=== PATIENT | male | born 1950 | race Caucasian/White ===

== ENCOUNTER 2017-04-19 21:18 | Emergency (ER) | payer MEDICARE, SELFPAY | END 2017-04-19 23:21 | disposition home or self-care (01) | PROVIDERS: Emergency Provider Emergency Medicine; Family Provider Emergency Medicine; Visit Provider Emergency Medicine | DX: M79.662 Pain in left lower leg (principal); R79.1 Abnormal coagulation profile; E11.9 Type 2 diabetes mellitus without complications; F17.210 Nicotine dependence, cigarettes, uncomplicated; Z79.02 Long term (current) use of antithrombotics/antiplatelets; Z79.4 Long term (current) use of insulin; Z79.891 Long term (current) use of opiate analgesic | CPT/HCPCS: 80053; 85025; 85378; 85610; 96372; 99282 ==

== ENCOUNTER → 2017-06-19 09:43 | Outpatient (CLI) | payer MEDICARE, SELFPAY ==
--- NOTE | 2017-06-19 09:47 | CT_ITS ---
CT abdomen pelvis w con CLINICAL INDICATION: Abdominal pain ITS.REASON: ABD PAIN ORDERING PHYSICIAN: Akshat Shaw MD PATIENT AGE: 67 years COMPARISON: None TECHNIQUE: Axial images obtained with sagittal and coronal reformats. PROCEDURE: Oral Contrast: None IV Contrast: 75 mL of Isovue-370. FINDINGS: No acute finding in the lung bases. There is been a prior cholecystectomy. No definite ductal dilatation. There is a small area of decreased density in the inferior tip of the right hepatic lobe at 6 mm too small to characterize and may be due to small cyst. The liver is otherwise unremarkable. Spleen and adrenal glands are unremarkable. There is pancreatic atrophy. No obvious pancreatic mass. No renal calculi or hydronephrosis. There is a mild amount retained colonic feces. No intestinal obstruction or free air. No evidence of appendicitis or diverticulitis. No pelvic mass or abnormal fluid collection. There is mild thickening of the urinary bladder which is nonspecific. There is degenerative disc disease at L4-L5 and L5-S1. There is a right common iliac artery stent extending into the right external iliac artery. It appears that the internal iliac artery on the right is occluded with mild dilatation measuring up to 12 mm. IMPRESSION: 1. No acute abdominal or pelvic findings. 2. Probable right hepatic cyst. 3. There is severe pancreatic atrophy
[2017-06-19 10:26] LABS: Blood Urea Nitrogen 8 mg/dL (7-18); Creatinine,Serum 1.09 mg/dL (0.70-1.30); Estimated Glomerular Filt Rate 67 ml/min (>60); GFR (African American) 82 ML/MIN (>60)
== END ==
PROVIDERS: PCP Emergency Medicine; Visit Provider Emergency Medicine
DX: R10.9 Unspecified abdominal pain (principal)
CPT/HCPCS: 36415; 74177; 82565; 84520; Q9967

== ENCOUNTER 2017-07-03 06:16 | Inpatient (IN) | payer MEDICARE, SELFPAY ==
[2017-07-03] VITALS (22 sets, daily range): BP systolic 104–156; BP diastolic 51–70; PULSE 67–97; RESP 18–30; TEMP 36.5–37.3; O2SAT 92–100; BMI 23.6; BMI 21.1
--- NOTE | 2017-07-03 06:30 | XR_ITS ---
XR chest portable HISTORY: ITS.REASON: tachypnea ORDERING PHYSICIAN: Akshat Shaw MD PATIENT AGE: 67 years COMPARISON: None available FINDINGS: The cardiomediastinal silhouette and pulmonary vascularity are within normal limits. There is a coronary artery stent present The lungs are clear without infiltrates, suspicious nodules, or pleural effusions. No acute bony abnormalities. IMPRESSION: Coronary artery stent present. No acute finding
[2017-07-03 06:44] LABS: Basophils # 0.1 K/mm3 (0-0.2); Basophils % 0.2 % (0.1-2.0); Eosinophils % 0.1 % (0.1-12.0); Hematocrit 45.9 % (42.0-52.0); Lymphocytes # 2.3 K/mm3 (0.7-4.5); Lymphocytes % 6.6 K/mm3 (10-50); Mean Corpuscular HGB Conc 28.2 g/dL (31.8-35.4); Mean Corpuscular Hemoglobin 30.8 pg (27.0-31.2); Mean Corpuscular Volume 109.2 fl (80-94); Mean Platelet Volume 9.5 fl (7.4-10.4); Monocytes # 1.5 K/mm3 (0.1-1.0); Monocytes % 4.3 % (1.7-9.3); Neutrophils # 31.3 K/mm3 (1.8-7.8); Neutrophils % 88.7 % (37.0-80.0); Platelet Count 474 K/mm3 (142-424); Red Cell Distribution Width 12.6 % (11.5-17.5); White Blood Count 35.3 K/mm3 (4.8-10.8)
[2017-07-03 06:53] LABS: Alanine Aminotransferase 12 U/L (12-78); Albumin Level 3.4 gm/dL (3.4-5.0); Albumin/Globulin Ratio 0.9 (1.1-1.8); Alkaline Phosphatase 195 U/L (46-116); Anion Gap 38.1 mEq/L (5-15); Aspartate Amino Transferase 11 U/L (15-37); Bilirubin,Total 0.8 mg/dL (0.2-1.0); Blood Urea Nitrogen 32 mg/dL (7-18); Chloride 83 mmol/L (98-107); Creatinine Clearance Estimated 29 mL/min (0-300); Creatinine,Serum 2.58 mg/dL (0.70-1.30); Estimated Glomerular Filt Rate 25 ml/min (>60); GFR (African American) 30 ML/MIN (>60); Potassium 5.1 mmoL/L (3.5-5.1); Sodium 123 mmol/L (136-145); Total Protein,Serum 7.4 gm/dL (6.4-8.2)
[2017-07-03 06:56] LABS: ABG Base Excess -23.7 mmol/L (-2.4-2.3); ABG HCO3 4.1 mmhg (22.0-26.0); ABG Oxygen Saturation 98 % (90-100); ABG PH 7.21 mmol/L (7.35-7.45); ABG PO2 129.3 mmhg (80-100); ABG TCO2 4.5 mmhg (23-27); Allen's Test ACCEPTABLE; Oxygen ROOM AIR %; Source R RADIAL
[2017-07-03 06:58] LABS: ABG PCO2 10.5 mmhg (35.0-45.0)
--- NOTE | 2017-07-03 06:58 | PC.NURSE ---
CRITICAL LAB VALUES/ABGS RECEIVED AND DR SMART NOTIFIED
[2017-07-03 07:04] LABS: MANUAL DIFFERENTIAL MANUAL DIFFERENTIAL (MANUAL DIFF)
[2017-07-03 07:10] LABS: Carbon Dioxide 7 mmol/L (21.0-32.0)
--- NOTE | 2017-07-03 07:11 | PC.NURSE ---
LABCALLED WITH GLUCOSE RESULTS 885. DR SMART NOTIFIED
[2017-07-03 07:12] LABS: Glucose 885 mg/dL (74-106)
[2017-07-03 07:20] LABS: Acetone, Serum (Rapid) Moderate (None Detect)
[2017-07-03 07:38] LABS: Microscopic, Urine URINE MICROSCOPIC (MICROSCOPIC)
[2017-07-03 07:42] LABS: Appearance,Urine SL CLOUDY (Clear); Bilirubin,Urine Negative (Negative); Blood, Urine TRACE-L (Negative); Color,Urine YELLOW (Yellow); Glucose,Urine (UA) 3+ (Negative); Ketones,Urine 2+ (Negative); Leukocyte Esterase,Urine Negative (Negative); Nitrate,Urine Negative (Negative); Protein,Urine Negative (Negative); Urobilinogen,Urine 0.2 EU/dl (0.2)
--- NOTE | 2017-07-03 07:44 | HMH.EDNVD ---
ED Disposition Clinical Impression: DKA (diabetic ketoacidoses) Qualifiers: Diabetes mellitus type: type 1 Diabetes mellitus complication detail: without coma Qualified Code(s): E10.10 - Type 1 diabetes mellitus with ketoacidosis without coma Leukocytosis Qualifiers: Leukocytosis type: unspecified Qualified Code(s): D72.829 - Elevated white blood cell count, unspecified Disposition: Admitted As Inpatient Condition on Discharge: Serious Instructions: DI for Hyperglycemia -- Adult Referrals: Lawrence Crews MD [Staff Physician] - - Critical Care Critical Care Time: Yes Attestation: On 07/03/17, the high probability of a clinically significant, sudden or life threatening deterioration of the following system(s) required my full and direct attention, intervention and personal management. The time I documented below is in addition to time spent performing reported procedures but includes the following listed in this critical care notation. Total Critical Care Time: 60 Vital system(s) involved:: Metabolic Failure My critical care processes included: Assessment & monitoring of V/S, Initial and Re-exams, Medication Orders and management Medical Decision Making - Medical Records Medical records reviewed: Yes: I reviewed the patient's medical records. Vital Signs: 07/03/17 06:17 07/03/17 07:17 Temperature 97.8 F Temperature Source Oral Pulse Rate [Right Radial] 97 H 95 H Respiratory Rate 30 H 24 Blood Pressure [Right Arm] 129/63 104/64 Blood Pressure Mean [Right Arm] 85 77 Blood Pressure Source [Right Arm] Automatic Cuff Automatic Cuff Blood Pressure Position [Right Arm] Sitting Sitting 02 Sat by Pulse Oximetry 98 97 Oxygen Delivery Method Room Air Room Air - Lab Data Lab results reviewed: Yes: I reviewed the patient's lab results. Lab Results 07/03/17 06:15: WBC 35.3 H*, RBC 4.20 L, Hgb 13.0 L, Hct 45.9, MCV 109.2 H, MCH 30.8, MCHC 28.2 L, RDW 12.6, Plt Count 474 H, MPV 9.5, Neut % (Auto) 88.7 H, Lymph % (Auto) 6.6 L, [place] % (Auto) 4.3, Eos % (Auto) 0.1, Baso % (Auto) 0.2, Neut # (Auto) 31.3 H, Lymph # (Auto) 2.3, [place] # (Auto) 1.5 H, Eos # (Auto) 0.0, Baso # (Auto) 0.1 07/03/17 06:15: Sodium 123 L, Potassium 5.1, Chloride 83 L, Carbon Dioxide 7 L*, Anion Gap 38.1 H, BUN 32 H, Creatinine 2.58 H, Estimated Creat Clear 29, Estimated GFR 25 L, Est GFR ( Amer) 30 L, Glucose 885 H*, Calcium 9.0, Total Bilirubin 0.8, AST 11 L, ALT 12, Alkaline Phosphatase 195 H, Total Protein 7.4, Albumin 3.4, Globulin 4.0 H, Albumin/Globulin Ratio 0.9 L, Acetone Level Moderate 07/03/17 06:52: Specimen Source R radial, O2 % Room air, ABG pH 7.21 L*, ABG pCO2 10.5 L, ABG pO2 129.3 H, ABG HCO3 4.1 L, ABG Total CO2 4.5 L, ABG O2 Saturation 98, ABG Base Excess -23.7 L, Sumanth Test Acceptable Result diagrams: 07/03/17 06:15 07/03/17 06:15 Orders (Tests/Meds): ED MEDICATIONS Generic Name Dose Route Start Last Admin Trade Name Freq PRN Reason Stop Dose Admin Sodium Chloride 1,000 mls @ 999 mls/hr 07/03/17 07:30 07/03/17 07:24 Sod Chlor 0.9% 1000ml Bag IV 07/03/17 08:30 999 mls/hr .Q1H1M OG Administration Discontinued Medications Generic Name Dose Route Start Last Admin Trade Name Freq PRN Reason Stop Dose Admin Sodium Chloride 1,000 mls @ 999 mls/hr 07/03/17 06:30 07/03/17 06:34 Sod Chlor 0.9% 1000ml Bag IV 07/03/17 07:30 999 mls/hr .Q1H1M OG Administration Sodium Chloride 500 mls @ 999 mls/hr 07/03/17 07:15 Sod Chlor 0.9% 1000ml Bag IV 07/03/17 07:45 .Q31M OG Insulin Human Regular 10 unit 07/03/17 07:14 07/03/17 07:16 Humulin R Insulin 100 Units/Ml 10ml Vial IVP 07/03/17 07:15 10 unit ONCE ONE Administration ORDERS Category Date Time Status XR chest portable Stat Exams 07/03/17 06:30 Taken Complete Blood Count Auto Diff Stat Lab 07/03/17 06:15 Results POC Glucose,Bedside Routine Lab 07/03/17 06:20 Received Urinalysis and Microscopic Stat Lab
--- NOTE | 2017-07-03 07:49 | PC.NURSE ---
call placed for admission. acute status, dka. awaiting bed assignment. house notified.
[2017-07-03 07:55] LABS: Lymphocytes % 2 % (10-50); Monocytes % 3 % (2-9); Neutrophils % 89 % (42-76); Total Cells Counted 100
[2017-07-03 07:56] LABS: Burr Cells 2+
[2017-07-03 07:57] LABS: Macrocytosis 2+
--- NOTE | 2017-07-03 07:58 | ED_ITS ---
ED Disposition Clinical Impression: DKA (diabetic ketoacidoses) Qualifiers: Diabetes mellitus type: type 1 Diabetes mellitus complication detail: without coma Qualified Code(s): E10.10 - Type 1 diabetes mellitus with ketoacidosis without coma Leukocytosis Qualifiers: Leukocytosis type: unspecified Qualified Code(s): D72.829 - Elevated white blood cell count, unspecified Disposition: Admitted As Inpatient Condition on Discharge: Serious Instructions: DI for Hyperglycemia -- Adult Referrals: Lawrence Crews MD [Staff Physician] - - Critical Care Critical Care Time: Yes Attestation: On 07/03/17, the high probability of a clinically significant, sudden or life threatening deterioration of the following system(s) required my full and direct attention, intervention and personal management. The time I documented below is in addition to time spent performing reported procedures but includes the following listed in this critical care notation. Total Critical Care Time: 60 Vital system(s) involved:: Metabolic Failure My critical care processes included: Assessment & monitoring of V/S, Initial and Re-exams, Medication Orders and management Medical Decision Making - Medical Records Medical records reviewed: Yes: I reviewed the patient's medical records. Vital Signs: 07/03/17 06:17 07/03/17 07:17 Temperature 97.8 F Temperature Source Oral Pulse Rate [Right Radial] 97 H 95 H Respiratory Rate 30 H 24 Blood Pressure [Right Arm] 129/63 104/64 Blood Pressure Mean [Right Arm] 85 77 Blood Pressure Source [Right Arm] Automatic Cuff Automatic Cuff Blood Pressure Position [Right Arm] Sitting Sitting 02 Sat by Pulse Oximetry 98 97 Oxygen Delivery Method Room Air Room Air - Lab Data Lab results reviewed: Yes: I reviewed the patient's lab results. Lab Results 07/03/17 06:15: WBC 35.3 H*, RBC 4.20 L, Hgb 13.0 L, Hct 45.9, MCV 109.2 H, MCH 30.8, MCHC 28.2 L, RDW 12.6, Plt Count 474 H, MPV 9.5, Neut % (Auto) 88.7 H, Lymph % (Auto) 6.6 L, [place] % (Auto) 4.3, Eos % (Auto) 0.1, Baso % (Auto) 0.2, Neut # (Auto) 31.3 H, Lymph # (Auto) 2.3, [place] # (Auto) 1.5 H, Eos # (Auto) 0.0 , Baso # (Auto) 0.1 07/03/17 06:15: Sodium 123 L, Potassium 5.1, Chloride 83 L, Carbon Dioxide 7 L* , Anion Gap 38.1 H, BUN 32 H, Creatinine 2.58 H, Estimated Creat Clear 29, Estimated GFR 25 L, Est GFR ( Amer) 30 L, Glucose 885 H*, Calcium 9.0, Total Bilirubin 0.8, AST 11 L, ALT 12, Alkaline Phosphatase 195 H, Total Protein 7.4, Albumin 3.4, Globulin 4.0 H, Albumin/Globulin Ratio 0.9 L, Acetone Level Moderate 07/03/17 06:52: Specimen Source R radial, O2 % Room air, ABG pH 7.21 L*, ABG pCO2 10.5 L, ABG pO2 129.3 H, ABG HCO3 4.1 L, ABG Total CO2 4.5 L, ABG O2 Saturation 98, ABG Base Excess -23.7 L, Sumanth Test Acceptable Result diagrams: 07/03/17 06:15 07/03/17 06:15 Orders (Tests/Meds): ED MEDICATIONS Generic Name Dose Route Start Last Admin Trade Name Freq PRN Reason Stop Dose Admin Sodium Chloride 1,000 mls @ 999 mls/hr 07/03/17 07:30 07/03/17 07:24 Sod Chlor 0.9% 1000ml Bag IV 07/03/17 08:30 999 mls/hr .Q1H1M OG Administration Discontinued Medications Generic Name Dose Route Start Last Admin Trade Name Freq PRN Reason Stop Dose Admin Sodium Chloride 1,000 mls @ 999 mls/hr 07/03/17 06:30 07/03/17 06:34 Sod Chlor 0.9% 1000ml Bag IV 07/03/17 07:30 999 mls/hr
[2017-07-03 08:00] LABS: Bacteria,Urine 2+ /lpf; Squamous Epithelial Cell,Urine Occasional #/hpf (0-5)
--- NOTE | 2017-07-03 08:00 | PC.NURSE ---
Spoke with fish housekeeper at this time who states pt will be going to room 216, SD. Stated this room is currently occupied, but pt is being discharged. Stated pt will need to be held in ER until at least 0900 per second floor worker transfer bay. Admission information given to registration staff.
[2017-07-03 08:02] LABS: Platelet Estimate Moderate Increase
[2017-07-03 08:07] LABS: Creatine Kinase 137 U/L (39-308); Creatine Kinase MB 2.8 mg/ml (0.0-3.6); Troponin I 0.02 ng/ml (0.00-0.06)
--- NOTE | 2017-07-03 08:45 | PC.NURSE ---
fsbs rechecked and continues to read hi . lab notified and running a second drawn glucose.
[2017-07-03 09:00] LABS: Glucose,Random 898 mg/dL (70-110)
--- NOTE | 2017-07-03 09:00 | PC.NURSE ---
Critical glucose 898, notified ER MD as pt is boarding in ER. Pt had a bs glucose performed aircraft captain this result from lab with a result as HI.
--- NOTE | 2017-07-03 09:30 | PC.NURSE ---
contacted second floor to check on status of bed, spoke with ocean freight forwarder who stated room is currently being cleaned, stated will notify when room is ready for pt.
--- NOTE | 2017-07-03 09:59 | PC.NURSE ---
Second floor chief passenger ship steward/stewardess called back at this time stating room is clean drying and that she has notified receiving nurse to call to get report on pt. Notified registration staff that pt can now be moved into room for admission.
--- NOTE | 2017-07-03 10:13 | PC.NURSE ---
report called to MarianelaRN on second floor at this time, stated staff is finished making up the room and will come down to get pt when they are finished.
--- NOTE | 2017-07-03 11:33 | PC.NURSE ---
MS ALBERTO HELD DUE TO PT LOC AT THIS TIME
[2017-07-03 11:37] LABS: Glucose,Random 662 mg/dL (70-110)
[2017-07-03 12:35] LABS: Glucose,Random 607 mg/dL (70-110)
[2017-07-03 13:45] LABS: Glucose,Random 533 mg/dL (70-110)
[2017-07-03 16:21] LABS: Blood Urea Nitrogen 28 mg/dL (7-18); Carbon Dioxide 17 mmol/L (21.0-32.0); Chloride 102 mmol/L (98-107); Creatinine Clearance Estimated 40 mL/min (0-300); Estimated Glomerular Filt Rate 40 ml/min (>60); GFR (African American) 49 ML/MIN (>60); Sodium 136 mmol/L (136-145)
[2017-07-03 16:31] LABS: Glucose 444 mg/dL (74-106)
[2017-07-03 16:46] LABS: Acetone, Serum (Rapid) Small (None Detect)
[2017-07-03 22:58] LABS: Acetone, Serum (Rapid) None Detected (None Detect)
[2017-07-04] VITALS (16 sets, daily range): BP systolic 110–154; BP diastolic 55–78; PULSE 48–82; RESP 18–24; TEMP 36.6–37.1; O2SAT 95–99
[2017-07-04 00:43] LABS: POC Glucose,Bedside 97 mg/dL (70-110)
--- NOTE | 2017-07-04 03:15 | PC.NURSE ---
PT A&O X3. SHE IS RESTING WELL AT THIS TIME. SHE STATES THAT SHE FEELS BETTER. HER PAIN HAS DECREASED SINCE BEGINNING OF SHIFT. PAIN MEDICATION WAS ADMINISTERED. PT STATES THAT PAIN LEVEL IS MAYBE A 4 WHEN SHE MOVES. SHE IS STARTING TO TURN HERSELF IN BED WITH SOME ASSISTANCE. SHE IS INCONTINENT OF HER URINE. ABDOMINAL AREA HAS FIVE DRESSINGS INTACT WITH SMALL DRAINAGE NOTED AT BEGINNING OF SHIFT. DRAINAGE WAS MARKED AND HAS NOT CHANGED. B/P HAS BEEN ELEVATED THIS SHIFT. MD WAS NOTIFIED. LISINOPRIL 20 MG ONE TIME DOSE AND METOPROLOL SUCCINATE 50 MG WAS ORDERED AND ADMINISTERED. PT HAS REMAINED NSR ON TELEMETRY. NO OTHER COCNERNS NOTED AT THIS TIME. WILL CONTINUE TO MONITOR.
--- NOTE | 2017-07-04 03:29 | PC.NURSE ---
PT FSBS WAS CHECKED @ 2100 RESULTING OF 133. INSULIN GTT WAS DECREASED TO 1 UNIT/HR AND MD WAS NOTIFIED OF PT. STATUS FOR CLARIFICATION OF ADDITIONAL CARE. PT WAS PLACED ON D5 NS @ 250 ML/HR. MD AWARE. SERUM ACETONE WAS OBTAINED RESULTING WITH NONE DETECTED. INSULIN GTT WAS D/C. PT IS CURRENTLY RESTING COMFORTABLY IN BED. HE HAS AMBULATED TO BATHROOM X3. NS IS INFUSING @ 250 ML/HR AT THIS TIME. PT HAS BEEN PLACED ON HIGH INTENSITY SLIDING SCALE PER MD. V/S ARE STABLE. PT HAS REMAINED NSR ON TELEMETRY. NO OTHER CONCERNS AT THIS TIME. WILL CONTINUE TO MONITOR.
[2017-07-04 06:15] LABS: Basophils % 0.1 % (0.1-2.0); Eosinophils # 0.3 K/mm3 (0.0-0.4); Hematocrit 36.3 % (42.0-52.0); Hemoglobin 11.9 g/dL (14.1-18.0); Lymphocytes # 1.2 K/mm3 (0.7-4.5); Lymphocytes % 4.2 K/mm3 (10-50); Mean Corpuscular HGB Conc 32.6 g/dL (31.8-35.4); Mean Corpuscular Hemoglobin 31.2 pg (27.0-31.2); Mean Corpuscular Volume 95.6 fl (80-94); Mean Platelet Volume 9.7 fl (7.4-10.4); Monocytes % 3.7 % (1.7-9.3); Neutrophils # 25.2 K/mm3 (1.8-7.8); Neutrophils % 90.9 % (37.0-80.0); Red Cell Distribution Width 13.3 % (11.5-17.5)
[2017-07-04 06:24] LABS: Blood Urea Nitrogen 27 mg/dL (7-18); Carbon Dioxide 14 mmol/L (21.0-32.0); Chloride 104 mmol/L (98-107); Creatinine Clearance Estimated 55 mL/min (0-300); Creatinine,Serum 1.32 mg/dL (0.70-1.30); Estimated Glomerular Filt Rate 54 ml/min (>60); GFR (African American) 65 ML/MIN (>60); Glucose 388 mg/dL (74-106); Magnesium 1.8 mg/dL (1.4-2.2); Phosphorous 2.6 mg/dL (2.4-4.9); Sodium 137 mmol/L (136-145)
[2017-07-04 06:25] LABS: White Blood Count 27.4 K/mm3 (4.8-10.8)
[2017-07-04 06:26] LABS: MANUAL DIFFERENTIAL MANUAL DIFFERENTIAL (MANUAL DIFF); Platelet Count 160 K/mm3 (142-424)
--- NOTE | 2017-07-04 07:29 | PC.NURSE ---
REPORT HANDOFF TO JOLIE MEDLEY
--- NOTE | 2017-07-04 07:55 | P.CONPHA_ITS ---
[facility] Pharmacy VTE Monitoring - Patient Demographics Admission date: 07/03/17 Report Date: 07/04/17 Time: 07:55 Allergies/Adverse Reactions: Patient Allergies adhesive Allergy (Mild, Verified 07/03/17 18:16) Rash nicotine [From Nicoderm CQ] Allergy (Mild, Verified 07/02/17 08:09) Rash Height: 1.78 m Weight: 71.724 kg Patient Problems: Current Active Problems DKA (diabetic ketoacidoses) (Acute) Leukocytosis (Acute) - VTE Risk Labs: VTE Related Lab Results Hgb 11.9 g/dL (14.1-18.0) L 07/04/17 05:30 Hct 36.3 % (42.0-52.0) L 07/04/17 05:30 Plt Count 160 K/mm3 (142-424) D 07/04/17 05:30 BUN 27 mg/dL (7-18) H 07/04/17 05:30 Creatinine 1.32 mg/dL (0.70-1.30) H D 07/04/17 05:30 Estimated Creat Clear 55 mL/min (0-300) 07/04/17 05:30 VTE Risk Level: Very Low Risk - Prophylaxis VTE Prophylaxis Ordered?: Yes Types of VTE Prophylaxis: TEDS Knee High Location of Applied Device: Bilateral Lower Extremeties - VTE Diagnosis Confirmed Treatment or plan recommended: Continue Current Treatment
[2017-07-04 08:39] LABS: Lymphocytes % 1 % (10-50); Monocytes % 3 % (2-9); Neutrophils % 96 % (42-76); Total Cells Counted 100
[2017-07-04 08:40] LABS: Burr Cells 4+
[2017-07-04 08:43] LABS: Platelet Estimate Normal; Schistocytes 2+
--- NOTE | 2017-07-04 09:06 | P.HP_ITS ---
*Admission Date: 07/03/17 *Chief complaint: nausea vomiting *History of present illness: 67 yr old male presented to ed with c/o of nausea,vomiting and diarreha for 3 days. Pt states he had been feeling ill for 2 days and was not able to get out of bed to take insulin. Pt admitted for dka placed on insulin drip and monitor of labs. [facility] History I have reviewed the patient's past medical history: Yes Medical History: Reports:: Coronary Artery Disease, Diabetes Mellitus Type 1, Hyperlipidemia, Hypertension, Peripheral Artery Disease Denies:: Cancer, Diabetes Mellitus Type 2, MRSA Laterality Cases: Bilateral: Tonsillectomy Other Surgeries: Yes: Angioplasty (2 stents), Other Amputation: No Fractures: No - *Social History Educational Level: Attended College Smoking Status: Light tobacco smoker Tobacco Type: cigarettes # Packs/Day (cigarettes): 4 Alcohol Intake: never Occupational Status: retired Housing: house Household Members: other - Psychiatric History Expresses thoughts of harming self/others: None Suicide Plan Description: No Plan *Family Hx:: Cancer, Coronary Artery Disease, Heart Attack Review of Systems - Constitutional Reports body ache(s), Reports fatigue, Reports malaise - Eyes Denies floaters - ENT Denies nasal congestion - *Cardiovascular Denies shortness of breath - *Respiratory Denies chest congestion - *Gastrointestinal Denies bloating, Denies change in bowel habits - *Genitourinary Denies painful urination - *Musculoskeletal Denies neck pain - Integumentary/Breasts Denies rash - *Neurologic Denies seizure-like activity - Psychiatric Denies anxiety - Endocrine Denies excessive sweating - Hematologic/Lymphatic Denies enlarged lymph nodes - Allergic/Immunologic Denies itchy eyes Meds Home Medications Medication Instructions Recorded Confirmed Type aspirin 81 mg tablet,delayed 81 mg PO ONCE 05/20/17 07/03/17 History release atorvastatin 10 mg tablet 10 mg PO ONCE 05/20/17 07/03/17 History clopidogrel 75 mg tablet 75 mg PO DAILY 05/20/17 07/03/17 History gabapentin 300 mg capsule 300 mg PO ONCE cap 05/20/17 07/03/17 History insulin aspart 100 unit/mL 11 unit SUB-Q TID ml 05/20/17 07/03/17 History subcutaneous solution insulin glargine 100 unit/mL (3 40 unit SUB-Q ONCE ml 05/20/17 07/03/17 History mL) subcutaneous pen lisinopril 2.5 mg tablet 2.5 mg PO DAILY 05/20/17 07/03/17 History morphine ER 30 mg tablet,extended 30 mg PO BID tab 05/20/17 07/03/17 History release oxycodone 10 mg tablet 10 mg PO TIDP PRN tab 05/20/17 07/03/17 History oxycodone ER 9 mg capsule sprinkle 18 mg PO Q12H each 06/05/17 07/03/17 History extend release 12 hr(tamper resist) Allergies Allergy/AdvReac Type Severity Reaction Status Date / Time adhesive Allergy Mild Rash Verified 07/03/17 18:16 [facility] Allergy Mild Rash Verified 07/02/17 08:09 Exam Vital signs and Labs for Last 24 Hours: Temp Pulse Resp BP Pulse Ox 98.7 F 65 22 120/69 98 07/04/17 07:00 07/04/17 08:00 07/04/17 08:00 07/04/17 08:00 07/04/17 08:00 Laboratory Results - last 24 hr 07/03/17 11:06: Random Glucose 662 H* D 07/03/17 12:10: Random Glucose 607 H* 07/03/17 13:22: Random Glucose 533 H* 07/03/17 15:55: So
--- NOTE | 2017-07-04 09:06 | HMH.HP ---
*Admission Date: 07/03/17 [facility] History Medical History: Reports:: Coronary Artery Disease, Diabetes Mellitus Type 1, Hyperlipidemia, Hypertension, Peripheral Artery Disease Denies:: Cancer, Diabetes Mellitus Type 2, MRSA Laterality Cases: Bilateral: Tonsillectomy Other Surgeries: Yes: Angioplasty (2 stents), Other Amputation: No Fractures: No - *Social History Educational Level: Attended College Smoking Status: Light tobacco smoker Tobacco Type: cigarettes # Packs/Day (cigarettes): 4 Alcohol Intake: never Occupational Status: retired Housing: house Household Members: other - Psychiatric History Expresses thoughts of harming self/others: None Suicide Plan Description: No Plan *Family Hx:: Cancer, Coronary Artery Disease, Heart Attack Review of Systems - *Neurologic Denies seizure-like activity Meds Home Medications Medication Instructions Recorded Confirmed Type aspirin 81 mg tablet,delayed 81 mg PO ONCE 05/20/17 07/03/17 History release atorvastatin 10 mg tablet 10 mg PO ONCE 05/20/17 07/03/17 History clopidogrel 75 mg tablet 75 mg PO DAILY 05/20/17 07/03/17 History gabapentin 300 mg capsule 300 mg PO ONCE cap 05/20/17 07/03/17 History insulin aspart 100 unit/mL 11 unit SUB-Q TID ml 05/20/17 07/03/17 History subcutaneous solution insulin glargine 100 unit/mL (3 40 unit SUB-Q ONCE ml 05/20/17 07/03/17 History mL) subcutaneous pen lisinopril 2.5 mg tablet 2.5 mg PO DAILY 05/20/17 07/03/17 History morphine ER 30 mg tablet,extended 30 mg PO BID tab 05/20/17 07/03/17 History release oxycodone 10 mg tablet 10 mg PO TIDP PRN tab 05/20/17 07/03/17 History oxycodone ER 9 mg capsule sprinkle 18 mg PO Q12H each 06/05/17 07/03/17 History extend release 12 hr(tamper resist) Allergies Allergy/AdvReac Type Severity Reaction Status Date / Time adhesive Allergy Mild Rash Verified 07/03/17 18:16 nicotine [From Nicoderm CQ] Allergy Mild Rash Verified 07/02/17 08:09 Exam Vital signs and Labs for Last 24 Hours: Temp Pulse Resp BP Pulse Ox 98.7 F 65 22 120/69 98 07/04/17 07:00 07/04/17 08:00 07/04/17 08:00 07/04/17 08:00 07/04/17 08:00 Laboratory Results - last 24 hr 07/03/17 11:06: Random Glucose 662 H* D 07/03/17 12:10: Random Glucose 607 H* 07/03/17 13:22: Random Glucose 533 H* 07/03/17 15:55: Sodium 136, Potassium 4.0 D, Chloride 102 D, Carbon Dioxide 17 L D, Anion Gap 21.0 H, BUN 28 H, Creatinine 1.70 H D, Estimated Creat Clear 40, Estimated GFR 40 L, Est GFR ( Amer) 49 L D, Glucose 444 H* D, Acetone Level Small 07/03/17 22:05: POC Glucose 97 07/03/17 22:30: Acetone Level None detected 07/04/17 05:30: WBC 27.4 H*, RBC 3.80 L, Hgb 11.9 L, Hct 36.3 L, MCV 95.6 H, MCH 31.2, MCHC 32.6, RDW 13.3, Plt Count 160 D, MPV 9.7, Neut % (Auto) 90.9 H, Lymph % (Auto) 4.2 L, [place] % (Auto) 3.7, Eos % (Auto) 1.0, Baso % (Auto) 0.1, Neut # (Auto) 25.2 H, Lymph # (Auto) 1.2, [place] # (Auto) 1.0, Eos # (Auto) 0.3, Baso # (Auto) 0.0, Total Counted 100, Neutrophils % (Manual) 96 H, Lymphocytes % (Manual) 1 L, Monocytes % (Manual) 3, Platelet Estimate Normal, [place] Cells 4+, Schistocytes 2+ 07/04/17 05:30: Sodium 137, Potassium 4.0, Chloride 104, Carbon Dioxide 14 L, Anion Gap 23.0 H, BUN 27 H, Creatinine 1.32 H D, Estimated Creat Clear 55, Estimated GFR 54 L, Est GFR ( Amer) 65 D, Glucose 388 H, Phosphorus 2.6, Magnesium 1.8 I & O for Last 24 hours: Intake & Output 07/01/17 07/02/17 07/03/17 07/04/17 11:59 11:59 11:59 11:59 Intake Total 1999 3325 / 3325 Output Total 1300 / 1300 Balance 1999 Weight 147 lb 6 oz 158 lb 2 oz H&P: Result - Labs Labs: Short CBC 07/04/17 Range/Units 05:30 WBC 27.4 H* (4.8-10.8) K/mm3 Hgb 11.9 L (14.1-18.0) g/dL Hct 36.3 L (42.0-52.0) % Plt Count 160 D (142-424) K/mm3 BMP 07/03/17 07/04/17 15:55 05:30 Sodium 136 137 Potassium 4.0 D 4.0 Chloride 102 D 104 Carbon Di
[2017-07-04 09:13] LABS: Acetone, Serum (Rapid) Small (None Detect)
--- NOTE | 2017-07-04 09:39 | PC.NURSE ---
STARTING INSULIN DRIP BACK R/T POSITIVE ACETONE. INSTRUCTED NOT TO TITRATE DRIP UNLESS INSTRUCTED PER PHYSICIAN. STATED AT 2 UNITS PER HOUR. INSTRUCTED TO CALL MD IF GLUCOSE REACHES 500 FOR FURTHER INSTRUCTION PER ANANDA ROLON AND DR. SMART.
[2017-07-04 13:26] LABS: Acetone, Serum (Rapid) None Detected (None Detect)
[2017-07-04 14:40] LABS: POC Glucose,Bedside 159 mg/dL (70-110)
[2017-07-04 15:12] LABS: POC Glucose,Bedside 420 mg/dL (70-110)
[2017-07-04 15:12] LABS: POC Glucose,Bedside 431 mg/dL (70-110)
[2017-07-04 15:12] LABS: POC Glucose,Bedside 223 mg/dL (70-110)
[2017-07-04 15:12] LABS: POC Glucose,Bedside 359 mg/dL (70-110)
[2017-07-04 15:12] LABS: POC Glucose,Bedside 512 mg/dL (70-110)
[2017-07-04 15:13] LABS: POC Glucose,Bedside 556 mg/dL (70-110)
[2017-07-04 15:13] LABS: POC Glucose,Bedside 133 mg/dL (70-110)
[2017-07-04 15:13] LABS: POC Glucose,Bedside > 600 mg/dL (70-110)
[2017-07-04 15:13] LABS: POC Glucose,Bedside > 600 mg/dL (70-110)
[2017-07-04 15:13] LABS: POC Glucose,Bedside > 600 mg/dL (70-110)
[2017-07-04 15:14] LABS: POC Glucose,Bedside 197 mg/dL (70-110)
[2017-07-04 15:14] LABS: POC Glucose,Bedside 264 mg/dL (70-110)
[2017-07-04 15:15] LABS: POC Glucose,Bedside 188 mg/dL (70-110)
[2017-07-04 15:15] LABS: POC Glucose,Bedside 326 mg/dL (70-110)
[2017-07-04 15:15] LABS: POC Glucose,Bedside 353 mg/dL (70-110)
[2017-07-04 16:10] LABS: POC Glucose,Bedside 111 mg/dL (70-110)
[2017-07-04 18:02] LABS: POC Glucose,Bedside 123 mg/dL (70-110)
[2017-07-04 18:41] LABS: Acetone, Serum (Rapid) None Detected (None Detect)
[2017-07-04 20:58] LABS: POC Glucose,Bedside 224 mg/dL (70-110)
[2017-07-05] VITALS (8 sets, daily range): BP systolic 122–154; BP diastolic 59–78; PULSE 52–70; RESP 16–18; TEMP 36.5–37.1; O2SAT 97–99; BMI 24.2
--- NOTE | 2017-07-05 04:05 | PC.NURSE ---
PT HAS BEEN DROWSY T/O SHIFT. HE HAS NEEDED ASSISTANCE WITH AMBULATING TO THE BATHROOM AND PUTTING ON HIS SHOES. REPORTED PAIN IN HIS LOWER BACK. RECEIVED PRN MEDICATION FOR NAUSEA. NO VOMITING THIS SHIFT.
--- NOTE | 2017-07-05 04:36 | PC.NURSE ---
RECEIVED REPORT FROM ISSA WHITAKER RN AT 0420. PT ALERT AND ORIENTED. ASSISTED PT TO BATHROOM. STANDBY ASSIST AND BACK TO BED. RESPIRATIONS EVEN AND UNLABORED. NSR ON TELEMETRY.
[2017-07-05 06:32] LABS: POC Glucose,Bedside 304 mg/dL (70-110)
[2017-07-05 08:05] LABS: Peripheral Smear Review Scanned Result
[2017-07-05 08:35] LABS: Basophils % 0.1 % (0.1-2.0); Eosinophils # 0.2 K/mm3 (0.0-0.4); Eosinophils % 1.1 % (0.1-12.0); Hematocrit 37.5 % (42.0-52.0); Lymphocytes # 1.4 K/mm3 (0.7-4.5); Mean Corpuscular HGB Conc 31.9 g/dL (31.8-35.4); Mean Corpuscular Hemoglobin 30.6 pg (27.0-31.2); Mean Corpuscular Volume 95.9 fl (80-94); Mean Platelet Volume 8.6 fl (7.4-10.4); Monocytes # 0.6 K/mm3 (0.1-1.0); Monocytes % 2.8 % (1.7-9.3); Platelet Count 326 K/mm3 (142-424); Red Blood Count 3.91 M/mm3 (4.60-6.20); Red Cell Distribution Width 13.4 % (11.5-17.5); White Blood Count 20.3 K/mm3 (4.8-10.8)
[2017-07-05 08:37] LABS: MANUAL DIFFERENTIAL MANUAL DIFFERENTIAL (MANUAL DIFF)
[2017-07-05 08:38] LABS: Acetone, Serum (Rapid) Small (None Detect)
[2017-07-05 08:46] LABS: Alanine Aminotransferase 24 U/L (12-78); Albumin Level 2.6 gm/dL (3.4-5.0); Albumin/Globulin Ratio 0.8 (1.1-1.8); Alkaline Phosphatase 123 U/L (46-116); Anion Gap 17.5 mEq/L (5-15); Aspartate Amino Transferase 29 U/L (15-37); Bilirubin,Total 0.8 mg/dL (0.2-1.0); Blood Urea Nitrogen 17 mg/dL (7-18); Carbon Dioxide 18 mmol/L (21.0-32.0); Chloride 105 mmol/L (98-107); Creatinine Clearance Estimated 62 mL/min (0-300); Creatinine,Serum 1.26 mg/dL (0.70-1.30); Estimated Glomerular Filt Rate 57 ml/min (>60); GFR (African American) 69 ML/MIN (>60); Globulin 3.2 gm/dl (1.3-3.2); Glucose 251 mg/dL (74-106); Potassium 3.5 mmoL/L (3.5-5.1); Sodium 137 mmol/L (136-145); Total Protein,Serum 5.8 gm/dL (6.4-8.2)
[2017-07-05 08:56] LABS: Calcium 7.8 mg/dL (8.5-10.1)
[2017-07-05 09:09] LABS: Lymphocytes % 5 % (10-50); Monocytes % 4 % (2-9); Neutrophils % 91 % (42-76); Total Cells Counted 100
[2017-07-05 09:10] LABS: Burr Cells 1+
[2017-07-05 09:11] LABS: Platelet Estimate Normal
[2017-07-05 11:04] LABS: POC Glucose,Bedside 177 mg/dL (70-110)
--- NOTE | 2017-07-05 11:30 | PC.NURSE ---
1114: called md office and left message with nurse (ana) that after reviewing labs noticed that acetone level this morning was a small amount. nurse stated she would relay to
--- NOTE | 2017-07-05 12:52 | PC.NURSE ---
nurse called back from dr mulligan office. stated that paulino vega aprn stated to give patient a normal saline bolus and to redraw acetone at 1300.
[2017-07-05 13:25] LABS: Acetone, Serum (Rapid) None Detected (None Detect)
--- NOTE | 2017-07-05 15:08 | SW/DCPLANNER ---
Spoke with patient regarding discharge plans. Patient stated that MD said he would possibly be discharging home this afternoon. Patient also stated that he would need to speak with some friends bc as of right now he does not have a ride home. I have contacted patients friend Rio to ask if he could transport patient home if he was ready for discharge this evening. I spoke with Rio and he stated that he would be home around 5 and would be able to take patient home. I have also wrote down more contacts (Delmis, Jordi, and Jodie) for this patient in case his phone goes . Patient has also contacted [employer] to be able to let patient into his house due to not having his keys. Fire Dept has stated to contact them once he is discharged home. Patient stated that he did not have any other needs at this time.
--- NOTE | 2017-07-05 16:47 | HMH.DCSUM ---
General - General Admission date: 07/03/17 Discharge date: 07/05/17 HPI HPI: 67 yr old male presented to ed with c/o of nausea,vomiting and diarreha for 3 days. Pt states he had been feeling ill for 2 days and was not able to get out of bed to take insulin. Pt admitted for dka placed on insulin drip and monitor of labs. Hospital Course Hospital Course: chest x ray neg, DKA: insulin drip repeated seraum acetone, fluids, pt eatting and drinking ok will dc home on routine meds. follow up in office next week Objective Vital signs: Temp Pulse Resp BP Pulse Ox 97.7 F 52 L 16 132/69 99 07/05/17 16:00 07/05/17 16:00 07/05/17 16:00 07/05/17 16:00 07/05/17 16:00 - *Routine HEENT Exam Head: Present: normocephalic Eye: Present: PERRL ENT: Present: mucous membranes moist - *Routine Neck Exam Present: supple, full ROM - *Routine Respiratory Exam Present: CTA bilaterally - *Routine Abdominal Exam Present: soft, normoactive bowel sounds - *Routine Extremities Exam Present: full ROM - *Routine Skin Exam Present: intact - *Routine Neurological Exam Present: alert, oriented X3, CN II-XII intact - Routine Psychiatric Exam Present: normal affect Results Labs on day of discharge: Labs from last 24 hours 07/05/17 07/05/17 07/05/17 12:00 10:52 08:30 WBC RBC Hgb Hct MCV MCH MCHC RDW Plt Count MPV Neut % (Auto) Lymph % (Auto) [place] % (Auto) Eos % (Auto) Baso % (Auto) Neut # (Auto) Lymph # (Auto) [place] # (Auto) Eos # (Auto) Baso # (Auto) Total Counted Neutrophils % (Manual) Lymphocytes % (Manual) Monocytes % (Manual) Platelet Estimate [place] Cells Sodium 137 Potassium 3.5 Chloride 105 Carbon Dioxide 18 L D Anion Gap 17.5 H BUN 17 D Creatinine 1.26 Estimated Creat Clear 62 Estimated GFR 57 L Est GFR ( Amer) 69 Glucose 251 H POC Glucose 177 Calcium 7.8 L D Total Bilirubin 0.8 AST 29 D ALT 24 D Alkaline Phosphatase 123 H Total Protein 5.8 L Albumin 2.6 L Globulin 3.2 Albumin/Globulin Ratio 0.8 L Acetone Level None detected Small 07/05/17 07/05/17 07/04/17 08:30 06:16 20:20 WBC 20.3 H* D RBC 3.91 L Hgb 12.0 L Hct 37.5 L MCV 95.9 H MCH 30.6 MCHC 31.9 RDW 13.4 Plt Count 326 D MPV 8.6 Neut % (Auto) 89.0 H Lymph % (Auto) 7.0 L [place] % (Auto) 2.8 Eos % (Auto) 1.1 Baso % (Auto) 0.1 Neut # (Auto) 18.0 H Lymph # (Auto) 1.4 [place] # (Auto) 0.6 Eos # (Auto) 0.2 Baso # (Auto) 0.0 Total Counted 100 Neutrophils % (Manual) 91 H Lymphocytes % (Manual) 5 L Monocytes % (Manual) 4 Platelet Estimate Normal [place] Cells 1+ Sodium Potassium Chloride Carbon Dioxide Anion Gap BUN Creatinine Estimated Creat Clear Estimated GFR Est GFR ( Amer) Glucose POC Glucose 304 224 Calcium Total Bilirubin AST ALT Alkaline Phosphatase Total Protein Albumin Globulin Albumin/Globulin Ratio Acetone Level 07/04/17 07/04/17 18:00 17:55 WBC RBC Hgb Hct MCV MCH MCHC RDW Plt Count MPV Neut % (Auto) Lymph % (Auto) [place] % (Auto) Eos % (Auto) Baso % (Auto) Neut # (Auto) Lymph # (Auto) [place] # (Auto) Eos # (Auto) Baso # (Auto) Total Counted Neutrophils % (Manual) Lymphocytes % (Manual) Monocytes % (Manual) Platelet Estimate [place] Cells Sodium Potassium Chloride Carbon Dioxide Anion Gap BUN Creatinine Estimated Creat Clear Estimated GFR Est GFR ( Amer) Glucose POC Glucose 123 Calcium Total Bilirubin AST ALT Alkaline Phosphatase Total Protein Albumin Globulin Albumin/Globulin Ratio Acetone Level None detected DS: Diagnosis - Discharge D
[2017-07-05 16:48] LABS: POC Glucose,Bedside 150 mg/dL (70-110)
--- NOTE | 2017-07-05 16:50 | P.DS_ITS ---
General - General Admission date: 07/03/17 Discharge date: 07/05/17 HPI HPI: 67 yr old male presented to ed with c/o of nausea,vomiting and diarreha for 3 days. Pt states he had been feeling ill for 2 days and was not able to get out of bed to take insulin. Pt admitted for dka placed on insulin drip and monitor of labs. Hospital Course Hospital Course: chest x ray neg, DKA: insulin drip repeated seraum acetone, fluids, pt eatting and drinking ok will dc home on routine meds. follow up in office next week Objective Vital signs: Temp Pulse Resp BP Pulse Ox 97.7 F 52 L 16 132/69 99 07/05/17 16:00 07/05/17 16:00 07/05/17 16:00 07/05/17 16:00 07/05/17 16:00 - *Routine HEENT Exam Head: Present: normocephalic Eye: Present: PERRL ENT: Present: mucous membranes moist - *Routine Neck Exam Present: supple, full ROM - *Routine Respiratory Exam Present: CTA bilaterally - *Routine Abdominal Exam Present: soft, normoactive bowel sounds - *Routine Extremities Exam Present: full ROM - *Routine Skin Exam Present: intact - *Routine Neurological Exam Present: alert, oriented X3, CN II-XII intact - Routine Psychiatric Exam Present: normal affect Results Labs on day of discharge: Labs from last 24 hours 07/05/17 07/05/17 07/05/17 12:00 10:52 08:30 WBC RBC Hgb Hct MCV MCH MCHC RDW Plt Count MPV Neut % (Auto) Lymph % (Auto) [place] % (Auto) Eos % (Auto) Baso % (Auto) Neut # (Auto) Lymph # (Auto) [place] # (Auto) Eos # (Auto) Baso # (Auto) Total Counted Neutrophils % (Manual) Lymphocytes % (Manual) Monocytes % (Manual) Platelet Estimate [place] Cells Sodium 137 Potassium 3.5 Chloride 105 Carbon Dioxide 18 L D Anion Gap 17.5 H BUN 17 D Creatinine 1.26 Estimated Creat Clear 62 Estimated GFR 57 L Est GFR ( Amer) 69 Glucose 251 H POC Glucose 177 Calcium 7.8 L D Total Bilirubin 0.8 AST 29 D ALT 24 D Alkaline Phosphatase 123 H Total Protein 5.8 L Albumin 2.6 L Globulin 3.2 Albumin/Globulin Ratio 0.8 L Acetone Level None detected Small 07/05/17 07/05/17 07/04/17 08:30 06:16 20:20 WBC 20.3 H* D RBC 3.91 L Hgb 12.0 L Hct 37.5 L MCV 95.9 H MCH 30.6 MCHC 31.9 RDW 13.4 Plt Count 326 D MPV 8.6 Neut % (Auto) 89.0 H Lymph % (Auto) 7.0 L [place] % (Auto) 2.8 Eos % (Auto) 1.1 Baso % (Auto) 0.1 Neut # (Auto) 18.0 H Lymph # (Auto) 1.4 [place] # (Auto) 0.6 Eos # (Auto) 0.2 Baso # (Auto) 0.0 Total Counted 100 Neutrophils % (Manual) 91 H Lymphocytes % (Manual) 5 L Monocytes % (Manual) 4 Platelet Estimate Normal [place]amin Cells 1
== END 2017-07-05 18:01 | disposition home or self-care (01) | DRG 639 ==
LOC: ER 07:23 → 2ND 08:07
PROVIDERS: Nurse Practitioner Family; Admitting Provider Emergency Medicine; Emergency Provider Emergency Medicine; PCP Emergency Medicine; Visit Provider Emergency Medicine
DX: E11.10 Type 2 diabetes mellitus with ketoacidosis without coma (principal); I10 Essential (primary) hypertension; E11.40 Type 2 diabetes mellitus with diabetic neuropathy, unspecified; E13.10 Other specified diabetes mellitus with ketoacidosis without coma; I25.10 Atherosclerotic heart disease of native coronary artery without angina pectoris; Z95.5 Presence of coronary angioplasty implant and graft; I73.9 Peripheral vascular disease, unspecified
CPT/HCPCS: 36415; 71045; 80048; 80053; 81001; 82009; 82550; 82553; 82803; 82947; 82962; 83735; 84100; 84484; 85007; 85025; 87086; 93005; 96365; 96366; 96374; 96375; 99284; J2405

== ENCOUNTER → 2018-04-21 13:32 | Outpatient (CLI) | payer MEDICARE, SELFPAY ==
[2018-04-21 14:00] LABS: Basophils % 0.3 % (0.1-2.0); Eosinophils # 0.3 K/mm3 (0.0-0.4); Eosinophils % 1.7 % (0.1-12.0); Hematocrit 44.5 % (42.0-52.0); Lymphocytes # 2.2 K/mm3 (0.7-4.5); Lymphocytes % 14.8 % (10-50); Mean Corpuscular HGB Conc 31.5 g/dL (31.8-35.4); Mean Corpuscular Hemoglobin 29.9 pg (27.0-31.2); Mean Corpuscular Volume 94.7 fl (80-94); Mean Platelet Volume 8.9 fl (7.4-10.4); Monocytes % 6.6 % (1.7-9.3); Neutrophils # 11.5 K/mm3 (1.8-7.8); Neutrophils % 76.6 % (37.0-80.0); Platelet Count 329 K/mm3 (142-424); Red Cell Distribution Width 13.8 % (11.5-17.5); White Blood Count 14.9 K/mm3 (4.8-10.8)
[2018-04-21 14:03] LABS: Alanine Aminotransferase 14 U/L (12-78); Albumin Level 3.5 gm/dL (3.4-5.0); Alkaline Phosphatase 184 U/L (46-116); Anion Gap 14.7 mEq/L (5-15); Aspartate Amino Transferase 10 U/L (15-37); Bilirubin,Total 0.4 mg/dL (0.2-1.0); Blood Urea Nitrogen 8 mg/dL (7-18); Calcium 8.7 mg/dL (8.5-10.1); Carbon Dioxide 26 mmol/L (21.0-32.0); Chloride 97 mmol/L (98-107); Chol/HDL Ratio 2.7 (1-3.5); Cholesterol 173 mg/dL (140-200); Creatinine,Serum 1.07 mg/dL (0.70-1.30); Estimated Glomerular Filt Rate 69 ml/min (>60); Free T4 (Free Thyroxine) 1.06 ng/dl (0.76-1.46); GFR (African American) 83 ML/MIN (>60); Globulin 3.5 gm/dl (1.3-3.2); Glucose 158 mg/dL (74-106); HDL Cholesterol 64 mg/dL (27-67); LDL Cholesterol 88 mg/dL (0-130); Potassium 4.7 mmoL/L (3.5-5.1); Sodium 133 mmol/L (136-145); Thyroid Stimulating Hormone 2.75 uIU/ml (0.358-3.740); Triglycerides 103 mg/dL (30-200); VLDL Cholesterol 21 mg/dL (0-40)
[2018-04-22 10:17] LABS: Creatinine, Urine 175.6 mg/dL (Not Estab.)
[2018-04-22 11:14] LABS: Vitamin D 25 Hydroxy 10.4 ng/mL (30.0-100.0)
== END ==
PROVIDERS: Visit Provider Emergency Medicine
DX: E10.9 Type 1 diabetes mellitus without complications (principal)
CPT/HCPCS: 80053; 80061; 82043; 82570; 82652; 83036; 84439; 84443; 85025

== ENCOUNTER → 2018-10-28 13:40 | Outpatient (CLI) | payer MEDICARE, SELFPAY ==
[2018-10-28 14:09] LABS: Basophils % 0.4 % (0.1-2.0); Eosinophils # 0.3 K/mm3 (0.0-0.4); Eosinophils % 2.7 % (0.1-12.0); Hematocrit 47.4 % (42.0-52.0); Hemoglobin 14.9 g/dL (14.1-18.0); Lymphocytes % 31.8 % (10-50); Mean Corpuscular HGB Conc 31.4 g/dL (31.8-35.4); Mean Corpuscular Hemoglobin 30.2 pg (27.0-31.2); Mean Corpuscular Volume 96.2 fl (80-94); Mean Platelet Volume 9.7 fl (7.4-10.4); Monocytes # 0.6 K/mm3 (0.1-1.0); Monocytes % 6.4 % (1.7-9.3); Neutrophils # 5.5 K/mm3 (1.8-7.8); Neutrophils % 58.8 % (37.0-80.0); Platelet Count 297 K/mm3 (142-424); Red Blood Count 4.93 M/mm3 (4.60-6.20); Red Cell Distribution Width 14.3 % (11.5-17.5); White Blood Count 9.4 K/mm3 (4.8-10.8)
[2018-10-28 14:57] LABS: Alanine Aminotransferase 20 U/L (12-78); Albumin Level 3.6 gm/dL (3.4-5.0); Albumin/Globulin Ratio 1.1 (1.1-1.8); Alkaline Phosphatase 176 U/L (46-116); Anion Gap 15.2 mEq/L (5-15); Aspartate Amino Transferase 17 U/L (15-37); Bilirubin,Total 0.3 mg/dL (0.2-1.0); Blood Urea Nitrogen 9 mg/dL (7-18); Calcium 8.9 mg/dL (8.5-10.1); Carbon Dioxide 28 mmol/L (21.0-32.0); Chloride 98 mmol/L (98-107); Chol/HDL Ratio 3.3 (1-3.5); Cholesterol 199 mg/dL (140-200); Creatinine,Serum 1.17 mg/dL (0.70-1.30); Estimated Glomerular Filt Rate 62 ml/min (>60); Free T4 (Free Thyroxine) 0.99 ng/dl (0.76-1.46); GFR (African American) 75 ML/MIN (>60); Globulin 3.3 gm/dl (1.3-3.2); Glucose 142 mg/dL (74-106); HDL Cholesterol 61 mg/dL (27-67); LDL Cholesterol 120 mg/dL (0-130); Potassium 4.2 mmoL/L (3.5-5.1); Sodium 137 mmol/L (136-145); Thyroid Stimulating Hormone 4.14 uIU/ml (0.358-3.740); Total Protein,Serum 6.9 gm/dL (6.4-8.2); Triglycerides 92 mg/dL (30-200); VLDL Cholesterol 18 mg/dL (0-40)
[2018-10-28 15:10] LABS: Hemoglobin A1C 8.5 % (0.0-7.0)
[2018-10-28 15:11] LABS: Prostate Specific Ag Screen 0.5 ng/mL (0.0-4.0)
[2018-10-29 17:49] LABS: Vitamin D 25 Hydroxy 29.6 ng/mL (30.0-100.0)
== END ==
PROVIDERS: Visit Provider Emergency Medicine
DX: E11.9 Type 2 diabetes mellitus without complications (principal); Z12.5 Encounter for screening for malignant neoplasm of prostate; Z79.4 Long term (current) use of insulin
CPT/HCPCS: 80053; 80061; 82652; 83036; 84439; 84443; 85025; G0103

== ENCOUNTER → 2018-11-11 10:43 | Outpatient (CLI) | payer MEDICARE, SELFPAY ==
[2018-11-11 12:00] VITALS: PULSE 74; PULSE 81
== END ==
PROVIDERS: PCP Nurse Practitioner Family; Visit Provider Nurse Practitioner Family
DX: J32.0 Chronic maxillary sinusitis (principal)
CPT/HCPCS: 94060; 94618; 94640; 94726; 94729

== ENCOUNTER → 2020-03-16 18:35 | Outpatient (CLI) | payer MEDICARE, SELFPAY ==
[2020-03-16 19:40] LABS: Basophils # 0.1 K/mm3 (0-0.2); Basophils % 0.8 % (0.1-2.0); Eosinophils # 0.2 K/mm3 (0.0-0.4); Eosinophils % 1.5 % (0.1-12.0); Lymphocytes # 2.3 K/mm3 (0.7-4.5); Lymphocytes % 23.3 % (10-50); Mean Corpuscular HGB Conc 30.7 g/dL (31.8-35.4); Mean Corpuscular Hemoglobin 30.4 pg (27.0-31.2); Mean Corpuscular Volume 99.1 fl (80-94); Mean Platelet Volume 9.4 fl (7.4-10.4); Monocytes # 0.5 K/mm3 (0.1-1.0); Monocytes % 4.6 % (1.7-9.3); Neutrophils # 6.8 K/mm3 (1.8-7.8); Neutrophils % 69.8 % (37.0-80.0); Platelet Count 313 K/mm3 (142-424); Red Blood Count 4.94 M/mm3 (4.60-6.20); Red Cell Distribution Width 13.7 % (11.5-17.5); White Blood Count 9.7 K/mm3 (4.8-10.8)
[2020-03-16 20:35] LABS: 25-OH Vitamin D, Total 16.7 ng/mL (30-100)
[2020-03-16 20:36] LABS: Free T4 (Free Thyroxine) 1.38 ng/dl (0.78-2.19)
[2020-03-16 22:04] LABS: Hemoglobin A1C 8.4 % (4.0-6.0)
[2020-03-16 23:44] LABS: Chloride 98 mmol/L (98-107)
[2020-03-16 23:45] LABS: Sodium 134 mmol/L (136-145)
[2020-03-16 23:47] LABS: Alanine Aminotransferase 11 U/L (12-78); Albumin Level 4.1 g/dl (3.5-5.0); Albumin/Globulin Ratio 1.4 (1.1-1.8); Alkaline Phosphatase 165 U/L (38-126); Aspartate Amino Transferase 20 U/L (17-59); Bilirubin,Total 0.4 mg/dl (0.2-1.3); Blood Urea Nitrogen 8 mg/dl (9-20); Carbon Dioxide 29 mmol/L (22.0-30.0); Cholesterol 243 mg/dl (140-200); Estimated Glomerular Filt Rate 83 ml/min (>60); GFR (African American) 101 ML/MIN (>60); Globulin 2.9 g/dL (1.3-3.2); Triglycerides 109 mg/dl (30-150); VLDL Cholesterol 22 mg/dL (0-40)
[2020-03-16 23:48] LABS: Calcium 9.6 mg/dl (8.4-10.2); Chol/HDL Ratio 3.6 (1-3.5); Glucose 273 mg/dl (74-100); HDL Cholesterol 67 mg/dl (40-60)
[2020-03-16 23:59] LABS: Direct LDL Cholesterol 142.61 mg/dL (100-129)
[2020-03-17 00:18] LABS: Thyroid Stimulating Hormone 2.03 uIU/mL (0.465-4.68)
== END ==
PROVIDERS: Visit Provider Emergency Medicine
DX: E11.9 Type 2 diabetes mellitus without complications (principal); E55.9 Vitamin D deficiency, unspecified; Z79.4 Long term (current) use of insulin
CPT/HCPCS: 80053; 80061; 82306; 83036; 84439; 84443; 85025

== ENCOUNTER → 2020-09-22 15:14 | Outpatient (CLI) | payer MEDICARE, SELFPAY ==
--- NOTE | 2020-09-22 15:18 | XR_ITS ---
PROCEDURE: XR HIP RT 2-3V W/PELVIS CLINICAL INDICATION: PAIN IN RT HIP COMPARISON: No exams were available for comparison FINDINGS: Right common and external iliac artery stents are present. Vascular calcifications are noted. Right hip has an unremarkable appearance. No fracture or dislocation or significant degenerative change. No lytic or blastic change. IMPRESSION: Negative right hip Dictated by: Sumanth Quintana MD 09/22/2020 16:35 Sumanth Quintana MD in [facility] 09/22/2020 16:35
== END ==
PROVIDERS: PCP Emergency Medicine; Visit Provider Physical Medicine & Rehabilitation
DX: M25.551 Pain in right hip (principal)
CPT/HCPCS: 73502

== ENCOUNTER 2021-01-04 10:23 | Inpatient (IN) | payer MEDICARE, SELFPAY ==
[2021-01-04] VITALS (36 sets, daily range): BP systolic 76–158; BP diastolic 35–140; PULSE 55–165; RESP 15–38; TEMP 36.5–36.6; O2SAT 86–133; BMI 24.4
--- NOTE | 2021-01-04 10:32 | HMH.EDGENADL ---
ED Disposition Clinical Impression: DKA (diabetic ketoacidosis) Qualifiers: Diabetes mellitus type: other specified (including STANISLAW) Diabetes mellitus complication detail: without coma Qualified Code(s): E13.10 - Other specified diabetes mellitus with ketoacidosis without coma Disposition: Admitted As Inpatient Condition on Discharge: Fair - Critical Care Critical Care Time: Yes Attestation: On 01/04/21, the high probability of a clinically significant, sudden or life threatening deterioration of the following system(s) required my full and direct attention, intervention and personal management. The time I documented below is in addition to time spent performing reported procedures but includes the following listed in this critical care notation. Total Critical Care Time: 35 Vital system(s) involved:: Metabolic Failure My critical care processes included: Assessment & monitoring of V/S, Initial and Re-exams, Data Review/Interpretation, Coordinating Care, Medication Orders and management, Documentation Comment: Critical care was performed for this patient as he is a complex patient with very high glucose, acidosis, JOSEPH, diabetic ketoacidosis, encephalopathy. Medical Decision Making - Medical Records Medical records reviewed: Yes: I reviewed the patient's medical records. - Syd Inquiry Pt receiving controlled substance: Yes Syd was queried for this patient: No (DKA not being discharged) Risks and benefits of using a controlled substance: were not discussed with pt by me Vital Signs: 01/04/21 10:24 01/04/21 11:00 01/04/21 11:01 Temperature 97.7 F Temperature Source Oral Pulse Rate 90 88 Pulse Rate [Left Radial] 99 H Respiratory Rate 24 22 35 H Blood Pressure 117/85 117/35 L Blood Pressure [Left Arm] 132/54 L Blood Pressure Mean 66 Blood Pressure Mean [Left Arm] 80 Blood Pressure Source [Left Arm] Automatic Cuff Blood Pressure Position [Left Arm] Sitting 02 Sat by Pulse Oximetry 98 98 98 Oxygen Delivery Method Room Air 01/04/21 11:33 01/04/21 12:30 Temperature Temperature Source Pulse Rate 91 H Pulse Rate [Left Radial] Respiratory Rate 28 H 26 H Blood Pressure 158/140 H 137/58 L Blood Pressure [Left Arm] Blood Pressure Mean 145 86 Blood Pressure Mean [Left Arm] Blood Pressure Source [Left Arm] Blood Pressure Position [Left Arm] 02 Sat by Pulse Oximetry 99 97 Oxygen Delivery Method Room Air - Lab Data Lab Results 01/04/21 10:28: VBG pH 7.20 L, VBG pCO2 13.6 L, VBG pO2 76.4 H, VBG HCO3 5.1 L, VBG Total CO2 5.6 L, VBG O2 Saturation 91.2 H, VBG Base Excess -23.0 L 01/04/21 10:30: WBC 32.2 H*, RBC 3.88 L, Hgb 12.4 L, Hct 42.3, MCV 109.1 H, MCH 32.0 H, MCHC 29.3 L, RDW 14.0, Plt Count 332, MPV 10.0, Neut % (Auto) 90.2 H, Lymph % (Auto) 4.2 L, [place] % (Auto) 4.3, Eos % (Auto) 1.0, Baso % (Auto) 0.2, Neut # (Auto) 29.0 H, Lymph # (Auto) 1.4, [place] # (Auto) 1.4 H, Eos # (Auto) 0.3, Baso # (Auto) 0.1, Total Counted 100, Neutrophils % (Manual) 87 H, Lymphocytes % (Manual) 7 L, Monocytes % (Manual) 6, Platelet Estimate Normal, Macrocytosis 2+ 01/04/21 10:30: Sodium 117 L, Potassium 5.6 H, Chloride 79 L, Carbon Dioxide 5 L*, Anion Gap 38.6 H, BUN 46 H, Creatinine 1.70 H, Estimated Creat Clear 45, Estimated GFR 40 L, Est GFR ( Amer) 48 L, Glucose 991 H*, Calcium 7.9 L, Total Bilirubin 0.7, AST 37, ALT 30, Alkaline Phosphatase 142 H, Total Protein 5.8 L, Albumin 3.6, Globulin 2.2, Albumin/Globulin Ratio 1.6, Acetone Level Detected 01/04/21 10:54: Urine Color Yellow, Urine Appearance Clear, Urine pH 5.5, Ur Specific [place] 1.010, Urine Protein Negative, Urine Glucose (UA) 3+, Urine Ketones 2+, Urine Blood Negative, Urine Nitrate Negative, Urine Bilirubin Negative, Urine Urobilinogen 0.2, Ur Leukocyte Esterase Negative, Urine RBC Occasional, Urine WBC 3-5, Ur Squamous Epith Cells Occasional, Urine Bacteria None 01/04/21 11:48: SARS-CoV-2 (PCR) Not detected, Influenza A Untype (PCR) Not detec
[2021-01-04 10:41] LABS: Basophils # 0.1 K/mm3 (0-0.2); Basophils % 0.2 % (0.1-2.0); Eosinophils # 0.3 K/mm3 (0.0-0.4); Hematocrit 42.3 % (42.0-52.0); Hemoglobin 12.4 g/dL (14.1-18.0); Lymphocytes # 1.4 K/mm3 (0.7-4.5); Lymphocytes % 4.2 % (10-50); Mean Corpuscular HGB Conc 29.3 g/dL (31.8-35.4); Mean Corpuscular Volume 109.1 fl (80-94); Monocytes # 1.4 K/mm3 (0.1-1.0); Monocytes % 4.3 % (1.7-9.3); Neutrophils % 90.2 % (37.0-80.0); Platelet Count 332 K/mm3 (142-424); Red Blood Count 3.88 M/mm3 (4.60-6.20); White Blood Count 32.2 K/mm3 (4.8-10.8)
[2021-01-04 10:47] LABS: MANUAL DIFFERENTIAL MANUAL DIFFERENTIAL (MANUAL DIFF)
[2021-01-04 10:48] LABS: Alanine Aminotransferase 30 U/L (12-78); Albumin Level 3.6 g/dl (3.5-5.0); Albumin/Globulin Ratio 1.6 (1.1-1.8); Alkaline Phosphatase 142 U/L (38-126); Aspartate Amino Transferase 37 U/L (17-59); Bilirubin,Total 0.7 mg/dl (0.2-1.3); Blood Urea Nitrogen 46 mg/dl (9-20); Calcium 7.9 mg/dl (8.4-10.2); Chloride 79 mmol/L (98-107); Estimated Glomerular Filt Rate 40 ml/min (>60); GFR (African American) 48 ML/MIN (>60); Globulin 2.2 g/dL (1.3-3.2); Potassium 5.6 mmoL/L (3.5-5.1); Sodium 117 mmol/L (136-145); Total Protein,Serum 5.8 g/dl (6.3-8.2)
[2021-01-04 10:51] LABS: VBG HCO3 5.1 mmol/L (23-30); VBG Oxygen Saturation 91.2 % (50-70); VBG PO2 76.4 mmol/L (28-40); VBG Total CO2 5.6 mmol/L (23-27)
[2021-01-04 10:53] LABS: Acetone, Serum (Rapid) Detected (None Detect)
[2021-01-04 10:53] LABS: VBG PCO2 13.6 mmol/L (35-51)
--- NOTE | 2021-01-04 10:53 | PC.NURSE ---
LENNIE ZAPIEN notified of ph results on vbg
[2021-01-04 11:01] LABS: Anion Gap 38.6 mEq/L (5-15); Creatinine Clearance Estimated 45 mL/min (50-200)
--- NOTE | 2021-01-04 11:02 | PC.NURSE ---
Critical lab called to Dr Mosqueda
[2021-01-04 11:03] LABS: Carbon Dioxide 5 mmol/L (22.0-30.0); Glucose 991 mg/dl (74-100)
[2021-01-04 11:12] LABS: Microscopic, Urine URINE MICROSCOPIC (MICROSCOPIC)
[2021-01-04 11:14] LABS: Lymphocytes % 7 % (10-50); Monocytes % 6 % (2-9); Neutrophils % 87 % (42-76); Platelet Estimate Normal; Total Cells Counted 100
[2021-01-04 11:15] LABS: Appearance,Urine CLEAR (Clear); Bilirubin,Urine Negative (Negative); Blood, Urine Negative (Negative); Color,Urine YELLOW (Yellow); Glucose,Urine (UA) 3+ (Negative); Ketones,Urine 2+ (Negative); Leukocyte Esterase,Urine Negative (Negative); Nitrate,Urine Negative (Negative); PH,Urine 5.5 (5.0-8.5); Protein,Urine Negative (Negative); Urobilinogen,Urine 0.2 EU/dl (0.2)
[2021-01-04 11:15] LABS: Macrocytosis 2+
[2021-01-04 11:25] LABS: RBC,Urine Occasional #/hpf (0-3); Squamous Epithelial Cell,Urine Occasional #/hpf (0-5)
--- NOTE | 2021-01-04 11:37 | XR_ITS ---
PROCEDURE: XR CHEST PORTABLE CLINICAL HISTORY: possible pneumonia COMPARISON: CR CXR1VP XR chest portable from 07/03/2017 CR CXR2V XR chest 2V from 07/13/2018 FINDINGS: The cardiomediastinal silhouette and pulmonary vascularity are within normal limits. The lungs are clear without infiltrates, suspicious nodules, or pleural effusions. No acute bony abnormalities. IMPRESSION: No acute findings. Dictated by: Sumanth Quintana MD 01/04/2021 12:35 Sumanth Quintana MD in [facility] 01/04/2021 12:35
--- NOTE | 2021-01-04 11:38 | PC.NURSE ---
notified rad of cxr, spoke with myrna
--- NOTE | 2021-01-04 11:40 | PC.NURSE ---
notified pharmacy of insulin drip
--- NOTE | 2021-01-04 11:51 | PC.NURSE ---
rad at for portable cxr
--- NOTE | 2021-01-04 11:51 | PC.NURSE ---
Rad at bedside
--- NOTE | 2021-01-04 12:17 | PC.NURSE ---
lab called to collect cultures and lactic
[2021-01-04 12:48] LABS: Coronavirus 19, PCR Not Detected (NotDetected); Influenza A, PCR Not Detected (NotDetected); Influenza B, PCR Not Detected (NotDetected)
[2021-01-04 12:55] LABS: Lactic Acid 3.1 mmol/L (0.7-2.1)
--- NOTE | 2021-01-04 12:56 | PC.NURSE ---
Paged Dr Soriano
--- NOTE | 2021-01-04 13:02 | PC.NURSE ---
notified ER MD of fsbs reading HI, ordered random glucose, notified lab of new order on pt
--- NOTE | 2021-01-04 13:29 | PC.NURSE ---
rough and trueing machine operator paging dr jamil again
[2021-01-04 13:46] LABS: Glucose,Random 1041 mg/dL (74-100)
--- NOTE | 2021-01-04 13:58 | PC.NURSE ---
pt dislodged iv in R AC, insulin drip now running in IV in L AC
--- NOTE | 2021-01-04 13:59 | PC.NURSE ---
LENNIE ZAPIEN speaking Dr. Soriano
--- NOTE | 2021-01-04 14:03 | PC.NURSE ---
notified care management of admission, spoke with gabriel
--- NOTE | 2021-01-04 15:38 | PC.NURSE ---
pt noted to have tachycardia on monitor, notified ER MD, obtaining EKG.
--- NOTE | 2021-01-04 15:41 | ECG_ITS ---
APPROVED REPORT Exam: Resting ECG HR:171 bpm ECG Measurements Heart Rate 171 AXES QRSd 86 QRS 68 QT 254 T 258 QTc 428 Conclusion Atrial fibrillation with rapid ventricular response with premature ventricular or aberrantly conducted complexes Nonspecific ST abnormality, probably digitalis effect Abnormal QRS-T angle, consider primary T wave abnormality Abnormal ECG Electronically signed by : Ok Casas MD 01/09/2021 21:06:57
--- NOTE | 2021-01-04 16:01 | PC.NURSE ---
notified ER MD pt is becoming hypotensive. ER MD gave verbal order for amiodarone drip and bolus
--- NOTE | 2021-01-04 16:04 | PC.NURSE ---
notified pharmacist of need for amiodarone drip and bolus for pt per verbal order from ER MD
--- NOTE | 2021-01-04 16:20 | PC.NURSE ---
per second floor staff, waiting on a pt to be discharged for pt to have an available room
[2021-01-04 16:31] LABS: Glucose,Random 913 mg/dL (74-100)
--- NOTE | 2021-01-04 16:31 | PC.NURSE ---
notified ER of glucose 937, called per lab
[2021-01-04 16:45] LABS: Reflex Lactic Add Lactic Reflex
--- NOTE | 2021-01-04 17:40 | PC.NURSE ---
FSBS sugar read high
[2021-01-04 17:48] LABS: Lactic Acid Follow Up (RFLX 1) 2.5 mmol/L (0.7-2.1)
--- NOTE | 2021-01-04 19:06 | PC.NURSE ---
Report called to Deni BURROUGHS
[2021-01-04 19:11] LABS: Glucose,Random 777 mg/dL (74-100)
[2021-01-04 19:48] LABS: Reflex Lactic (2 hrs) Add Lactic Reflex
--- NOTE | 2021-01-04 19:55 | PC.NURSE ---
Pt arrives to floor at this time via stretcher from ED
[2021-01-04 20:32] LABS: Lactic Acid Follow up (RFLX 2) 1.7 mmol/L (0.7-2.1)
--- NOTE | 2021-01-04 20:41 | P.CONPHA_ITS ---
[facility] Pharmacy VTE Monitoring - Patient Demographics Admission date: 01/04/21 Report Date: 01/04/21 Time: 20:41 Allergies/Adverse Reactions: Patient Allergies adhesive Allergy (Mild, Verified 06/03/20 11:38) Rash nicotine [From Nicoderm CQ] Allergy (Mild, Verified 06/03/20 11:38) Rash Height: 1.8 m Weight: 79.379 kg Patient Problems: Current Active Problems (Last Updated 04/22/18 @ 11:31 by BREANNA Longo) DKA (diabetic ketoacidoses) (Acute) - VTE Risk Labs: VTE Related Lab Results Hgb 12.4 g/dL (14.1-18.0) L 01/04/21 10:30 Hct 42.3 % (42.0-52.0) 01/04/21 10:30 Plt Count 332 K/mm3 (142-424) 01/04/21 10:30 BUN 46 mg/dl (9-20) H 01/04/21 10:30 Creatinine 1.70 mg/dl (0.66-1.25) H 01/04/21 10:30 Estimated Creat Clear 45 mL/min (50-200) 01/04/21 10:30 Clinical Trial Participant: No - Prophylaxis VTE Prophylaxis Ordered?: Yes Types of VTE Prophylaxis: TEDS Knee High
--- NOTE | 2021-01-04 20:56 | HMH.PHAINT ---
clarified home medicaiton list using list from clinic pharmacy
[2021-01-04 21:19] LABS: Glucose,Random 942 mg/dL (74-100)
[2021-01-05] VITALS (12 sets, daily range): BP systolic 76–166; BP diastolic 45–79; PULSE 69–120; RESP 14–44; TEMP 36.6–37.5; O2SAT 96–100; BMI 25.3
[2021-01-05 00:42] LABS: Chloride 103 mmol/L (98-107); Potassium 3.3 mmoL/L (3.5-5.1); Sodium 130 mmol/L (136-145)
[2021-01-05 00:45] LABS: Blood Urea Nitrogen 54 mg/dl (9-20); Creatinine Clearance Estimated 59 mL/min (50-200); Estimated Glomerular Filt Rate 55 ml/min (>60); GFR (African American) 66 ML/MIN (>60)
[2021-01-05 00:46] LABS: Anion Gap 17.3 mEq/L (5-15); Calcium 7.1 mg/dl (8.4-10.2); Carbon Dioxide 13 mmol/L (22.0-30.0); Glucose 277 mg/dl (74-100)
--- NOTE | 2021-01-05 02:02 | PC.NURSE ---
2027-Spoke with Dr. Soriano. Start levophed gtt if SBP <90 or MAP <65. Consult cardiology for afib. Notified of rectal temp 95.3, BP 91/61 at this time. 2127-Discussed with nightwatch if amio had to be mixed in dextrose bc pt is admitted with DKA. He stated amio is only stable in dextrose.
[2021-01-05 03:38] LABS: Acetone, Serum (Rapid) None Detected (None Detect)
[2021-01-05 03:42] LABS: Blood Urea Nitrogen 50 mg/dl (9-20); Calcium 7.2 mg/dl (8.4-10.2); Carbon Dioxide 17 mmol/L (22.0-30.0); Chloride 105 mmol/L (98-107); Creatinine Clearance Estimated 64 mL/min (50-200); Estimated Glomerular Filt Rate 60 ml/min (>60); GFR (African American) 72 ML/MIN (>60); Glucose 90 mg/dl (74-100); Sodium 133 mmol/L (136-145)
[2021-01-05 05:16] LABS: POC Glucose,Bedside 113 (70-110)
[2021-01-05 05:45] LABS: POC Glucose,Bedside 274 (70-110)
[2021-01-05 05:45] LABS: POC Glucose,Bedside 231 (70-110)
[2021-01-05 05:45] LABS: POC Glucose,Bedside 395 (70-110)
[2021-01-05 05:45] LABS: POC Glucose,Bedside 373 (70-110)
[2021-01-05 05:45] LABS: POC Glucose,Bedside 110 (70-110)
[2021-01-05 05:45] LABS: POC Glucose,Bedside 83 (70-110)
[2021-01-05 05:45] LABS: POC Glucose,Bedside 537 (70-110)
[2021-01-05 05:45] LABS: POC Glucose,Bedside 436 (70-110)
[2021-01-05 06:19] LABS: Basophils % 0.1 % (0.1-2.0); Eosinophils # 0.5 K/mm3 (0.0-0.4); Eosinophils % 1.3 % (0.1-12.0); Hematocrit 37.7 % (42.0-52.0); Hemoglobin 12.6 g/dL (14.1-18.0); Lymphocytes # 1.5 K/mm3 (0.7-4.5); Lymphocytes % 4.1 % (10-50); Mean Corpuscular HGB Conc 33.3 g/dL (31.8-35.4); Mean Corpuscular Hemoglobin 31.9 pg (27.0-31.2); Mean Corpuscular Volume 95.7 fl (80-94); Mean Platelet Volume 9.3 fl (7.4-10.4); Monocytes # 0.9 K/mm3 (0.1-1.0); Monocytes % 2.4 % (1.7-9.3); Neutrophils # 33.4 K/mm3 (1.8-7.8); Neutrophils % 92.2 % (37.0-80.0); Platelet Count 274 K/mm3 (142-424); Red Blood Count 3.94 M/mm3 (4.60-6.20); Red Cell Distribution Width 14.4 % (11.5-17.5); White Blood Count 36.2 K/mm3 (4.8-10.8)
[2021-01-05 06:31] LABS: MANUAL DIFFERENTIAL MANUAL DIFFERENTIAL (MANUAL DIFF)
[2021-01-05 06:43] LABS: Anion Gap 16.9 mEq/L (5-15); Blood Urea Nitrogen 50 mg/dl (9-20); Calcium 7.4 mg/dl (8.4-10.2); Carbon Dioxide 14 mmol/L (22.0-30.0); Chloride 104 mmol/L (98-107); Creatinine Clearance Estimated 67 mL/min (50-200); Estimated Glomerular Filt Rate 60 ml/min (>60); GFR (African American) 72 ML/MIN (>60); Glucose 145 mg/dl (74-100); Potassium 3.9 mmoL/L (3.5-5.1); Sodium 131 mmol/L (136-145)
[2021-01-05 07:15] LABS: Lymphocytes % 6 % (10-50); Monocytes % 3 % (2-9); Neutrophils % 90 % (42-76); Total Cells Counted 100
[2021-01-05 07:16] LABS: Macrocytosis 1+; Platelet Estimate Normal
--- NOTE | 2021-01-05 08:56 | CA_ITS ---
APPROVED REPORT EXAM: Comprehensive 2D, Doppler, and color-flow Echocardiogram Hat Cutter: Marlene Michaud RVT Ht: 5 ft 10 in Wt: 181lbs BSA: 2.00 BP: 000/00 mmHg Indications: A-FIB,CAD,SOA,DM,HTN,HLD,STENT,SMOKER 2D Dimensions LVOT 2.03 cm (M/F) 1.5-2.5 LA Volume 23.10 mL LA Volume Index 11.55 mL/m2 (M/F) 16-34 M-Mode Dimensions RVDd 2.13 cm (0.9-2.6) LA Diam 3.37 cm (1.9-4.0) LVDd 5.20 cm (3.5-5.7) Ao Diam 3.28 cm (2.0-3.7) LVDs 3.45 cm (3.5-5.7) IVSd 0.68 cm (0.6-1.1) PWd 1.06 cm (0.6-1.1) EF (Teich) 62.10% FS 33.70% EDV (Teich) 129.50 mL TAPSE 2.54 (<1.7) ESV (Teich) 49.10 mL LV Diastology E Decel Time 150.00 (160-240 msec) E/A Ratio 0.9 MED E' 6.00 (< 7 cm/sec) E'/MED E' Ratio 11.87 (>14) LAT E' 11.30 (<10 cm/sec) E/LAT E' Ratio 6.30 (>14) Aortic Valve AO Peak GR. 4.50 mmHg Mitral Valve MV E Max Mike. 71.00 (40-130 cm/s) MV A Velocity 83.00 (40-130 cm/s) E/A Ratio 0.86 MV Decel. Time 150.00 (160-240 ms) MV PHT 44.00 ms Pulmonary Valve PV Peak Velocity 86.00 (50-150 cm/s) Tricuspid Valve TR P. Velocity 161.00 cm/s RAP Estimate 10.00 mmHg RVSP 20.40 mmHg Left Ventricle Left atrium is mildly enlarged, left ventricle is normal size, mild concentric left ventricular hypertrophy, visually estimated ejection fraction 40%, there is marked hypokinesis involving the intraventricular septum and anteroseptal wall. Grade 1 diastolic dysfunction seen without tissue Doppler evidence of raise left atrial pressure. Right Ventricle Right atrium and right ventricle are normal size and contractility. Aortic Valve Aortic valve is thickened and calcified leaflet, display good mobility, there is no aortic stenosis or aortic insufficiency. Mitral Valve Mitral valve is grossly normal, there is mild mitral regurgitation. Tricuspid Valve Tricuspid grossly normal, there is mild tricuspid regurgitation, tricuspid regurgitation jet velocity is inadequate for calculation of the right ventricular systolic pressure. Pulmonic Valve Pulmonic valve is poorly visualized. Great Vessels Aortic root is normal size. Inferior vena cava is normal size with normal inspiratory collapse. Pericardium No significant pericardial effusion noted Conclusion 1. Left atrium, normal left ventricular size, mild concentric left ventricular hypertrophy, visually estimated ejection fraction 40% with multiple segmental wall motion abnormality described above, grade 1 diastolic dysfunction seen with tissue Doppler evidence of raise left atrial pressure. 2. Mitral and tricuspid rotation. 3. No significant pericardial effusion noted, inferior vena cava is normal size with normal inspiratory collapse. Electronically signed by : Aravind Downing MD 01/05/2021 13:55:10
--- NOTE | 2021-01-05 09:06 | HMH.PHACONS ---
- Pharmacy Consult Date: 01/05/21 Time: 09:06 Referring provider: DR. SHRESTHA Reason for Consult:: VANCOMYCIN DOSING Allergies and ADEs:: Allergies Allergy/AdvReac Type Severity Reaction Status Date / Time adhesive Allergy Mild Rash Verified 06/03/20 11:38 [facility] Allergy Mild Rash Verified 06/03/20 11:38 Home Medications:: Home Medications Medication Instructions Recorded Confirmed Type aspirin 81 mg tablet,delayed 81 mg PO DAILY tab 07/30/17 01/04/21 History release insulin aspart U-100 100 unit/mL 0 units SQ DIRECTED ml 03/16/20 01/04/21 History (3 mL) subcutaneous pen Atorvastatin Calcium [Lipitor 10mg 10 mg PO HS 01/04/21 01/04/21 History Tab] Clopidogrel Bisulfate [Plavix] 75 mg PO DAILY 01/04/21 01/04/21 History Ergocalciferol (Vitamin D2) 1 cap PO WEEKLY 01/04/21 01/04/21 History [Drisdol] Insulin Glargine,Hum.rec.anlog 35 units SQ DAILY 01/04/21 01/04/21 History [Lantus Solostar U-100 Insulin] Levothyroxine Sodium [Synthroid 25 mcg PO DAILY 01/04/21 01/04/21 History 25mcg (0.025mg) tablet] Oxycodone HCl 15 mg PO QIDP PRN 01/04/21 01/04/21 History lisinopriL [Lisinopril 2.5mg Tab] 2.5 mg PO DAILY 01/04/21 01/04/21 History Height: 1.8 m Weight: 82.157 kg Laboratory Results:: Laboratory Results - last 24 hr 01/04/21 10:28: VBG pH 7.20 L, VBG pCO2 13.6 L, VBG pO2 76.4 H, VBG HCO3 5.1 L, VBG Total CO2 5.6 L, VBG O2 Saturation 91.2 H, VBG Base Excess -23.0 L 01/04/21 10:30: WBC 32.2 H*, RBC 3.88 L, Hgb 12.4 L, Hct 42.3, MCV 109.1 H, MCH 32.0 H, MCHC 29.3 L, RDW 14.0, Plt Count 332, MPV 10.0, Neut % (Auto) 90.2 H, Lymph % (Auto) 4.2 L, [place] % (Auto) 4.3, Eos % (Auto) 1.0, Baso % (Auto) 0.2, Neut # (Auto) 29.0 H, Lymph # (Auto) 1.4, [place] # (Auto) 1.4 H, Eos # (Auto) 0.3, Baso # (Auto) 0.1, Total Counted 100, Neutrophils % (Manual) 87 H, Lymphocytes % (Manual) 7 L, Monocytes % (Manual) 6, Platelet Estimate Normal, Macrocytosis 2+ 01/04/21 10:30: Sodium 117 L, Potassium 5.6 H, Chloride 79 L, Carbon Dioxide 5 L*, Anion Gap 38.6 H, BUN 46 H, Creatinine 1.70 H, Estimated Creat Clear 45, Estimated GFR 40 L, Est GFR ( Amer) 48 L, Glucose 991 H*, Calcium 7.9 L, Total Bilirubin 0.7, AST 37, ALT 30, Alkaline Phosphatase 142 H, Total Protein 5.8 L, Albumin 3.6, Globulin 2.2, Albumin/Globulin Ratio 1.6, Acetone Level Detected 01/04/21 10:54: Urine Color Yellow, Urine Appearance Clear, Urine pH 5.5, Ur Specific [place] 1.010, Urine Protein Negative, Urine Glucose (UA) 3+, Urine Ketones 2+, Urine Blood Negative, Urine Nitrate Negative, Urine Bilirubin Negative, Urine Urobilinogen 0.2, Ur Leukocyte Esterase Negative, Urine RBC Occasional, Urine WBC 3-5, Ur Squamous Epith Cells Occasional, Urine Bacteria None 01/04/21 11:48: SARS-CoV-2 (PCR) Not detected, Influenza A Untype (PCR) Not detected, Influenza Type B (PCR) Not detected 01/04/21 12:36: Lactate 3.1 H 01/04/21 13:15: Random Glucose 1041 H* 01/04/21 16:04: Random Glucose 913 H* 01/04/21 17:30: Lactate 2.5 H 01/04/21 18:00: Random Glucose 777 H* 01/04/21 19:50: Random Glucose 942 H* 01/04/21 20:18: Lactate 1.7 01/04/21 20:48: POC Glucose 537 H* 01/04/21 21:52: POC Glucose 436 H* 01/04/21 22:21: POC Glucose 373 H* 01/04/21 22:58: POC Glucose 395 H* 01/05/21 00:01: POC Glucose 274 H 01/05/21 00:28: Sodium 130 L, Potassium 3.3 L D, Chloride 103, Carbon Dioxide 13 L, Anion Gap 17.3 H, BUN 54 H, Creatinine 1.30 H D, Estimated Creat Clear 59, Estimated GFR 55 L, Est GFR ( Amer) 66 D, Glucose 277 H D, Calcium 7.1 L 01/05/21 00:54: POC Glucose 231 H 01/05/21 02:24: POC Glucose 110 01/05/21 03:08: POC Glucose 83 01/05/21 03:21: Sodium 133 L, Potassium 3.0 L, Chloride 105, Carbon Dioxide 17 L, Anion Gap 14.0, BUN 50 H, Creatinine 1.20, Estimated Creat Clear 64, Estimated GFR 60, Est GFR ( Amer) 72, Glucose 90 D, Calcium 7.2 L, Acetone Level None detected 01/05/21 05:01: POC Glucose 113 H 01/05/21 06:15: Sodium 131 L, Potassium 3
--- NOTE | 2021-01-05 09:26 | CT_ITS ---
PROCEDURE: CT ABDOMEN PELVIS W CON CLINICAL INDICATION: left lower quad pain and vomiting COMPARISON: CT ABDPELW CT abdomen pelvis w con from 06/19/2017 TECHNIQUE: IV Contrast: 75ML Isovue 370 Oral Contrast 450ml Redicat Axial images obtained with sagittal and coronal reformats. All CT scans at the facility use one or more dose reduction, viz: automated exposure control, ma/kV adjustment per patient size (including targeted exams where dose is matched to indication, i.e. head), or iterative reconstruction technique. FINDINGS: LOWER THORAX: There are small bilateral pleural effusions with bibasilar atelectatic changes. Minimal parenchymal opacity noted along the right middle lobe posteriorly. ABDOMEN & PELVIS: Fatty liver. No focal liver lesions. Prior cholecystectomy. Linear areas of low density noted in the spleen anteriorly and an additional area posteriorly possibly due to fissures or flow artifact. The adrenal glands have an unremarkable appearance. There is diffuse pancreatic atrophy with multiple pancreatic calcifications in the tail the pancreas consistent with chronic pancreatitis. No renal or ureteral calculi. No hydronephrosis. No intestinal obstruction or free air. The appendix is not clearly delineated. No secondary signs of appendicitis. There are scattered air-fluid levels within nondistended large and small bowel. There is mild colonic diverticulosis but no evidence of diverticulitis. There is a retro aortic left renal vein as a normal variant. No acute bony anomaly. Right iliac artery stent is present and appears patent. 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 IMPRESSION: 1. Small bilateral pleural effusions with bibasilar atelectasis. 2. Chronic pancreatitis with pancreatic atrophy. 3. Nondistended fluid-filled loops of small and large bowel with air-fluid levels which could be due to ileus or enterocolitis. No evidence of diverticulitis, intestinal obstruction, or free air Dictated by: Sumanth Quintana MD 01/05/2021 13:12 Sumanth Quintana MD in [facility] 01/05/2021 13:12
--- NOTE | 2021-01-05 09:27 | HMH.HP ---
*Admission Date: 01/04/21 *Chief complaint: vomiting,abd pain *History of present illness: 70-year-old male who presented to the emergency department with complaints of an elevated blood sugar at home after a 3 days hx of nausea and vomiting with diarrhea. Patinet states generalized weakness and abd pain. Patient states that while he was at home he did not feel well and called one of his friends and when his friend got to the house the friend was unable to get him up to the car so she called EMS. The patient's blood sugar was to high to read on his meter at home. He denies any chest pain or pressure. He denies any shortness of breath or edema. Patient is complaining of diffuse left lower quad pain. He states that this is just continued to worsen over the last couple days. He states that he is somewhat nauseated with the abdominal pain as well. Pateint admitted for dka,started on insulin drip. [facility] History I have reviewed the patient's past medical history: Yes Medical History: Reports:: Anxiety, Coronary Artery Disease, Diabetes Mellitus Type 1, Hyperlipidemia, Hypertension, Migraine, Peripheral Artery Disease, Peripheral Vascular Disease Denies:: Cancer, Diabetes Mellitus Type 2, MRSA *Have you ever received a pneumonia vaccine?: No *Have you received a flu vaccine this season?: No Laterality Cases: Bilateral: Tonsillectomy Other Surgeries: Yes: Angioplasty, Cardiac Catheterization, Cholecystectomy, Coronary Stent, Other Amputation: No Fractures: No - *Social History Smoking Status: Current every day smoker Tobacco Type: cigarettes # Packs/Day (cigarettes): 2 Alcohol Intake: former Alcohol Intake Frequency:: other Substance Use Type: denies use *Occupational Status:: retired Housing: house Household Members: other *Travel in the last 8 weeks: None - Psychiatric History Pschychiatric History:: Reports:: Anxiety Family Hx:: Unable to obtain Review of Systems - Constitutional Reports fatigue, Reports fever(s), Denies body ache(s), Denies malaise - Eyes Denies blurry vision - ENT Denies nasal congestion - *Cardiovascular Denies chest pain at rest - *Respiratory Denies chest congestion - *Gastrointestinal Reports abdominal pain, Reports cramping, Reports loose stools, Reports nausea, Reports vomiting - *Genitourinary Denies difficulty urinating - *Musculoskeletal Denies abnormal walking - Integumentary/Breasts Denies hair loss, Denies breast pain - *Neurologic Denies dizziness, Denies headache(s) - Psychiatric Denies lack of enjoyment - Endocrine Denies excessive sweating - Hematologic/Lymphatic Denies easy bruising - Allergic/Immunologic Denies itchy eyes Meds Home Medications Medication Instructions Recorded Confirmed Type aspirin 81 mg tablet,delayed 81 mg PO DAILY tab 07/30/17 01/04/21 History release insulin aspart U-100 100 unit/mL 0 units SQ DIRECTED ml 03/16/20 01/04/21 History (3 mL) subcutaneous pen Atorvastatin Calcium [Lipitor 10mg 10 mg PO HS 01/04/21 01/04/21 History Tab] Clopidogrel Bisulfate [Plavix] 75 mg PO DAILY 01/04/21 01/04/21 History Ergocalciferol (Vitamin D2) 1 cap PO WEEKLY 01/04/21 01/04/21 History [Drisdol] Insulin Glargine,Hum.rec.anlog 35 units SQ DAILY 01/04/21 01/04/21 History [Lantus Solostar U-100 Insulin] Levothyroxine Sodium [Synthroid 25 mcg PO DAILY 01/04/21 01/04/21 History 25mcg (0.025mg) tablet] Oxycodone HCl 15 mg PO QIDP PRN 01/04/21 01/04/21 History lisinopriL [Lisinopril 2.5mg Tab] 2.5 mg PO DAILY 01/04/21 01/04/21 History Allergies Allergy/AdvReac Type Severity Reaction Status Date / Time adhesive Allergy Mild Rash Verified 06/03/20 11:38 [facility] Allergy Mild Rash Verified 06/03/20 11:38 Exam Vital signs and Labs for Last 24 Hours: Temp Pulse Resp BP Pulse Ox 99.5 F 74 16 116/61 97 01/05/21 08:00 01/05/21 08:00 01/05/21 08:00 01/05/21 08:00 01/05/21 08:00
--- NOTE | 2021-01-05 10:24 | HMH.ITSTN ---
FINISHED ORAL CONTRAST AT 1004
--- NOTE | 2021-01-05 11:01 | HMH.CNCARD ---
History of Present Illness Consult date: 01/05/21 Requesting physician: Pj Soriano Consult reason: atrial fibrillation Chief complaint: DKA and abdmonial pain History of present illness: This is a 70-year-old white gentleman who presented to the emergency department with complaints of an elevated blood sugar at home and not feeling well. The patient states that he has been having abdominal pain and nausea with his elevated blood sugars. He states that he has been very fatigued and just did not feel well. The patient states that he knew his blood sugars were really high and he probably had DKA and that is why he came into the emergency department. He states that while he was at home he did not feel well and called one of his friends and when his friend got to the house the friend was unable to get him up to the car so she called EMS. The patient's blood sugar was high but it did not read on the meter which made it had to be over 600. The patient was initially confused when he came in with the DKA. Today he is able to answer all of my questions appropriately. He denies any chest pain or pressure. He denies any shortness of breath or edema. He denies any fever, chills, PND orthopnea. He is complaining of diffuse abdominal pain. He states that this is just continued to worsen. He states that he is somewhat nauseated with the abdominal pain as well. The patient did have atrial fibrillation with RVR, his rate was in the 170s. The patient was started on an amiodarone drip and he has converted to sinus rhythm this morning. [facility] History I have reviewed the patient's past medical history: Yes Medical History: Reports:: Anxiety, Atrial Fibrillation, Coronary Artery Disease, Diabetes Mellitus Type 1, Hyperlipidemia, Hypertension, Migraine, Peripheral Artery Disease, Peripheral Vascular Disease Denies:: Cancer, Diabetes Mellitus Type 2, MRSA *Have you ever received a pneumonia vaccine?: No *Have you received a flu vaccine this season?: No Laterality Cases: Bilateral: Tonsillectomy Other Surgeries: Yes: Angioplasty, Cardiac Catheterization, Cholecystectomy, Coronary Stent, Other Amputation: No Fractures: No - *Social History Smoking Status: Current every day smoker Tobacco Type: cigarettes # Packs/Day (cigarettes): 2 Alcohol Intake: former Alcohol Intake Frequency:: other Substance Use Type: denies use *Occupational Status:: retired Housing: house Household Members: other *Travel in the last 8 weeks: None - Psychiatric History Pschychiatric History:: Reports:: Anxiety Family Hx:: Unable to obtain Meds Home Medications Medication Instructions Recorded Confirmed Type aspirin 81 mg tablet,delayed 81 mg PO DAILY tab 07/30/17 01/04/21 History release insulin aspart U-100 100 unit/mL 0 units SQ DIRECTED ml 03/16/20 01/04/21 History (3 mL) subcutaneous pen Atorvastatin Calcium [Lipitor 10mg 10 mg PO HS 01/04/21 01/04/21 History Tab] Clopidogrel Bisulfate [Plavix] 75 mg PO DAILY 01/04/21 01/04/21 History Ergocalciferol (Vitamin D2) 1 cap PO WEEKLY 01/04/21 01/04/21 History [Drisdol] Insulin Glargine,Hum.rec.anlog 35 units SQ DAILY 01/04/21 01/04/21 History [Lantus Solostar U-100 Insulin] Levothyroxine Sodium [Synthroid 25 mcg PO DAILY 01/04/21 01/04/21 History 25mcg (0.025mg) tablet] Oxycodone HCl 15 mg PO QIDP PRN 01/04/21 01/04/21 History lisinopriL [Lisinopril 2.5mg Tab] 2.5 mg PO DAILY 01/04/21 01/04/21 History Allergies Allergy/AdvReac Type Severity Reaction Status Date / Time adhesive Allergy Mild Rash Verified 06/03/20 11:38 [facility] Allergy Mild Rash Verified 06/03/20 11:38 Exam Vital signs and Labs for Last 24 Hours: Temp Pulse Resp BP Pulse Ox 99.5 F 74 16 116/61 97 01/05/21 08:00 01/05/21 08:00 01/05/21 08:00 01/05/21 08:00 01/05/21 08:00 Laboratory Results - last 24 hr 01/04/21 10:30: Total Counted 100, Neutrophils % (Manual) 87 H, Lymphocyte
[2021-01-05 12:09] LABS: POC Glucose,Bedside 241 (70-110)
[2021-01-05 17:02] LABS: POC Glucose,Bedside 194 (70-110)
[2021-01-05 20:20] LABS: Lipase 20 U/L (23-300)
[2021-01-05 21:41] LABS: POC Glucose,Bedside 179 (70-110)
[2021-01-06] VITALS (11 sets, daily range): BP systolic 141–168; BP diastolic 68–92; PULSE 60–91; RESP 15–18; TEMP 36.4–36.9; O2SAT 97–100; BMI 24.5; BMI 24.7
--- NOTE | 2021-01-06 03:43 | PC.NURSE ---
Pt. has not c/o n/v, soa, pain or dizziness this shift. Pt. has had 2 episodes of incontinence; dark soft stool noted. Standby assist to bsc.
[2021-01-06 05:34] LABS: POC Glucose,Bedside 213 (70-110)
[2021-01-06 06:04] LABS: Basophils % 0.1 % (0.1-2.0); Eosinophils # 0.1 K/mm3 (0.0-0.4); Eosinophils % 0.4 % (0.1-12.0); Hematocrit 36.6 % (42.0-52.0); Hemoglobin 11.9 g/dL (14.1-18.0); Lymphocytes # 0.9 K/mm3 (0.7-4.5); Lymphocytes % 3.7 % (10-50); Mean Corpuscular HGB Conc 32.6 g/dL (31.8-35.4); Mean Corpuscular Hemoglobin 31.8 pg (27.0-31.2); Mean Corpuscular Volume 97.6 fl (80-94); Mean Platelet Volume 9.5 fl (7.4-10.4); Monocytes # 0.6 K/mm3 (0.1-1.0); Monocytes % 2.6 % (1.7-9.3); Neutrophils # 22.1 K/mm3 (1.8-7.8); Neutrophils % 93.1 % (37.0-80.0); Platelet Count 205 K/mm3 (142-424); Red Blood Count 3.75 M/mm3 (4.60-6.20); Red Cell Distribution Width 14.6 % (11.5-17.5); White Blood Count 23.7 K/mm3 (4.8-10.8)
[2021-01-06 06:08] LABS: MANUAL DIFFERENTIAL MANUAL DIFFERENTIAL (MANUAL DIFF)
[2021-01-06 06:17] LABS: Anion Gap 16.5 mEq/L (5-15); Blood Urea Nitrogen 25 mg/dl (9-20); Calcium 7.6 mg/dl (8.4-10.2); Carbon Dioxide 15 mmol/L (22.0-30.0); Chloride 105 mmol/L (98-107); Creatinine Clearance Estimated 77 mL/min (50-200); Estimated Glomerular Filt Rate 83 ml/min (>60); GFR (African American) 101 ML/MIN (>60); Glucose 210 mg/dl (74-100); Potassium 3.5 mmoL/L (3.5-5.1); Sodium 133 mmol/L (136-145)
[2021-01-06 06:48] LABS: Thyroid Stimulating Hormone 2.91 uIU/mL (0.465-4.68)
[2021-01-06 08:09] LABS: Lymphocytes % 6 % (10-50); Monocytes % 5 % (2-9); Neutrophils % 89 % (42-76); Platelet Estimate Normal; RBC Morphology Normal; Total Cells Counted 100
--- NOTE | 2021-01-06 09:15 | HMH.ACPN2 ---
Internal Medicine - PN: Subj *Date: 01/06/21 *Time: 09:16 Interval history: pt laying in bed, states feels some better Exam Vital signs and Labs for Last 24 Hours: Temp Pulse Resp BP Pulse Ox 97.6 F 78 18 143/79 H 98 01/06/21 07:51 01/06/21 07:51 01/06/21 07:51 01/06/21 07:51 01/06/21 07:51 Laboratory Results - last 24 hr 01/05/21 06:15: Lipase 20 L 01/05/21 11:56: POC Glucose 241 H 01/05/21 16:51: POC Glucose 194 H 01/05/21 21:34: POC Glucose 179 H 01/06/21 05:19: POC Glucose 213 H 01/06/21 05:36: WBC 23.7 H* D, RBC 3.75 L, Hgb 11.9 L, Hct 36.6 L, MCV 97.6 H, MCH 31.8 H, MCHC 32.6, RDW 14.6, Plt Count 205 D, MPV 9.5, Neut % (Auto) 93.1 H, Lymph % (Auto) 3.7 L, [place] % (Auto) 2.6, Eos % (Auto) 0.4, Baso % (Auto) 0.1, Neut # (Auto) 22.1 H, Lymph # (Auto) 0.9, [place] # (Auto) 0.6, Eos # (Auto) 0.1, Baso # (Auto) 0.0, Total Counted 100, Neutrophils % (Manual) 89 H, Lymphocytes % (Manual) 6 L, Monocytes % (Manual) 5, Platelet Estimate Normal, RBC Morphology Normal 01/06/21 05:36: Sodium 133 L, Potassium 3.5, Chloride 105, Carbon Dioxide 15 L, Anion Gap 16.5 H, BUN 25 H D, Creatinine 0.90 D, Estimated Creat Clear 77, Estimated GFR 83, Est GFR ( Amer) 101 D, Glucose 210 H D, Calcium 7.6 L, TSH 2.91 I & O for Last 24 hours: Intake & Output 01/03/21 01/04/21 01/05/21 01/06/21 11:59 11:59 11:59 11:59 Intake Total 5561 / 5561 2283 / 2283 Output Total 600 / 600 625 / 625 Balance 4961 / 4961 1658 / 1658 Weight 175 lb 181 lb 2 oz 175 lb 6 oz Microbiology Reports for the Last 24 Hours: Microbiology 01/05/21 09:15 Nasopharyngeal Coronavirus COVID-19 PCR - Final - Constitutional no acute distress - *Routine HEENT Exam Head: Present: normocephalic Eye: Present: PERRL ENT: Present: mucous membranes moist - *Routine Neck Exam Present: supple. Absent: lymphadenopathy - *Routine Respiratory Exam Present: CTA bilaterally - *Routine Cardiovascular Exam Present: RRR - *Routine Abdominal Exam Present: soft, normoactive bowel sounds. Absent: tenderness - *Routine Extremities Exam Absent: cyanosis, clubbing, edema - *Routine Skin Exam Present: warm. Absent: rash - *Routine Neurological Exam Present: alert, oriented X3 - Routine Psychiatric Exam Present: normal affect Assessment and Plan (1) Atrial fibrillation with RVR Status: Acute Category: Medical Code(s): I48.91 - Unspecified atrial fibrillation (2) Coronary arteriosclerosis Status: Acute Category: Medical Code(s): I25.10 - Atherosclerotic heart disease of [place] coronary artery without angina pectoris (3) DKA (diabetic ketoacidoses) Status: Acute Qualifiers: Diabetes mellitus type: other specified (including STANISLAW) Diabetes mellitus complication detail: without coma Qualified Code(s): E13.10 - Other specified diabetes mellitus with ketoacidosis without coma Category: Medical Code(s): E13.10 - Other specified diabetes mellitus with ketoacidosis without coma (4) Diabetes mellitus Status: Acute Qualifiers: Diabetes mellitus type: type 2 Diabetes mellitus fci insulin use: without fci use Diabetes mellitus complication status: without complication Qualified Code(s): E11.9 - Type 2 diabetes mellitus without complications Category: Medical Code(s): E11.9 - Type 2 diabetes mellitus without complications (5) HLD (hyperlipidemia) Status: Chronic Qualifiers: Hyperlipidemia type: mixed hyperlipidemia Qualified Code(s): E78.2 - Mixed hyperlipidemia Category: Medical Code(s): E78.5 - Hyperlipidemia, unspecified (6) HTN (hypertension) Status: Chronic Qualifiers: Hypertension type: primary hypertension Qualified Code(s): I10 - Essential (primary) hypertension Category: Medical Code(s): I10 - Essential (primary) hypertension - Assessment and plan all Dx Assessment and Plan for all problems:: rounded with dr leigh all orders
--- NOTE | 2021-01-06 10:10 | HMH.PNCARD ---
Subjective Date: 01/06/21 Time: 10:11 Principal diagnosis: afib, cardiomyopathy, abnormal wall motion abnormalities Interval history: This is a 70-year-old white gentleman who was admitted to the hospital after being found to be in DKA. The patient also went into atrial fibrillation with RVR. The patient has converted with an amiodarone drip and is now on oral amiodarone. The patient has tolerated this well. He has also been started on long-term anticoagulation with no signs of bleeding. The patient denies any chest pain or pressure. He denies any shortness of breath or edema. He denies any fever, chills, PND or orthopnea. He is still complaining of fatigue. He states his abdominal pain is better and he is still little bit nauseated but this is better as well. The patient has an abnormal echocardiogram and I have recommended left cardiac catheterization but the patient refuses. He states that he wants to get his blood sugars under better control and he will come back as an outpatient to be set up for a left cardiac catheterization. Exam Vital signs and Labs for Last 24 Hours: Temp Pulse Resp BP Pulse Ox 97.6 F 78 18 143/79 H 98 01/06/21 07:51 01/06/21 07:51 01/06/21 07:51 01/06/21 07:51 01/06/21 07:51 Laboratory Results - last 24 hr 01/05/21 06:15: Lipase 20 L 01/05/21 11:56: POC Glucose 241 H 01/05/21 16:51: POC Glucose 194 H 01/05/21 21:34: POC Glucose 179 H 01/06/21 05:19: POC Glucose 213 H 01/06/21 05:36: WBC 23.7 H* D, RBC 3.75 L, Hgb 11.9 L, Hct 36.6 L, MCV 97.6 H, MCH 31.8 H, MCHC 32.6, RDW 14.6, Plt Count 205 D, MPV 9.5, Neut % (Auto) 93.1 H, Lymph % (Auto) 3.7 L, [place] % (Auto) 2.6, Eos % (Auto) 0.4, Baso % (Auto) 0.1, Neut # (Auto) 22.1 H, Lymph # (Auto) 0.9, [place] # (Auto) 0.6, Eos # (Auto) 0.1, Baso # (Auto) 0.0, Total Counted 100, Neutrophils % (Manual) 89 H, Lymphocytes % (Manual) 6 L, Monocytes % (Manual) 5, Platelet Estimate Normal, RBC Morphology Normal 01/06/21 05:36: Sodium 133 L, Potassium 3.5, Chloride 105, Carbon Dioxide 15 L, Anion Gap 16.5 H, BUN 25 H D, Creatinine 0.90 D, Estimated Creat Clear 77, Estimated GFR 83, Est GFR ( Amer) 101 D, Glucose 210 H D, Calcium 7.6 L, TSH 2.91 I & O for Last 24 hours: Intake & Output 01/03/21 01/04/21 01/05/21 01/06/21 23:59 23:59 23:59 23:59 Intake Total 1100 / 4889 6624 / 6624 120 / 120 Output Total 600 / 600 500 / 500 125 / 125 Balance 500 / 4289 6124 / 6124 -5 / -5 Weight 175 lb 181 lb 2 oz 175 lb 6 oz Microbiology Reports for the Last 24 Hours: Microbiology 01/05/21 09:15 Nasopharyngeal Coronavirus COVID-19 PCR - Final Narrative: Telemetry strip shows sinus rhythm with a rate of 72. Echo shows: 1. Left atrium, normal left ventricular size, mild concentric left ventricular hypertrophy, visually estimated ejection fraction 40% with multiple segmental wall motion abnormality described above, grade 1 diastolic dysfunction seen with tissue Doppler evidence of raise left atrial pressure. 2. Mitral and tricuspid rotation. 3. No significant pericardial effusion noted, inferior vena cava is normal size with normal inspiratory collapse. - Constitutional no acute distress, average body habitus - *Routine HEENT Exam Head: Present: normocephalic, atraumatic Eye: Present: EOMI, PERRL ENT: Present: mucous membranes moist - *Routine Neck Exam Present: supple, full ROM, normal carotid upstroke. Absent: JVD, carotid bruit, lymphadenopathy - *Routine Respiratory Exam Present: CTA bilaterally - *Routine Cardiovascular Exam Present: RRR, Normal S1, Normal S2. Absent: murmur - *Routine Abdominal Exam Present: soft, normoactive bowel sounds. Absent: tenderness, distended - *Routine Extremities Exam Present: full ROM, pulses intact, normal capillary refill. Absent: cyanosis, clubbing, edema - *Routine Skin Exam Present: intact, warm. Absent: erythema, rash - *Routine Neurological Exam Present: alert, oriented
[2021-01-06 11:53] LABS: POC Glucose,Bedside 144 (70-110)
[2021-01-06 16:51] LABS: POC Glucose,Bedside 238 (70-110)
--- NOTE | 2021-01-06 17:39 | PC.NURSE ---
Pt has been pleasant and cooperative this shift. A&O X4. No complaints of pain or SOA. Pt is currently on room air with sats. >90%. Lungs CTA. Telemetry reveals NSR. No edema noted. Skin is C/D/I. Pt ambulates independently in the room. Pt refused to work with PT today and also refused to sit up in the recliner. Urine is clear and yellow. 1 small, brown, soft BM today. FSBS results have been 144 and 238. 20 G peripheral IV in the LT AC is patent and SL. 20 G peripheral IV in the RT forearm is patent and infusing D5W/NS @ 75 ML/HR. VSS. Call light within reach. Will continue to monitor.
[2021-01-06 20:20] LABS: POC Glucose,Bedside 190 (70-110)
[2021-01-06 22:04] LABS: Vancomycin,Trough 8.7 ug/mL (5.0-10.0)
[2021-01-07] VITALS (8 sets, daily range): BP systolic 115–144; BP diastolic 56–83; PULSE 60–75; RESP 15–20; TEMP 36.6–37.2; O2SAT 93–99; BMI 23.6
[2021-01-07 01:47] LABS: Vancomycin,Peak 38.1 ug/ml (11-39)
[2021-01-07 05:27] LABS: POC Glucose,Bedside 216 (70-110)
[2021-01-07 06:07] LABS: Basophils % 0.1 % (0.1-2.0); Eosinophils # 0.1 K/mm3 (0.0-0.4); Eosinophils % 0.4 % (0.1-12.0); Hematocrit 34.6 % (42.0-52.0); Hemoglobin 11.4 g/dL (14.1-18.0); Lymphocytes # 1.4 K/mm3 (0.7-4.5); Lymphocytes % 9.3 % (10-50); Mean Corpuscular HGB Conc 32.9 g/dL (31.8-35.4); Mean Corpuscular Hemoglobin 31.5 pg (27.0-31.2); Mean Platelet Volume 9.5 fl (7.4-10.4); Monocytes # 0.7 K/mm3 (0.1-1.0); Monocytes % 4.5 % (1.7-9.3); Neutrophils # 13.1 K/mm3 (1.8-7.8); Neutrophils % 85.7 % (37.0-80.0); Platelet Count 170 K/mm3 (142-424); Red Cell Distribution Width 14.5 % (11.5-17.5)
[2021-01-07 06:10] LABS: MANUAL DIFFERENTIAL MANUAL DIFFERENTIAL (MANUAL DIFF); White Blood Count 15.3 K/mm3 (4.8-10.8)
[2021-01-07 06:23] LABS: Alanine Aminotransferase 28 U/L (12-78); Albumin Level 2.6 g/dl (3.5-5.0); Alkaline Phosphatase 123 U/L (38-126); Anion Gap 10.8 mEq/L (5-15); Aspartate Amino Transferase 44 U/L (17-59); Bilirubin,Direct 0.4 mg/dl (0.0-0.4); Bilirubin,Indirect 0.7 mg/dL (0.0-0.9); Bilirubin,Total 1.1 mg/dl (0.2-1.3); Bilirubin,Unconjugated 0.7 mg/dL (0.0-1.1); Blood Urea Nitrogen 10 mg/dl (9-20); Calcium 7.4 mg/dl (8.4-10.2); Carbon Dioxide 25 mmol/L (22.0-30.0); Chloride 97 mmol/L (98-107); Chol/HDL Ratio 2.7 (1-3.5); Cholesterol 117 mg/dl (140-200); Creatinine Clearance Estimated 75 mL/min (50-200); Estimated Glomerular Filt Rate 133 ml/min (>60); GFR (African American) 161 ML/MIN (>60); Glucose 203 mg/dl (74-100); HDL Cholesterol 44 mg/dl (40-60); Sodium 130 mmol/L (136-145); Triglycerides 98 mg/dl (30-150); VLDL Cholesterol 20 mg/dL (0-40)
--- NOTE | 2021-01-07 06:28 | PC.NURSE ---
pt has been resting intermittently since taking over care, remains on room air with no complaints of SOA, has complained of tooth pain t/o shift and was treated for pain per MAR, has been up to BSC independently
[2021-01-07 06:30] LABS: Peripheral Smear Review Scanned Result
[2021-01-07 06:34] LABS: Direct LDL Cholesterol 58.37 mg/dL (100-129)
[2021-01-07 06:38] LABS: Lymphocytes % 9 % (10-50); Monocytes % 1 % (2-9); Neutrophils % 81 % (42-76); Potassium 2.8 mmoL/L (3.5-5.1); Total Cells Counted 100
[2021-01-07 06:39] LABS: Platelet Estimate Normal; RBC Morphology Normal
--- NOTE | 2021-01-07 09:19 | XR_ITS ---
PROCEDURE INFORMATION: Exam: XR Chest Exam date and time: 01/07/2021 9:19 AM Age: 70 years old Clinical indication: Patient HX: Severe shortness of breath. ; Additional info: SOB TECHNIQUE: Imaging protocol: XR of the chest. Views: 1 view. COMPARISON: CR XR CHEST PORTABLE 01/04/2021 11:48 AM FINDINGS: Tubes, catheters and devices: Overlying EKG wires Lungs: Hyperexpanded lung esposito consistent with COPD; Patchy opacities in the right base may represent atelectasis or pneumonia.. Pleural spaces: Unremarkable. No pleural effusion. No pneumothorax. Heart/Mediastinum: Unremarkable. No cardiomegaly. Bones/joints: Plate and screws in the cervical spine IMPRESSION: Patchy opacities in the right base may represent atelectasis or pneumonia..
--- NOTE | 2021-01-07 09:21 | HMH.ACPN2 ---
Internal Medicine - PN: Subj *Date: 01/08/21 *Time: 07:22 Interval history: not feeling well - low k - Exam Vital signs and Labs for Last 24 Hours: Temp Pulse Resp BP Pulse Ox 97.8 F 69 20 115/56 L 93 L 01/07/21 08:00 01/07/21 08:00 01/07/21 08:00 01/07/21 08:00 01/07/21 08:00 Laboratory Results - last 24 hr 01/06/21 11:46: POC Glucose 144 H 01/06/21 16:34: POC Glucose 238 H 01/06/21 20:05: POC Glucose 190 H 01/06/21 21:26: Vancomycin Trough 8.7 01/07/21 01:15: Vancomycin Peak 38.1 01/07/21 05:16: POC Glucose 216 H 01/07/21 05:30: WBC 15.3 H D, RBC 3.60 L, Hgb 11.4 L, Hct 34.6 L, MCV 96.0 H, MCH 31.5 H, MCHC 32.9, RDW 14.5, Plt Count 170, MPV 9.5, Neut % (Auto) 85.7 H, Lymph % (Auto) 9.3 L, [place] % (Auto) 4.5, Eos % (Auto) 0.4, Baso % (Auto) 0.1, Neut # (Auto) 13.1 H, Lymph # (Auto) 1.4, [place] # (Auto) 0.7, Eos # (Auto) 0.1, Baso # (Auto) 0.0, Total Counted 100, Neutrophils % (Manual) 81 H, Band Neutrophils % 9.0 H, Lymphocytes % (Manual) 9 L, Monocytes % (Manual) 1 L, Platelet Estimate Normal, RBC Morphology Normal 01/07/21 05:30: Sodium 130 L, Potassium 2.8 L*, Chloride 97 L, Carbon Dioxide 25, Anion Gap 10.8, BUN 10 D, Creatinine 0.60 L D, Estimated Creat Clear 75, Estimated GFR 133, Est GFR ( Amer) 161 D, Glucose 203 H, Calcium 7.4 L, Total Bilirubin 1.1, Direct Bilirubin 0.4, Conjugated Bilirubin 0.0, Indirect Bilirubin 0.7, Unconjugated Bilirubin 0.7, AST 44, ALT 28, Alkaline Phosphatase 123, Total Protein 5.0 L, Albumin 2.6 L, Triglycerides 98, Cholesterol 117 L, LDL Cholesterol Direct 58.37 L, VLDL Cholesterol 20, HDL Cholesterol 44, Cholesterol/HDL Ratio 2.7 I & O for Last 24 hours: Intake & Output 01/04/21 01/05/21 01/06/21 01/07/21 11:59 11:59 11:59 11:59 Intake Total 5561 / 5561 2283 / 2283 3616 / 3616 Output Total 600 / 600 625 / 625 3300 / 3300 Balance 4961 / 4961 1658 / 1658 316 / 316 Weight 175 lb 181 lb 2 oz 175 lb 6 oz 169 lb 2 oz Microbiology Reports for the Last 24 Hours: Microbiology 01/04/21 12:36 Blood Blood Culture - Preliminary NO GROWTH AFTER 48 HOURS 01/04/21 12:36 Blood Blood Culture - Preliminary NO GROWTH AFTER 48 HOURS - Constitutional no acute distress - *Routine HEENT Exam Head: Present: normocephalic Eye: Present: EOMI, PERRL ENT: Present: mucous membranes dry - *Routine Neck Exam Present: supple. Absent: JVD - *Routine Respiratory Exam Present: decreased breath sounds - *Routine Cardiovascular Exam Present: RRR, murmur - *Routine Abdominal Exam Present: soft - *Routine Extremities Exam Absent: calf tenderness - *Routine Skin Exam Present: intact - *Routine Neurological Exam Present: alert, CN II-XII intact - Routine Psychiatric Exam Present: normal affect Assessment and Plan (1) Cardiomyopathy Status: Acute Category: Medical Code(s): I42.9 - Cardiomyopathy, unspecified (2) Regional wall motion abnormality of heart Status: Acute Category: Medical Code(s): R93.1 - Abnormal findings on diagnostic imaging of heart and coronary circulation (3) Atrial fibrillation with RVR Status: Resolved Category: Medical Code(s): I48.91 - Unspecified atrial fibrillation (4) Coronary arteriosclerosis Status: Chronic Category: Medical Code(s): I25.10 - Atherosclerotic heart disease of [place] coronary artery without angina pectoris (5) DKA (diabetic ketoacidoses) Status: Acute Qualifiers: Diabetes mellitus type: other specified (including STANISLAW) Diabetes mellitus complication detail: without coma Qualified Code(s): E13.10 - Other specified diabetes mellitus with ketoacidosis without coma Category: Medical Code(s): E13.10 - Other specified diabetes mellitus with ketoacidosis without coma (6) Diabetes mellitus Status: Chronic Qualifiers: Diabetes mellitus type: type 2 Diabetes mellitus intermediate insulin use: without long
--- NOTE | 2021-01-07 10:11 | HMH.PHACONS ---
- Pharmacy Consult Date: 01/07/21 Time: 10:11 Referring provider: DR. SHRESTHA Reason for Consult:: VANCOMYCIN TROUGH AND PEAK LEVELS Allergies and ADEs:: Allergies Allergy/AdvReac Type Severity Reaction Status Date / Time adhesive Allergy Mild Rash Verified 06/03/20 11:38 [facility] Allergy Mild Rash Verified 06/03/20 11:38 Home Medications:: Home Medications Medication Instructions Recorded Confirmed Type aspirin 81 mg tablet,delayed 81 mg PO DAILY tab 07/30/17 01/04/21 History release insulin aspart U-100 100 unit/mL 0 units SQ DIRECTED ml 03/16/20 01/04/21 History (3 mL) subcutaneous pen Atorvastatin Calcium [Lipitor 10mg 10 mg PO HS 01/04/21 01/04/21 History Tab] Clopidogrel Bisulfate [Plavix] 75 mg PO DAILY 01/04/21 01/04/21 History Ergocalciferol (Vitamin D2) 1 cap PO WEEKLY 01/04/21 01/04/21 History [Drisdol] Insulin Glargine,Hum.rec.anlog 35 units SQ DAILY 01/04/21 01/04/21 History [Lantus Solostar U-100 Insulin] Levothyroxine Sodium [Synthroid 25 mcg PO DAILY 01/04/21 01/04/21 History 25mcg (0.025mg) tablet] Oxycodone HCl 15 mg PO QIDP PRN 01/04/21 01/04/21 History lisinopriL [Lisinopril 2.5mg Tab] 2.5 mg PO DAILY 01/04/21 01/04/21 History Height: 1.8 m Weight: 76.714 kg Laboratory Results:: Laboratory Results - last 24 hr 01/06/21 11:46: POC Glucose 144 H 01/06/21 16:34: POC Glucose 238 H 01/06/21 20:05: POC Glucose 190 H 01/06/21 21:26: Vancomycin Trough 8.7 01/07/21 01:15: Vancomycin Peak 38.1 01/07/21 05:16: POC Glucose 216 H 01/07/21 05:30: WBC 15.3 H D, RBC 3.60 L, Hgb 11.4 L, Hct 34.6 L, MCV 96.0 H, MCH 31.5 H, MCHC 32.9, RDW 14.5, Plt Count 170, MPV 9.5, Neut % (Auto) 85.7 H, Lymph % (Auto) 9.3 L, [place] % (Auto) 4.5, Eos % (Auto) 0.4, Baso % (Auto) 0.1, Neut # (Auto) 13.1 H, Lymph # (Auto) 1.4, [place] # (Auto) 0.7, Eos # (Auto) 0.1, Baso # (Auto) 0.0, Total Counted 100, Neutrophils % (Manual) 81 H, Band Neutrophils % 9.0 H, Lymphocytes % (Manual) 9 L, Monocytes % (Manual) 1 L, Platelet Estimate Normal, RBC Morphology Normal 01/07/21 05:30: Sodium 130 L, Potassium 2.8 L*, Chloride 97 L, Carbon Dioxide 25, Anion Gap 10.8, BUN 10 D, Creatinine 0.60 L D, Estimated Creat Clear 75, Estimated GFR 133, Est GFR ( Amer) 161 D, Glucose 203 H, Calcium 7.4 L, Total Bilirubin 1.1, Direct Bilirubin 0.4, Conjugated Bilirubin 0.0, Indirect Bilirubin 0.7, Unconjugated Bilirubin 0.7, AST 44, ALT 28, Alkaline Phosphatase 123, Total Protein 5.0 L, Albumin 2.6 L, Triglycerides 98, Cholesterol 117 L, LDL Cholesterol Direct 58.37 L, VLDL Cholesterol 20, HDL Cholesterol 44, Cholesterol/HDL Ratio 2.7 Medical History: Reports:: Anxiety, Atrial Fibrillation, Coronary Artery Disease, Diabetes Mellitus Type 1, Hyperlipidemia, Hypertension, Migraine, Peripheral Artery Disease, Peripheral Vascular Disease Denies:: Cancer, Diabetes Mellitus Type 2, MRSA Assessment and Plan (1) Cardiomyopathy Status: Acute Category: Medical Code(s): I42.9 - Cardiomyopathy, unspecified (2) Regional wall motion abnormality of heart Status: Acute Category: Medical Code(s): R93.1 - Abnormal findings on diagnostic imaging of heart and coronary circulation (3) Atrial fibrillation with RVR Status: Resolved Category: Medical Code(s): I48.91 - Unspecified atrial fibrillation (4) Coronary arteriosclerosis Status: Chronic Category: Medical Code(s): I25.10 - Atherosclerotic heart disease of [place] coronary artery without angina pectoris (5) DKA (diabetic ketoacidoses) Status: Acute Qualifiers: Diabetes mellitus type: other specified (including STANISLAW) Diabetes mellitus complication detail: without coma Qualified Code(s): E13.10 - Other specified diabetes mellitus with ketoacidosis without coma Category: Medical Code(s): E13.10 - Other specified diabetes mellitus with ketoacidosis without coma (6) Diabetes mellitus Status: Chronic Qualifiers: Diabetes bhaskar
[2021-01-07 11:35] LABS: POC Glucose,Bedside 159 (70-110)
--- NOTE | 2021-01-07 16:43 | PC.NURSE ---
Pt has been pleasant and cooperative this shift. A&O X4. No complaints of pain or SOA. Pt is currently on room air with sats. >90%. Lungs CTA. Telemetry reveals NSR. No edema noted. Skin is C/D/I. Pt ambulates independently in the room. Pt also sat up in the recliner intermittently this shift. Urine is clear and yellow. No BM today. FSBS results have been 159 and 230. 20 G peripheral IV in the LT AC is patent and SL. 20 G peripheral IV in the RT forearm is patent and infusing NS @ 175 ML/HR. VSS. Call light within reach. Will continue to monitor.
[2021-01-07 17:28] LABS: POC Glucose,Bedside 230 (70-110)
[2021-01-08] VITALS (9 sets, daily range): BP systolic 119–169; BP diastolic 59–79; PULSE 60–73; RESP 16–22; TEMP 36.6–36.9; O2SAT 95–99; BMI 24.0
[2021-01-08 00:37] LABS: POC Glucose,Bedside 183 (70-110)
--- NOTE | 2021-01-08 03:03 | PC.NURSE ---
Pt is A/O x4. No acute changes t/o shift. Pt denies any N/V. Pt c/o of pain x1 this shift admin meds per MAR with relief. IV is patent infusing NS @175ml/hr. Pt has used BSC and urinal to void clear, yellow, urine. No BM this shift. Pt has been aware that we still needs a sputum specimen and cup remains at bedside. VSS, will continue to monitor.
[2021-01-08 07:46] LABS: Basophils % 0.2 % (0.1-2.0); Eosinophils # 0.2 K/mm3 (0.0-0.4); Eosinophils % 1.4 % (0.1-12.0); Hematocrit 32.7 % (42.0-52.0); Hemoglobin 10.9 g/dL (14.1-18.0); Lymphocytes # 1.6 K/mm3 (0.7-4.5); Lymphocytes % 12.2 % (10-50); Mean Corpuscular HGB Conc 33.4 g/dL (31.8-35.4); Mean Corpuscular Hemoglobin 31.8 pg (27.0-31.2); Mean Corpuscular Volume 95.1 fl (80-94); Mean Platelet Volume 9.9 fl (7.4-10.4); Monocytes # 0.6 K/mm3 (0.1-1.0); Monocytes % 4.4 % (1.7-9.3); Neutrophils # 10.6 K/mm3 (1.8-7.8); Neutrophils % 81.7 % (37.0-80.0); Platelet Count 154 K/mm3 (142-424); Red Blood Count 3.44 M/mm3 (4.60-6.20); Red Cell Distribution Width 14.3 % (11.5-17.5)
[2021-01-08 07:57] LABS: Anion Gap 11.8 mEq/L (5-15); Blood Urea Nitrogen 8 mg/dl (9-20); Calcium 7.4 mg/dl (8.4-10.2); Carbon Dioxide 24 mmol/L (22.0-30.0); Chloride 97 mmol/L (98-107); Creatinine Clearance Estimated 76 mL/min (50-200); Estimated Glomerular Filt Rate 133 ml/min (>60); GFR (African American) 161 ML/MIN (>60); Glucose 170 mg/dl (74-100); Sodium 130 mmol/L (136-145)
[2021-01-08 07:58] LABS: Potassium 2.8 mmoL/L (3.5-5.1)
[2021-01-08 11:06] LABS: POC Glucose,Bedside 239 (70-110)
[2021-01-08 12:11] LABS: POC Glucose,Bedside 251 (70-110)
--- NOTE | 2021-01-08 12:58 | HMH.ACPN ---
Internal Medicine - PN: Subj *Date: 01/08/21 *Time: 12:58 Exam Vital signs and Labs for Last 24 Hours: Temp Pulse Resp BP Pulse Ox 98.3 F 73 20 152/74 H 96 01/08/21 11:20 01/08/21 11:20 01/08/21 11:20 01/08/21 11:20 01/08/21 11:20 Laboratory Results - last 24 hr 01/07/21 15:59: POC Glucose 230 H 01/07/21 19:52: POC Glucose 183 H 01/08/21 04:57: POC Glucose 239 H 01/08/21 06:30: WBC 13.0 H, RBC 3.44 L, Hgb 10.9 L, Hct 32.7 L, MCV 95.1 H, MCH 31.8 H, MCHC 33.4, RDW 14.3, Plt Count 154, MPV 9.9, Neut % (Auto) 81.7 H, Lymph % (Auto) 12.2, [place] % (Auto) 4.4, Eos % (Auto) 1.4, Baso % (Auto) 0.2, Neut # (Auto) 10.6 H, Lymph # (Auto) 1.6, [place] # (Auto) 0.6, Eos # (Auto) 0.2, Baso # (Auto) 0.0 01/08/21 06:30: Sodium 130 L, Potassium 2.8 L*, Chloride 97 L, Carbon Dioxide 24, Anion Gap 11.8, BUN 8 L, Creatinine 0.60 L, Estimated Creat Clear 76, Estimated GFR 133, Est GFR ( Amer) 161, Glucose 170 H, Calcium 7.4 L 01/08/21 12:00: POC Glucose 251 H I & O for Last 24 hours: Intake & Output 01/05/21 01/06/21 01/07/21 01/08/21 23:59 23:59 23:59 23:59 Intake Total 6624 / 6624 3256 / 3256 3876 / 3876 600 / 600 Output Total 500 / 500 3425 / 3425 Balance 6124 / 6124 -169 / -169 3876 / 3876 600 / 600 Weight 82.157 kg 80 kg 76.714 kg 78.046 kg Microbiology Reports for the Last 24 Hours: Microbiology 09/05/21 04:02 Sputum - Expectorated Sputum Gram Stain - Final Assessment and Plan (1) Cardiomyopathy Status: Acute Category: Medical Code(s): I42.9 - Cardiomyopathy, unspecified (2) Regional wall motion abnormality of heart Status: Acute Category: Medical Code(s): R93.1 - Abnormal findings on diagnostic imaging of heart and coronary circulation (3) Atrial fibrillation with RVR Status: Resolved Category: Medical Code(s): I48.91 - Unspecified atrial fibrillation (4) Coronary arteriosclerosis Status: Chronic Category: Medical Code(s): I25.10 - Atherosclerotic heart disease of [place] coronary artery without angina pectoris (5) DKA (diabetic ketoacidoses) Status: Acute Qualifiers: Diabetes mellitus type: other specified (including STANISLAW) Diabetes mellitus complication detail: without coma Qualified Code(s): E13.10 - Other specified diabetes mellitus with ketoacidosis without coma Category: Medical Code(s): E13.10 - Other specified diabetes mellitus with ketoacidosis without coma (6) Diabetes mellitus Status: Chronic Qualifiers: Diabetes mellitus type: type 2 Diabetes mellitus longterm insulin use: without longterm use Diabetes mellitus complication status: without complication Qualified Code(s): E11.9 - Type 2 diabetes mellitus without complications Category: Medical Code(s): E11.9 - Type 2 diabetes mellitus without complications (7) HLD (hyperlipidemia) Status: Chronic Qualifiers: Hyperlipidemia type: mixed hyperlipidemia Qualified Code(s): E78.2 - Mixed hyperlipidemia Category: Medical Code(s): E78.5 - Hyperlipidemia, unspecified (8) HTN (hypertension) Status: Chronic Qualifiers: Hypertension type: primary hypertension Qualified Code(s): I10 - Essential (primary) hypertension Category: Medical Code(s): I10 - Essential (primary) hypertension (9) Tobacco dependence syndrome Status: Chronic Category: Medical Code(s): F17.200 - Nicotine dependence, unspecified, uncomplicated The patient's infection will respond to the chosen ABx?: Yes Is the patient receiving the right drug, dose, and route?: Yes Could a more targeted ABx be ordered?: No (SPUTUM PENDING. BLOOD CX NEGATIVE)
[2021-01-08 17:12] LABS: POC Glucose,Bedside 153 (70-110)
--- NOTE | 2021-01-08 17:28 | PC.NURSE ---
Pt has been pleasant and cooperative this shift. A&O X4. No complaints of pain or SOA. Pt is currently on room air with sats. >90%. Lungs CTA. Telemetry reveals NSR. No edema noted. Skin is C/D/I. Pt ambulates with a cane independently in the room. Pt also sat up in the recliner intermittently this shift. Urine is clear and yellow. No BM today. FSBS results have been 251 and 153. 20 G peripheral IV in the LT forearm is patent and infusing NS @ 175 ML/HR. VSS. Call light within reach. Will continue to monitor.
--- NOTE | 2021-01-08 20:05 | HMH.ACPN2 ---
Internal Medicine - PN: Subj *Date: 01/09/21 *Time: 06:59 Interval history: feels better - low k - Exam Vital signs and Labs for Last 24 Hours: Temp Pulse Resp BP Pulse Ox 97.9 F 60 16 169/76 H 99 01/08/21 19:58 01/08/21 19:58 01/08/21 19:58 01/08/21 19:58 01/08/21 19:58 Laboratory Results - last 24 hr 01/07/21 19:52: POC Glucose 183 H 01/08/21 04:57: POC Glucose 239 H 01/08/21 06:30: WBC 13.0 H, RBC 3.44 L, Hgb 10.9 L, Hct 32.7 L, MCV 95.1 H, MCH 31.8 H, MCHC 33.4, RDW 14.3, Plt Count 154, MPV 9.9, Neut % (Auto) 81.7 H, Lymph % (Auto) 12.2, [place] % (Auto) 4.4, Eos % (Auto) 1.4, Baso % (Auto) 0.2, Neut # (Auto) 10.6 H, Lymph # (Auto) 1.6, [place] # (Auto) 0.6, Eos # (Auto) 0.2, Baso # (Auto) 0.0 01/08/21 06:30: Sodium 130 L, Potassium 2.8 L*, Chloride 97 L, Carbon Dioxide 24, Anion Gap 11.8, BUN 8 L, Creatinine 0.60 L, Estimated Creat Clear 76, Estimated GFR 133, Est GFR ( Amer) 161, Glucose 170 H, Calcium 7.4 L 01/08/21 12:00: POC Glucose 251 H 01/08/21 16:57: POC Glucose 153 H I & O for Last 24 hours: Intake & Output 01/06/21 01/07/21 01/08/21 01/09/21 11:59 11:59 11:59 11:59 Intake Total 2283 / 2283 3616 / 3616 3996 / 3996 3294 / 3294 Output Total 625 / 625 3300 / 3300 Balance 1658 / 1658 316 / 316 3996 / 3996 3294 / 3294 Weight 175 lb 6 oz 169 lb 2 oz 172 lb 1 oz Microbiology Reports for the Last 24 Hours: Microbiology 01/08/21 04:02 Sputum - Expectorated Sputum Gram Stain - Final - Constitutional no acute distress - *Routine HEENT Exam Head: Present: normocephalic Eye: Present: EOMI, PERRL ENT: Present: mucous membranes dry - *Routine Neck Exam Present: supple. Absent: JVD - *Routine Respiratory Exam Present: CTA bilaterally - *Routine Cardiovascular Exam Present: RRR - *Routine Abdominal Exam Present: soft - *Routine Extremities Exam Absent: edema - *Routine Skin Exam Present: intact - *Routine Neurological Exam Present: alert, CN II-XII intact - Routine Psychiatric Exam Present: normal affect Assessment and Plan (1) Cardiomyopathy Status: Acute Category: Medical Code(s): I42.9 - Cardiomyopathy, unspecified (2) Regional wall motion abnormality of heart Status: Acute Category: Medical Code(s): R93.1 - Abnormal findings on diagnostic imaging of heart and coronary circulation (3) Atrial fibrillation with RVR Status: Resolved Category: Medical Code(s): I48.91 - Unspecified atrial fibrillation (4) Coronary arteriosclerosis Status: Chronic Category: Medical Code(s): I25.10 - Atherosclerotic heart disease of [place] coronary artery without angina pectoris (5) DKA (diabetic ketoacidoses) Status: Acute Qualifiers: Diabetes mellitus type: other specified (including STANISLAW) Diabetes mellitus complication detail: without coma Qualified Code(s): E13.10 - Other specified diabetes mellitus with ketoacidosis without coma Category: Medical Code(s): E13.10 - Other specified diabetes mellitus with ketoacidosis without coma (6) Diabetes mellitus Status: Chronic Qualifiers: Diabetes mellitus type: type 2 Diabetes mellitus marine oil terminal superintendent insulin use: without long-term use Diabetes mellitus complication status: without complication Qualified Code(s): E11.9 - Type 2 diabetes mellitus without complications Category: Medical Code(s): E11.9 - Type 2 diabetes mellitus without complications (7) HLD (hyperlipidemia) Status: Chronic Qualifiers: Hyperlipidemia type: mixed hyperlipidemia Qualified Code(s): E78.2 - Mixed hyperlipidemia Category: Medical Code(s): E78.5 - Hyperlipidemia, unspecified (8) HTN (hypertension) Status: Chronic Qualifiers: Hypertension type: primary hypertension Qualified Code(s): I10 - Essential (primary) hypertension Category: Medical Code(s): I10 - Essential (primary) hypertension (9) Tobacco dependence syndrome Status: Chronic Category: Medical
[2021-01-08 21:43] LABS: POC Glucose,Bedside 250 (70-110)
[2021-01-09] VITALS (13 sets, daily range): BP systolic 130–170; BP diastolic 59–86; PULSE 60–74; RESP 14–18; TEMP 36.6–37.1; O2SAT 97–99; BMI 23.5
--- NOTE | 2021-01-09 03:19 | PC.NURSE ---
No acute changes noted this shift. Pt has been up to BSC. Has ambulated in hallway with standby assist and tolerated well. Pt states that he wants to go home and has someone to help him. VSS. Last fsbs was 250. Medicated per mar. No other concerns. Will continue to monitor.
[2021-01-09 06:13] LABS: POC Glucose,Bedside 248 (70-110)
[2021-01-09 06:35] LABS: Basophils # 0.1 K/mm3 (0-0.2); Basophils % 0.6 % (0.1-2.0); Eosinophils # 0.4 K/mm3 (0.0-0.4); Eosinophils % 2.3 % (0.1-12.0); Hematocrit 34.3 % (42.0-52.0); Hemoglobin 11.6 g/dL (14.1-18.0); Lymphocytes # 1.7 K/mm3 (0.7-4.5); Lymphocytes % 9.5 % (10-50); Mean Corpuscular HGB Conc 33.9 g/dL (31.8-35.4); Mean Corpuscular Hemoglobin 32.5 pg (27.0-31.2); Mean Platelet Volume 10.3 fl (7.4-10.4); Monocytes # 1.2 K/mm3 (0.1-1.0); Monocytes % 6.6 % (1.7-9.3); Neutrophils # 14.9 K/mm3 (1.8-7.8); Platelet Count 220 K/mm3 (142-424); Red Blood Count 3.57 M/mm3 (4.60-6.20); Red Cell Distribution Width 14.5 % (11.5-17.5); White Blood Count 18.4 K/mm3 (4.8-10.8)
[2021-01-09 06:38] LABS: MANUAL DIFFERENTIAL MANUAL DIFFERENTIAL (MANUAL DIFF)
[2021-01-09 06:44] LABS: Anion Gap 18.3 mEq/L (5-15); Blood Urea Nitrogen 8 mg/dl (9-20); Calcium 7.8 mg/dl (8.4-10.2); Carbon Dioxide 16 mmol/L (22.0-30.0); Chloride 97 mmol/L (98-107); Creatinine Clearance Estimated 74 mL/min (50-200); Estimated Glomerular Filt Rate 133 ml/min (>60); GFR (African American) 161 ML/MIN (>60); Glucose 246 mg/dl (74-100); Potassium 4.3 mmoL/L (3.5-5.1); Sodium 127 mmol/L (136-145)
[2021-01-09 06:46] LABS: Eosinophils % 1 % (0-3); Lymphocytes % 5 % (10-50); Monocytes % 3 % (2-9); Neutrophils % 88 % (42-76); Platelet Estimate Normal; RBC Morphology Normal; Total Cells Counted 100
[2021-01-09 07:05] LABS: Acetone, Serum (Rapid) Moderate (None Detect)
--- NOTE | 2021-01-09 08:50 | HMH.ACPN2 ---
Internal Medicine - PN: Subj *Date: 01/10/21 *Time: 08:14 Interval history: feels better but with serum acetone again and will need iv insulin Exam Vital signs and Labs for Last 24 Hours: Temp Pulse Resp BP Pulse Ox 98.0 F 69 16 131/79 98 01/09/21 07:42 01/09/21 07:42 01/09/21 07:42 01/09/21 07:42 01/09/21 07:43 Laboratory Results - last 24 hr 01/08/21 04:57: POC Glucose 239 H 01/08/21 12:00: POC Glucose 251 H 01/08/21 16:57: POC Glucose 153 H 01/08/21 20:21: POC Glucose 250 H 01/09/21 05:58: POC Glucose 248 H 01/09/21 06:12: WBC 18.4 H D, RBC 3.57 L, Hgb 11.6 L, Hct 34.3 L, MCV 96.0 H, MCH 32.5 H, MCHC 33.9, RDW 14.5, Plt Count 220 D, MPV 10.3, Neut % (Auto) 81.0 H, Lymph % (Auto) 9.5 L, [place] % (Auto) 6.6, Eos % (Auto) 2.3, Baso % (Auto) 0.6, Neut # (Auto) 14.9 H, Lymph # (Auto) 1.7, [place] # (Auto) 1.2 H, Eos # (Auto) 0.4, Baso # (Auto) 0.1, Total Counted 100, Neutrophils % (Manual) 88 H, Band Neutrophils % 3.0, Lymphocytes % (Manual) 5 L, Monocytes % (Manual) 3, Eosinophils % (Manual) 1, Platelet Estimate Normal, RBC Morphology Normal 01/09/21 06:12: Sodium 127 L, Potassium 4.3 D, Chloride 97 L, Carbon Dioxide 16 L, Anion Gap 18.3 H, BUN 8 L, Creatinine 0.60 L, Estimated Creat Clear 74, Estimated GFR 133, Est GFR ( Amer) 161, Glucose 246 H D, Calcium 7.8 L 01/09/21 06:12: Acetone Level Moderate I & O for Last 24 hours: Intake & Output 01/06/21 01/07/21 01/08/21 01/09/21 11:59 11:59 11:59 11:59 Intake Total 2283 / 2283 3616 / 3616 3996 / 3996 4333 / 4333 Output Total 625 / 625 3300 / 3300 150 / 150 Balance 1658 / 1658 316 / 316 3996 / 3996 4183 / 4183 Weight 175 lb 6 oz 169 lb 2 oz 172 lb 1 oz 168 lb 2 oz Microbiology Reports for the Last 24 Hours: Microbiology 01/08/21 04:02 Sputum - Expectorated Sputum Gram Stain - Final - Constitutional no acute distress - *Routine HEENT Exam Head: Present: normocephalic Eye: Present: EOMI, PERRL ENT: Present: mucous membranes dry - *Routine Neck Exam Present: supple. Absent: JVD - *Routine Respiratory Exam Present: CTA bilaterally - *Routine Cardiovascular Exam Present: RRR - *Routine Abdominal Exam Present: soft - *Routine Extremities Exam Present: pulses intact - Routine Back/Spine/Pelvis Exam Back/Spine: Absent: full ROM - *Routine Skin Exam Present: intact - *Routine Neurological Exam Present: alert, CN II-XII intact - Routine Psychiatric Exam Present: normal affect Assessment and Plan (1) Cardiomyopathy Status: Acute Category: Medical Code(s): I42.9 - Cardiomyopathy, unspecified (2) Regional wall motion abnormality of heart Status: Acute Category: Medical Code(s): R93.1 - Abnormal findings on diagnostic imaging of heart and coronary circulation (3) Atrial fibrillation with RVR Status: Resolved Category: Medical Code(s): I48.91 - Unspecified atrial fibrillation (4) Coronary arteriosclerosis Status: Chronic Category: Medical Code(s): I25.10 - Atherosclerotic heart disease of [place] coronary artery without angina pectoris (5) DKA (diabetic ketoacidoses) Status: Acute Qualifiers: Diabetes mellitus type: other specified (including ST[place]ISLAW) Diabetes mellitus complication detail: without coma Qualified Code(s): E13.10 - Other specified diabetes mellitus with ketoacidosis without coma Category: Medical Code(s): E13.10 - Other specified diabetes mellitus with ketoacidosis without coma (6) Diabetes mellitus Status: Chronic Qualifiers: Diabetes mellitus type: type 2 Diabetes mellitus 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
--- NOTE | 2021-01-09 11:02 | PC.NURSE ---
1100 - FSBS 143, insulin gtt lowered 1 unit/hr. IVF changed to D5NS+ 20 meq KCL @ 75 mls/hr per protocol
--- NOTE | 2021-01-09 11:22 | HMH.PTEV ---
Physical Therapy Evaluation Rehab PT IP Evaluation Start: 01/06/21 09:18 Freq: ONCE Status: Active Protocol: Document 01/09/21 11:20 GARY (Rec: 01/09/21 11:22 GARY [id number]) Subjective/History History History This is theinitial IPPT evaluation for Jorge Helton. Pt is a 70 y/o male admitted thru ED for DKA Subjective Subjective Pt has no complaints at this time Rehab PT IP Eval Objective Appearance Patient Behavior Appropriate,Cooperative Patient Orientation Person,Place,Time,Birthday, Year,Situation Difficulty following instructions none Speech Pattern Clear,Appropriate Ambulation Patient Able to Ambulate Yes Ambulation Observation IP General Gait Pattern Observation Shuffling Step Ambulation Distance (feet) 15 Ambulation Assistive Device Small Base Quad Cane Ambulation Ability Supervision/Stand by Balance Ability to Arise Able, uses arms to help Sitting Balance Steady, safe Standing Balance Narrow stance w/o support Dynamic Sitting Balance Ability Normal Dynamic Standing Balance Ability Good Transfers Bed Transfer Ability Independent Chair Transfer Ability Independent Sit to Stand Bed Transfer Ability Independent Sit to Stand Chair Transfer Ability Independent Rehab PT IP prob,goals,plan Problems Date of Evaluation: 01/09/21 Rehab Potential Rehab Potential Innapropriate for Skilled Therapy Discharge Plan PT Discharge Plan Pt has no need for skilled therapy at this time - pt safe to return home once medically stable G -code Required Yes Eval Complexity Eval Charge Codes 23187 - Low Complexity G Codes PT Current Status Mobility PT Current Status Modifier CI-At least 1% but less than 20% impaired, limited or restricted PT Goal Status Mobility PT Goal Status Modifer CI-At least 1% but less than 20% impaired, limited or restricted PHYSICIAN CERTIFICATION: I certify the specified therapy services for Jorge Helton are required, authorized, and reviewed every 30 days.
--- NOTE | 2021-01-09 14:43 | DIET.NUTRFU ---
Weight stable, bowel function normal, BG avg. 240. Pt has been provided diet edu for DM/DKA prevention. He reports no nutritional concerns.
[2021-01-09 17:10] LABS: Anion Gap 9.7 mEq/L (5-15); Blood Urea Nitrogen 7 mg/dl (9-20); Calcium 7.7 mg/dl (8.4-10.2); Carbon Dioxide 25 mmol/L (22.0-30.0); Chloride 97 mmol/L (98-107); Creatinine Clearance Estimated 74 mL/min (50-200); Estimated Glomerular Filt Rate 133 ml/min (>60); GFR (African American) 161 ML/MIN (>60); Glucose 199 mg/dl (74-100); Potassium 3.7 mmoL/L (3.5-5.1); Sodium 128 mmol/L (136-145)
[2021-01-09 17:16] LABS: Acetone, Serum (Rapid) Small (None Detect)
--- NOTE | 2021-01-09 17:26 | PC.NURSE ---
No acute changes. He is A&Ox4. Lungs CTA. SR on tely, rate 60-70. Abdomen soft, non-tender w/ active BS in all quads. No c/o n/v. Skin is intact. No edema present. Voiding w/o difficulty. No BM this shift. Ambulates independently to [facility] w/o safety concerns. He remains on insulin gtt @ 2 units/hr. Anion gap noted to be < 12 @ 1600 BMP, Dr. Soriano notified of this as well as pt still having a small amount of acetone. Telephone orders received for pt to have BMP and serum acetone drawn in 4 hours and to remain on insulin gtt. He is currently sitting up in bed eating dinner. No needs voiced. Medicated per JUL twice for chronic back and BLE pain w/ verbalized relief. Call norma w/in reach.
[2021-01-09 19:33] LABS: POC Glucose,Bedside 224 (70-110)
[2021-01-09 19:33] LABS: POC Glucose,Bedside 165 (70-110)
[2021-01-09 19:33] LABS: POC Glucose,Bedside 131 (70-110)
[2021-01-09 19:33] LABS: POC Glucose,Bedside 177 (70-110)
[2021-01-09 19:33] LABS: POC Glucose,Bedside 231 (70-110)
[2021-01-09 19:33] LABS: POC Glucose,Bedside 207 (70-110)
[2021-01-09 19:33] LABS: POC Glucose,Bedside 193 (70-110)
[2021-01-09 19:33] LABS: POC Glucose,Bedside 170 (70-110)
[2021-01-09 19:33] LABS: POC Glucose,Bedside 143 (70-110)
--- NOTE | 2021-01-09 20:06 | PC.NURSE ---
2000 FSBS 170 at this time, insulin drips continues at 2 mL/hr and fluids infusing at 75 mL/hr
[2021-01-09 20:10] LABS: POC Glucose,Bedside 170 (70-110)
[2021-01-09 20:57] LABS: Chloride 98 mmol/L (98-107); Potassium 3.7 mmoL/L (3.5-5.1); Sodium 130 mmol/L (136-145)
[2021-01-09 21:00] LABS: Blood Urea Nitrogen 5 mg/dl (9-20); Carbon Dioxide 26 mmol/L (22.0-30.0); Creatinine Clearance Estimated 74 mL/min (50-200); Estimated Glomerular Filt Rate 133 ml/min (>60); GFR (African American) 161 ML/MIN (>60)
[2021-01-09 21:01] LABS: Calcium 7.9 mg/dl (8.4-10.2); Glucose 161 mg/dl (74-100)
[2021-01-09 21:18] LABS: Anion Gap 9.7 mEq/L (5-15)
[2021-01-09 21:19] LABS: Acetone, Serum (Rapid) Small (None Detect)
[2021-01-09 21:22] LABS: POC Glucose,Bedside 150 (70-110)
--- NOTE | 2021-01-09 21:28 | PC.NURSE ---
2100 FSBS 150 insulin gtt remains at 2 mL/hr, IVF remain at 75 mL/hr
[2021-01-09 22:11] LABS: POC Glucose,Bedside 271 (70-110)
--- NOTE | 2021-01-09 22:21 | PC.NURSE ---
Addendum entered by Cindy Herron RN 01/09/21 22:33: NS with 20 K running at 125mL/hr Original Note: 2200 FSBS 271, insulin gtt increased to 4 mL/hr and fluids changed to NS with 20 K per protocol
--- NOTE | 2021-01-09 23:05 | PC.NURSE ---
2300 FSBS 201, insulin gtt remians at 4 mL/hr and NS with 20 K remains at 125 mL/hr
[2021-01-09 23:09] LABS: POC Glucose,Bedside 201 (70-110)
[2021-01-10] VITALS: BP 133/68; PULSE 70; PULSE 75; RESP 18; TEMP 36.7; O2SAT 98
[2021-01-10 00:11] LABS: POC Glucose,Bedside 155 (70-110)
[2021-01-10 00:40] LABS: Chloride 100 mmol/L (98-107); Potassium 3.5 mmoL/L (3.5-5.1); Sodium 130 mmol/L (136-145)
[2021-01-10 00:43] LABS: Blood Urea Nitrogen 4 mg/dl (9-20); Creatinine Clearance Estimated 74 mL/min (50-200); Estimated Glomerular Filt Rate 133 ml/min (>60); GFR (African American) 161 ML/MIN (>60)
[2021-01-10 00:44] LABS: Anion Gap 7.5 mEq/L (5-15); Calcium 7.7 mg/dl (8.4-10.2); Carbon Dioxide 26 mmol/L (22.0-30.0); Glucose 136 mg/dl (74-100)
--- NOTE | 2021-01-10 00:44 | PC.NURSE ---
0000 FSBS 155 insulin gtt remains at 4 mL/hr, IVF remain at 125 mL/hr
[2021-01-10 01:11] LABS: Acetone, Serum (Rapid) None Detected (None Detect)
[2021-01-10 01:18] LABS: POC Glucose,Bedside 95 (70-110)
--- NOTE | 2021-01-10 01:36 | PC.NURSE ---
0100 FSBS 95, insulin gtt decreased to 2 mL/hr, D5NS restarted at a rate of 125 mL/hr per protocol 0117 Lab results showed no acetone, anion gap of 7.5, K of 3.5, Dr. Soriano notified, gave orders to turn insulin drip off, start NS @ 100 mL/hr and start FS ACHS with high intensity SSI
[2021-01-10 02:00] VITALS: O2SAT 99
[2021-01-10 03:02] LABS: POC Glucose,Bedside 114 (70-110)
[2021-01-10 04:00] VITALS: BP 145/58; PULSE 66; PULSE 70; RESP 18; TEMP 36.8; O2SAT 99
[2021-01-10 04:59] VITALS: BMI 23.6
[2021-01-10 05:55] LABS: POC Glucose,Bedside 216 (70-110)
--- NOTE | 2021-01-10 06:27 | PC.NURSE ---
pt has rested well since insulin gtt stopped, did complain of pain one time and was treated per MAR, remains on room air with lungs CTA
[2021-01-10 07:46] VITALS: BP 122/67; PULSE 86; RESP 19; TEMP 36.6; O2SAT 99
[2021-01-10 08:00] VITALS: O2SAT 96
--- NOTE | 2021-01-10 09:02 | HMH.DCSUM ---
General - General Admission date:: 01/04/21 Discharge date: 01/10/21 HPI HPI: 70-year-old male who presented to the emergency department with complaints of an elevated blood sugar at home after a 3 days hx of nausea and vomiting with diarrhea. Patinet states generalized weakness and abd pain. Patient states that while he was at home he did not feel well and called one of his friends and when his friend got to the house the friend was unable to get him up to the car so she called EMS. The patient's blood sugar was to high to read on his meter at home. He denies any chest pain or pressure. He denies any shortness of breath or edema. Patient is complaining of diffuse left lower quad pain. He states that this is just continued to worsen over the last couple days. He states that he is somewhat nauseated with the abdominal pain as well. Pateint admitted for dka,started on insulin drip. Hospital Course Hospital Course: 70-year-old male who presented to the emergency department with complaints of an elevated blood sugar at home after a 3 days hx of nausea and vomiting with diarrhea. Patinet states generalized weakness and abd pain. Patient states that while he was at home he did not feel well and called one of his friends and when his friend got to the house the friend was unable to get him up to the car so she called EMS. The patient's blood sugar was to high to read on his meter at home. He denies any chest pain or pressure. He denies any shortness of breath or edema. Patient is complaining of diffuse left lower quad pain. He states that this is just continued to worsen over the last couple days. He states that he is somewhat nauseated with the abdominal pain as well. Pateint admitted for dka,started on insulin drip. 01/05/21 Abd/Pelvis CT: FINDINGS: LOWER THORAX: There are small bilateral pleural effusions with bibasilar atelectatic changes. Minimal parenchymal opacity noted along the right middle lobe posteriorly. ABDOMEN & PELVIS: Fatty liver. No focal liver lesions. Prior cholecystectomy. Linear areas of low density noted in the spleen anteriorly and an additional area posteriorly possibly due to fissures or flow artifact. The adrenal glands have an unremarkable appearance. There is diffuse pancreatic atrophy with multiple pancreatic calcifications in the tail the pancreas consistent with chronic pancreatitis. No renal or ureteral calculi. No hydronephrosis. No intestinal obstruction or free air. The appendix is not clearly delineated. No secondary signs of appendicitis. There are scattered air-fluid levels within nondistended large and small bowel. There is mild colonic diverticulosis but no evidence of diverticulitis. There is a retro aortic left renal vein as a normal variant. No acute bony anomaly. Right iliac artery stent is present and appears patent. 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 IMPRESSION: 1. Small bilateral pleural effusions with bibasilar atelectasis. 2. Chronic pancreatitis with pancreatic atrophy. 3. Nondistended fluid-filled loops of small and large bowel with air-fluid levels which could be due to ileus or enterocolitis. No evidence of diverticulitis, intestinal obstruction, or free air Dictated by: Sumanth Quintana MD 01/07/21 CXR: FINDINGS: Tubes, catheters and devices: Overlying EKG wires Lungs: Hyperexpanded lung esposito consistent with COPD; Patchy opacities in the right base may represent atelectasis or pneumonia.. Pleural spaces: Unremarkable. No pleural effusion. No pneumothorax. Heart/Mediastinum: Unremarkable. No cardiomegaly. Bones/joints: Plate and screws in the cervical spine IMPRESSION: Patchy opacities in the right base may represent atelectasis or pneumonia.. Electronically signed by Francis Lee MD Cardiology has seen and
--- NOTE | 2021-01-10 10:30 | HMH.PHAINT ---
MEDICATION DISCHARGE COUNSELING COMPLETE. PATIENT ONLY ASKED WHAT HIS METOPROLOL WAS FOR. I COUNSELED PATIENT ON TAKING HIS NEW MEDICATIONS, WHAT THEY WERE FOR, HOW TO TAKE AND WHAT TO EXPECT.
== END 2021-01-10 10:51 | disposition home or self-care (01) | DRG 637 ==
LOC: ER 11:37 → 2ND 15:30
PROVIDERS: Emergency Medicine; Nurse Practitioner Family; Admitting Provider Family Medicine; Emergency Provider Student in an Organized Health Care Education/Training Program; Visit Provider Family Medicine
DX: E10.10 Type 1 diabetes mellitus with ketoacidosis without coma (principal); J18.9 Pneumonia, unspecified organism; I42.9 Cardiomyopathy, unspecified; I25.10 Atherosclerotic heart disease of native coronary artery without angina pectoris; Z20.822 Contact with and (suspected) exposure to COVID-19; I48.91 Unspecified atrial fibrillation; E78.2 Mixed hyperlipidemia; I10 Essential (primary) hypertension; E10.51 Type 1 diabetes mellitus with diabetic peripheral angiopathy without gangrene; F17.210 Nicotine dependence, cigarettes, uncomplicated; Z79.4 Long term (current) use of insulin
CPT/HCPCS: 36415; 71045; 74177; 80048; 80053; 80061; 80076; 80202; 81001; 82009; 82803; 82947; 82962; 83605; 83690; 84443; 85007; 85025; 87040; 87070; 87205; 93005; 93306; 96365; 96367; 96375; 97161; 99285; J0282; J1956; J3370; J7060; Q9967; U0003

== ENCOUNTER → 2021-02-01 08:36 | Outpatient (CLI) | payer MEDICARE, SELFPAY ==
[2021-02-02 09:42] LABS: Basophils # 0.1 K/mm3 (0-0.2); Basophils % 0.7 % (0.1-2.0); Eosinophils # 0.2 K/mm3 (0.0-0.4); Eosinophils % 2.6 % (0.1-12.0); Hematocrit 43.4 % (42.0-52.0); Hemoglobin 13.2 g/dL (14.1-18.0); Lymphocytes % 28.8 % (10-50); Mean Corpuscular HGB Conc 30.4 g/dL (31.8-35.4); Mean Corpuscular Hemoglobin 31.2 pg (27.0-31.2); Mean Corpuscular Volume 102.7 fl (80-94); Mean Platelet Volume 10.3 fl (7.4-10.4); Monocytes # 0.5 K/mm3 (0.1-1.0); Neutrophils # 4.3 K/mm3 (1.8-7.8); Neutrophils % 60.9 % (37.0-80.0); Platelet Count 459 K/mm3 (142-424); Red Blood Count 4.22 M/mm3 (4.60-6.20); Red Cell Distribution Width 14.4 % (11.5-17.5)
[2021-02-02 10:19] LABS: Alanine Aminotransferase 15 U/L (12-78); Albumin Level 3.7 g/dl (3.5-5.0); Albumin/Globulin Ratio 1.3 (1.1-1.8); Alkaline Phosphatase 144 U/L (38-126); Anion Gap 16.3 mEq/L (5-15); Aspartate Amino Transferase 25 U/L (17-59); Blood Urea Nitrogen 8 mg/dl (9-20); Calcium 8.9 mg/dl (8.4-10.2); Carbon Dioxide 28 mmol/L (22.0-30.0); Chloride 92 mmol/L (98-107); Estimated Glomerular Filt Rate 95 ml/min (>60); GFR (African American) 115 ML/MIN (>60); Globulin 2.9 g/dL (1.3-3.2); Glucose 110 mg/dl (74-100); Potassium 4.3 mmoL/L (3.5-5.1); Sodium 132 mmol/L (136-145); Total Protein,Serum 6.6 g/dl (6.3-8.2)
[2021-02-02 10:24] LABS: Bilirubin,Total 0.1 mg/dl (0.2-1.3)
[2021-02-02 10:38] LABS: 25-OH Vitamin D, Total 36.2 ng/mL (30-100)
[2021-02-02 10:39] LABS: T4 (Thyroxine) 11.4 ug/dl (5.53-11.0)
[2021-02-02 10:53] LABS: Thyroid Stimulating Hormone 6.49 uIU/mL (0.465-4.68)
[2021-02-02 10:55] LABS: Total Iron Binding Capacity 327 ug/dL (261-462)
[2021-02-02 11:07] LABS: Creatinine,Urine Random 60 mg/dL (Not Estab.)
[2021-02-02 11:28] LABS: Microalbumin < 6.000 mg/L (0-16.7)
[2021-02-02 22:05] LABS: Hemoglobin A1C 8.6 % (4.0-6.0)
== END ==
PROVIDERS: Visit Provider Nurse Practitioner Family
DX: E10.9 Type 1 diabetes mellitus without complications (principal); E55.9 Vitamin D deficiency, unspecified; E78.5 Hyperlipidemia, unspecified; I10 Essential (primary) hypertension; R53.83 Other fatigue; Z79.4 Long term (current) use of insulin
CPT/HCPCS: 80053; 82043; 82306; 82570; 83036; 83550; 84436; 84443; 85025

== ENCOUNTER → 2021-02-23 15:04 | Outpatient (CLI) | payer MEDICARE, SELFPAY ==
--- NOTE | 2021-02-23 15:31 | XR_ITS ---
PROCEDURE: XR CHEST 2V CLINICAL HISTORY: Abnormal serum leverl of alkaline phosphatase COMPARISON: CR CXR2V XR chest 2V from 07/13/2018 CR XR CHEST PORTABLE from 01/04/2021 CR XR CHEST PORTABLE from 01/07/2021 FINDINGS: The cardiomediastinal silhouette and pulmonary vascularity are within normal limits. COPD changes. Lungs are clear. No acute bony finding. No bony destructive blastic or lytic lesion evident. IMPRESSION: No acute findings. Dictated by: Sumanth Quintana MD 02/23/2021 16:13 Sumanth Quintana MD in [place] 02/23/2021 16:13
[2021-02-23 16:04] LABS: Basophils # 0.1 K/mm3 (0-0.2); Basophils % 0.6 % (0.1-2.0); Eosinophils # 0.3 K/mm3 (0.0-0.4); Eosinophils % 3.2 % (0.1-12.0); Hematocrit 39.7 % (42.0-52.0); Hemoglobin 13.1 g/dL (14.1-18.0); Lymphocytes # 2.3 K/mm3 (0.7-4.5); Lymphocytes % 24.3 % (10-50); Mean Corpuscular HGB Conc 32.9 g/dL (31.8-35.4); Mean Corpuscular Hemoglobin 31.4 pg (27.0-31.2); Mean Corpuscular Volume 95.2 fl (80-94); Mean Platelet Volume 8.9 fl (7.4-10.4); Monocytes # 0.6 K/mm3 (0.1-1.0); Monocytes % 6.6 % (1.7-9.3); Neutrophils # 6.3 K/mm3 (1.8-7.8); Neutrophils % 65.3 % (37.0-80.0); Platelet Count 293 K/mm3 (142-424); Red Blood Count 4.17 M/mm3 (4.60-6.20); Red Cell Distribution Width 13.7 % (11.5-17.5); White Blood Count 9.6 K/mm3 (4.8-10.8)
[2021-02-23 16:31] LABS: Alkaline Phosphatase 148 U/L (38-126); Anion Gap 10.4 mEq/L (5-15); Blood Urea Nitrogen 7 mg/dl (9-20); Calcium 9.1 mg/dl (8.4-10.2); Carbon Dioxide 28 mmol/L (22.0-30.0); Chloride 97 mmol/L (98-107); Estimated Glomerular Filt Rate 111 ml/min (>60); GFR (African American) 135 ML/MIN (>60); Glucose 117 mg/dl (74-100); Potassium 4.4 mmoL/L (3.5-5.1); Sodium 131 mmol/L (136-145)
== END ==
PROVIDERS: Nurse Practitioner Family; Visit Provider Nurse Practitioner Family
DX: R89.9 Unspecified abnormal finding in specimens from other organs, systems and tissues (principal); R74.8 Abnormal levels of other serum enzymes
CPT/HCPCS: 36415; 71046; 80048; 84075; 85025

== ENCOUNTER 2021-03-05 12:57 | Observation (INO) | payer MEDICARE, SELFPAY ==
[2021-03-05] VITALS (12 sets, daily range): BP systolic 115–176; BP diastolic 54–81; PULSE 70–88; RESP 14–24; TEMP 36.4–36.6; O2SAT 98–100; BMI 24.4; BMI 22.8; BMI 24.5
--- NOTE | 2021-03-05 12:59 | XR_ITS ---
PROCEDURE INFORMATION: Exam: XR Chest Exam date and time: 03/05/2021 12:59 PM Age: 71 years old Clinical indication: Other: Weakness TECHNIQUE: Imaging protocol: XR of the chest. Views: 1 view. COMPARISON: CR XR CHEST 2V 02/23/2021 3:55 PM FINDINGS: Lungs: Unremarkable. No consolidation. Pleural spaces: Unremarkable. No pleural effusion. No pneumothorax. Heart/Mediastinum: Unremarkable. No cardiomegaly. Bones/joints: Unremarkable. IMPRESSION: No acute findings.
--- NOTE | 2021-03-05 13:16 | PC.NURSE ---
fsbs 538 upon arrival
[2021-03-05 13:30] LABS: VBG Base Excess -16.4 mmol/L (-2.4-2.3); VBG HCO3 10.9 mmol/L (23-30); VBG Oxygen Saturation 63.8 % (50-70); VBG PH 7.24 mmol/L (7.31-7.41); VBG PO2 40.1 mmol/L (28-40); VBG Total CO2 11.7 mmol/L (23-27)
[2021-03-05 13:32] LABS: Basophils % 0.1 % (0.1-2.0); Hematocrit 50.1 % (42.0-52.0); Hemoglobin 15.1 g/dL (14.1-18.0); Lymphocytes # 1.1 K/mm3 (0.7-4.5); Lymphocytes % 6.7 % (10-50); Mean Corpuscular HGB Conc 30.2 g/dL (31.8-35.4); Mean Corpuscular Hemoglobin 30.8 pg (27.0-31.2); Mean Corpuscular Volume 102.1 fl (80-94); Mean Platelet Volume 9.6 fl (7.4-10.4); Monocytes # 0.5 K/mm3 (0.1-1.0); Neutrophils # 14.5 K/mm3 (1.8-7.8); Neutrophils % 90.1 % (37.0-80.0); Platelet Count 438 K/mm3 (142-424); Red Blood Count 4.91 M/mm3 (4.60-6.20); Red Cell Distribution Width 14.1 % (11.5-17.5); White Blood Count 16.1 K/mm3 (4.8-10.8)
[2021-03-05 13:35] LABS: MANUAL DIFFERENTIAL MANUAL DIFFERENTIAL (MANUAL DIFF)
[2021-03-05 13:37] LABS: Acetone, Serum (Rapid) Moderate (None Detect)
[2021-03-05 13:39] LABS: Alanine Aminotransferase 34 U/L (12-78); Albumin Level 4.3 g/dl (3.5-5.0); Albumin/Globulin Ratio 1.3 (1.1-1.8); Alkaline Phosphatase 190 U/L (38-126); Anion Gap 34.6 mEq/L (5-15); Aspartate Amino Transferase 38 U/L (17-59); Bilirubin,Total 1.1 mg/dl (0.2-1.3); Blood Urea Nitrogen 18 mg/dl (9-20); Calcium 9.3 mg/dl (8.4-10.2); Carbon Dioxide 11 mmol/L (22.0-30.0); Chloride 89 mmol/L (98-107); Creatinine Clearance Estimated 76 mL/min (50-200); Estimated Glomerular Filt Rate 74 ml/min (>60); GFR (African American) 89 ML/MIN (>60); Globulin 3.2 g/dL (1.3-3.2); Potassium 4.6 mmoL/L (3.5-5.1); Sodium 130 mmol/L (136-145); Total Protein,Serum 7.5 g/dl (6.3-8.2)
[2021-03-05 13:53] LABS: Troponin I 0.01 ng/ml (0.00-0.034)
[2021-03-05 13:54] LABS: Glucose 546 mg/dl (74-100)
--- NOTE | 2021-03-05 13:55 | PC.NURSE ---
glucose called to Lucy Rutherford RN
[2021-03-05 13:56] LABS: Lymphocytes % 6 % (10-50); Monocytes % 9 % (2-9); Neutrophils % 85 % (42-76); Platelet Estimate Normal; Total Cells Counted 100
[2021-03-05 13:58] LABS: Hypochromasia 2+; Macrocytosis 2+
--- NOTE | 2021-03-05 14:30 | HMH.EDGENADL ---
ED Disposition Clinical Impression: DKA (diabetic ketoacidosis) Qualifiers: Diabetes mellitus type: type 1 Diabetes mellitus complication detail: without coma Qualified Code(s): E10.10 - Type 1 diabetes mellitus with ketoacidosis without coma Disposition: Admitted As Inpatient Condition on Discharge: Good - Critical Care Critical Care Time: Yes Attestation: On 03/05/21, the high probability of a clinically significant, sudden or life threatening deterioration of the following system(s) required my full and direct attention, intervention and personal management. The time I documented below is in addition to time spent performing reported procedures but includes the following listed in this critical care notation. Total Critical Care Time: 35 Vital system(s) involved:: Metabolic Failure My critical care processes included: Assessment & monitoring of V/S, Initial and Re-exams, Data Review/Interpretation, Coordinating Care, Medication Orders and management, Documentation Medical Decision Making - Medical Records Medical records reviewed: Yes: I reviewed the patient's medical records. - Syd Inquiry Pt receiving controlled substance: No Vital Signs: 03/05/21 12:58 03/05/21 13:15 03/05/21 13:30 Temperature 98 F Temperature Source Oral Pulse Rate 88 76 Pulse Rate [Radial] 80 Respiratory Rate 18 24 18 Blood Pressure 151/69 H 165/66 H Blood Pressure [Right Arm] 158/68 H Blood Pressure Mean 99 Blood Pressure Mean [Right Arm] 98 Blood Pressure Source [Right Arm] Blood Pressure Position Blood Pressure Position [Right Arm] Sitting 02 Sat by Pulse Oximetry 98 100 99 Oxygen Delivery Method Room Air 03/05/21 14:00 03/05/21 14:30 03/05/21 15:00 Temperature Temperature Source Pulse Rate 81 82 83 Pulse Rate [Radial] Respiratory Rate 14 22 15 Blood Pressure 176/81 H 151/70 H 173/67 H Blood Pressure [Right Arm] Blood Pressure Mean 112 97 104 Blood Pressure Mean [Right Arm] Blood Pressure Source [Right Arm] Blood Pressure Position Blood Pressure Position [Right Arm] 02 Sat by Pulse Oximetry 99 100 100 Oxygen Delivery Method 03/05/21 15:31 03/05/21 16:01 03/05/21 17:30 Temperature 97.7 F Temperature Source Oral Pulse Rate 83 80 Pulse Rate [Radial] 84 Respiratory Rate 15 23 20 Blood Pressure 141/73 H 152/80 H Blood Pressure [Right Arm] 143/54 H Blood Pressure Mean 95 104 Blood Pressure Mean [Right Arm] 83 Blood Pressure Source [Right Arm] Automatic Cuff Blood Pressure Position Blood Pressure Position [Right Arm] Supine 02 Sat by Pulse Oximetry 100 98 98 Oxygen Delivery Method Room Air 03/05/21 18:12 Temperature 98 F Temperature Source Oral Pulse Rate 78 Pulse Rate [Radial] Respiratory Rate 20 Blood Pressure 136/74 Blood Pressure [Right Arm] Blood Pressure Mean Blood Pressure Mean [Right Arm] Blood Pressure Source [Right Arm] Blood Pressure Position Sitting Blood Pressure Position [Right Arm] 02 Sat by Pulse Oximetry Oxygen Delivery Method Room Air - Lab Data Lab Results 03/05/21 13:02: VBG pH 7.24 L, VBG pCO2 26.0 L, VBG pO2 40.1 H, VBG HCO3 10.9 L, VBG Total CO2 11.7 L, VBG O2 Saturation 63.8, VBG Base Excess -16.4 L 03/05/21 13:15: WBC 16.1 H, RBC 4.91, Hgb 15.1, Hct 50.1, MCV 102.1 H, MCH 30.8, MCHC 30.2 L, RDW 14.1, Plt Count 438 H, MPV 9.6, Neut % (Auto) 90.1 H, Lymph % (Auto) 6.7 L, [place] % (Auto) 3.0, Eos % (Auto) 0.0 L, Baso % (Auto) 0.1, Neut # (Auto) 14.5 H, Lymph # (Auto) 1.1, [place] # (Auto) 0.5, Eos # (Auto) 0.0, Baso # (Auto) 0.0, Total Counted 100, Neutrophils % (Manual) 85 H, Lymphocytes % (Manual) 6 L, Monocytes % (Manual) 9, Platelet Estimate Normal, Hypochromasia 2+, Macrocytosis 2+ 03/05/21 13:15: Sodium 130 L, Potassium 4.6, Chloride 89 L, Carbon Dioxide 11 L, Anion Gap 34.6 H, BUN 18, Creatinine 1.00, Estimated Creat Clear 76, Estimated GFR 74, Est GFR ( Amer) 89, Glucose 546 H*, Calcium 9.3, Total Ruel
--- NOTE | 2021-03-05 15:26 | PC.NURSE ---
verbal consent given by pt to update his son. Updated son, aAron updated on plan of care and states he will call back later or we can call him if there are any updates at [phone]
--- NOTE | 2021-03-05 16:23 | PC.NURSE ---
Report given to Taylor BURROUGHS
[2021-03-05 16:24] LABS: Troponin I 0.01 ng/ml (0.00-0.034)
[2021-03-05 17:38] LABS: Coronavirus 19, PCR Not Detected (NotDetected); Influenza A, PCR Not Detected (NotDetected); Influenza B, PCR Not Detected (NotDetected)
[2021-03-05 20:05] LABS: Anion Gap 20.3 mEq/L (5-15); Blood Urea Nitrogen 21 mg/dl (9-20); Calcium 8.9 mg/dl (8.4-10.2); Carbon Dioxide 19 mmol/L (22.0-30.0); Chloride 98 mmol/L (98-107); Creatinine Clearance Estimated 71 mL/min (50-200); Estimated Glomerular Filt Rate 83 ml/min (>60); GFR (African American) 101 ML/MIN (>60); Potassium 3.3 mmoL/L (3.5-5.1); Sodium 134 mmol/L (136-145)
[2021-03-05 20:13] LABS: Glucose 245 mg/dl (74-100)
[2021-03-05 22:22] LABS: POC Glucose,Bedside 408 (70-110)
[2021-03-05 22:22] LABS: POC Glucose,Bedside 179 (70-110)
--- NOTE | 2021-03-05 23:44 | PC.NURSE ---
2146- MD Valeria notified of pt. request of home pain med. New orders: Oxycodone 15mg po x1, ivf per dka protocol 2299- fsbs: 62; stat BMP and acetone ordered, stopped insulin gtt and placed on D5NS per protocol 2329- fsbs: 81 pt. a&ox4
[2021-03-05 23:50] LABS: Acetone, Serum (Rapid) None Detected (None Detect)
[2021-03-05 23:52] LABS: Anion Gap 9.4 mEq/L (5-15); Blood Urea Nitrogen 20 mg/dl (9-20); Calcium 8.8 mg/dl (8.4-10.2); Carbon Dioxide 24 mmol/L (22.0-30.0); Chloride 103 mmol/L (98-107); Creatinine Clearance Estimated 71 mL/min (50-200); Estimated Glomerular Filt Rate 111 ml/min (>60); GFR (African American) 135 ML/MIN (>60); Glucose 70 mg/dl (74-100); Potassium 3.4 mmoL/L (3.5-5.1); Sodium 133 mmol/L (136-145)
[2021-03-06] VITALS (12 sets, daily range): BP systolic 106–154; BP diastolic 57–75; PULSE 61–86; RESP 16–22; TEMP 36.4–36.8; O2SAT 95–98; BMI 23.2; BMI 23.1
[2021-03-06 00:39] LABS: POC Glucose,Bedside 62 (70-110)
[2021-03-06 00:39] LABS: POC Glucose,Bedside 142 (70-110)
[2021-03-06 00:39] LABS: POC Glucose,Bedside 81 (70-110)
--- NOTE | 2021-03-06 00:43 | PC.NURSE ---
0030- serum acetone: none detected, stopped insulin gtt and started ivf per dka protocol
[2021-03-06 06:14] LABS: Basophils % 0.1 % (0.1-2.0); Eosinophils # 0.1 K/mm3 (0.0-0.4); Eosinophils % 0.2 % (0.1-12.0); Hematocrit 43.2 % (42.0-52.0); Hemoglobin 13.6 g/dL (14.1-18.0); Lymphocytes # 1.5 K/mm3 (0.7-4.5); Lymphocytes % 6.8 % (10-50); Mean Corpuscular HGB Conc 31.5 g/dL (31.8-35.4); Mean Corpuscular Hemoglobin 31.2 pg (27.0-31.2); Mean Corpuscular Volume 99.2 fl (80-94); Mean Platelet Volume 9.3 fl (7.4-10.4); Monocytes # 0.7 K/mm3 (0.1-1.0); Neutrophils # 19.9 K/mm3 (1.8-7.8); Neutrophils % 89.8 % (37.0-80.0); Platelet Count 359 K/mm3 (142-424); Red Blood Count 4.36 M/mm3 (4.60-6.20); Red Cell Distribution Width 14.1 % (11.5-17.5)
[2021-03-06 06:19] LABS: MANUAL DIFFERENTIAL MANUAL DIFFERENTIAL (MANUAL DIFF); White Blood Count 22.1 K/mm3 (4.8-10.8)
[2021-03-06 06:27] LABS: POC Glucose,Bedside 303 (70-110)
[2021-03-06 06:54] LABS: Anion Gap 19.1 mEq/L (5-15); Blood Urea Nitrogen 19 mg/dl (9-20); Calcium 8.2 mg/dl (8.4-10.2); Carbon Dioxide 14 mmol/L (22.0-30.0); Chloride 100 mmol/L (98-107); Creatinine Clearance Estimated 72 mL/min (50-200); Estimated Glomerular Filt Rate 111 ml/min (>60); GFR (African American) 135 ML/MIN (>60); Glucose 319 mg/dl (74-100); Potassium 4.1 mmoL/L (3.5-5.1); Sodium 129 mmol/L (136-145)
--- NOTE | 2021-03-06 07:20 | HMH.PHAVTE ---
[facility] Pharmacy VTE Monitoring - Patient Demographics Admission date: 03/05/21 Report Date: 03/06/21 Time: 07:20 Allergies/Adverse Reactions: Patient Allergies adhesive Allergy (Mild, Verified 02/01/21 15:25) Rash nicotine [From Nicoderm CQ] Allergy (Mild, Verified 02/01/21 15:25) Rash Height: 1.8 m Weight: 75.296 kg Patient Problems: Current Active Problems (Last Updated 04/22/18 @ 11:31 by BREANNA Longo) DKA (diabetic ketoacidosis) (Acute) - VTE Risk Labs: VTE Related Lab Results Hgb 13.6 g/dL (14.1-18.0) L 03/06/21 05:40 Hct 43.2 % (42.0-52.0) 03/06/21 05:40 Plt Count 359 K/mm3 (142-424) 03/06/21 05:40 BUN 19 mg/dl (9-20) 03/06/21 05:40 Creatinine 0.70 mg/dl (0.66-1.25) 03/06/21 05:40 Estimated Creat Clear 72 mL/min (50-200) 03/06/21 05:40 Was VTE Risk Assessment Performed: Yes VTE Score: 2 Clinical Trial Participant: No - Prophylaxis VTE Prophylaxis Ordered?: Yes Types of VTE Prophylaxis: TEDS Knee High
--- NOTE | 2021-03-06 07:27 | HMH.PHAINT ---
home medication list clarified using list from home pharmacy
[2021-03-06 07:59] LABS: Lymphocytes % 7 % (10-50); Monocytes % 4 % (2-9); Neutrophils % 89 % (42-76); Total Cells Counted 100
[2021-03-06 08:00] LABS: Hypochromasia 1+
[2021-03-06 08:01] LABS: Platelet Estimate Normal
[2021-03-06 11:58] LABS: POC Glucose,Bedside 288 (70-110)
--- NOTE | 2021-03-06 13:25 | PC.NURSE ---
This Rn took over patient care @ 1300
--- NOTE | 2021-03-06 13:58 | HMH.HP ---
*Admission Date: 03/05/21 *Chief complaint: diabetes - not feeling well *History of present illness: this patient presented to the ed PER [facility] PT C/O GENERALIZED WEAKNESS, FATIQUE, NAUSEA, VOMITING X 3 DAYS. PT STATES BLOOD SUGARS AT HOME READING HIGH. PT DENIES ANY FEVER, CHILLS, PAIN. BLOOD SUGAR 538. PT SMELLS OF KETONES. pt was found to have dka and was admitted for treatment - [facility] History I have reviewed the patient's past medical history: Yes Medical History: Reports:: Anxiety, Arrhythmia, Atrial Fibrillation, Coronary Artery Disease, Diabetes Mellitus Type 1, Hyperlipidemia, Hypertension, Migraine, Peripheral Artery Disease, Peripheral Vascular Disease Denies:: Cancer, Diabetes Mellitus Type 2, MRSA *Have you ever received a pneumonia vaccine?: No *Have you received a flu vaccine this season?: No Laterality Cases: Bilateral: Tonsillectomy Other Surgeries: Yes: Angioplasty, Cardiac Catheterization, Cholecystectomy, Coronary Stent, Other Amputation: No Fractures: No - *Social History Last grade of school completed: Some college Smoking Status: Former smoker Tobacco Type: cigarettes # Packs/Day (cigarettes): 2 Alcohol Intake: never Alcohol Intake Frequency:: other Substance Use Type: denies use *Occupational Status:: retired Housing: apartment Household Members: other *Travel in the last 8 weeks: None - Psychiatric History Pschychiatric History:: Reports:: Anxiety Family Hx:: Unable to obtain Review of Systems - Review of Systems Review of systems:: pertinent systems reviewed and negative unless documented below - Constitutional Reports malaise, Denies fever(s) - Eyes Denies change in vision - ENT Denies dizziness - *Cardiovascular Denies chest pain at rest - *Respiratory Denies cough - *Gastrointestinal Reports nausea, Reports vomiting, Denies abdominal pain - *Genitourinary Denies blood in urine - *Musculoskeletal Reports back pain, Reports neck pain, Reports other (has chronic pain), Denies joint pain - Integumentary/Breasts Denies rash - *Neurologic Denies behavioral changes, Denies localized weakness, Denies seizure-like activity - Psychiatric Denies anxiety, Denies confusion Meds Home Medications Medication Instructions Recorded Confirmed Type aspirin 81 mg tablet,delayed 81 mg PO DAILY tab 07/30/17 03/05/21 History release insulin aspart U-100 100 unit/mL 0 units SQ DIRECTED ml 03/16/20 03/05/21 History (3 mL) subcutaneous pen Atorvastatin Calcium [Lipitor 10mg 10 mg PO HS 01/04/21 03/05/21 History Tab] Ergocalciferol (Vitamin D2) 1 cap PO WEEKLY 01/04/21 03/05/21 History [Drisdol] cholecalciferol (vitamin D3) 25 25 mcg PO DAILY 02/01/21 03/05/21 History mcg (1,000 unit) capsule insulin glargine 100 unit/mL (3 35 unit SQ DAILY ml 02/01/21 03/05/21 History mL) subcutaneous pen Clopidogrel Bisulfate [Plavix] 75 mg PO DAILY 03/05/21 03/05/21 History Levothyroxine Sodium [Synthroid 50 mcg PO DAILY 03/05/21 03/05/21 History 50mcg (0.05mg) tab] lisinopriL [Lisinopril] 5 mg PO DAILY 03/05/21 03/05/21 History Atorvastatin Calcium [Lipitor 10mg 10 mg PO HS 03/06/21 03/06/21 History Tablet*] Oxycodone HCl 15 mg PO QIDP PRN 03/06/21 03/06/21 History Allergies Allergy/AdvReac Type Severity Reaction Status Date / Time adhesive Allergy Mild Rash Verified 02/01/21 15:25 nicotine [From [facility]] Allergy Mild Rash Verified 02/01/21 15:25 Exam Vital signs and Labs for Last 24 Hours: Temp Pulse Resp BP Pulse Ox 97.6 F 86 20 106/59 L 98 03/06/21 04:00 03/06/21 08:00 03/06/21 08:00 03/06/21 08:00 03/06/21 08:00 Laboratory Results - last 24 hr 03/05/21 13:15: Total Counted 100, Neutrophils % (Manual) 85 H, Lymphocytes % (Manual) 6 L, Monocytes % (Manual) 9, Platelet Estimate Normal, Hypochromasia 2+, Macrocytosis 2+ 03/05/21 15:55: Troponin I 0.01 03/05/21 17:10: SARS-CoV-2 (PCR) Not detected, Influenza A Untype (PCR
[2021-03-06 14:39] LABS: Acetone, Serum (Rapid) Moderate (None Detect)
[2021-03-06 17:15] LABS: POC Glucose,Bedside 103 (70-110)
[2021-03-06 17:50] LABS: Anion Gap 9.7 mEq/L (5-15); Blood Urea Nitrogen 16 mg/dl (9-20); Calcium 8.4 mg/dl (8.4-10.2); Carbon Dioxide 26 mmol/L (22.0-30.0); Chloride 101 mmol/L (98-107); Creatinine Clearance Estimated 72 mL/min (50-200); Estimated Glomerular Filt Rate 111 ml/min (>60); GFR (African American) 135 ML/MIN (>60); Glucose 109 mg/dl (74-100); Potassium 3.7 mmoL/L (3.5-5.1); Sodium 133 mmol/L (136-145)
[2021-03-06 21:30] LABS: Chloride 101 mmol/L (98-107); Potassium 3.8 mmoL/L (3.5-5.1); Sodium 132 mmol/L (136-145)
[2021-03-06 21:33] LABS: Blood Urea Nitrogen 13 mg/dl (9-20); Creatinine Clearance Estimated 72 mL/min (50-200); Estimated Glomerular Filt Rate 111 ml/min (>60); GFR (African American) 135 ML/MIN (>60)
[2021-03-06 21:34] LABS: Anion Gap 9.8 mEq/L (5-15); Calcium 8.3 mg/dl (8.4-10.2); Carbon Dioxide 25 mmol/L (22.0-30.0); Glucose 189 mg/dl (74-100)
[2021-03-07] VITALS (12 sets, daily range): BP systolic 112–147; BP diastolic 56–89; PULSE 50–96; RESP 16–20; TEMP 36.6–36.8; O2SAT 96–98; BMI 23.9
[2021-03-07 00:20] LABS: POC Glucose,Bedside 147 (70-110)
[2021-03-07 01:18] LABS: POC Glucose,Bedside 155 (70-110)
[2021-03-07 01:23] LABS: Chloride 103 mmol/L (98-107)
[2021-03-07 01:24] LABS: Potassium 3.9 mmoL/L (3.5-5.1); Sodium 131 mmol/L (136-145)
[2021-03-07 01:26] LABS: Blood Urea Nitrogen 11 mg/dl (9-20); Creatinine Clearance Estimated 72 mL/min (50-200); Estimated Glomerular Filt Rate 111 ml/min (>60); GFR (African American) 135 ML/MIN (>60)
[2021-03-07 01:27] LABS: Anion Gap 6.9 mEq/L (5-15); Carbon Dioxide 25 mmol/L (22.0-30.0); Glucose 169 mg/dl (74-100)
[2021-03-07 02:33] LABS: POC Glucose,Bedside 164 (70-110)
[2021-03-07 03:27] LABS: POC Glucose,Bedside 166 (70-110)
[2021-03-07 04:11] LABS: Acetone, Serum (Rapid) None Detected (None Detect)
[2021-03-07 05:34] LABS: POC Glucose,Bedside 216 (70-110)
[2021-03-07 06:40] LABS: POC Glucose,Bedside 196 (70-110)
--- NOTE | 2021-03-07 06:46 | PC.NURSE ---
Pt has slept at intervals this shift. C/O chronic back pain. Medicated per jul. Pt is currently on 1 unit of insulin at this time. MD notified of lab resulting no acetone. New orders received to Wait for primary MD to round.
[2021-03-07 06:56] LABS: Anion Gap 9.7 mEq/L (5-15); Blood Urea Nitrogen 9 mg/dl (9-20); Calcium 7.8 mg/dl (8.4-10.2); Carbon Dioxide 22 mmol/L (22.0-30.0); Chloride 103 mmol/L (98-107); Creatinine Clearance Estimated 74 mL/min (50-200); Estimated Glomerular Filt Rate 133 ml/min (>60); GFR (African American) 161 ML/MIN (>60); Glucose 209 mg/dl (74-100); Potassium 3.7 mmoL/L (3.5-5.1); Sodium 131 mmol/L (136-145)
--- NOTE | 2021-03-07 08:17 | PC.NURSE ---
0800 - FS 303 insulin gtt increased to 2 units/hr and IVF changed to NS + 20 meq KCL @ 125 per DKA protocol.
[2021-03-07 08:52] LABS: Basophils % 0.3 % (0.1-2.0); Eosinophils # 0.2 K/mm3 (0.0-0.4); Eosinophils % 1.7 % (0.1-12.0); Hematocrit 36.9 % (42.0-52.0); Hemoglobin 12.1 g/dL (14.1-18.0); Lymphocytes # 2.8 K/mm3 (0.7-4.5); Lymphocytes % 24.3 % (10-50); Mean Corpuscular HGB Conc 32.8 g/dL (31.8-35.4); Mean Corpuscular Hemoglobin 31.4 pg (27.0-31.2); Mean Corpuscular Volume 95.6 fl (80-94); Mean Platelet Volume 8.5 fl (7.4-10.4); Monocytes # 0.5 K/mm3 (0.1-1.0); Monocytes % 4.4 % (1.7-9.3); Neutrophils % 69.2 % (37.0-80.0); Platelet Count 322 K/mm3 (142-424); Red Blood Count 3.86 M/mm3 (4.60-6.20); Red Cell Distribution Width 14.5 % (11.5-17.5); White Blood Count 11.6 K/mm3 (4.8-10.8)
--- NOTE | 2021-03-07 08:55 | PC.NURSE ---
@ bedside. Insulin gtt stopped @ this time
--- NOTE | 2021-03-07 09:45 | HMH.ACPN2 ---
Internal Medicine - PN: Subj *Date: 03/07/21 *Time: 20:16 Interval history: 71-year-old male patient resting in bed quietly denies any concerns during the night. Glucose this morning 209, no acetone found on a.m. labs. Exam Vital signs and Labs for Last 24 Hours: Temp Pulse Resp BP Pulse Ox 98 F 71 16 144/62 H 96 03/07/21 05:47 03/07/21 08:00 03/07/21 08:11 03/07/21 08:00 03/07/21 08:00 Laboratory Results - last 24 hr 03/06/21 11:25: POC Glucose 288 H 03/06/21 14:13: Acetone Level Moderate 03/06/21 17:06: POC Glucose 103 03/06/21 17:20: Sodium 133 L, Potassium 3.7, Chloride 101, Carbon Dioxide 26, Anion Gap 9.7, BUN 16, Creatinine 0.70, Estimated Creat Clear 72, Estimated GFR 111, Est GFR ( Amer) 135, Glucose 109 H D, Calcium 8.4 03/06/21 21:05: Sodium 132 L, Potassium 3.8, Chloride 101, Carbon Dioxide 25, Anion Gap 9.8, BUN 13, Creatinine 0.70, Estimated Creat Clear 72, Estimated GFR 111, Est GFR ( Amer) 135, Glucose 189 H D, Calcium 8.3 L 03/07/21 00:12: POC Glucose 147 H 03/07/21 01:05: Sodium 131 L, Potassium 3.9, Chloride 103, Carbon Dioxide 25, Anion Gap 6.9, BUN 11, Creatinine 0.70, Estimated Creat Clear 72, Estimated GFR 111, Est GFR ( Amer) 135, Glucose 169 H, Calcium 8.0 L 03/07/21 01:10: POC Glucose 155 H 03/07/21 02:24: POC Glucose 164 H 03/07/21 03:10: Acetone Level None detected 03/07/21 03:14: POC Glucose 166 H 03/07/21 05:14: POC Glucose 216 H 03/07/21 06:07: Sodium 131 L, Potassium 3.7, Chloride 103, Carbon Dioxide 22, Anion Gap 9.7, BUN 9, Creatinine 0.60 L, Estimated Creat Clear 74, Estimated GFR 133, Est GFR ( Amer) 161, Glucose 209 H D, Calcium 7.8 L 03/07/21 06:28: POC Glucose 196 H 03/07/21 08:43: WBC 11.6 H D, RBC 3.86 L, Hgb 12.1 L, Hct 36.9 L, MCV 95.6 H, MCH 31.4 H, MCHC 32.8, RDW 14.5, Plt Count 322, MPV 8.5, Neut % (Auto) 69.2, Lymph % (Auto) 24.3, [place] % (Auto) 4.4, Eos % (Auto) 1.7, Baso % (Auto) 0.3, Neut # (Auto) 8.0 H, Lymph # (Auto) 2.8, [place] # (Auto) 0.5, Eos # (Auto) 0.2, Baso # (Auto) 0.0 I & O for Last 24 hours: Intake & Output 03/04/21 03/05/21 03/06/21 03/07/21 23:59 23:59 23:59 23:59 Intake Total 780 / 780 480 / 480 Output Total 0 / 0 0 / 0 Balance 780 / 780 480 / 480 Weight 175 lb 0.012 oz 165 lb 5.547 oz 171 lb - Constitutional no acute distress - *Routine HEENT Exam Head: Present: normocephalic Eye: Present: EOMI ENT: Present: mucous membranes moist - *Routine Neck Exam Present: trachea midline. Absent: tracheal deviation - *Routine Respiratory Exam Present: decreased breath sounds. Absent: accessory muscle use - *Routine Cardiovascular Exam Present: RRR, murmur - *Routine Abdominal Exam Present: soft, normoactive bowel sounds. Absent: tenderness, rebound - *Routine Extremities Exam Present: full ROM, pulses intact. Absent: cyanosis, clubbing, calf tenderness - *Routine Skin Exam Present: intact, dry, warm. Absent: cyanosis, erythema - *Routine Neurological Exam Present: alert, oriented X3. Absent: motor deficit - Routine Psychiatric Exam Present: normal affect. Absent: normal thought process, tactile hallucinations Assessment and Plan (1) HTN (hypertension) Status: Chronic Qualifiers: Hypertension type: primary hypertension Qualified Code(s): I10 - Essential (primary) hypertension Category: Medical Code(s): I10 - Essential (primary) hypertension (2) HLD (hyperlipidemia) Status: Chronic Qualifiers: Hyperlipidemia type: mixed hyperlipidemia Qualified Code(s): E78.2 - Mixed hyperlipidemia Category: Medical Code(s): E78.5 - Hyperlipidemia, unspecified (3) DKA (diabetic ketoacidosis) Status: Acute Category: Medical Code(s): E11.10 - Type 2 diabetes mellitus with ketoacidosis without coma (4) Hypothyroidism Status: Acute Qualifiers: Hypothyroidism type: acquired Qualified Code(s): E03.9 - Hypothyroidism, unspecified Category: Medical Code(s)
--- NOTE | 2021-03-07 18:36 | PC.NURSE ---
No acute changes. Remains on room air. FS stable. Independent w/ ADL's. Showered and linens changed this shift. No complaints voiced. Call green w/in reach.
[2021-03-07 18:38] LABS: Appearance,Urine CLEAR (Clear); Bilirubin,Urine Negative (Negative); Blood, Urine Negative (Negative); Color,Urine YELLOW (Yellow); Glucose,Urine (UA) Negative (Negative); Ketones,Urine Negative (Negative); Leukocyte Esterase,Urine Negative (Negative); Microscopic, Urine URINE MICROSCOPIC (MICROSCOPIC); Nitrate,Urine Negative (Negative); Protein,Urine Negative (Negative); Urobilinogen,Urine 0.2 EU/dl (0.2)
[2021-03-07 21:45] LABS: POC Glucose,Bedside 92 (70-110)
[2021-03-07 21:45] LABS: POC Glucose,Bedside 303 (70-110)
[2021-03-07 21:45] LABS: POC Glucose,Bedside 356 (70-110)
[2021-03-07 21:45] LABS: POC Glucose,Bedside 67 (70-110)
[2021-03-08] VITALS: BP 137/78; PULSE 60; PULSE 71; RESP 18; TEMP 36.6; O2SAT 96
[2021-03-08 04:00] VITALS: BP 136/76; PULSE 68; PULSE 70; RESP 17; TEMP 36.8; O2SAT 98
[2021-03-08 04:43] VITALS: BMI 24.7
--- NOTE | 2021-03-08 04:50 | PC.NURSE ---
pt a&ox4. rested majority of this shift. c/o back pain and requested pain medication X2 this shift. treated per jul, effectiveness noted. remains on room air. resting in bed at this time. call light within reach.
[2021-03-08 05:53] LABS: POC Glucose,Bedside 166 (70-110)
[2021-03-08 06:21] LABS: Acetone, Serum (Rapid) None Detected (None Detect)
[2021-03-08 06:24] LABS: Blood Urea Nitrogen 4 mg/dl (9-20); Carbon Dioxide 28 mmol/L (22.0-30.0); Chloride 102 mmol/L (98-107); Creatinine Clearance Estimated 77 mL/min (50-200); Sodium 133 mmol/L (136-145)
[2021-03-08 06:25] LABS: Calcium 7.8 mg/dl (8.4-10.2); Estimated Glomerular Filt Rate 164 ml/min (>60); GFR (African American) 198 ML/MIN (>60); Glucose 154 mg/dl (74-100)
[2021-03-08 07:42] LABS: Basophils % 0.2 % (0.1-2.0); Eosinophils # 0.2 K/mm3 (0.0-0.4); Eosinophils % 2.8 % (0.1-12.0); Hematocrit 39.9 % (42.0-52.0); Lymphocytes # 1.7 K/mm3 (0.7-4.5); Lymphocytes % 21.1 % (10-50); Mean Corpuscular HGB Conc 30.2 g/dL (31.8-35.4); Mean Corpuscular Hemoglobin 30.4 pg (27.0-31.2); Mean Corpuscular Volume 100.6 fl (80-94); Mean Platelet Volume 8.8 fl (7.4-10.4); Monocytes # 0.5 K/mm3 (0.1-1.0); Neutrophils # 5.5 K/mm3 (1.8-7.8); Neutrophils % 69.9 % (37.0-80.0); Platelet Count 282 K/mm3 (142-424); Red Blood Count 3.96 M/mm3 (4.60-6.20); Red Cell Distribution Width 13.8 % (11.5-17.5); White Blood Count 7.9 K/mm3 (4.8-10.8)
[2021-03-08 08:00] VITALS: BP 155/91; PULSE 67; PULSE 77; RESP 15; TEMP 36.9; O2SAT 95
[2021-03-08 08:14] VITALS: RESP 17
[2021-03-08 11:14] LABS: POC Glucose,Bedside 70 (70-110)
[2021-03-08 11:43] VITALS: BP 145/68; PULSE 68; RESP 16; TEMP 36.8; O2SAT 94
[2021-03-08 13:06] VITALS: RESP 16
--- NOTE | 2021-03-08 13:51 | HMH.DCSUM ---
General - General Admission date:: 03/05/21 Discharge date: 03/08/21 HPI HPI: this patient presented to the ed PER [facility] PT C/O GENERALIZED WEAKNESS, FATIQUE, NAUSEA, VOMITING X 3 DAYS. PT STATES BLOOD SUGARS AT HOME READING HIGH. PT DENIES ANY FEVER, CHILLS, PAIN. BLOOD SUGAR 538. PT SMELLS OF KETONES. pt was found to have dka and was admitted for treatment - Hospital Course Hospital Course: Laboratory Tests 03/05/21 03/05/21 03/05/21 13:02 13:15 13:15 WBC 16.1 H RBC 4.91 Hgb 15.1 Hct 50.1 MCV 102.1 H MCH 30.8 MCHC 30.2 L RDW 14.1 Plt Count 438 H MPV 9.6 Neut % (Auto) 90.1 H Lymph % (Auto) 6.7 L [place] % (Auto) 3.0 Eos % (Auto) 0.0 L Baso % (Auto) 0.1 Neut # (Auto) 14.5 H Lymph # (Auto) 1.1 [place] # (Auto) 0.5 Eos # (Auto) 0.0 Baso # (Auto) 0.0 Total Counted 100 Neutrophils % (Manual) 85 H Lymphocytes % (Manual) 6 L Monocytes % (Manual) 9 Platelet Estimate Normal Hypochromasia 2+ Macrocytosis 2+ VBG pH 7.24 L VBG pCO2 26.0 L VBG pO2 40.1 H VBG HCO3 10.9 L VBG Total CO2 11.7 L VBG O2 Saturation 63.8 VBG Base Excess -16.4 L Sodium 130 L Potassium 4.6 Chloride 89 L Carbon Dioxide 11 L Anion Gap 34.6 H BUN 18 Creatinine 1.00 Estimated Creat Clear 76 Estimated GFR 74 Est GFR ( Amer) 89 Glucose 546 H* POC Glucose Calcium 9.3 Total Bilirubin 1.1 AST 38 ALT 34 Alkaline Phosphatase 190 H Troponin I 0.01 Total Protein 7.5 Albumin 4.3 Globulin 3.2 Albumin/Globulin Ratio 1.3 Urine Color Urine Appearance Urine pH Ur Specific [place] Urine Protein Urine Glucose (UA) Urine Ketones Urine Blood Urine Nitrate Urine Bilirubin Urine Urobilinogen Ur Leukocyte Esterase Urine RBC Urine WBC Ur Squamous Epith Cells Urine Bacteria Acetone Level SARS-CoV-2 (PCR) Influenza A Untype (PCR) Influenza Type B (PCR) 03/05/21 03/05/21 03/05/21 13:15 15:55 17:10 WBC RBC Hgb Hct MCV MCH MCHC RDW Plt Count MPV Neut % (Auto) Lymph % (Auto) [place] % (Auto) Eos % (Auto) Baso % (Auto) Neut # (Auto) Lymph # (Auto) [place] # (Auto) Eos # (Auto) Baso # (Auto) Total Counted Neutrophils % (Manual) Lymphocytes % (Manual) Monocytes % (Manual) Platelet Estimate Hypochromasia Macrocytosis VBG pH VBG pCO2 VBG pO2 VBG HCO3 VBG Total CO2 VBG O2 Saturation VBG Base Excess Sodium Potassium Chloride Carbon Dioxide Anion Gap BUN Creatinine Estimated Creat Clear Estimated GFR Est GFR ( Amer) Glucose POC Glucose Calcium Total Bilirubin AST ALT Alkaline Phosphatase Troponin I 0.01 Total Protein Albumin Globulin Albumin/Globulin Ratio Urine Color Urine Appearance Urine pH Ur Specific [place] Urine Protein Urine Glucose (UA) Urine Ketones Urine Blood Urine Nitrate Urine Bilirubin Urine Urobilinogen Ur Leukocyte Esterase Urine RBC Urine WBC Ur Squamous Epith Cells Urine Bacteria Acetone Level Moderate SARS-CoV-2 (PCR) Not detected Influenza A Untype (PCR) Not detected Influenza Type B (PCR) Not detected 03/05/21 03/05/21 03/05/21 17:33 19:39 20:41 WBC RBC Hgb Hct MCV MCH MCHC RDW Plt Count MPV Neut % (Auto) Lymph % (Auto) [place] % (Auto) Eos % (Auto) Baso % (Auto) Neut # (Auto) Lymph # (Auto) [place] # (Auto) Eos # (Auto) Baso # (Auto) Total Counted Neutrophils % (Manual) Lymphocytes % (Manual) Monocytes % (Manual) Platelet Estimate Hypochromasia Macrocytosis VBG pH VBG pCO2 VBG pO2 VBG HCO3 VBG Total CO2 VB
== END 2021-03-08 14:24 | disposition home or self-care (01) ==
LOC: ER 13:19 → 2ND 20:17
PROVIDERS: Nurse Practitioner Family; Admitting Provider Emergency Medicine; Emergency Provider Student in an Organized Health Care Education/Training Program; PCP Emergency Medicine; Visit Provider Emergency Medicine
DX: E11.10 Type 2 diabetes mellitus with ketoacidosis without coma (principal); I10 Essential (primary) hypertension; I48.91 Unspecified atrial fibrillation; I25.10 Atherosclerotic heart disease of native coronary artery without angina pectoris; G43.909 Migraine, unspecified, not intractable, without status migrainosus; Z95.5 Presence of coronary angioplasty implant and graft; Z20.822 Contact with and (suspected) exposure to COVID-19; Z79.4 Long term (current) use of insulin; E03.9 Hypothyroidism, unspecified; Z79.899 Other long term (current) drug therapy; Z87.891 Personal history of nicotine dependence
CPT/HCPCS: G0378; 36415; 71045; 80048; 80053; 81001; 82009; 82803; 82962; 84484; 85007; 85025; 96365; 96367; 96375; 96376; 99284; C9803; J2405; U0003; U0005

== ENCOUNTER → 2021-04-15 11:27 | Outpatient (CLI) | payer MEDICARE, SELFPAY | PROVIDERS: Visit Provider Ophthalmology | DX: Z01.812 Encounter for preprocedural laboratory examination (principal); Z11.52 Encounter for screening for COVID-19 | CPT/HCPCS: C9803; U0003; U0005 ==

== ENCOUNTER 2021-04-18 09:38 | Day surgery (SDC) | payer MEDICARE, SELFPAY ==
[2021-04-13 16:36] VITALS: BMI 24.3
[2021-04-18 10:47] VITALS: BP 133/67; PULSE 87; RESP 18; TEMP 36.9; O2SAT 97
[2021-04-18 12:04] VITALS: BP 137/70; PULSE 70; RESP 16; O2SAT 95
[2021-04-18 12:09] VITALS: BP 119/57; PULSE 68; RESP 16; O2SAT 100
[2021-04-18 12:14] VITALS: BP 117/59; PULSE 65; RESP 16; O2SAT 100
[2021-04-18 12:19] VITALS: BP 120/67; PULSE 68; RESP 16; O2SAT 100
[2021-04-18 12:20] VITALS: BP 159/86; PULSE 68; RESP 16; TEMP 36.7; O2SAT 99
[2022-02-01 10:55] LABS: POC Glucose,Bedside 288 (70-110)
== END 2021-04-18 12:30 | disposition home or self-care (01) ==
LOC: OR 09:40
PROVIDERS: PCP Emergency Medicine; Visit Provider Ophthalmology
DX: H25.813 Combined forms of age-related cataract, bilateral (principal); H53.149 Visual discomfort, unspecified; H02.831 Dermatochalasis of right upper eyelid; H02.834 Dermatochalasis of left upper eyelid; E78.5 Hyperlipidemia, unspecified; I10 Essential (primary) hypertension; I42.9 Cardiomyopathy, unspecified; E03.9 Hypothyroidism, unspecified; E10.9 Type 1 diabetes mellitus without complications; I25.10 Atherosclerotic heart disease of native coronary artery without angina pectoris; I73.9 Peripheral vascular disease, unspecified; Z79.899 Other long term (current) drug therapy
CPT/HCPCS: 66984; 82962; V2632

== ENCOUNTER 2021-05-07 16:21 | Observation (INO) | payer MEDICARE, SELFPAY ==
[2021-05-07] VITALS (7 sets, daily range): BP systolic 132–171; BP diastolic 82–98; PULSE 68–100; RESP 14–19; TEMP 36.6; O2SAT 97–100; BMI 24.4
--- NOTE | 2021-05-07 16:31 | XR_ITS ---
PROCEDURE INFORMATION: Exam: XR Chest Exam date and time: 05/07/2021 4:31 PM Age: 71 years old Clinical indication: Other: Generalized weakness TECHNIQUE: Imaging protocol: XR of the chest. Portable AP supine exam 4:48 p.m. Views: 1 view. Two images received. COMPARISON: CR XR CHEST PORTABLE 03/05/2021 1:07 PM FINDINGS: Lungs: No acute pulmonary findings. No pulmonary consolidation. Lung volumes within normal limits. Scattered tiny bilateral calcified pulmonary granulomas. Pleural spaces: Unremarkable. No significant pleural effusion. No pneumothorax. Heart/Mediastinum: No cardiomegaly. Coronary stent. Calcified left hilar lymph nodes. Overlying manager monitoring electrodes. Vasculature: Calcified plaques in the aortic arch. Bones/joints: Osteopenia. Surgical fusion plate and screws in the lower cervical spine, incompletely imaged. Soft tissues: Right upper quadrant abdominal surgical clips, correlate for history of cholecystectomy. IMPRESSION: 1. No acute cardiopulmonary findings. 2. Multiple nonemergency and chronic findings as above.
--- NOTE | 2021-05-07 16:32 | ECG_ITS ---
APPROVED REPORT Exam: Resting ECG HR:83 bpm ECG Measurements Heart Rate 83 AXES LA 130 P 71 QRSd 78 QRS 22 QT 414 T 9 QTc 486 Conclusion Normal sinus rhythm with sinus arrhythmia Septal infarct, age undetermined Abnormal ECG Electronically signed by : Ok Casas MD 05/08/2021 21:40:46
[2021-05-07 17:34] LABS: Coronavirus 19, PCR Not Detected (NotDetected); Influenza A, PCR Not Detected (NotDetected); Influenza B, PCR Not Detected (NotDetected)
[2021-05-07 17:49] LABS: VBG Base Excess -9.1 mmol/L (-2.4-2.3); VBG HCO3 16.9 mmol/L (23-30); VBG Oxygen Saturation 89.1 % (50-70); VBG PH 7.33 mmol/L (7.31-7.41); VBG Total CO2 17.9 mmol/L (23-27)
[2021-05-07 17:52] LABS: Basophils # 0.1 K/mm3 (0-0.2); Basophils % 0.3 % (0.1-2.0); Eosinophils % 0.1 % (0.1-12.0); Hematocrit 49.6 % (42.0-52.0); Hemoglobin 15.5 g/dL (14.1-18.0); Lymphocytes # 1.6 K/mm3 (0.7-4.5); Lymphocytes % 9.5 % (10-50); Mean Corpuscular HGB Conc 31.3 g/dL (31.8-35.4); Mean Corpuscular Hemoglobin 30.2 pg (27.0-31.2); Mean Corpuscular Volume 96.5 fl (80-94); Mean Platelet Volume 9.4 fl (7.4-10.4); Monocytes # 0.8 K/mm3 (0.1-1.0); Neutrophils # 14.1 K/mm3 (1.8-7.8); Platelet Count 432 K/mm3 (142-424); Red Blood Count 5.14 M/mm3 (4.60-6.20); Red Cell Distribution Width 15.2 % (11.5-17.5); White Blood Count 16.6 K/mm3 (4.8-10.8)
[2021-05-07 17:56] LABS: Chloride 84 mmol/L (98-107); Sodium 125 mmol/L (136-145)
[2021-05-07 17:58] LABS: Alanine Aminotransferase 18 U/L (12-78); Aspartate Amino Transferase 30 U/L (17-59); Blood Urea Nitrogen 21 mg/dl (9-20); Creatinine Clearance Estimated 76 mL/min (50-200); Estimated Glomerular Filt Rate 74 ml/min (>60); GFR (African American) 89 ML/MIN (>60)
[2021-05-07 17:59] LABS: Albumin Level 4.1 g/dl (3.5-5.0); Albumin/Globulin Ratio 1.6 (1.1-1.8); Alkaline Phosphatase 163 U/L (38-126); Bilirubin,Total 1.2 mg/dl (0.2-1.3); Calcium 9.1 mg/dl (8.4-10.2); Carbon Dioxide 16 mmol/L (22.0-30.0); Globulin 2.5 g/dL (1.3-3.2); Total Protein,Serum 6.6 g/dl (6.3-8.2)
[2021-05-07 18:06] LABS: Glucose 407 mg/dl (74-100); MANUAL DIFFERENTIAL MANUAL DIFFERENTIAL (MANUAL DIFF)
--- NOTE | 2021-05-07 18:10 | PC.NURSE ---
Jordi from lab called and reported a critical glucose of 407. notified.
[2021-05-07 18:17] LABS: Troponin I 0.01 ng/ml (0.00-0.034)
[2021-05-07 18:48] LABS: Lymphocytes % 4 % (10-50); Monocytes % 6 % (2-9); Neutrophils % 90 % (42-76); Platelet Estimate Normal; Total Cells Counted 100
[2021-05-07 18:55] LABS: Acetone, Serum (Rapid) Small (None Detect)
--- NOTE | 2021-05-07 19:09 | HMH.EDGENADL ---
ED Disposition Clinical Impression: DKA (diabetic ketoacidosis) Qualifiers: Diabetes mellitus type: type 1 Diabetes mellitus complication detail: without coma Qualified Code(s): E10.10 - Type 1 diabetes mellitus with ketoacidosis without coma Disposition: Home, Self-Care Condition on Discharge: Fair Referrals: Akshat Shaw MD [Primary Care Provider] - - Critical Care Critical Care Time: Yes Attestation: On 05/07/21, the high probability of a clinically significant, sudden or life threatening deterioration of the following system(s) required my full and direct attention, intervention and personal management. The time I documented below is in addition to time spent performing reported procedures but includes the following listed in this critical care notation. Total Critical Care Time: 30 Vital system(s) involved:: Metabolic Failure My critical care processes included: Assessment & monitoring of V/S, Initial and Re-exams, Data Review/Interpretation, Coordinating Care, Medication Orders and management, Documentation Medical Decision Making - Syd Inquiry Pt receiving controlled substance: No Vital Signs: 05/07/21 16:22 05/07/21 17:00 05/07/21 19:12 Temperature 97.9 F Temperature Source Oral Pulse Rate 93 H 100 H Pulse Rate [Radial] 93 H Respiratory Rate 16 14 16 Blood Pressure 151/88 H 133/85 Blood Pressure [Right Arm] 132/83 Blood Pressure Mean 104 Blood Pressure Mean [Right Arm] 99 Blood Pressure Position [Right Arm] Sitting 02 Sat by Pulse Oximetry 98 99 Oxygen Delivery Method Room Air - Lab Data Lab Results 05/07/21 16:08: SARS-CoV-2 (PCR) Not detected, Influenza A Untype (PCR) Not detected, Influenza Type B (PCR) Not detected 05/07/21 16:32: VBG pH 7.33, VBG pCO2 33.0 L, VBG pO2 59.0 H, VBG HCO3 16.9 L, VBG Total CO2 17.9 L, VBG O2 Saturation 89.1 H, VBG Base Excess -9.1 L 05/07/21 16:49: WBC 16.6 H, RBC 5.14, Hgb 15.5, Hct 49.6, MCV 96.5 H, MCH 30.2, MCHC 31.3 L, RDW 15.2, Plt Count 432 H, MPV 9.4, Neut % (Auto) 85.0 H, Lymph % (Auto) 9.5 L, [place] % (Auto) 5.0, Eos % (Auto) 0.1, Baso % (Auto) 0.3, Neut # (Auto) 14.1 H, Lymph # (Auto) 1.6, [place] # (Auto) 0.8, Eos # (Auto) 0.0, Baso # (Auto) 0.1, Total Counted 100, Neutrophils % (Manual) 90 H, Lymphocytes % (Manual) 4 L, Monocytes % (Manual) 6, Platelet Estimate Normal 05/07/21 16:49: Sodium 125 L, Potassium 4.0, Chloride 84 L, Carbon Dioxide 16 L, Anion Gap 29.0 H, BUN 21 H, Creatinine 1.00, Estimated Creat Clear 76, Estimated GFR 74, Est GFR ( Amer) 89, Glucose 407 H*, Calcium 9.1, Total Bilirubin 1.2, AST 30, ALT 18, Alkaline Phosphatase 163 H, Troponin I 0.01, Total Protein 6.6, Albumin 4.1, Globulin 2.5, Albumin/Globulin Ratio 1.6, Acetone Level Small Result diagrams: 05/07/21 16:49 05/07/21 16:49 Orders (Tests/Meds): ED MEDICATIONS Discontinued Medications Generic Name Dose Route Start Last Admin Trade Name Freq PRN Reason Stop Dose Admin Sodium Chloride 1,000 mls @ 999 mls/hr 05/07/21 16:45 05/07/21 17:00 Sod Chlor 0.9% 1000ml Bag IV 05/07/21 17:45 999 mls/hr .Q1H1M OG Administration ORDERS Category Date Time Status Troponin I Q3H Lab 05/07/21 19:45 Ordered Troponin I Q3H Lab 05/07/21 22:45 Ordered Urinalysis and Microscopic Stat Lab 05/07/21 16:32 Ordered - Radiology Data #1 Image(s): Chest Image Reviewed: Yes I have reviewed radiologist's interpretation PROCEDURE INFORMATION: Exam: XR Chest Exam date and time: 05/07/2021 4:31 PM Age: 71 years old Clinical indication: Other: Generalized weakness TECHNIQUE: Imaging protocol: XR of the chest. Portable AP supine exam 4:48 p.m. Views: 1 view. Two images received. COMPARISON: CR XR CHEST PORTABLE 03/05/2021 1:07 PM FINDINGS: Lungs: No acute pulmonary findings. No pulmonary consolidation. Lung volumes within normal limits. Scattered tiny bilateral calcified pulmonary granulomas. Pleural spaces: Unremark
--- NOTE | 2021-05-07 21:00 | PC.NURSE ---
Finger stick of 352. Md instructed for max rate of 8 units/hr. Insulin gtt continued at 8 units/hr
[2021-05-07 21:17] LABS: POC Glucose,Bedside 352 (70-110)
[2021-05-07 21:40] LABS: Troponin I < 0.01 ng/ml (0.00-0.034)
--- NOTE | 2021-05-07 22:10 | PC.NURSE ---
Finger stick of 281 Insulin gtt unchanged due to max of 8 units/hr
[2021-05-07 22:52] LABS: Microscopic, Urine URINE MICROSCOPIC (MICROSCOPIC)
[2021-05-07 23:00] LABS: Appearance,Urine CLEAR (Clear); Blood, Urine TRACE-I (Negative); Color,Urine YELLOW (Yellow); Glucose,Urine (UA) 2+ (Negative); Ketones,Urine 3+ (Negative); Leukocyte Esterase,Urine Negative (Negative); Nitrate,Urine Negative (Negative); Protein,Urine Negative (Negative); Specific Gravity, Urine >= 1.030 (1.005-1.030); Urobilinogen,Urine 0.2 EU/dl (0.2)
[2021-05-07 23:01] LABS: Bilirubin,Urine Negative (Negative)
--- NOTE | 2021-05-07 23:05 | PC.NURSE ---
Addendum entered by Júnior Rogers RN 05/07/21 23:11: Insulin gtt continuing at current rate per protocol Original Note: Finger Stick 216
[2021-05-07 23:08] LABS: Squamous Epithelial Cell,Urine Occasional #/hpf (0-5); WBC,Urine Occasional #/hpf (0-3)
[2021-05-08] VITALS (13 sets, daily range): BP systolic 113–176; BP diastolic 74–96; PULSE 73–86; RESP 13–22; TEMP 36.4–36.6; O2SAT 96–100
[2021-05-08 00:02] LABS: POC Glucose,Bedside 216 (70-110)
[2021-05-08 00:02] LABS: POC Glucose,Bedside 281 (70-110)
--- NOTE | 2021-05-08 00:02 | PC.NURSE ---
Finger stick of 194. Insulin gtt continuing at 8units/hr.
[2021-05-08 00:04] LABS: POC Glucose,Bedside 194 (70-110)
[2021-05-08 00:22] LABS: Acetone, Serum (Rapid) Small (None Detect)
[2021-05-08 00:24] LABS: Chloride 93 mmol/L (98-107); Sodium 130 mmol/L (136-145)
[2021-05-08 00:25] LABS: Potassium 3.3 mmoL/L (3.5-5.1)
[2021-05-08 00:27] LABS: Blood Urea Nitrogen 22 mg/dl (9-20); Creatinine Clearance Estimated 76 mL/min (50-200); Estimated Glomerular Filt Rate 83 ml/min (>60); GFR (African American) 101 ML/MIN (>60)
[2021-05-08 00:28] LABS: Anion Gap 18.3 mEq/L (5-15); Calcium 8.5 mg/dl (8.4-10.2); Carbon Dioxide 22 mmol/L (22.0-30.0)
[2021-05-08 00:29] LABS: Glucose 192 mg/dl (74-100)
--- NOTE | 2021-05-08 01:12 | PC.NURSE ---
Finger stick 145. Insulin gtt decreased to 4 units/hr. Fluid changed to D5NS at 75ml/hr
[2021-05-08 01:13] LABS: POC Glucose,Bedside 145 (70-110)
--- NOTE | 2021-05-08 02:05 | PC.NURSE ---
Finger stick 113. Insulin gtt decreased to 2 units/hr per protocol.
--- NOTE | 2021-05-08 03:11 | PC.NURSE ---
Insulin gtt decreased to 1unit/hr
--- NOTE | 2021-05-08 03:19 | PC.NURSE ---
Pt given crackers and peanut butter as well orange juice per his request.
[2021-05-08 04:02] LABS: Acetone, Serum (Rapid) None Detected (None Detect)
[2021-05-08 04:05] LABS: Chloride 96 mmol/L (98-107); Potassium 3.6 mmoL/L (3.5-5.1); Sodium 130 mmol/L (136-145)
[2021-05-08 04:08] LABS: Anion Gap 14.6 mEq/L (5-15); Blood Urea Nitrogen 20 mg/dl (9-20); Calcium 8.7 mg/dl (8.4-10.2); Carbon Dioxide 23 mmol/L (22.0-30.0); Creatinine Clearance Estimated 76 mL/min (50-200); Estimated Glomerular Filt Rate 111 ml/min (>60); GFR (African American) 135 ML/MIN (>60)
[2021-05-08 04:11] LABS: Glucose 118 mg/dl (74-100)
--- NOTE | 2021-05-08 04:18 | PC.NURSE ---
Paging Neus at this time.
--- NOTE | 2021-05-08 04:23 | PC.NURSE ---
Spoke with MD Christie. Orders to stop insulin gtt and start on ACHS high-intensity sliding scale. Christie did not want pt given SQ Lantus per DKA protocol. I will recheck FSBS at 0600.
[2021-05-08 06:59] LABS: Basophils # 0.1 K/mm3 (0-0.2); Basophils % 0.4 % (0.1-2.0); Eosinophils # 0.1 K/mm3 (0.0-0.4); Eosinophils % 0.5 % (0.1-12.0); Hematocrit 44.5 % (42.0-52.0); Hemoglobin 14.1 g/dL (14.1-18.0); Lymphocytes # 2.5 K/mm3 (0.7-4.5); Lymphocytes % 17.1 % (10-50); Mean Corpuscular HGB Conc 31.8 g/dL (31.8-35.4); Mean Corpuscular Volume 94.4 fl (80-94); Mean Platelet Volume 10.2 fl (7.4-10.4); Monocytes # 1.2 K/mm3 (0.1-1.0); Monocytes % 8.3 % (1.7-9.3); Neutrophils # 10.8 K/mm3 (1.8-7.8); Neutrophils % 73.7 % (37.0-80.0); Platelet Count 407 K/mm3 (142-424); Red Blood Count 4.72 M/mm3 (4.60-6.20); Red Cell Distribution Width 15.5 % (11.5-17.5); White Blood Count 14.7 K/mm3 (4.8-10.8)
--- NOTE | 2021-05-08 07:00 | PC.NURSE ---
Patient called out. Went in to the room and fixed patient's bed as well as refilled his water pitcher.
[2021-05-08 07:28] LABS: Alanine Aminotransferase 12 U/L (12-78); Albumin Level 3.2 g/dl (3.5-5.0); Albumin/Globulin Ratio 1.2 (1.1-1.8); Alkaline Phosphatase 133 U/L (38-126); Anion Gap 8.6 mEq/L (5-15); Aspartate Amino Transferase 25 U/L (17-59); Blood Urea Nitrogen 20 mg/dl (9-20); Calcium 8.2 mg/dl (8.4-10.2); Carbon Dioxide 27 mmol/L (22.0-30.0); Chloride 93 mmol/L (98-107); Creatinine Clearance Estimated 76 mL/min (50-200); Estimated Glomerular Filt Rate 95 ml/min (>60); GFR (African American) 115 ML/MIN (>60); Globulin 2.6 g/dL (1.3-3.2); Glucose 176 mg/dl (74-100); Potassium 3.6 mmoL/L (3.5-5.1); Sodium 125 mmol/L (136-145); Total Protein,Serum 5.8 g/dl (6.3-8.2)
--- NOTE | 2021-05-08 08:30 | PC.NURSE ---
Patient ambulated to the bathroom
--- NOTE | 2021-05-08 12:38 | HMH.HPDC ---
General - General Admission date:: 05/08/21 Discharge date: 05/08/21 *Admission Date: 05/07/21 *Chief complaint: weakness *History of present illness: 71 yr old male presented to the ed with c/o of not feeling well for over one week.Patient states his glucose has running 300-500, pt states he has type 1 dm and has had vomiting and diarrhea and was unable to glucose under control. States that he has been admitted here a couple of times for DKA. Denies fever or abdominal pain. Denies cough or shortness of breath. Occasional mild chest pain. Denies urinary symptoms. He has generalized weakness. Patient admitted for DKA [facility] History I have reviewed the patient's past medical history: Yes Medical History: Reports:: Anxiety, Arrhythmia, Atrial Fibrillation, Coronary Artery Disease, Diabetes Mellitus Type 1, Hyperlipidemia, Hypertension, Migraine, Peripheral Artery Disease, Peripheral Vascular Disease Denies:: Cancer, Diabetes Mellitus Type 2, Internal Pacemaker, MRSA, Seizures *Have you ever received a pneumonia vaccine?: No *Have you received a flu vaccine this season?: No Laterality Cases: Bilateral: Tonsillectomy Other Surgeries: Yes: Angioplasty, Cardiac Catheterization, Cholecystectomy, Coronary Stent, Other. No: Pacemaker Amputation: No Fractures: No - *Social History Smoking Status: Current every day smoker Tobacco Type: cigarettes # Packs/Day (cigarettes): 1 Alcohol Intake: never Alcohol Intake Frequency:: other Substance Use Type: denies use *Occupational Status:: retired Housing: apartment Household Members: none *Travel in the last 8 weeks: Inside the [place] - Psychiatric History Pschychiatric History:: Reports:: Anxiety Family Hx:: Unable to obtain Review of Systems - Review of Systems Review of systems:: pertinent systems reviewed and negative unless documented below - Constitutional Denies body ache(s), Denies fatigue - Eyes Denies blurry vision - ENT Denies bleeding gums - *Cardiovascular Denies chest pain at rest - *Respiratory Denies change in phlegm color - *Gastrointestinal Reports abdominal pain, Reports vomiting, Denies belching - *Genitourinary Denies urinary hesitancy - *Musculoskeletal Denies abnormal walking - Integumentary/Breasts Denies hair loss - *Neurologic Reports weakness, Denies loss of vision - Psychiatric Denies abnormal sleep pattern - Endocrine Denies flushing - Hematologic/Lymphatic Denies enlarged lymph nodes - Allergic/Immunologic Denies wheezing Exam Vital signs and Labs for Last 24 Hours: Temp Pulse Resp BP Pulse Ox 98 F 74 16 113/74 98 05/08/21 10:26 05/08/21 10:26 05/08/21 10:05/08/21 10:05/08/21 09:01 Laboratory Results - last 24 hr 05/07/21 16:08: SARS-CoV-2 (PCR) Not detected, Influenza A Untype (PCR) Not detected, Influenza Type B (PCR) Not detected 05/07/21 16:32: VBG pH 7.33, VBG pCO2 33.0 L, VBG pO2 59.0 H, VBG HCO3 16.9 L, VBG Total CO2 17.9 L, VBG O2 Saturation 89.1 H, VBG Base Excess -9.1 L 05/07/21 16:49: WBC 16.6 H, RBC 5.14, Hgb 15.5, Hct 49.6, MCV 96.5 H, MCH 30.2, MCHC 31.3 L, RDW 15.2, Plt Count 432 H, MPV 9.4, Neut % (Auto) 85.0 H, Lymph % (Auto) 9.5 L, [place] % (Auto) 5.0, Eos % (Auto) 0.1, Baso % (Auto) 0.3, Neut # (Auto) 14.1 H, Lymph # (Auto) 1.6, [place] # (Auto) 0.8, Eos # (Auto) 0.0, Baso # (Auto) 0.1, Total Counted 100, Neutrophils % (Manual) 90 H, Lymphocytes % (Manual) 4 L, Monocytes % (Manual) 6, Platelet Estimate Normal 05/07/21 16:49: Sodium 125 L, Potassium 4.0, Chloride 84 L, Carbon Dioxide 16 L, Anion Gap 29.0 H, BUN 21 H, Creatinine 1.00, Estimated Creat Clear 76, Estimated GFR 74, Est GFR ( Amer) 89, Glucose 407 H*, Calcium 9.1, Total Bilirubin 1.2, AST 30, ALT 18, Alkaline Phosphatase 163 H, Troponin I 0.01, Total Protein 6.6, Albumin 4.1, Globulin 2.5, Albumin/Globulin Ratio 1.6, Acetone Level Small 05/07/21 20:58: Troponin I < 0.01 05/07/21 21:09: POC Glucose 352 H*
--- NOTE | 2021-05-08 12:40 | HMH.PHAVTE ---
[facility] Pharmacy VTE Monitoring - Patient Demographics Admission date: 05/07/21 Report Date: 05/08/21 Time: 12:40 Allergies/Adverse Reactions: Patient Allergies adhesive Allergy (Mild, Verified 05/08/21 10:27) Rash nicotine [From Nicoderm CQ] Allergy (Mild, Verified 05/08/21 10:27) Rash Height: 1.8 m Weight: 79.379 kg Patient Problems: Current Active Problems (Last Updated 04/22/18 @ 11:31 by BREANNA Longo) DKA (diabetic ketoacidosis) (Acute) - VTE Risk Labs: VTE Related Lab Results Hgb 14.1 g/dL (14.1-18.0) 05/08/21 05:33 Hct 44.5 % (42.0-52.0) 05/08/21 05:33 Plt Count 407 K/mm3 (142-424) 05/08/21 05:33 BUN 20 mg/dl (9-20) 05/08/21 05:33 Creatinine 0.80 mg/dl (0.66-1.25) 05/08/21 05:33 Estimated Creat Clear 76 mL/min (50-200) 05/08/21 05:33 Was VTE Risk Assessment Performed: Yes VTE Risk Level: Very Low Risk - Prophylaxis VTE Prophylaxis Ordered?: Yes Types of VTE Prophylaxis: TEDS Knee High Location of Applied Device: Bilateral Lower Extremeties
[2021-05-08 13:36] LABS: POC Glucose,Bedside 365 (70-110)
[2021-05-09 23:23] LABS: POC Glucose,Bedside 113 (70-110)
[2021-05-09 23:23] LABS: POC Glucose,Bedside 145 (70-110)
[2021-05-09 23:23] LABS: POC Glucose,Bedside 109 (70-110)
== END 2021-05-08 14:36 | disposition home or self-care (01) ==
LOC: ER 19:27 → 2ND 05-08 03:29
PROVIDERS: Admitting Provider Family Medicine; Emergency Provider Emergency Medicine; PCP Emergency Medicine; Visit Provider Family Medicine
DX: E11.10 Type 2 diabetes mellitus with ketoacidosis without coma (principal); I48.91 Unspecified atrial fibrillation; I25.10 Atherosclerotic heart disease of native coronary artery without angina pectoris; Z79.01 Long term (current) use of anticoagulants; I10 Essential (primary) hypertension; G43.909 Migraine, unspecified, not intractable, without status migrainosus; F17.210 Nicotine dependence, cigarettes, uncomplicated; E03.9 Hypothyroidism, unspecified; Z79.899 Other long term (current) drug therapy; Z20.822 Contact with and (suspected) exposure to COVID-19
CPT/HCPCS: G0378; 36415; 71045; 80048; 80053; 81001; 82009; 82803; 82962; 84484; 85007; 85025; 93005; 96365; 96367; 99284; C9803; J2405; U0003; U0005

== ENCOUNTER → 2021-05-13 09:21 | Outpatient (CLI) | payer MEDICARE, SELFPAY | PROVIDERS: Visit Provider Ophthalmology | DX: Z01.812 Encounter for preprocedural laboratory examination (principal); Z11.52 Encounter for screening for COVID-19 | CPT/HCPCS: 83036; C9803; U0003; U0005 ==

== ENCOUNTER → 2021-05-27 12:32 | Outpatient (CLI) | payer MEDICARE, SELFPAY | PROVIDERS: PCP Emergency Medicine; Visit Provider Ophthalmology | DX: Z01.812 Encounter for preprocedural laboratory examination (principal); Z11.52 Encounter for screening for COVID-19 | CPT/HCPCS: C9803; U0003; U0005 ==

== ENCOUNTER 2021-05-30 10:10 | Day surgery (SDC) | payer MEDICARE, SELFPAY ==
[2021-05-26 14:26] VITALS: BMI 24.3
[2021-05-30] VITALS (8 sets, daily range): BP systolic 147–215; BP diastolic 72–96; PULSE 66–78; RESP 16–18; TEMP 36.8–37.2; O2SAT 97–100
[2022-02-01 10:56] LABS: POC Glucose,Bedside 233 (70-110)
== END 2021-05-30 11:35 | disposition home or self-care (01) ==
LOC: OR 10:12
PROVIDERS: PCP Emergency Medicine; Visit Provider Ophthalmology
DX: H25.813 Combined forms of age-related cataract, bilateral (principal); H53.149 Visual discomfort, unspecified; H02.831 Dermatochalasis of right upper eyelid; H02.834 Dermatochalasis of left upper eyelid; I10 Essential (primary) hypertension; I48.91 Unspecified atrial fibrillation; E78.5 Hyperlipidemia, unspecified; I42.9 Cardiomyopathy, unspecified; E11.9 Type 2 diabetes mellitus without complications; I73.9 Peripheral vascular disease, unspecified; I25.10 Atherosclerotic heart disease of native coronary artery without angina pectoris; Z79.899 Other long term (current) drug therapy
CPT/HCPCS: 66984; 82962; V2632

== ENCOUNTER → 2021-10-11 06:22 | Outpatient (CLI) | payer MEDICARE, SELFPAY ==
[2021-10-10 19:17] LABS: Alanine Aminotransferase 13 U/L (12-78); Albumin Level 3.6 g/dl (3.5-5.0); Albumin/Globulin Ratio 1.4 (1.1-1.8); Alkaline Phosphatase 165 U/L (38-126); Anion Gap 14.3 mEq/L (5-15); Aspartate Amino Transferase 22 U/L (17-59); Blood Urea Nitrogen 11 mg/dl (9-20); Calcium 9.1 mg/dl (8.4-10.2); Carbon Dioxide 29 mmol/L (22.0-30.0); Chloride 93 mmol/L (98-107); Estimated Glomerular Filt Rate 83 ml/min (>60); GFR (African American) 101 ML/MIN (>60); Globulin 2.5 g/dL (1.3-3.2); Glucose 314 mg/dl (74-100); Potassium 4.3 mmoL/L (3.5-5.1); Sodium 132 mmol/L (136-145); Total Protein,Serum 6.1 g/dl (6.3-8.2)
[2021-10-10 19:25] LABS: Bilirubin,Total < 0.1 mg/dl (0.2-1.3)
[2021-10-10 19:43] LABS: Hemoglobin A1C 9.8 % (4.0-6.0)
== END ==
PROVIDERS: PCP Emergency Medicine; Visit Provider Emergency Medicine
DX: E13.10 Other specified diabetes mellitus with ketoacidosis without coma; Z79.4 Long term (current) use of insulin
CPT/HCPCS: 80053; 83036

== ENCOUNTER 2022-01-07 10:13 | Emergency (ER) | payer MEDICARE, SELFPAY ==
[2022-01-07 10:15] VITALS: BP 147/77; PULSE 94; RESP 20; TEMP 36.4; O2SAT 99; BMI 23.7
--- NOTE | 2022-01-07 10:30 | EXP.UTC ---
Discharge Plan Disposition Patient Disposition: Home, Self-Care Condition: Good Prescriptions Prescriptions: No Action aspirin [Adult Low Dose Aspirin] 81 mg tablet,delayed release (DR/EC) 81 mg PO DAILY cholecalciferol (vitamin D3) 25 mcg (1,000 unit) capsule 50,000 unit PO WEEKLY Rx Instructions: Mon levothyroxine 50 mcg tablet See Rx Instructions .ROUTE .COMPLEX Qty: 90 0RF Dose Instruction: TAKE 1 TABLET EVERY DAY FOR HYPOTHYROIDISM Rx Instructions: TAKE 1 TABLET EVERY DAY FOR HYPOTHYROIDISM clopidogrel 75 mg tablet See Rx Instructions .ROUTE .COMPLEX Qty: 90 0RF Dose Instruction: TAKE 1 TABLET EVERY DAY - NEED MD APPOINTMENT FOR REFILLS Rx Instructions: TAKE 1 TABLET EVERY DAY (DME) pen needle, diabetic [Droplet Pen Needle] 31 gauge x 5/16 needle See Rx Instructions .ROUTE .COMPLEX Qty: 100 0RF Dose Instruction: USE DIRECTED Rx Instructions: USE DIRECTED atorvastatin 10 mg tablet See Rx Instructions .ROUTE .COMPLEX Qty: 90 0RF Dose Instruction: TAKE 1 TABLET AT BEDTIME Rx Instructions: TAKE 1 TABLET AT BEDTIME lisinopril 5 mg tablet See Rx Instructions .ROUTE .COMPLEX Qty: 90 0RF Dose Instruction: TAKE 1 TABLET EVERY DAY Rx Instructions: TAKE 1 TABLET EVERY DAY ergocalciferol (vitamin D2) 1,250 mcg (50,000 unit) capsule See Rx Instructions .ROUTE .COMPLEX Qty: 13 0RF Dose Instruction: TAKE 1 CAPSULE EVERY WEEK Rx Instructions: TAKE 1 CAPSULE EVERY WEEK insulin aspart U-100 [Novolog Flexpen U-100 Insulin] 100 unit/mL (3 mL) insulin pen See Rx Instructions .ROUTE .COMPLEX Qty: 3 0RF Dose Instruction: INJECT 4 UNITS UNDER THE SKIN THREE TIMES DAILY Rx Instructions: INJECT 4 UNITS UNDER THE SKIN THREE TIMES DAILY insulin glargine 100 UNIT/ML insulin pen 35 units SQ DAILY Rx Instructions: INJECT 35 UNITS SUBCUTANEOUSLY EVERY DAY oxycodone 15 MG tablet 15 mg PO QIDP PRN (Reason: back pain) Label Comments: TAKE 1 TABLET BY MOUTH 4 TIMES DAILY NEEDED FOR 30 DAYS Referrals Follow up/Referrals: Akshat Shaw MD [Primary Care Provider] - See instructions Clinical Impressions Clinical Impression: Chronic pain Instructions Patient Instructions: DI for Chronic Pain -- Adult Discharge ED Provider: Cindy Fung [facility] General Stated complaint: diabetic, pain in hands and feet Time Seen by Provider: 01/07/22 10:30 History of Present Illness Provider Complaint: Pt relates that he dropped his Oxycodone down the sink and is suffering from neuropathy pain. Pt wishes to be supplied with enough medication to get him to Saturday. Related Data Home Medications Medication Instructions Recorded Confirmed aspirin 81 mg tablet,delayed 81 mg PO DAILY heart health 07/30/17 10/10/21 release (Adult Low Dose Aspirin) cholecalciferol (vitamin D3) 25 50,000 unit PO WEEKLY Supplement 02/01/21 10/10/21 mcg (1,000 unit) capsule oxycodone 15 mg tablet 15 mg PO QIDP PRN back pain 03/06/21 10/10/21 insulin glargine 100 unit/mL (3 35 units SQ DAILY Diabetes 05/08/21 10/10/21 mL) subcutaneous pen Previous Rx's Medication Instructions Recorded clopidogrel 75 mg tablet See Rx Instructions .Route 07/20/21 .COMPLEX #90 tabs levothyroxine 50 mcg tablet See Rx Instructions .Route 07/20/21 .COMPLEX #90 tabs pen needle, diabetic 31 gauge x #100 ea 07/31/21 5/16 (Droplet Pen Needle) atorvastatin 10 mg tablet See Rx Instructions .Route 11/07/21 .COMPLEX #90 tabs lisinopril 5 mg tablet See Rx Instructions .Route 11/07/21 .COMPLEX #90 tabs ergocalciferol (vitamin D2) 1,250 See Rx Instructions .Route 11/09/21 mcg (50,000 unit) capsule .COMPLEX #13 caps Novolog Flexpen U-100 Insulin 100 See Rx Instructions .Route 11/20/21 unit/mL (3 mL) subcutaneous .COMPLEX #3 mL (insulin aspart U-100) Allergies Allergy/AdvReac T
[2022-01-07 11:11] VITALS: BP 147/77; PULSE 94; RESP 20; TEMP 36.4; O2SAT 99
== END 2022-01-07 11:19 | disposition home or self-care (01) ==
PROVIDERS: Emergency Provider Nurse Practitioner Family; PCP Emergency Medicine
DX: M79.642 Pain in left hand (principal); M79.641 Pain in right hand; M79.672 Pain in left foot; M79.671 Pain in right foot; E10.42 Type 1 diabetes mellitus with diabetic polyneuropathy; Z79.4 Long term (current) use of insulin; G89.29 Other chronic pain
CPT/HCPCS: 96372; 99212; G0463

== ENCOUNTER 2022-01-09 07:28 | Emergency (ER) | payer MEDICARE, SELFPAY ==
[2022-01-09 07:29] VITALS: BP 159/88; PULSE 86; RESP 20; TEMP 36.8; O2SAT 99; BMI 23.7
--- NOTE | 2022-01-09 08:04 | PC.NURSE ---
ED MD AT BEDSIDE
--- NOTE | 2022-01-09 08:11 | HMH.EDGENADL ---
Discharge Plan Disposition Patient Disposition: Home, Self-Care Chief Complaint: PAIN Prescriptions Prescriptions: No Action aspirin [Adult Low Dose Aspirin] 81 mg tablet,delayed release (DR/EC) 81 mg PO DAILY cholecalciferol (vitamin D3) 25 mcg (1,000 unit) capsule 50,000 unit PO WEEKLY Rx Instructions: Mon levothyroxine 50 mcg tablet See Rx Instructions .ROUTE .COMPLEX Qty: 90 0RF Dose Instruction: TAKE 1 TABLET EVERY DAY FOR HYPOTHYROIDISM Rx Instructions: TAKE 1 TABLET EVERY DAY FOR HYPOTHYROIDISM clopidogrel 75 mg tablet See Rx Instructions .ROUTE .COMPLEX Qty: 90 0RF Dose Instruction: TAKE 1 TABLET EVERY DAY - NEED MD APPOINTMENT FOR REFILLS Rx Instructions: TAKE 1 TABLET EVERY DAY (DME) pen needle, diabetic [Droplet Pen Needle] 31 gauge x 5/16 needle See Rx Instructions .ROUTE .COMPLEX Qty: 100 0RF Dose Instruction: USE DIRECTED Rx Instructions: USE DIRECTED atorvastatin 10 mg tablet See Rx Instructions .ROUTE .COMPLEX Qty: 90 0RF Dose Instruction: TAKE 1 TABLET AT BEDTIME Rx Instructions: TAKE 1 TABLET AT BEDTIME lisinopril 5 mg tablet See Rx Instructions .ROUTE .COMPLEX Qty: 90 0RF Dose Instruction: TAKE 1 TABLET EVERY DAY Rx Instructions: TAKE 1 TABLET EVERY DAY ergocalciferol (vitamin D2) 1,250 mcg (50,000 unit) capsule See Rx Instructions .ROUTE .COMPLEX Qty: 13 0RF Dose Instruction: TAKE 1 CAPSULE EVERY WEEK Rx Instructions: TAKE 1 CAPSULE EVERY WEEK insulin aspart U-100 [Novolog Flexpen U-100 Insulin] 100 unit/mL (3 mL) insulin pen See Rx Instructions .ROUTE .COMPLEX Qty: 3 0RF Dose Instruction: INJECT 4 UNITS UNDER THE SKIN THREE TIMES DAILY Rx Instructions: INJECT 4 UNITS UNDER THE SKIN THREE TIMES DAILY insulin glargine 100 UNIT/ML insulin pen 35 units SQ DAILY Rx Instructions: INJECT 35 UNITS SUBCUTANEOUSLY EVERY DAY oxycodone 15 MG tablet 15 mg PO QIDP PRN (Reason: back pain) Label Comments: TAKE 1 TABLET BY MOUTH 4 TIMES DAILY NEEDED FOR 30 DAYS Referrals Follow up/Referrals: Akshat Shaw MD [Primary Care Provider] - See instructions Clinical Impressions Clinical Impression: Neuropathy Discharge ED Provider: Idris Landeros General Adult HPI General Chief complaint: PAIN Stated complaint: diabectic severe pain in hands Time Seen by Provider: 01/09/22 08:00 Mode of Arrival: Ambulatory Source of Information: Patient Limitations: No Limitations Description of Symptoms (Recalled from ER Triage Doc. by RN): PT REPORT DIABETIC NEUROPATHY PAIN OF BILATERAL FEET AND LEGS. REPORTS PAIN IN BILATERAL HANDS BUT NOT BAD LEGS. TAKES OXYCODONE 15 MG PO FOR TIMES A DAY, BUT HAS LOST SOME OF MEDS History of Present Illness HPI narrative: Patient is a 71-year-old male who presents with concerns for continued diabetic neuropathy. He says that about a week and a half ago he accidentally spilled all of his oxycodone in the sink. He reports that he has a pain contract in [place] with his neurology team who manages his pain and they were unable to give him a new refill due to the contract. He says he has an appointment with them later today for a follow-up and we will discuss further refills with them. He states that he does not know if he can make it to this appointment because his feet hurt so bad that he is unable to drive. He does not take any gabapentin or Lyrica. Denies any fever or chills. Denies any chest or abdominal pain. Related Data Home Medications Medication Instructions Recorded Confirmed aspirin 81 mg tablet,delayed 81 mg PO DAILY heart health 07/30/17 10/10/21 release (Adult Low Dose Aspirin) cholecalciferol (vitamin D3) 25 50,000 unit PO WEEKLY Supplement 02/01/21 10/10/21 mcg (1,000 unit) capsule oxycodone 15 mg tablet 15 mg PO QIDP PRN back pain 03/06/21 10/10/21 insulin glar
[2022-01-09 08:20] VITALS: BP 161/83; PULSE 73; RESP 20; TEMP 36.8; O2SAT 99
== END 2022-01-09 08:30 | disposition home or self-care (01) ==
PROVIDERS: Emergency Provider Student in an Organized Health Care Education/Training Program; PCP Emergency Medicine
DX: M79.642 Pain in left hand (principal); M79.641 Pain in right hand; M79.605 Pain in left leg; M79.604 Pain in right leg; M79.672 Pain in left foot; M79.671 Pain in right foot; E10.40 Type 1 diabetes mellitus with diabetic neuropathy, unspecified; E78.5 Hyperlipidemia, unspecified; E55.9 Vitamin D deficiency, unspecified; Z79.02 Long term (current) use of antithrombotics/antiplatelets; Z79.4 Long term (current) use of insulin; Z79.82 Long term (current) use of aspirin; Z79.899 Other long term (current) drug therapy; Z98.49 Cataract extraction status, unspecified eye
CPT/HCPCS: 99282

== ENCOUNTER 2022-02-04 15:38 | Emergency (ER) | payer MEDICARE, SELFPAY ==
[2022-02-04 15:40] VITALS: BP 186/104; PULSE 101; RESP 16; TEMP 37; O2SAT 98; BMI 23.7
--- NOTE | 2022-02-04 15:57 | US_ITS ---
PROCEDURE INFORMATION: Exam: US Scrotum and Artery or Vein of the Abdominal and/or Reproductive Organs, Limited Scrotum Exam date and time: 02/04/2022 4:52 PM Age: 72 years old Clinical indication: Other: Left testicle pain; Other: Left testicular pain TECHNIQUE: Imaging protocol: Real-time ultrasound of the scrotum. Real-time duplex ultrasound scan of the arterial or venous flow with garcia scale, color Doppler flow and spectral waveform analysis with image documentation. Limited Duplex exam focused of the scrotum. Duplex images required to evaluate for torsion and other vascular conditions. COMPARISON: CT ABDOMEN PELVIS W CON 01/05/2021 12:31 PM FINDINGS: Right testicle: Right testicle measures 2.1 x 3.4 x 2.9 cm. Left testicle: Left testicle measures 2.3 x 3.8 x 2.9 cm. Epididymides: Normal. Scrotum: Minimal left hydrocele. Other findings: No testicular mass or current evidence for torsion with color flow and vascular waveforms documented bilaterally. IMPRESSION: 1. No testicular mass or current evidence for torsion with color flow and vascular waveforms documented bilaterally. 2. Minimal left hydrocele.
--- NOTE | 2022-02-04 16:05 | HMH.EDGENADL ---
Discharge Plan Disposition Patient Disposition: Home, Self-Care Condition: Good Prescriptions Prescriptions: No Action cholecalciferol (vitamin D3) 25 mcg (1,000 unit) capsule 50,000 unit PO WEEKLY Rx Instructions: Mon aspirin [Adult Low Dose Aspirin] 81 mg tablet,delayed release (DR/EC) 81 mg PO DAILY Qty: 100 12RF nitroglycerin 0.4 mg tablet, sublingual 0.4 mg sublingual Q5M PRN (Reason: chest pain) Qty: 10 3RF Rx Instructions: do not exceed 3 doses per episode levothyroxine 50 mcg tablet See Rx Instructions .ROUTE .COMPLEX Qty: 90 0RF Dose Instruction: TAKE 1 TABLET EVERY DAY FOR HYPOTHYROIDISM Rx Instructions: TAKE 1 TABLET EVERY DAY FOR HYPOTHYROIDISM clopidogrel 75 mg tablet See Rx Instructions .ROUTE .COMPLEX Qty: 90 0RF Dose Instruction: TAKE 1 TABLET EVERY DAY - NEED MD APPOINTMENT FOR REFILLS Rx Instructions: TAKE 1 TABLET EVERY DAY (DME) pen needle, diabetic [Droplet Pen Needle] 31 gauge x 5/16 needle See Rx Instructions .ROUTE .COMPLEX Qty: 100 0RF Dose Instruction: USE DIRECTED Rx Instructions: USE DIRECTED insulin aspart U-100 [Novolog Flexpen U-100 Insulin] 100 unit/mL (3 mL) insulin pen See Rx Instructions .ROUTE .COMPLEX Qty: 3 0RF Dose Instruction: INJECT 4 UNITS UNDER THE SKIN THREE TIMES DAILY Rx Instructions: INJECT 4 UNITS UNDER THE SKIN THREE TIMES DAILY ondansetron 8 mg tablet,disintegrating 8 mg PO Q12H PRN (Reason: nausea and vomiting) Qty: 20 2RF lisinopril 5 mg tablet See Rx Instructions .ROUTE .COMPLEX Qty: 90 0RF Dose Instruction: TAKE 1 TABLET EVERY DAY Rx Instructions: TAKE 1 TABLET EVERY DAY atorvastatin 10 mg tablet See Rx Instructions .ROUTE .COMPLEX Qty: 90 0RF Dose Instruction: TAKE 1 TABLET AT BEDTIME Rx Instructions: TAKE 1 TABLET AT BEDTIME ergocalciferol (vitamin D2) 1,250 mcg (50,000 unit) capsule See Rx Instructions .ROUTE .COMPLEX Qty: 13 0RF Dose Instruction: TAKE 1 CAPSULE EVERY WEEK Rx Instructions: TAKE 1 CAPSULE EVERY WEEK insulin glargine 100 UNIT/ML insulin pen 35 units SQ DAILY Rx Instructions: INJECT 35 UNITS SUBCUTANEOUSLY EVERY DAY oxycodone 15 MG tablet 15 mg PO QIDP PRN (Reason: back pain) Label Comments: TAKE 1 TABLET BY MOUTH 4 TIMES DAILY NEEDED FOR 30 DAYS Referrals Follow up/Referrals: Akshat Shaw MD [Primary Care Provider] - See instructions Noble Schultz MD [Staff Physician] - See instructions (Hydrocele) Activity Restrictions/Add. Instructions Additional Instructions/Restrictions: You have been evaluated for left-sided scrotal pain, diagnosed with a hydrocele. Please take anti-inflammatory medication like 600 mg ibuprofen every 6-8 hours. Use scrotal support, tight fitting underwear. Follow-up with urologist as soon as available. Follow-up with your primary care doctor for symptom recheck. Return to the emergency department at once for any new or worsening symptoms, increased pain, fever, vomiting, other concerns. Clinical Impressions Clinical Impression: Hydrocele, left Instructions Patient Instructions: DI for Hydrocele-Adult Discharge ED Provider: Mily Frias Adult HPI General Chief complaint: PAIN Stated complaint: testicular pain Time Seen by Provider: 02/04/22 15:47 Mode of Arrival: Ambulatory Source of Information: Patient Limitations: No Limitations History of Present Illness HPI narrative: 72-year-old male presenting to the emergency department with right scrotal pain. Symptom started a couple of days ago. Was sudden intermittent, pulling, tugging pain that was located on the left side of the scrotum. Over the last day it has become more constant and nagging. Hurts to touch. No fevers, chills, nausea, vomiting, dysuria. He has had symptoms like this before, not in many many years. Was told it was due to a
--- NOTE | 2022-02-04 16:43 | PC.NURSE ---
PT REFUSES TO LEAVE B/P CUFF AND O2 SAT ON
--- NOTE | 2022-02-04 16:45 | PC.NURSE ---
pt c/o pain requesting pain medications. md aware. no new orders noted
[2022-02-04 16:49] LABS: Basophils # 0.2 K/mm3 (0-0.2); Basophils % 1.3 % (0.1-2.0); Eosinophils # 0.5 K/mm3 (0.0-0.4); Eosinophils % 3.5 % (0.1-12.0); Hematocrit 48.1 % (42.0-52.0); Hemoglobin 15.3 g/dL (14.1-18.0); Lymphocytes # 2.6 K/mm3 (0.7-4.5); Lymphocytes % 16.6 % (10-50); Mean Corpuscular HGB Conc 31.8 g/dL (31.8-35.4); Mean Corpuscular Hemoglobin 31.1 pg (27.0-31.2); Mean Platelet Volume 9.5 fl (7.4-10.4); Monocytes # 0.8 K/mm3 (0.1-1.0); Monocytes % 5.3 % (1.7-9.3); Neutrophils # 11.4 K/mm3 (1.8-7.8); Neutrophils % 73.3 % (37.0-80.0); Platelet Count 371 K/mm3 (142-424); Red Blood Count 4.91 M/mm3 (4.60-6.20); Red Cell Distribution Width 14.7 % (11.5-17.5); White Blood Count 15.5 K/mm3 (4.8-10.8)
--- NOTE | 2022-02-04 16:53 | PC.NURSE ---
pt to u/s at this time
[2022-02-04 16:55] LABS: Chloride 96 mmol/L (98-107)
[2022-02-04 16:56] LABS: Potassium 3.9 mmoL/L (3.5-5.1); Sodium 135 mmol/L (136-145)
[2022-02-04 16:58] LABS: Alanine Aminotransferase 16 U/L (12-78); Alkaline Phosphatase 157 U/L (38-126); Aspartate Amino Transferase 24 U/L (17-59); Bilirubin,Total 0.2 mg/dl (0.2-1.3); Blood Urea Nitrogen 10 mg/dl (9-20); Creatinine Clearance Estimated 73 mL/min (50-200); Estimated Glomerular Filt Rate 95 ml/min (>60); GFR (African American) 115 ML/MIN (>60)
[2022-02-04 16:59] LABS: Albumin Level 4.2 g/dl (3.5-5.0); Albumin/Globulin Ratio 1.6 (1.1-1.8); Anion Gap 13.9 mEq/L (5-15); Calcium 8.7 mg/dl (8.4-10.2); Carbon Dioxide 29 mmol/L (22.0-30.0); Globulin 2.7 g/dL (1.3-3.2); Glucose 305 mg/dl (74-100); Total Protein,Serum 6.9 g/dl (6.3-8.2)
[2022-02-04 17:02] LABS: MANUAL DIFFERENTIAL MANUAL DIFFERENTIAL (MANUAL DIFF)
[2022-02-04 17:21] LABS: Lymphocytes % 21 % (10-50); Monocytes % 8 % (2-9); Neutrophils % 71 % (42-76); Platelet Estimate Normal; RBC Morphology Normal; Total Cells Counted 100
--- NOTE | 2022-02-04 17:40 | PC.NURSE ---
pt requesting pain medication aware
--- NOTE | 2022-02-04 17:59 | PC.NURSE ---
PAIN MEDS GIVEN , RADIOLOGY HERE TO REPEAT SCROTAL US
--- NOTE | 2022-02-04 18:54 | HMH.EDGENADL ---
Discharge Plan Disposition Patient Disposition: Home, Self-Care Condition: Good Prescriptions Prescriptions: No Action cholecalciferol (vitamin D3) 25 mcg (1,000 unit) capsule 50,000 unit PO WEEKLY Rx Instructions: Mon aspirin [Adult Low Dose Aspirin] 81 mg tablet,delayed release (DR/EC) 81 mg PO DAILY Qty: 100 12RF nitroglycerin 0.4 mg tablet, sublingual 0.4 mg sublingual Q5M PRN (Reason: chest pain) Qty: 10 3RF Rx Instructions: do not exceed 3 doses per episode metoprolol succinate [Toprol XL] 25 mg tablet extended release 24 hr 25 mg PO DAILY Qty: 90 3RF doxepin 25 mg capsule 25 mg PO pregabalin [Lyrica] 75 mg capsule 75 mg PO BID Qty: 60 1RF oxycodone 15 mg tablet 15 mg PO QID PRN (Reason: back pain) Qty: 120 0RF levothyroxine 50 mcg tablet See Rx Instructions .ROUTE .COMPLEX Qty: 90 0RF Dose Instruction: TAKE 1 TABLET EVERY DAY FOR HYPOTHYROIDISM Rx Instructions: TAKE 1 TABLET EVERY DAY FOR HYPOTHYROIDISM clopidogrel 75 mg tablet See Rx Instructions .ROUTE .COMPLEX Qty: 90 0RF Dose Instruction: TAKE 1 TABLET EVERY DAY - NEED MD APPOINTMENT FOR REFILLS Rx Instructions: TAKE 1 TABLET EVERY DAY (DME) pen needle, diabetic [Droplet Pen Needle] 31 gauge x 5/16 needle See Rx Instructions .ROUTE .COMPLEX Qty: 100 0RF Dose Instruction: USE DIRECTED Rx Instructions: USE DIRECTED ondansetron 8 mg tablet,disintegrating 8 mg PO Q12H PRN (Reason: nausea and vomiting) Qty: 20 2RF lisinopril 5 mg tablet See Rx Instructions .ROUTE .COMPLEX Qty: 90 0RF Dose Instruction: TAKE 1 TABLET EVERY DAY Rx Instructions: TAKE 1 TABLET EVERY DAY atorvastatin 10 mg tablet See Rx Instructions .ROUTE .COMPLEX Qty: 90 0RF Dose Instruction: TAKE 1 TABLET AT BEDTIME Rx Instructions: TAKE 1 TABLET AT BEDTIME ergocalciferol (vitamin D2) 1,250 mcg (50,000 unit) capsule See Rx Instructions .ROUTE .COMPLEX Qty: 13 0RF Dose Instruction: TAKE 1 CAPSULE EVERY WEEK Rx Instructions: TAKE 1 CAPSULE EVERY WEEK insulin aspart U-100 [Novolog Flexpen U-100 Insulin] 100 unit/mL (3 mL) insulin pen See Rx Instructions .ROUTE .COMPLEX Qty: 15 0RF Dose Instruction: INJECT 3 UNITS UNDER THE SKIN THREE TIMES DAILY. PEN EXPIRES 28 DAYS AFTER OPENING Rx Instructions: INJECT 3 UNITS UNDER THE SKIN THREE TIMES DAILY. PEN EXPIRES 28 DAYS AFTER OPENING insulin glargine 100 UNIT/ML insulin pen 35 units SQ DAILY Rx Instructions: INJECT 35 UNITS SUBCUTANEOUSLY EVERY DAY Referrals Follow up/Referrals: Akshat Shaw MD [Primary Care Provider] - See instructions Noble Schultz MD [Staff Physician] - See instructions (Hydrocele) Activity Restrictions/Add. Instructions Additional Instructions/Restrictions: You have been evaluated for left-sided scrotal pain, diagnosed with a hydrocele. Please take anti-inflammatory medication like 600 mg ibuprofen every 6-8 hours. Use scrotal support, tight fitting underwear. Follow-up with urologist as soon as available. Follow-up with your primary care doctor for symptom recheck. Return to the emergency department at once for any new or worsening symptoms, increased pain, fever, vomiting, other concerns. Clinical Impressions Clinical Impression: Hydrocele, left Instructions Patient Instructions: DI for Hydrocele-Adult Discharge ED Provider: Mily Frias Adult HPI General Chief complaint: PAIN Stated complaint: testicular pain Time Seen by Provider: 02/04/22 15:47 Mode of Arrival: Ambulatory Source of Information: Patient Limitations: No Limitations History of Present Illness HPI narrative: 72-year-old male presenting to the emergency department with left scrotal pain. Pain started about 1 week ago, got more persistent over the last few days. Is described as a sharp, pulling, tugging sensation. Happens int
--- NOTE | 2022-02-04 19:02 | PC.NURSE ---
pt walking around standing at the doorway does not want bp taken
[2022-02-04 19:03] VITALS: BP 158/100; PULSE 78; RESP 16; TEMP 36.6; O2SAT 98
== END 2022-02-04 19:06 | disposition home or self-care (01) ==
PROVIDERS: Emergency Provider Emergency Medicine; PCP Emergency Medicine
DX: N43.3 Hydrocele, unspecified (principal); Z79.4 Long term (current) use of insulin; Z79.899 Other long term (current) drug therapy; E10.9 Type 1 diabetes mellitus without complications; E78.5 Hyperlipidemia, unspecified; E55.9 Vitamin D deficiency, unspecified
CPT/HCPCS: 76870; 80053; 85007; 85025; 99283

== ENCOUNTER → 2022-02-05 16:13 | Outpatient (CLI) | payer MEDICARE, SELFPAY ==
[2022-02-05 17:14] LABS: Hemoglobin A1C 9.7 % (4.0-6.0)
== END ==
PROVIDERS: PCP Emergency Medicine; Visit Provider Emergency Medicine
DX: E11.9 Type 2 diabetes mellitus without complications (principal); Z79.4 Long term (current) use of insulin
CPT/HCPCS: 83036

== ENCOUNTER → 2022-02-22 12:29 | Outpatient (CLI) | payer MEDICARE, SELFPAY ==
--- NOTE | 2022-02-22 15:14 | HMH.ITSHM ---
Current Home Medications as stated by this patient Jorge Helton or medical collections representative. []NOVOLOG LANTUS PLAVIX ATORVASTATIN LISINOPRIL LEVOTHYROXINE VITAMIN D3 VITAMIN D2 METOPROLOL PREGABALIN NITRO OXYCODONE ASA
== END ==
LOC: RAD 12:30
PROVIDERS: PCP Emergency Medicine; Visit Provider Physician Assistant
DX: E78.2 Mixed hyperlipidemia (principal); I51.9 Heart disease, unspecified; I73.9 Peripheral vascular disease, unspecified; R93.1 Abnormal findings on diagnostic imaging of heart and coronary circulation; Z72.0 Tobacco use; Z95.5 Presence of coronary angioplasty implant and graft; I20.8 Other forms of angina pectoris; I42.8 Other cardiomyopathies
CPT/HCPCS: 78452; 93017; 93306; A9503; J2785

== ENCOUNTER → 2022-03-08 15:32 | Outpatient (CLI) | payer MEDICARE, SELFPAY ==
[2022-03-08 15:20] LABS: Creatinine,Urine Random 23 mg/dL (Not Estab.)
[2022-03-08 15:21] LABS: Microalbumin/Creatinine Ratio 26.9
== END ==
PROVIDERS: PCP Emergency Medicine; Visit Provider Emergency Medicine
DX: E11.9 Type 2 diabetes mellitus without complications (principal); I10 Essential (primary) hypertension; E78.5 Hyperlipidemia, unspecified; E55.9 Vitamin D deficiency, unspecified; R53.83 Other fatigue
CPT/HCPCS: 82043; 82570

== ENCOUNTER → 2022-03-23 15:41 | Outpatient (CLI) | payer MEDICARE, SELFPAY ==
[2022-03-23 17:23] LABS: Hemoglobin A1C 9.6 % (4.0-6.0)
[2022-03-23 18:34] LABS: Alanine Aminotransferase 14 U/L (12-78); Albumin Level 4.2 g/dl (3.5-5.0); Albumin/Globulin Ratio 1.6 (1.1-1.8); Alkaline Phosphatase 187 U/L (38-126); Anion Gap 17.5 mEq/L (5-15); Aspartate Amino Transferase 21 U/L (17-59); Bilirubin,Total 0.5 mg/dl (0.2-1.3); Blood Urea Nitrogen 7 mg/dl (9-20); Calcium 9.7 mg/dl (8.4-10.2); Carbon Dioxide 31 mmol/L (22.0-30.0); Chloride 93 mmol/L (98-107); Chol/HDL Ratio 2.8 (1-3.5); Cholesterol 187 mg/dl (140-200); Estimated Glomerular Filt Rate 73 ml/min (>60); GFR (African American) 89 ML/MIN (>60); Globulin 2.6 g/dL (1.3-3.2); Glucose 287 mg/dl (74-100); HDL Cholesterol 67 mg/dl (40-60); Potassium 5.5 mmoL/L (3.5-5.1); Sodium 136 mmol/L (136-145); Total Protein,Serum 6.8 g/dl (6.3-8.2); Triglycerides 94 mg/dl (30-150); VLDL Cholesterol 19 mg/dL (0-40)
[2022-03-23 18:52] LABS: Direct LDL Cholesterol 91.18 mg/dL (100-129)
[2022-03-24 04:32] LABS: Basophils # 0.1 K/mm3 (0-0.2); Eosinophils # 0.3 K/mm3 (0.0-0.4); Eosinophils % 2.7 % (0.1-12.0); Hematocrit 46.7 % (42.0-52.0); Hemoglobin 14.7 g/dL (14.1-18.0); Lymphocytes % 19.6 % (10-50); Mean Corpuscular HGB Conc 31.6 g/dL (31.8-35.4); Mean Corpuscular Hemoglobin 31.5 pg (27.0-31.2); Mean Corpuscular Volume 99.6 fl (80-94); Mean Platelet Volume 10.4 fl (7.4-10.4); Monocytes # 0.6 K/mm3 (0.1-1.0); Monocytes % 5.7 % (1.7-9.3); Neutrophils # 7.1 K/mm3 (1.8-7.8); Platelet Count 321 K/mm3 (142-424); Red Blood Count 4.68 M/mm3 (4.60-6.20); Red Cell Distribution Width 14.3 % (11.5-17.5)
== END ==
PROVIDERS: PCP Emergency Medicine; Visit Provider Internal Medicine
DX: Z01.812 Encounter for preprocedural laboratory examination (principal); I20.0 Unstable angina; E11.9 Type 2 diabetes mellitus without complications; Z79.4 Long term (current) use of insulin
CPT/HCPCS: 36415; 80053; 80061; 83036; 85025

== ENCOUNTER → 2022-05-04 10:38 | Outpatient (CLI) | payer MEDICARE, SELFPAY ==
--- NOTE | 2022-05-04 10:44 | XR_ITS ---
FINAL REPORT CLINICAL HISTORY: injury from fall 2 DAYS AGO FINDINGS: SACRUM COCCYX 3 views demonstrate mild irregularity of the distal sacrum. The sacral arches are intact. The sacroiliac joints are intact. There is a right iliac stent. Vascular calcifications are present. IMPRESSION: Mild irregularity of the distal sacrum. Fracture in this region cannot be excluded. Reviewed, Interpreted and Dictated by Tristan Meza III, MD Transcribed by Damien Guillermo Authenticated and [facility]
--- NOTE | 2022-05-04 10:44 | XR_ITS ---
FINAL REPORT CLINICAL HISTORY: injury from a fall 2 DAYS AGO FINDINGS: 3 views of the left knee were obtained. There is no acute fracture or dislocation. The joint spaces are intact. There is mild vascular calcification. IMPRESSION: No acute process. Reviewed, Interpreted and Dictated by Tristan Meza III, MD Transcribed by Damien Guillermo Authenticated and . [facility]
== END ==
LOC: RAD 10:39
PROVIDERS: PCP Emergency Medicine; Visit Provider Emergency Medicine
DX: W19.XXXA Unspecified fall, initial encounter (principal); M25.562 Pain in left knee; M53.3 Sacrococcygeal disorders, not elsewhere classified
CPT/HCPCS: 72220; 73562

== ENCOUNTER 2022-05-11 13:17 | Observation (INO) | payer MEDICARE, SELFPAY ==
[2022-05-11] VITALS (11 sets, daily range): BP systolic 93–115; BP diastolic 40–91; PULSE 69–88; RESP 18–94; TEMP 36.5–36.6; O2SAT 90–100; BMI 23.1; BMI 23.0; BMI 22.8
--- NOTE | 2022-05-11 13:32 | XR_ITS ---
FINAL REPORT CLINICAL HISTORY: cough, SOB COMPARISON: 05/07/2021 FINDINGS: The heart size is normal. The mediastinum is normal. There is no focal infiltrate or edema. There are no pleural effusions. There is no pneumothorax. IMPRESSION: No acute cardiopulmonary process Reviewed, Interpreted and Dictated by Fredis Deleon MD Transcribed by Lucy Dubois Authenticated and [facility]
[2022-05-11 13:37] LABS: Coronavirus 19, PCR Not Detected (NotDetected); Influenza A, PCR Not Detected (NotDetected); Influenza B, PCR Not Detected (NotDetected)
[2022-05-11 13:40] LABS: Basophils # 0.1 K/mm3 (0-0.2); Basophils % 0.2 % (0.1-2.0); Eosinophils # 0.3 K/mm3 (0.0-0.4); Eosinophils % 1.3 % (0.1-12.0); Hematocrit 41.9 % (42.0-52.0); Lymphocytes # 0.8 K/mm3 (0.7-4.5); Lymphocytes % 3.2 % (10-50); Mean Corpuscular Hemoglobin 30.7 pg (27.0-31.2); Mean Corpuscular Volume 98.9 fl (80-94); Mean Platelet Volume 8.9 fl (7.4-10.4); Monocytes # 0.6 K/mm3 (0.1-1.0); Monocytes % 2.3 % (1.7-9.3); Neutrophils % 92.8 % (37.0-80.0); Platelet Count 422 K/mm3 (142-424); Red Blood Count 4.24 M/mm3 (4.60-6.20); White Blood Count 23.7 K/mm3 (4.8-10.8)
[2022-05-11 13:43] LABS: MANUAL DIFFERENTIAL MANUAL DIFFERENTIAL (MANUAL DIFF)
[2022-05-11 13:51] LABS: Chloride 83 mmol/L (98-107); Potassium 4.9 mmoL/L (3.5-5.1); Sodium 122 mmol/L (136-145)
[2022-05-11 13:52] LABS: Lymphocytes % 5 % (10-50); Monocytes % 2 % (2-9); Neutrophils % 93 % (42-76); Platelet Estimate Normal; RBC Morphology Normal; Total Cells Counted 100
[2022-05-11 13:54] LABS: Alanine Aminotransferase 41 U/L (12-78); Albumin/Globulin Ratio 1.4 (1.1-1.8); Alkaline Phosphatase 177 U/L (38-126); Anion Gap 22.9 mEq/L (5-15); Aspartate Amino Transferase 42 U/L (17-59); Bilirubin,Total 0.7 mg/dl (0.2-1.3); Blood Urea Nitrogen 19 mg/dl (9-20); Carbon Dioxide 21 mmol/L (22.0-30.0); Creatinine Clearance Estimated 50 mL/min (50-200); Estimated Glomerular Filt Rate 50 ml/min (>60); GFR (African American) 60 ML/MIN (>60); Globulin 2.8 g/dL (1.3-3.2); Total Protein,Serum 6.8 g/dl (6.3-8.2)
[2022-05-11 13:55] LABS: Acetone, Serum (Rapid) Small (None Detect); Calcium 8.7 mg/dl (8.4-10.2)
[2022-05-11 13:56] LABS: Glucose 577 mg/dl (74-100)
--- NOTE | 2022-05-11 14:00 | PC.NURSE ---
notified ER of pt critical glucose
[2022-05-11 14:37] LABS: Troponin I < 0.01 ng/ml (0.00-0.034)
--- NOTE | 2022-05-11 14:38 | PC.NURSE ---
lab here for blood draw
--- NOTE | 2022-05-11 14:48 | ECG_ITS ---
APPROVED REPORT Exam: Resting ECG HR:78 bpm ECG Measurements Heart Rate 78 AXES [place] 151 P 64 QRSd 104 QRS 17 QT 414 T 81 QTc 447 Conclusion SINUS RHYTHM WITH OCCASIONAL SUPRAVENTRICULAR PREMATURE COMPLEXES BORDERLINE ECG UNCONFIRMED REPORT Electronically signed by : Ok Casas MD 05/11/2022 21:09:48
[2022-05-11 14:49] LABS: Lactic Acid 3.6 mmol/L (0.7-2.1)
--- NOTE | 2022-05-11 14:49 | HMH.EDGENADL ---
Discharge Plan Disposition Chief Complaint: Hyper/Hypoglycemia Prescriptions Prescriptions: No Action cholecalciferol (vitamin D3) 25 mcg (1,000 unit) capsule 50,000 unit PO WEEKLY Rx Instructions: Mon atorvastatin 40 mg tablet 40 mg PO HS lidocaine 5 % adhesive patch,medicated 2 patch topical DAILY Qty: 15 2RF Rx Instructions: leave on most painful area for up to 12 hrs aspirin [Adult Low Dose Aspirin] 81 mg tablet,delayed release (DR/EC) 81 mg PO DAILY Qty: 100 12RF nitroglycerin 0.4 mg tablet, sublingual 0.4 mg sublingual Q5M PRN (Reason: chest pain) Qty: 10 3RF Rx Instructions: do not exceed 3 doses per episode metoprolol succinate [Toprol XL] 25 mg tablet extended release 24 hr 25 mg PO DAILY Qty: 90 3RF pregabalin [Lyrica] 75 mg capsule 75 mg PO BID Qty: 60 1RF oxycodone 15 mg tablet 15 mg PO QID PRN (Reason: back pain) Qty: 120 0RF trazodone 50 mg tablet 50 mg PO HS Qty: 30 2RF clopidogrel 75 mg tablet See Rx Instructions .ROUTE .COMPLEX Qty: 90 0RF Dose Instruction: TAKE 1 TABLET EVERY DAY - NEED MD APPOINTMENT FOR REFILLS Rx Instructions: TAKE 1 TABLET EVERY DAY (DME) pen needle, diabetic [Droplet Pen Needle] 31 gauge x 5/16 needle See Rx Instructions .ROUTE .COMPLEX Qty: 100 0RF Dose Instruction: USE DIRECTED Rx Instructions: USE DIRECTED lisinopril 5 mg tablet See Rx Instructions .ROUTE .COMPLEX Qty: 90 0RF Dose Instruction: TAKE 1 TABLET EVERY DAY Rx Instructions: TAKE 1 TABLET EVERY DAY ergocalciferol (vitamin D2) 1,250 mcg (50,000 unit) capsule See Rx Instructions .ROUTE .COMPLEX Qty: 13 0RF Dose Instruction: TAKE 1 CAPSULE EVERY WEEK Rx Instructions: TAKE 1 CAPSULE EVERY WEEK insulin glargine 100 unit/mL (3 mL) insulin pen 35 unit SQ DAILY Qty: 15 1RF Rx Instructions: INJECT 35 UNITS SUBCUTANEOUSLY EVERY DAY insulin aspart U-100 [Novolog FlexPen U-100 Insulin] 100 unit/mL (3 mL) insulin pen See Rx Instructions .ROUTE .COMPLEX Qty: 15 0RF Dose Instruction: INJECT 3 UNITS UNDER THE SKIN THREE TIMES DAILY. PEN EXPIRES 28 DAYS AFTER OPENING Rx Instructions: INJECT 3 UNITS UNDER THE SKIN THREE TIMES DAILY. PEN EXPIRES 28 DAYS AFTER OPENING levothyroxine 50 mcg tablet See Rx Instructions .ROUTE .COMPLEX Qty: 90 0RF Dose Instruction: TAKE 1 TABLET EVERY DAY FOR HYPOTHYROIDISM Rx Instructions: TAKE 1 TABLET EVERY DAY FOR HYPOTHYROIDISM Referrals Follow up/Referrals: Akshat Shaw MD [Primary Care Provider] - See instructions Clinical Impressions Clinical Impression: Acute hyperglycemia, Leukocytosis, Diabetic ketosis, JOSEPH (acute kidney injury) Instructions Patient Instructions: DI for Hyperglycemia -- Adult Discharge ED Provider: Des Rodriguez General Adult HPI General Chief complaint: Hyper/Hypoglycemia Stated complaint: weakness Time Seen by Provider: 05/11/22 14:35 Mode of Arrival: EMS Source of Information: Patient Limitations: No Limitations Description of Symptoms (Recalled from ER Triage Doc. by RN): pt to ed via ems c/o hyperglycemia and a cough. pt reports his blood sugar is reading high. pt states he has had a cough x2 weeks. History of Present Illness HPI narrative: Patient is brought in by ambulance. Patient states that he is a brittle diabetic. States that his blood sugar has been uncontrollable for the past 12 hours. He has a Dexcom blood sugar monitor. It has been reading high . He last gave himself 14 units of NovoLog insulin at about 1230. Gave himself 12 units earlier in the morning. States that his last dose of Lantus was last evening, he thinks it was 20 units. He usually uses 35 units, but was at the last part of his bottle and has not been able to get to the pharmacy to get more. Also complains of a bad cough for 2 weeks. Denies fever. He has had some vomiting.
[2022-05-11 14:54] LABS: VBG Base Excess 0.8 mmol/L (-2.4-2.3); VBG HCO3 26.8 mmol/L (23-30); VBG Oxygen Saturation 74.8 % (50-70); VBG PCO2 52.8 mmol/L (35-51); VBG PH 7.32 mmol/L (7.31-7.41); VBG PO2 40.8 mmol/L (28-40); VBG Total CO2 28.5 mmol/L (23-27)
--- NOTE | 2022-05-11 15:00 | PC.NURSE ---
Answered call light; checked on patient. Readjusted bed. Call light within reach
--- NOTE | 2022-05-11 15:45 | PC.NURSE ---
Answered call light; checked on patient. Readjusted back to sitting position for patient. Call light within reach
[2022-05-11 15:56] LABS: Microscopic, Urine URINE MICROSCOPIC (MICROSCOPIC)
[2022-05-11 16:00] LABS: Appearance,Urine CLEAR (Clear); Blood, Urine Negative (Negative); Color,Urine YELLOW (Yellow); Glucose,Urine (UA) 3+ (Negative); Ketones,Urine 1+ (Negative); Leukocyte Esterase,Urine Negative (Negative); Nitrate,Urine Negative (Negative); PH,Urine 5.5 (5.0-8.5); Protein,Urine Negative (Negative); Specific Gravity, Urine <= 1.005 (1.005-1.030); Urobilinogen,Urine 0.2 EU/dl (0.2)
[2022-05-11 16:01] LABS: Bilirubin,Urine Negative (Negative)
--- NOTE | 2022-05-11 16:11 | PC.NURSE ---
placed call for hospitalist after Dr Rodriguez requested since he could not get hold of him.
--- NOTE | 2022-05-11 16:19 | PC.NURSE ---
Answered call light; checked on patient. Readjusted bed back down Call light within reach
[2022-05-11 16:23] LABS: Bacteria,Urine Trace /lpf
--- NOTE | 2022-05-11 16:46 | PC.NURSE ---
attempt to call hospitalist again
--- NOTE | 2022-05-11 16:50 | PC.NURSE ---
advised hardwood floor finisher to have hospitalist call when they ssaw him
--- NOTE | 2022-05-11 17:29 | PC.NURSE ---
Dr Rodriguez on phone with Dr Yannick Crews [facility]ist
--- NOTE | 2022-05-11 18:00 | PC.NURSE ---
hospitalist at bedside
--- NOTE | 2022-05-11 18:20 | PC.NURSE ---
called report to katherin marie. dion
[2022-05-11 18:29] LABS: POC Glucose,Bedside 298 (70-110)
[2022-05-11 18:32] LABS: Reflex Lactic Add Lactic Reflex
[2022-05-11 18:33] LABS: Troponin I < 0.01 ng/ml (0.00-0.034)
--- NOTE | 2022-05-11 18:34 | PC.NURSE ---
spoke with hospitalist about insulin drip after fsbs. hospitalist says to hold at this time
--- NOTE | 2022-05-11 18:41 | EXP.HP ---
History of Present Illness *Admission Date: 05/11/22 *Reason for visit:: Hyperglycemia *History of present illness: 72-year-old man presenting to the emergency department due to high blood sugar that was too high for his monitor to read at home. He states that his been coming down with some respiratory illness with a cough the last few days that has been progressively worsening. He also states that he has been running out of his insulin for the last 24 hours. He presented to the emergency department was found to have blood sugar of 577, elevated lactate and acetone. Medicine was consulted for admission. Other than cough, mild shortness of breath, lightheadedness and dehydration the patient has no other concerns or complaints at this time [facility] Disclaimer: The information contained in this section may have been updated after the patient was seen, as this information can be updated by other users. Medical History Abnormal resting ECG findings Coronary artery disease Diabetes mellitus type 1 History of cataract History of left heart catheterization Hyperlipidemia LV dysfunction Vitamin D deficiency Surgical History History of cholecystectomy History of tonsillectomy Family History Other Vitamin D deficiency Social History Smoking Status: Never smoker second hand exposure: No alcohol intake: never counseling provided: none substance use type: denies use current occupational status: retired and other Travel in the last 8 weeks: None household members: none housing: house current occupational exposures/hazards: No caffeine: Yes Review of Systems Review of Systems Review of systems:: pertinent systems reviewed and negative unless documented below Constitutional Constitutional: Denies headache(s) and Denies weakness ENT Ears, Nose, Mouth, and Throat: Denies headache(s) *Musculoskeletal Musculoskeletal: Denies numbness *Neurologic Neurologic: Denies headache(s), Denies numbness and Denies weakness Meds Home Medications and Allergies Home Medications Medication Instructions Recorded Confirmed Type cholecalciferol (vitamin D3) 25 50,000 unit PO WEEKLY Supplement 02/01/21 05/04/22 History mcg (1,000 unit) capsule clopidogrel 75 mg tablet See Rx Instructions .Route 07/20/21 05/04/22 Rx .COMPLEX #90 tabs pen needle, diabetic 31 gauge x #100 ea 07/31/21 05/04/22 Rx 5/16 (Droplet Pen Needle) ergocalciferol (vitamin D2) 1,250 See Rx Instructions .Route 01/12/22 05/04/22 Rx mcg (50,000 unit) capsule .COMPLEX #13 caps lisinopril 5 mg tablet See Rx Instructions .Route 01/12/22 05/04/22 Rx .COMPLEX #90 tabs aspirin 81 mg tablet,delayed 81 mg PO DAILY heart health #100 01/16/22 05/04/22 Rx release (Adult Low Dose Aspirin) tabs nitroglycerin 0.4 mg sublingual 0.4 mg sublingual Q5M PRN chest 01/16/22 05/04/22 Rx tablet pain #10 tabs metoprolol succinate 25 mg 25 mg PO DAILY #90 tabs 02/06/22 05/04/22 Rx tablet,extended release 24 hr (Toprol XL) insulin glargine 100 unit/mL (3 35 unit (0.35 mL) SQ DAILY 03/01/22 05/04/22 Rx mL) subcutaneous pen Diabetes #15 mL trazodone 50 mg tablet 50 mg PO HS #30 tabs 03/06/22 05/04/22 Rx insulin aspart U-100 100 unit/mL See Rx Instructions .Route 03/22/22 05/04/22 Rx (3 mL) subcutaneous pen (Novolog .COMPLEX #15 mL FlexPen U-100 Insulin aspart) oxycodone 15 mg tablet 15 mg PO QID PRN back pain #120 04/04/22 05/04/22 Rx tabs pregabalin 75 mg capsule (Lyrica) 75 mg PO BID #60 caps 04/04/22 05/04/22 Rx levothyroxine 50 mcg tablet See Rx Instructions .Route 04/13/22 05/04/22 Rx .COMPLEX #90 tabs atorvastatin 40 mg tablet 40 mg PO HS 05/04/22 05/04/22 History lidocaine 5 % topical patch 2 patch topical DAILY #
[2022-05-11 19:47] LABS: Chloride 87 mmol/L (98-107); Potassium 5.2 mmoL/L (3.5-5.1); Sodium 122 mmol/L (136-145)
[2022-05-11 19:50] LABS: Anion Gap 12.2 mEq/L (5-15); Blood Urea Nitrogen 20 mg/dl (9-20); Carbon Dioxide 28 mmol/L (22.0-30.0); Creatinine Clearance Estimated 64 mL/min (50-200); Estimated Glomerular Filt Rate 66 ml/min (>60); GFR (African American) 80 ML/MIN (>60); Phosphorous 3.4 mg/dl (2.5-4.5)
[2022-05-11 19:51] LABS: Calcium 7.9 mg/dl (8.4-10.2); Magnesium 2.1 mg/dl (1.6-2.3)
[2022-05-11 19:52] LABS: Lactic Acid Follow Up (RFLX 1) 2.1 mmol/L (0.7-2.1)
[2022-05-11 19:53] LABS: Glucose 277 mg/dl (74-100)
--- NOTE | 2022-05-11 20:14 | PC.NURSE ---
Pt arrived to floor via wheelchair @ 1956.
[2022-05-11 20:39] LABS: Acetone, Serum (Rapid) None Detected (None Detect)
[2022-05-11 21:09] LABS: Reflex Lactic (2 hrs) Add Lactic Reflex
[2022-05-11 21:37] LABS: POC Glucose,Bedside 299 (70-110)
[2022-05-11 22:44] LABS: Anion Gap 19.7 mEq/L (5-15); Blood Urea Nitrogen 20 mg/dl (9-20); Calcium 8.1 mg/dl (8.4-10.2); Carbon Dioxide 22 mmol/L (22.0-30.0); Chloride 89 mmol/L (98-107); Creatinine Clearance Estimated 59 mL/min (50-200); Estimated Glomerular Filt Rate 60 ml/min (>60); GFR (African American) 72 ML/MIN (>60); Lactic Acid Follow up (RFLX 2) 1.7 mmol/L (0.7-2.1); Potassium 5.7 mmoL/L (3.5-5.1); Sodium 125 mmol/L (136-145)
[2022-05-11 22:45] LABS: Glucose 333 mg/dl (74-100)
[2022-05-11 22:45] LABS: POC Glucose,Bedside 318 (70-110)
--- NOTE | 2022-05-12 00:41 | PC.NURSE ---
Pt. states he vomited times one.
[2022-05-12 01:09] LABS: POC Glucose,Bedside 389 (70-110)
[2022-05-12 02:14] LABS: POC Glucose,Bedside 257 (70-110)
[2022-05-12 03:08] LABS: Chloride 93 mmol/L (98-107); Potassium 4.4 mmoL/L (3.5-5.1); Sodium 127 mmol/L (136-145)
[2022-05-12 03:11] LABS: Anion Gap 16.4 mEq/L (5-15); Blood Urea Nitrogen 19 mg/dl (9-20); Carbon Dioxide 22 mmol/L (22.0-30.0); Creatinine Clearance Estimated 70 mL/min (50-200); Estimated Glomerular Filt Rate 73 ml/min (>60); GFR (African American) 89 ML/MIN (>60)
[2022-05-12 03:19] LABS: Glucose 237 mg/dl (74-100)
[2022-05-12 03:54] LABS: POC Glucose,Bedside 139 (70-110)
[2022-05-12 04:00] VITALS: BP 111/72; PULSE 75; RESP 18; TEMP 36.6; O2SAT 98; BMI 23.0
[2022-05-12 05:59] LABS: POC Glucose,Bedside 87 (70-110)
--- NOTE | 2022-05-12 06:25 | PC.NURSE ---
Pt's last fsbg this morning at 06:00 was 87 with no symptoms. He had an order for zofran and cough medicine after vomiting and coughing spells this am.
[2022-05-12 07:51] VITALS: BP 119/53; PULSE 82; RESP 18; TEMP 36.6; O2SAT 97
[2022-05-12 07:52] LABS: Basophils # 0.1 K/mm3 (0-0.2); Basophils % 0.2 % (0.1-2.0); Eosinophils % 0.1 % (0.1-12.0); Hematocrit 37.1 % (42.0-52.0); Hemoglobin 11.9 g/dL (14.1-18.0); Lymphocytes # 2.4 K/mm3 (0.7-4.5); Lymphocytes % 10.2 % (10-50); Mean Corpuscular HGB Conc 32.1 g/dL (31.8-35.4); Mean Corpuscular Volume 96.6 fl (80-94); Mean Platelet Volume 8.5 fl (7.4-10.4); Monocytes % 4.3 % (1.7-9.3); Neutrophils # 19.6 K/mm3 (1.8-7.8); Neutrophils % 85.2 % (37.0-80.0); Platelet Count 393 K/mm3 (142-424); Red Blood Count 3.85 M/mm3 (4.60-6.20); Red Cell Distribution Width 14.3 % (11.5-17.5)
[2022-05-12 07:54] LABS: MANUAL DIFFERENTIAL MANUAL DIFFERENTIAL (MANUAL DIFF)
[2022-05-12 07:59] LABS: Alanine Aminotransferase 9 U/L (12-78); Albumin Level 2.9 g/dl (3.5-5.0); Albumin/Globulin Ratio 1.2 (1.1-1.8); Alkaline Phosphatase 137 U/L (38-126); Anion Gap 10.6 mEq/L (5-15); Aspartate Amino Transferase 25 U/L (17-59); Bilirubin,Total 0.3 mg/dl (0.2-1.3); Blood Urea Nitrogen 18 mg/dl (9-20); Calcium 7.9 mg/dl (8.4-10.2); Carbon Dioxide 25 mmol/L (22.0-30.0); Chloride 98 mmol/L (98-107); Creatinine Clearance Estimated 70 mL/min (50-200); Estimated Glomerular Filt Rate 83 ml/min (>60); GFR (African American) 100 ML/MIN (>60); Globulin 2.4 g/dL (1.3-3.2); Glucose 74 mg/dl (74-100); Magnesium 2.2 mg/dl (1.6-2.3); Phosphorous 3.2 mg/dl (2.5-4.5); Potassium 4.6 mmoL/L (3.5-5.1); Sodium 129 mmol/L (136-145); Total Protein,Serum 5.3 g/dl (6.3-8.2)
[2022-05-12 09:16] LABS: POC Glucose,Bedside 81 (70-110)
[2022-05-12 09:37] LABS: Acetone, Serum (Rapid) Small (None Detect)
[2022-05-12 10:43] LABS: Lymphocytes % 16 % (10-50); Monocytes % 4 % (2-9); Neutrophils % 79 % (42-76); Platelet Estimate Normal; RBC Morphology Normal; Total Cells Counted 100
[2022-05-12 11:27] LABS: POC Glucose,Bedside 119 (70-110)
[2022-05-12 13:46] LABS: POC Glucose,Bedside 140 (70-110)
--- NOTE | 2022-05-12 14:35 | HMH.PHAINT1 ---
Pharmacy Intervention Comments: MEDICATION RECONCILIATION COMPLETED ON PATIENT USING EXTERNAL FILL HISTORY FROM PHARMACY AND LIST FROM CARDIOLOGY OFFICE. -[facility], OSCARD
--- NOTE | 2022-05-12 14:39 | EXP.ACUTE.PN ---
Subjective *Date: 05/12/22 *Time: 14:39 Interval history: Having severe back pain. Nauseated Medical Exam Vital signs and Labs for Last 24 Hours: Vital Signs Temp Pulse Pulse Resp BP BP Pulse Ox 05/12/22 07:51 97.9 F 82 18 119/53 L 97 05/12/22 04:00 97.8 F 75 18 111/72 98 05/11/22 19:58 97.9 F 88 18 115/58 L 100 05/11/22 20:00 95 05/11/22 19:59 98 F 88 18 115/58 L 05/11/22 18:30 70 18 104/50 L 97 05/11/22 18:02 86 18 96/43 L 97 05/11/22 17:00 71 18 103/51 L 97 05/11/22 16:30 69 18 94/45 L 93 L 05/11/22 16:00 72 18 104/51 L 93 L Intake and Output 05/11/22 05/12/22 05/12/22 23:59 07:59 15:59 Intake Total 1050 / 1050 Output Total 0 / 0 0 / 500 500 / 500 Balance 0 / 0 1050 / 550 -500 / 550 Intake: Intake, Oral Amount 0 / 0 Intake, Total IV Amount 1050 / 1050 0.9 % Sodium Chloride 1,000 ml 1050 / 1050 @ 150 mls/hr IV .[id number] [facility] Rx# :[id number] Output: Output, Urine Amount 0 / 0 0 / 500 500 / 500 Other: Number of Unmeasured Voids 1 1 0 Weight 74.162 kg 74.6 kg Patient Weight 05/12/22 23:59 Weight 74.6 kg Laboratory Results - last 24 hr 05/11/22 14:04: VBG pH 7.32, VBG pCO2 52.8 H, VBG pO2 40.8 H, VBG HCO3 26.8, VBG Total CO2 28.5 H, VBG O2 Saturation 74.8 H, VBG Base Excess 0.8 05/11/22 14:23: Lactate 3.6 H 05/11/22 15:42: Urine Color Yellow, Urine Appearance Clear, Urine pH 5.5, Ur Specific Peebles <= 1.005, Urine Protein Negative, Urine Glucose (UA) 3+, Urine Ketones 1+, Urine Blood Negative, Urine Nitrate Negative, Urine Bilirubin Negative, Urine Urobilinogen 0.2, Ur Leukocyte Esterase Negative, Urine RBC None, Urine WBC 3-5, Ur Squamous Epith Cells None, Urine Bacteria Trace 05/11/22 17:26: Troponin I < 0.01 05/11/22 18:22: POC Glucose 298 H 05/11/22 19:04: Sodium 122 L, Potassium 5.2 H, Chloride 87 L, Carbon Dioxide 28, Anion Gap 12.2, BUN 20, Creatinine 1.10 D, Estimated Creat Clear 64, Estimated GFR 66, Est GFR ( Amer) 80 D, Glucose 277 H D, Random Glucose Cancelled, Calcium 7.9 L, Phosphorus 3.4, Magnesium 2.1, Acetone Level None detected 05/11/22 19:04: Lactate 2.1 05/11/22 21:30: POC Glucose 299 H 05/11/22 22:25: Sodium 125 L, Potassium 5.7 H, Chloride 89 L, Carbon Dioxide 22, Anion Gap 19.7 H, BUN 20, Creatinine 1.20, Estimated Creat Clear 59, Estimated GFR 60, Est GFR ( Amer) 72, Glucose 333 H D, Calcium 8.1 L 05/11/22 22:25: Lactate 1.7 05/11/22 22:37: POC Glucose 318 H* 05/12/22 01:01: POC Glucose 389 H* 05/12/22 02:07: POC Glucose 257 H 05/12/22 02:30: Sodium 127 L, Potassium 4.4 D, Chloride 93 L, Carbon Dioxide 22, Anion Gap 16.4 H, BUN 19, Creatinine 1.00, Estimated Creat Clear 70, Estimated GFR 73, Est GFR ( Amer) 89 D, Glucose 237 H D, Calcium 8.0 L 05/12/22 03:48: POC Glucose 139 H 05/12/22 05:53: POC Glucose 87 05/12/22 06:35: WBC 23.0 H*, RBC 3.85 L, Hgb 11.9 L, Hct 37.1 L, MCV 96.6 H, MCH 31.0, MCHC 32.1, RDW 14.3, Plt Count 393, MPV 8.5, Neut % (Auto) 85.2 H, Lymph % (Auto) 10.2, Hunt % (Auto) 4.3, Eos % (Auto) 0.1, Baso % (Auto) 0.2, Neut # (Auto) 19.6 H, Lymph # (Auto) 2.4, Hunt # (Auto) 1.0, Eos # (Auto) 0.0, Baso # (Auto) 0.1, Total Counted 100, Neutrophils % (Manual) 79 H, Band Neutrophils % 1.0, Lymphocytes % (Manual) 16, Monocytes % (Manual) 4, Platelet Estimate Normal, RBC Morphology Normal 05/12/22 06:35: Sodium 129 L, Potassium 4.6, Chloride 98, Carbon Dioxide 25, Anion Gap 10.6, BUN 18, Creatinine 0.90, Estimated Creat Clear 70, Estimated GFR 83, Est GFR ( Amer) 100, Glucose 74 D, Calcium 7.9 L, Phosphorus 3.2, Magnesium 2.2, Total Bilirubin 0.3, AST 25 D, ALT 9 L D, Alkaline Phosphatase 137 H, Total Protein 5.3 L, Albumin 2.9 L D, Globulin 2.4, Albumin/Globulin Ratio 1.2, Acetone Level Small 05/12/22 09:02: POC Glucose 81 05/12/22 11:21: POC Glucose 119 H 05/12/22 13:38: POC Glucose 140 H I & O for Labs for Last 24 Hours: Intake & Output
[2022-05-12 17:17] LABS: POC Glucose,Bedside 196 (70-110)
--- NOTE | 2022-05-12 18:38 | PC.NURSE ---
pt has rested well today. has gotten up to bathroom multiple times with sba and cane. denies soa. fsbs has been stable today
[2022-05-12 19:56] VITALS: O2SAT 96
[2022-05-12 20:00] VITALS: BP 163/95; PULSE 88; RESP 16; TEMP 36.8; O2SAT 96
[2022-05-12 20:39] LABS: POC Glucose,Bedside 213 (70-110)
[2022-05-13 04:00] VITALS: BP 135/74; PULSE 71; RESP 16; TEMP 36.6; O2SAT 97; BMI 23.0
--- NOTE | 2022-05-13 06:13 | PC.NURSE ---
No changes through out the night.
[2022-05-13 06:14] LABS: POC Glucose,Bedside 199 (70-110)
[2022-05-13 07:30] LABS: Basophils # 0.1 K/mm3 (0-0.2); Basophils % 0.4 % (0.1-2.0); Eosinophils # 0.1 K/mm3 (0.0-0.4); Eosinophils % 0.7 % (0.1-12.0); Hematocrit 36.8 % (42.0-52.0); Lymphocytes # 2.3 K/mm3 (0.7-4.5); Lymphocytes % 20.8 % (10-50); Mean Corpuscular HGB Conc 32.6 g/dL (31.8-35.4); Mean Corpuscular Hemoglobin 31.1 pg (27.0-31.2); Mean Corpuscular Volume 95.4 fl (80-94); Monocytes # 0.4 K/mm3 (0.1-1.0); Monocytes % 3.5 % (1.7-9.3); Neutrophils # 8.3 K/mm3 (1.8-7.8); Neutrophils % 74.6 % (37.0-80.0); Platelet Count 367 K/mm3 (142-424); Red Blood Count 3.85 M/mm3 (4.60-6.20); Red Cell Distribution Width 14.3 % (11.5-17.5); White Blood Count 11.2 K/mm3 (4.8-10.8)
[2022-05-13 07:43] VITALS: BP 133/68; PULSE 78; RESP 18; TEMP 36.4; O2SAT 98
[2022-05-13 07:44] LABS: Alanine Aminotransferase 11 U/L (12-78); Albumin Level 2.9 g/dl (3.5-5.0); Albumin/Globulin Ratio 1.1 (1.1-1.8); Alkaline Phosphatase 128 U/L (38-126); Anion Gap 11.8 mEq/L (5-15); Aspartate Amino Transferase 27 U/L (17-59); Bilirubin,Total 0.5 mg/dl (0.2-1.3); Blood Urea Nitrogen 10 mg/dl (9-20); Calcium 7.9 mg/dl (8.4-10.2); Carbon Dioxide 25 mmol/L (22.0-30.0); Chloride 97 mmol/L (98-107); Creatinine Clearance Estimated 70 mL/min (50-200); Estimated Glomerular Filt Rate 95 ml/min (>60); GFR (African American) 115 ML/MIN (>60); Globulin 2.6 g/dL (1.3-3.2); Glucose 216 mg/dl (74-100); Magnesium 1.9 mg/dl (1.6-2.3); Phosphorous 2.6 mg/dl (2.5-4.5); Potassium 3.8 mmoL/L (3.5-5.1); Sodium 130 mmol/L (136-145); Total Protein,Serum 5.5 g/dl (6.3-8.2)
[2022-05-13 08:14] LABS: POC Glucose,Bedside 269 (70-110)
--- NOTE | 2022-05-13 09:22 | EXP.ACUTE.PN ---
Subjective *Date: 05/13/22 *Time: 09:30 Interval history: No issues reported overnight. Medical Exam Vital signs and Labs for Last 24 Hours: Vital Signs Temp Pulse Resp BP Pulse Ox 05/13/22 07:43 97.6 F 78 18 133/68 98 05/13/22 04:00 98 F 71 16 135/74 97 05/12/22 20:00 98.2 F 88 16 163/95 H 96 05/12/22 19:56 96 Intake and Output 05/12/22 05/13/22 05/13/22 23:59 07:59 15:59 Intake Total 0 / 1050 360 / 360 Balance 0 / 550 360 / 360 Intake: Intake, Oral Amount 0 / 0 360 / 360 Other: Weight 74.6 kg Patient Weight 05/13/22 23:59 Weight 74.6 kg Laboratory Results - last 24 hr 05/12/22 06:35: Total Counted 100, Neutrophils % (Manual) 79 H, Band Neutrophils % 1.0, Lymphocytes % (Manual) 16, Monocytes % (Manual) 4, Platelet Estimate Normal, RBC Morphology Normal 05/12/22 06:35: Acetone Level Small 05/12/22 11:21: POC Glucose 119 H 05/12/22 13:38: POC Glucose 140 H 05/12/22 16:38: POC Glucose 196 H 05/12/22 20:28: POC Glucose 213 H 05/13/22 06:04: POC Glucose 199 H 05/13/22 06:45: WBC 11.2 H D, RBC 3.85 L, Hgb 12.0 L, Hct 36.8 L, MCV 95.4 H, MCH 31.1, MCHC 32.6, RDW 14.3, Plt Count 367, MPV 8.0, Neut % (Auto) 74.6, Lymph % (Auto) 20.8, Anderson % (Auto) 3.5, Eos % (Auto) 0.7, Baso % (Auto) 0.4, Neut # (Auto) 8.3 H, Lymph # (Auto) 2.3, Anderson # (Auto) 0.4, Eos # (Auto) 0.1, Baso # (Auto) 0.1 05/13/22 06:45: Sodium 130 L, Potassium 3.8, Chloride 97 L, Carbon Dioxide 25, Anion Gap 11.8, BUN 10 D, Creatinine 0.80, Estimated Creat Clear 70, Estimated GFR 95, Est GFR ( Amer) 115, Glucose 216 H, Calcium 7.9 L, Phosphorus 2.6, Magnesium 1.9 D, Total Bilirubin 0.5, AST 27, ALT 11 L, Alkaline Phosphatase 128 H, Total Protein 5.5 L, Albumin 2.9 L, Globulin 2.6, Albumin/Globulin Ratio 1.1 05/13/22 08:04: POC Glucose 269 H I & O for Labs for Last 24 Hours: Intake & Output 05/10/22 05/11/22 05/12/22 05/13/22 23:59 23:59 23:59 23:59 Intake Total 1050 / 1050 360 / 360 Output Total 0 / 0 500 / 500 Balance 0 / 0 550 / 550 360 / 360 Weight 74.162 kg 74.6 kg 74.6 kg Head: Present atraumatic Neck: Present normal inspection Respiratory: Present accessory muscle use; Absent patient mechanically ventilated Cardiac: Present Reg Rate and Rhythm and Regular Rate GI: Present soft and distention Rectal (male): Present deferred (male): Present deferred Extremities: Present normal inspection Skin: Present intact; Absent cyanosis Assessment and Plan *Assessment and plan (1) Acute hyperglycemia: Status: Acute Category: Medical Code(s): R73.9 - Hyperglycemia, unspecified (2) JOSEPH (acute kidney injury): Status: Acute Category: Medical Code(s): N17.9 - Acute kidney failure, unspecified (3) Coronary artery disease: Status: Acute Category: Medical Code(s): I25.10 - Atherosclerotic heart disease of [place] coronary artery without angina pectoris (4) Peripheral vascular disease: Status: Acute Category: Medical Code(s): I73.9 - Peripheral vascular disease, unspecified (5) Hypothyroidism: Status: Acute Qualifiers: Hypothyroidism type: acquired Qualified Code(s): E03.9 - Hypothyroidism, unspecified Category: Medical Code(s): E03.9 - Hypothyroidism, unspecified Plan 72-year-old male with diabetes mellitus presenting with HHS, currently improving. Will give aggressive fluid resuscitation and insulin. HHS resolved -IV fluid resuscitation -40 units glargine at night -5 units lispro with meals plus low intensity SSI -Once stable SSI Asymptomatic hyponatremia, improving -132 when corrected for sodium - We will continue fluids dietary intake Hypotension resolved -Levaquin x3 days -DuoNebs every 6 hours as needed leukocytosis, improved - likely acute stress, will tx for pna Pneumonia -Levaquin -DuoNebs Acute kidney injury -We will aggressively fluid resuscitate Macrocyt
--- NOTE | 2022-05-13 09:38 | EXP.DC.SUM ---
General Admission date:: 05/11/22 Discharge date: 05/13/22 HPI HPI HPI: 72-year-old man presenting to the emergency department due to high blood sugar that was too high for his monitor to read at home. He states that his been coming down with some respiratory illness with a cough the last few days that has been progressively worsening. He also states that he has been running out of his insulin for the last 24 hours. He presented to the emergency department was found to have blood sugar of 577, elevated lactate and acetone. Medicine was consulted for admission. Other than cough, mild shortness of breath, lightheadedness and dehydration the patient has no other concerns or complaints at this time Hospital Course Hospital Course Hospital Course: Patient was admitted with HHS likely secondary to right lower lobe pneumonia and not taking his insulin. Patient received aggressive IV fluid resuscitation and insulin with improvement of his glucose. Home medications resumed including insulin. Electrolyte abnormalities improved. Leukocytosis decreasing with course of antibiotic treatment and had no pulmonary symptoms. Evaluated and determined to be safe for discharge. Recommend follow-up with primary care physician within 1 week of discharge. Exam Data for Last 24 hours Vital signs and Labs for Last 24 Hours: Temp Pulse Resp BP Pulse Ox 97.6 F 78 18 133/68 98 05/13/22 07:43 05/13/22 07:43 05/13/22 07:43 05/13/22 07:43 05/13/22 07:43 Laboratory Results - last 24 hr 05/12/22 06:35: Total Counted 100, Neutrophils % (Manual) 79 H, Band Neutrophils % 1.0, Lymphocytes % (Manual) 16, Monocytes % (Manual) 4, Platelet Estimate Normal, RBC Morphology Normal 05/12/22 11:21: POC Glucose 119 H 05/12/22 13:38: POC Glucose 140 H 05/12/22 16:38: POC Glucose 196 H 05/12/22 20:28: POC Glucose 213 H 05/13/22 06:04: POC Glucose 199 H 05/13/22 06:45: WBC 11.2 H D, RBC 3.85 L, Hgb 12.0 L, Hct 36.8 L, MCV 95.4 H, MCH 31.1, MCHC 32.6, RDW 14.3, Plt Count 367, MPV 8.0, Neut % (Auto) 74.6, Lymph % (Auto) 20.8, [place] % (Auto) 3.5, Eos % (Auto) 0.7, Baso % (Auto) 0.4, Neut # (Auto) 8.3 H, Lymph # (Auto) 2.3, [place] # (Auto) 0.4, Eos # (Auto) 0.1, Baso # (Auto) 0.1 05/13/22 06:45: Sodium 130 L, Potassium 3.8, Chloride 97 L, Carbon Dioxide 25, Anion Gap 11.8, BUN 10 D, Creatinine 0.80, Estimated Creat Clear 70, Estimated GFR 95, Est GFR ( Amer) 115, Glucose 216 H, Calcium 7.9 L, Phosphorus 2.6, Magnesium 1.9 D, Total Bilirubin 0.5, AST 27, ALT 11 L, Alkaline Phosphatase 128 H, Total Protein 5.5 L, Albumin 2.9 L, Globulin 2.6, Albumin/Globulin Ratio 1.1 05/13/22 08:04: POC Glucose 269 H I & O for Last 24 hours: Intake & Output 05/10/22 05/11/22 05/12/22 05/13/22 23:59 23:59 23:59 23:59 Intake Total 1050 / 1050 360 / 360 Output Total 0 / 0 500 / 500 0 / 0 Balance 0 / 0 550 / 550 360 / 360 Weight 74.162 kg 74.6 kg 74.6 kg Constitutional Constitutional: no acute distress and cooperative *Routine HEENT Exam Head: Present normocephalic and atraumatic ENT: Present mucous membranes moist *Routine Neck Exam Neck: Present supple and full ROM *Routine Respiratory Exam Respiratory: Present CTA bilaterally; Absent accessory muscle use *Routine Cardiovascular Exam Cardiovascular: Present RRR, Normal S1 and Normal S2 *Routine Abdominal Exam Abdominal: Present soft; Absent tenderness *Routine Extremities Exam Extremities: Absent cyanosis or edema *Routine Skin Exam Skin: Present intact and dry *Routine Neurological Exam Neurological: Present alert, oriented X3 and CN II-XII intact Results Data Completed and Pending Labs on day of discharge: Labs from last 24 hours 05/13/22 05/13/22 05/13/22 08:04 06:45 06:45 WBC 11.2 H D RBC 3.85 L Hgb 12.0 L Hct 36.8 L MCV 95.4 H MCH 31.1 MCHC 32.6 RDW 14.3 Plt Count 367 MPV 8.0 Neut % (Auto) 74.6 Lymph % (Auto) 20.8 [place] % (Auto) 3.5 Eos % (Aut
--- NOTE | 2022-05-13 10:42 | PC.NURSE ---
pt reports feling much beter today. he has been ambulating independently to the bathroom and back. Denies any nausea of vomiting. pain has been well controlled. reports occasional cough but denies any shortness of air. he is alert and oriented. reports having three people who are going to help him when he arrives home.
--- NOTE | 2022-05-13 11:37 | PC.NURSE ---
pt has been discahrged from the unit via private car with friend. voiced understanding of all discahrge education and follow up appts. took all belongings with him.
--- NOTE | 2022-05-15 14:25 | CARE MANAGER ---
Spoke with patient for post-discharge phone interview, was at the ER this am for heart issues states Dr. Shaw took care of me.
== END 2022-05-13 11:40 | disposition home or self-care (01) ==
LOC: ER 13:55 → 2ND 17:58
PROVIDERS: Admitting Provider Student in an Organized Health Care Education/Training Program; Emergency Provider Emergency Medicine; PCP Emergency Medicine; Visit Provider Student in an Organized Health Care Education/Training Program
DX: E11.00 Type 2 diabetes mellitus with hyperosmolarity without nonketotic hyperglycemic-hyperosmolar coma (NKHHC) (principal); N17.9 Acute kidney failure, unspecified; I25.10 Atherosclerotic heart disease of native coronary artery without angina pectoris; E03.9 Hypothyroidism, unspecified; Z79.4 Long term (current) use of insulin; E86.0 Dehydration; E55.9 Vitamin D deficiency, unspecified; J18.9 Pneumonia, unspecified organism; Z20.822 Contact with and (suspected) exposure to COVID-19
CPT/HCPCS: G0378; 36415; 71045; 80048; 80053; 81001; 82009; 82803; 82962; 83605; 83735; 83930; 84100; 84484; 85007; 85025; 87040; 93005; 99285; C9803; J1956; U0003; U0005

== ENCOUNTER 2022-05-15 03:13 | Emergency (ER) | payer MEDICARE, SELFPAY ==
[2022-05-15] VITALS (7 sets, daily range): BP systolic 86–110; BP diastolic 50–68; PULSE 75–97; RESP 16–18; TEMP 36.6; O2SAT 94–99; BMI 23.0
--- NOTE | 2022-05-15 03:15 | ECG_ITS ---
APPROVED REPORT Exam: Resting ECG HR:92 bpm ECG Measurements Heart Rate 92 AXES IN 139 P 74 QRSd 115 QRS -19 QT 353 T 79 QTc 403 Conclusion SINUS RHYTHM Late R wave progression, previously noted Left atrial abnormality UNCONFIRMED REPORT Electronically signed by : Ok Casas MD 05/15/2022 10:15:44
[2022-05-15 03:50] LABS: Basophils # 0.1 K/mm3 (0-0.2); Basophils % 0.6 % (0.1-2.0); Eosinophils # 0.3 K/mm3 (0.0-0.4); Eosinophils % 2.3 % (0.1-12.0); Hematocrit 42.4 % (42.0-52.0); Hemoglobin 13.2 g/dL (14.1-18.0); Lymphocytes # 2.8 K/mm3 (0.7-4.5); Lymphocytes % 24.8 % (10-50); Mean Corpuscular HGB Conc 31.1 g/dL (31.8-35.4); Mean Corpuscular Hemoglobin 30.5 pg (27.0-31.2); Mean Corpuscular Volume 98.1 fl (80-94); Mean Platelet Volume 8.1 fl (7.4-10.4); Monocytes # 0.6 K/mm3 (0.1-1.0); Monocytes % 4.9 % (1.7-9.3); Neutrophils # 7.5 K/mm3 (1.8-7.8); Neutrophils % 67.4 % (37.0-80.0); Platelet Count 380 K/mm3 (142-424); Red Blood Count 4.32 M/mm3 (4.60-6.20); Red Cell Distribution Width 14.5 % (11.5-17.5); White Blood Count 11.1 K/mm3 (4.8-10.8)
[2022-05-15 03:51] LABS: Chloride 91 mmol/L (98-107); Sodium 132 mmol/L (136-145)
[2022-05-15 03:52] LABS: Potassium 3.7 mmoL/L (3.5-5.1)
[2022-05-15 03:54] LABS: Alanine Aminotransferase 21 U/L (12-78); Alkaline Phosphatase 132 U/L (38-126); Anion Gap 12.7 mEq/L (5-15); Aspartate Amino Transferase 28 U/L (17-59); Bilirubin,Total 0.4 mg/dl (0.2-1.3); Blood Urea Nitrogen 5 mg/dl (9-20); Carbon Dioxide 32 mmol/L (22.0-30.0); Creatinine Clearance Estimated 71 mL/min (50-200); Estimated Glomerular Filt Rate 73 ml/min (>60); GFR (African American) 89 ML/MIN (>60)
[2022-05-15 03:55] LABS: Albumin Level 3.5 g/dl (3.5-5.0); Albumin/Globulin Ratio 1.2 (1.1-1.8); Calcium 8.3 mg/dl (8.4-10.2); Globulin 2.9 g/dL (1.3-3.2); Glucose 264 mg/dl (74-100); Total Protein,Serum 6.4 g/dl (6.3-8.2)
[2022-05-15 03:59] LABS: Acetone, Serum (Rapid) None Detected (None Detect)
[2022-05-15 04:00] LABS: C-Reactive Protein 10.7 mg/L (0-4)
[2022-05-15 04:09] LABS: Lipase < 10 U/L (23-300); Troponin I < 0.01 ng/ml (0.00-0.034)
[2022-05-15 04:17] LABS: Procalcitonin 2.91 ng/mL (0.0-2.0)
[2022-05-15 04:18] LABS: Erythrocyte Sedimentation Rate 18 mm/hr (0-20)
--- NOTE | 2022-05-15 04:24 | HMH.EDGENADL ---
Discharge Plan Disposition Patient Disposition: Home, Self-Care Chief Complaint: PAIN Prescriptions Prescriptions: No Action atorvastatin 40 mg tablet 40 mg PO HS aspirin [Adult Low Dose Aspirin] 81 mg tablet,delayed release (DR/EC) 81 mg PO DAILY Qty: 100 12RF nitroglycerin 0.4 mg tablet, sublingual 0.4 mg sublingual Q5M PRN (Reason: chest pain) Qty: 10 3RF Rx Instructions: do not exceed 3 doses per episode oxycodone 15 mg tablet 15 mg PO QID PRN (Reason: back pain) Qty: 120 0RF insulin glargine 100 unit/mL (3 mL) insulin pen 35 unit SQ DAILY Qty: 15 1RF trazodone 50 mg tablet 50 mg PO HS clopidogrel 75 mg tablet 75 mg PO DAILY Rx Instructions: TAKE 1 TABLET EVERY DAY levothyroxine 50 mcg tablet 50 mcg PO DAILY lisinopril 5 mg tablet 5 mg PO DAILY Rx Instructions: TAKE 1 TABLET EVERY DAY ergocalciferol (vitamin D2) 1,250 mcg (50,000 unit) capsule 1,250 mcg PO WEEKLY insulin aspart U-100 [Novolog FlexPen U-100 Insulin] 100 unit/mL (3 mL) insulin pen 0 sliding scale dose SQ ACHS Rx Instructions: INJECT 3 UNITS UNDER THE SKIN THREE TIMES DAILY. PEN EXPIRES 28 DAYS AFTER OPENING isosorbide mononitrate 30 mg tablet extended release 24 hr 30 mg PO DAILY Label Comments: TAKE ONE TABLET BY MOUTH EVERY DAY metoprolol succinate 25 mg tablet extended release 24 hr 25 mg PO DAILY Referrals Follow up/Referrals: Akshat Shaw MD [Primary Care Provider] - See instructions Clinical Impressions Clinical Impression: Chest pain due to CAD, Type 1 diabetes mellitus Instructions Patient Instructions: DI for Chest Pain Discharge ED Provider: Akshat Shaw General Adult HPI General Chief complaint: PAIN Stated complaint: Chest Pain Time Seen by Provider: 05/15/22 04:24 Mode of Arrival: EMS Source of Information: Patient, EMS and Medical Record Limitations: No Limitations Description of Symptoms (Recalled from ER Triage Doc. by RN): pt states he has a sensation across the chest that has been resolved by the nitro taken at 218 History of Present Illness HPI narrative: pt with tingling sensation to chest and then lt upper ext relieved with ntg - had recent cath in apr - no stents - pt has stopped tob use - pt has diabetes - ems report possible atrial arrthymia on scene Onset (ago): hour(s) Location: chest Radiation: extremity Severity: moderate Consistency: now resolved Related Data Home Medications Medication Instructions Recorded Confirmed atorvastatin 40 mg tablet 40 mg PO HS Cholesterol 05/04/22 05/11/22 clopidogrel 75 mg tablet 75 mg PO DAILY HEART 05/11/22 05/11/22 ergocalciferol (vitamin D2) 1,250 1,250 mcg PO WEEKLY Supplement 05/11/22 05/12/22 mcg (50,000 unit) capsule insulin aspart U-100 100 unit/mL 0 sliding scale dose SQ ACHS 05/11/22 05/11/22 (3 mL) subcutaneous pen (Novolog Diabetes FlexPen U-100 Insulin aspart) levothyroxine 50 mcg tablet 50 mcg PO DAILY THYROID 05/11/22 05/11/22 lisinopril 5 mg tablet 5 mg PO DAILY Hypertension 05/11/22 05/11/22 trazodone 50 mg tablet 50 mg PO HS sleep 05/11/22 05/11/22 isosorbide mononitrate 30 mg 30 mg PO DAILY Hypertension 05/12/22 05/12/22 tablet,extended release 24 hr metoprolol succinate 25 mg 25 mg PO DAILY Hypertension 05/12/22 05/12/22 tablet,extended release 24 hr Previous Rx's Medication Instructions Recorded aspirin 81 mg tablet,delayed 81 mg PO DAILY heart health #100 01/16/22 release (Adult Low Dose Aspirin) tabs nitroglycerin 0.4 mg sublingual 0.4 mg sublingual Q5M PRN chest 01/16/22 tablet pain #10 tabs insulin glargine 100 unit/mL (3 35 unit (0.35 mL) SQ DAILY 03/01/22 mL) subcutaneous pen Diabetes #15 mL oxycodone 15 mg tablet 15 mg PO QID PRN back pain #120 04/04/22 tabs Allergies Allergy/AdvReac Type Severity Reaction Status Date / Time gabapentin Allergy Verified 05/11/22 21:56 adhesive AdvReac Mi
--- NOTE | 2022-05-15 05:03 | PC.NURSE ---
respiratory here and set up pt on holter monitor.
--- NOTE | 2022-05-15 05:04 | PC.NURSE ---
pt refuses to stay for 2nd troponin level due to be drawn at 0615. s/w with pt at this time
--- NOTE | 2022-05-15 05:05 | PC.NURSE ---
ER speaking with pt at this time
== END 2022-05-15 05:12 | disposition home or self-care (01) ==
PROVIDERS: Emergency Provider Emergency Medicine; PCP Emergency Medicine
DX: R07.89 Other chest pain (principal); I25.10 Atherosclerotic heart disease of native coronary artery without angina pectoris; E10.9 Type 1 diabetes mellitus without complications; E78.5 Hyperlipidemia, unspecified; E03.9 Hypothyroidism, unspecified; Z90.49 Acquired absence of other specified parts of digestive tract
CPT/HCPCS: 80053; 82009; 83690; 84145; 84484; 85025; 85651; 86140; 93005; 93225; 93226; 96360; 99285

== ENCOUNTER → 2022-06-01 11:00 | Outpatient (CLI) | payer MEDICARE, SELFPAY ==
[2022-06-01 19:01] LABS: Amphetamine/Metha Screen,Urine Negative ng/ml (<1000)
[2022-06-01 19:02] LABS: Barbiturates Screen,Urine Negative ng/ml (<200)
[2022-06-01 19:03] LABS: Benzodiazepines Screen,Urine Negative ng/ml (<200); Cannabinoid Screen,Urine Negative ng/ml (<50)
[2022-06-01 19:04] LABS: Cocaine Screen,Urine Negative ng/ml (<300)
[2022-06-01 19:05] LABS: Methadone Screen,Urine Negative ng/ml (<300)
[2022-06-01 19:06] LABS: Opiate Screen,Urine Negative ng/ml (<300)
[2022-06-01 19:07] LABS: Phencyclidine Screen,Urine Negative ng/ml (<25)
== END ==
PROVIDERS: PCP Emergency Medicine; Visit Provider Emergency Medicine
DX: G89.29 Other chronic pain (principal)
CPT/HCPCS: 80305

== ENCOUNTER 2022-10-16 04:31 | Emergency (ER) | payer MEDICARE, SELFPAY ==
[2022-10-16 04:36] VITALS: BP 163/74; PULSE 77; RESP 16; TEMP 36.6; O2SAT 95; BMI 23.7
--- NOTE | 2022-10-16 04:37 | XR_ITS ---
PROCEDURE INFORMATION: Exam: XR Pelvis Exam date and time: 10/16/2022 4:40 AM Age: 72 years old Clinical indication: Injury or trauma; Fall; Blunt trauma (contusions or hematomas); Does not apply; Pelvic region TECHNIQUE: Imaging protocol: Radiologic exam of the pelvis. Views: 1 or 2 view. COMPARISON: CT ABDOMEN PELVIS W CON 01/05/2021 12:31 PM FINDINGS: Bones/joints: Moderate primary osteoarthritis affects both hip joints. Soft tissues: Unremarkable. IMPRESSION: 1. No acute findings. MRI is recommended if continued hip pain is present. 2. Moderate primary osteoarthritis affects both hip joints.
--- NOTE | 2022-10-16 04:37 | XR_ITS ---
PROCEDURE INFORMATION: Exam: XR Right Foot Exam date and time: 10/16/2022 4:35 AM Age: 72 years old Clinical indication: Injury or trauma; Fall; Blunt trauma; Foot; Right TECHNIQUE: Imaging protocol: Radiologic exam of the right foot. Views: 3 or more views. COMPARISON: VENOUS LOWER EXT DAR 04/21/2017 5:03 PM FINDINGS: Bones/joints: Diffuse osteopenia is present. Acute/subacute fracture involving the base of the 5th metatarsal is seen. Soft tissues: Moderate soft tissue swelling is seen around the fracture. IMPRESSION: 1. Diffuse osteopenia is present. Acute/subacute fracture involving the base of the 5th metatarsal. 2. Moderate soft tissue swelling around the fracture.
--- NOTE | 2022-10-16 04:37 | XR_ITS ---
PROCEDURE INFORMATION: Exam: XR Left Knee Exam date and time: 10/16/2022 4:38 AM Age: 72 years old Clinical indication: Injury or trauma; Fall; Blunt trauma; Knee; Left TECHNIQUE: Imaging protocol: Radiologic exam of the left knee. Views: 3 views. COMPARISON: CR XR KNEE LT 3V 05/04/2022 10:54 AM FINDINGS: Bones/joints: Normal. Soft tissues: Normal. Vasculature: Vascular calcifications are seen. IMPRESSION: No acute findings.
--- NOTE | 2022-10-16 05:18 | HMH.EDFALL ---
Discharge Plan Disposition Patient Disposition: Home, Self-Care Prescriptions Prescriptions: No Action atorvastatin 40 mg tablet 40 mg PO HS aspirin [Adult Low Dose Aspirin] 81 mg tablet,delayed release (DR/EC) 81 mg PO DAILY Qty: 100 12RF nitroglycerin 0.4 mg tablet, sublingual 0.4 mg sublingual Q5M PRN (Reason: chest pain) Qty: 10 3RF Rx Instructions: do not exceed 3 doses per episode gabapentin 300 mg capsule 300 mg PO HS Qty: 30 2RF oxycodone 15 mg tablet See Rx Instructions .ROUTE .COMPLEX PRN (Reason: back pain) Qty: 150 0RF Rx Instructions: take one qid and one qhs PRN; clopidogrel 75 mg tablet See Rx Instructions .ROUTE .COMPLEX Qty: 90 0RF Dose Instruction: TAKE 1 TABLET EVERY DAY Rx Instructions: TAKE 1 TABLET EVERY DAY insulin aspart U-100 [Novolog FlexPen U-100 Insulin] 100 unit/mL (3 mL) insulin pen 7 unit SQ TID 30 Days Qty: 15 3RF levothyroxine 50 mcg tablet See Rx Instructions .ROUTE .COMPLEX Qty: 90 0RF Dose Instruction: TAKE 1 TABLET EVERY DAY FOR HYPOTHYROIDISM Rx Instructions: TAKE 1 TABLET EVERY DAY FOR HYPOTHYROIDISM (DME) pen needle, diabetic [BD Ultra-Fine Short Pen Needle] 31 gauge x 5/16 needle See Rx Instructions .ROUTE .COMPLEX Qty: 400 0RF Dose Instruction: USE DIRECTED Rx Instructions: USE DIRECTED metoprolol succinate 25 mg tablet extended release 24 hr See Rx Instructions .ROUTE .COMPLEX Qty: 60 0RF Dose Instruction: TAKE 1 TABLET EVERY DAY Rx Instructions: TAKE 1 TABLET EVERY DAY ergocalciferol (vitamin D2) 1,250 mcg (50,000 unit) capsule See Rx Instructions .ROUTE .COMPLEX Qty: 13 0RF Dose Instruction: TAKE 1 CAPSULE EVERY WEEK Rx Instructions: TAKE 1 CAPSULE EVERY WEEK lisinopril 5 mg tablet 5 mg PO DAILY Rx Instructions: TAKE 1 TABLET EVERY DAY isosorbide mononitrate 30 mg tablet extended release 24 hr 30 mg PO DAILY Label Comments: TAKE ONE TABLET BY MOUTH EVERY DAY Clinical Impressions Clinical Impression: Foot sprain, Abrasions of multiple sites Instructions Patient Instructions: DI for Foot Sprain Discharge ED Provider: Valeria (ED)Akshat [facility] General Chief Complaint: Fall Stated Complaint: right foot pain after fall Time Seen by Provider: 10/16/22 04:35 Mode of Arrival: Wheelchair Source of Information: Patient and Medical Record Limitations: No Limitations Description of Symptoms (Recalled from ER Triage Doc. by RN): pt states he fell last night against a door. pt presents with R foot pain, a skin tear to his L knee and R hand. pt denies LOC. pt states he is on asprin and clopidogrel History of Present Illness HPI Narrative: pt fell last pm with injury rt foot and abrasion to lt knee and rt hand MD complaint: fall Onset (ago): hour(s) Fall from: standing Fall witnessed: no Place fall occurred: home Loss of consciousness: none Prolonged down time: no Context: tripped/slipped Location of injury - extremities: Left: knee and Right: foot Severity: moderate Associated symptoms (after fall): denies Related Data Home Medications Medication Instructions Recorded Confirmed atorvastatin 40 mg tablet 40 mg PO HS Cholesterol 05/04/22 09/26/22 lisinopril 5 mg tablet 5 mg PO DAILY Hypertension 05/11/22 09/26/22 isosorbide mononitrate 30 mg 30 mg PO DAILY Hypertension 05/12/22 09/26/22 tablet,extended release 24 hr Previous Rx's Medication Instructions Recorded aspirin 81 mg tablet,delayed 81 mg PO DAILY heart health #100 01/16/22 release (Adult Low Dose Aspirin) tabs nitroglycerin 0.4 mg sublingual 0.4 mg sublingual Q5M PRN chest 01/16/22 tablet pain #10 tabs clopidogrel 75 mg tablet See Rx Instructions .Route 06/06/22 .COMPLEX #90 tabs insulin aspart U-100 100 unit/mL 7 unit (0.07 mL) SQ TID Diabetes 06/14/22 (3 mL) subcutaneous pen (Novolog 30 days #15 mL FlexPen U-100
--- NOTE | 2022-10-16 06:07 | PC.NURSE ---
Pt provided with warm blanket and pillow. No other needs voiced.
--- NOTE | 2022-10-16 06:42 | PC.NURSE ---
called and spoke to [employer] to check on status of [facility] reports. updated pt that we was waiting for [facility] reports
[2022-10-16 07:00] VITALS: BP 185/86
[2022-10-16 07:31] VITALS: BP 173/77
--- NOTE | 2022-10-16 07:37 | PC.NURSE ---
Addendum entered by Renée Saba, MANJEET 10/16/22 07:42: [facility] unable to give rad staff estimated time of when xrays will be read- updated ER Original Note: contacted rad to check on status of xray results-states the xrays are still assigned , scott states is going to message them and see if she can get an estimated time of when they will be read.
[2022-10-16 08:22] VITALS: BP 173/77; PULSE 74; RESP 16; TEMP 36.7; O2SAT 98
== END 2022-10-16 08:22 | disposition home or self-care (01) ==
PROVIDERS: Emergency Provider Emergency Medicine; PCP Emergency Medicine
DX: S93.601A Unspecified sprain of right foot, initial encounter (principal); S80.212A Abrasion, left knee, initial encounter; S60.511A Abrasion of right hand, initial encounter; W22.09XA Striking against other stationary object, initial encounter; I25.10 Atherosclerotic heart disease of native coronary artery without angina pectoris; E10.9 Type 1 diabetes mellitus without complications; E78.5 Hyperlipidemia, unspecified; F17.210 Nicotine dependence, cigarettes, uncomplicated
CPT/HCPCS: 72170; 73562; 73630; 99284

== ENCOUNTER → 2022-10-26 09:25 | Outpatient (CLI) | payer MEDICARE, SELFPAY ==
--- NOTE | 2022-10-26 09:25 | XR_ITS ---
FINAL REPORT CLINICAL HISTORY: osteogenesis COMPARISON: None FINDINGS: Using L1-4, the bone mineral density of the spine is 0.895 g/cm2, corresponding to T-score of left -1.8, consistent with osteopenia. Using the left hip, the bone mineral density of the femoral neck is 0.590 g/cm2, corresponding to a T-score of -2.5, consistent with osteoporosis. Using the right hip, the bone mineral density of the femoral neck is 0.515 g/cm2, corresponding to a T-score of -3.1, consistent with osteoporosis. FRAX not reported secondary to femoral neck score of -2.5 and below. NOTE: T-score: Standard deviation compared with peak bone mass of young adult mean. *Following the recommendations of the International Society of Bone densitometry, classification of hip BMD is based on the lower of two T-scores; total hip or femoral neck. IMPRESSION: Diminished bone mineral density consistent with osteopenia in the lumbar spine and osteoporosis in the bilateral hips. Reviewed, Interpreted and Dictated by Aubrey Goldberg MD Transcribed by Kari Millan Authenticated and [facility]
== END ==
PROVIDERS: PCP Emergency Medicine; Visit Provider Emergency Medicine
DX: Q78.0 Osteogenesis imperfecta (principal)
CPT/HCPCS: 77080

== ENCOUNTER → 2022-10-31 09:09 | Outpatient (CLI) | payer MEDICARE, SELFPAY ==
--- NOTE | 2022-10-31 09:17 | XR_ITS ---
FINAL REPORT CLINICAL HISTORY: fall yesterday, posterior/lateral rib pain FINDINGS: A single view of the chest with 3 views of the ribs were obtained. There is no acute cardiopulmonary process. No pneumothorax is identified. No displaced rib fracture identified. IMPRESSION: No acute process. Reviewed, Interpreted and Dictated by Tristan Meza III, MD Transcribed by Juanjo Delgadillo Authenticated and [facility]
== END ==
PROVIDERS: PCP Emergency Medicine; Visit Provider Emergency Medicine
DX: R07.81 Pleurodynia (principal); W19.XXXA Unspecified fall, initial encounter
CPT/HCPCS: 71101

== ENCOUNTER 2022-11-02 19:43 | Emergency (ER) | payer MEDICARE, SELFPAY ==
[2022-11-02 19:59] VITALS: BP 160/82; PULSE 73; RESP 17; TEMP 36.7; O2SAT 96; BMI 23.7
[2022-11-02 20:01] VITALS: BP 126/70; PULSE 70; RESP 18; O2SAT 95
[2022-11-02 20:31] VITALS: BP 157/75; PULSE 68; RESP 16; O2SAT 97
--- NOTE | 2022-11-02 20:41 | CT_ITS ---
PROCEDURE INFORMATION: Exam: CT Chest Without Contrast; Diagnostic Exam date and time: 11/02/2022 8:56 PM Age: 72 years old Clinical indication: Injury or trauma; Fall; Additional info: L traumatic thoracic cage pain TECHNIQUE: Imaging protocol: Diagnostic computed tomography of the chest without contrast. Radiation optimization: All CT scans at this facility use at least one of these dose optimization techniques: automated exposure control; mA and/or kV adjustment per patient size (includes targeted exams where dose is matched to clinical indication); or iterative reconstruction. REPORTING DATA: Count of CT and Cardiac NM exams in prior 12 months: This patient has received [address] and 0 known cardiac nuclear medicine studies in the 12 months prior to the current study. COMPARISON: CR XR RIBS LT MIN 3V W CXR1V 10/31/2022 9:26 AM FINDINGS: Lungs: Apical pulmonary scarring. Scattered calcified granulomas. Pleural spaces: No pneumothorax. No pleural effusion. Heart: No cardiomegaly. No pericardial effusion. Coronary arteries: Coronary artery calcifications. Lymph nodes: Borderline mediastinal lymph nodes measuring up to 9 mm. Several noncalcified lymph nodes measuring up to 3 mm. Vasculature: Calcified atherosclerosis. Gallbladder and bile ducts: Post cholecystectomy change. Spleen: There are multiple splenic calcifications likely on the basis of prior granulomatous exposure. Bones/joints: Mild scoliosis. Suspect subtle nondisplaced fracture of left anterolateral rib number 7 and potentially 8. Soft tissues: Limited evaluation without contrast. No obvious soft tissue swelling. IMPRESSION: 1. Suspect subtle nondisplaced fracture of left anterolateral rib number 7 and potentially 8. 2. Several noncalcified lymph nodes measuring up to 3 mm. For patients at low risk (minimal or absent history of smoking and of other known risk factors), no routine follow-up is indicated. For patients at high risk (history of smoking or of other known risk factors), consider optional CT Chest at 12 months. (Reference: Sherie) References: Sherie Ritchie, et al. Guidelines for Management of Incidental Pulmonary Nodules Detected on CT Images: From the Fleischner Society 2017. Radiology. 2017;284(1):228-243.
--- NOTE | 2022-11-02 20:43 | HMH.EDGENADL ---
Discharge Plan Disposition Patient Disposition: Home, Self-Care Condition: Fair Prescriptions Prescriptions: No Action atorvastatin 40 mg tablet 40 mg PO HS aspirin [Adult Low Dose Aspirin] 81 mg tablet,delayed release (DR/EC) 81 mg PO DAILY Qty: 100 12RF nitroglycerin 0.4 mg tablet, sublingual 0.4 mg sublingual Q5M PRN (Reason: chest pain) Qty: 10 3RF Rx Instructions: do not exceed 3 doses per episode gabapentin 300 mg capsule 300 mg PO HS Qty: 30 2RF oxycodone 15 mg tablet See Rx Instructions .ROUTE .COMPLEX PRN (Reason: back pain) Qty: 150 0RF Rx Instructions: take one qid and one qhs PRN; insulin glargine [Lantus Solostar U-100 Insulin] 100 unit/mL (3 mL) insulin pen 35 unit SQ DAILY clopidogrel 75 mg tablet See Rx Instructions .ROUTE .COMPLEX Qty: 90 0RF Dose Instruction: TAKE 1 TABLET EVERY DAY Rx Instructions: TAKE 1 TABLET EVERY DAY insulin aspart U-100 [Novolog FlexPen U-100 Insulin] 100 unit/mL (3 mL) insulin pen 7 unit SQ TID 30 Days Qty: 15 3RF levothyroxine 50 mcg tablet See Rx Instructions .ROUTE .COMPLEX Qty: 90 0RF Dose Instruction: TAKE 1 TABLET EVERY DAY FOR HYPOTHYROIDISM Rx Instructions: TAKE 1 TABLET EVERY DAY FOR HYPOTHYROIDISM metoprolol succinate 25 mg tablet extended release 24 hr See Rx Instructions .ROUTE .COMPLEX Qty: 60 0RF Dose Instruction: TAKE 1 TABLET EVERY DAY Rx Instructions: TAKE 1 TABLET EVERY DAY ergocalciferol (vitamin D2) 1,250 mcg (50,000 unit) capsule See Rx Instructions .ROUTE .COMPLEX Qty: 13 0RF Dose Instruction: TAKE 1 CAPSULE EVERY WEEK Rx Instructions: TAKE 1 CAPSULE EVERY WEEK (DME) pen needle, diabetic [Droplet Pen Needle] 31 gauge x 5/16 needle See Rx Instructions .ROUTE .COMPLEX Qty: 100 0RF Dose Instruction: USE DIRECTED Rx Instructions: USE DIRECTED alendronate [Fosamax] 70 mg tablet 70 mg PO WEEKLY Qty: 13 3RF lisinopril 5 mg tablet 5 mg PO DAILY Rx Instructions: TAKE 1 TABLET EVERY DAY isosorbide mononitrate 30 mg tablet extended release 24 hr 30 mg PO DAILY Patient Comments: TAKE ONE TABLET BY MOUTH EVERY DAY Referrals Follow up/Referrals: Akshat Shaw MD [Primary Care Provider] - See instructions Activity Restrictions/Add. Instructions Additional Instructions/Restrictions: At this time it was felt you are safe to be discharged home. If new or worsening symptoms such as shortness of breath, high fevers, any other concerns please do not hesitate to return to the emergency department please follow-up with your family doctor in 1 week. Please discuss with your family doctor your pulmonary nodules for which they will keep an eye on. Clinical Impressions Clinical Impression: Multiple rib fractures, Incidental pulmonary nodule Discharge ED Provider: Gus Monge General Adult HPI General Chief complaint: Fall Stated complaint: AO 10/30 fall, rib pain Time Seen by Provider: 11/02/22 20:24 Mode of Arrival: Family Vehicle Source of Information: Patient Limitations: No Limitations Description of Symptoms (Recalled from ER Triage Doc. by RN): 72 yo male presents with CC of continued left side rib pain s/p fall on 10/30. According to the patient, he tripped and fell inside his house, landing into a wooden dining room chair, breaking it and injuring his left side. Patient denies hitting his head or other body parts. Has a walking boot on currently to the [facility] from a fall on 10/15/22. States he just gets ahea of himself and doesn't exactly know how to control his body . PMH: DM t1,htn, HYPERLIPIDEMIA, HYPOTHYROID, VIT D DEF; OSTEOPOROSIS,OSTEOPENIA, History of Present Illness HPI narrative: Patient is a 72-year-old male with past medical history of coronary artery disease status post stenting on Plavix, remote traumatic neck injury status post surgical intervention on chronic
--- NOTE | 2022-11-02 20:58 | PC.NURSE ---
pt back from CT
[2022-11-02 21:01] VITALS: BP 163/95; PULSE 62; RESP 18; O2SAT 97
--- NOTE | 2022-11-02 22:05 | PC.NURSE ---
ER at bedside
[2022-11-02 22:07] VITALS: BP 152/90; PULSE 71; RESP 16; TEMP 36.7
== END 2022-11-02 22:18 | disposition home or self-care (01) ==
PROVIDERS: Emergency Provider Emergency Medicine; PCP Emergency Medicine
DX: S22.42XA Multiple fractures of ribs, left side, initial encounter for closed fracture (principal); R91.1 Solitary pulmonary nodule; I25.10 Atherosclerotic heart disease of native coronary artery without angina pectoris; E11.9 Type 2 diabetes mellitus without complications; E78.5 Hyperlipidemia, unspecified; Z79.4 Long term (current) use of insulin; W01.190A Fall on same level from slipping, tripping and stumbling with subsequent striking against furniture, initial encounter; I11.9 Hypertensive heart disease without heart failure
CPT/HCPCS: 71250; 96374; 99284; 99285

== ENCOUNTER 2022-11-11 16:39 | Emergency (ER) | payer MEDICARE, SELFPAY ==
[2022-11-11 16:41] VITALS: BP 153/81; PULSE 62; RESP 18; TEMP 36.4; O2SAT 99; BMI 23.7
[2022-11-11 17:00] VITALS: BP 145/70; PULSE 56; RESP 20; O2SAT 96
--- NOTE | 2022-11-11 17:25 | PC.NURSE ---
pt called out stating his dexcom was reading dangerously low level, it read 76 mg/dl, pt given orange juice
--- NOTE | 2022-11-11 17:28 | HMH.EDGENADL ---
Discharge Plan Disposition Patient Disposition: Home, Self-Care Condition: Fair Prescriptions Prescriptions: No Action atorvastatin 40 mg tablet 40 mg PO HS gabapentin 300 mg capsule 300 mg PO HS Qty: 30 1RF tramadol 50 mg tablet 50 mg PO BID PRN (Reason: breakthrough pain) Qty: 60 0RF oxycodone 15 mg tablet See Rx Instructions .ROUTE .COMPLEX PRN (Reason: back pain) Qty: 150 0RF Rx Instructions: take one qid and one qhs PRN; aspirin [Adult Low Dose Aspirin] 81 mg tablet,delayed release (DR/EC) 81 mg PO DAILY Qty: 100 12RF nitroglycerin 0.4 mg tablet, sublingual 0.4 mg sublingual Q5M PRN (Reason: chest pain) Qty: 10 3RF Rx Instructions: do not exceed 3 doses per episode insulin glargine [Lantus Solostar U-100 Insulin] 100 unit/mL (3 mL) insulin pen 35 unit SQ DAILY insulin aspart U-100 [Novolog FlexPen U-100 Insulin] 100 unit/mL (3 mL) insulin pen 7 unit SQ TID 30 Days Qty: 15 3RF levothyroxine 50 mcg tablet See Rx Instructions .ROUTE .COMPLEX Qty: 90 0RF Dose Instruction: TAKE 1 TABLET EVERY DAY FOR HYPOTHYROIDISM Rx Instructions: TAKE 1 TABLET EVERY DAY FOR HYPOTHYROIDISM metoprolol succinate 25 mg tablet extended release 24 hr See Rx Instructions .ROUTE .COMPLEX Qty: 60 0RF Dose Instruction: TAKE 1 TABLET EVERY DAY Rx Instructions: TAKE 1 TABLET EVERY DAY ergocalciferol (vitamin D2) 1,250 mcg (50,000 unit) capsule See Rx Instructions .ROUTE .COMPLEX Qty: 13 0RF Dose Instruction: TAKE 1 CAPSULE EVERY WEEK Rx Instructions: TAKE 1 CAPSULE EVERY WEEK (DME) pen needle, diabetic [Droplet Pen Needle] 31 gauge x 5/16 needle See Rx Instructions .ROUTE .COMPLEX Qty: 100 0RF Dose Instruction: USE DIRECTED Rx Instructions: USE DIRECTED alendronate [Fosamax] 70 mg tablet 70 mg PO WEEKLY Qty: 13 3RF clopidogrel 75 mg tablet See Rx Instructions .ROUTE .COMPLEX Qty: 90 0RF Dose Instruction: TAKE 1 TABLET EVERY DAY Rx Instructions: TAKE 1 TABLET EVERY DAY lisinopril 5 mg tablet 5 mg PO DAILY Rx Instructions: TAKE 1 TABLET EVERY DAY isosorbide mononitrate 30 mg tablet extended release 24 hr 30 mg PO DAILY Patient Comments: TAKE ONE TABLET BY MOUTH EVERY DAY Referrals Follow up/Referrals: Akshat Shaw MD [Primary Care Provider] - See instructions Clinical Impressions Clinical Impression: Fracture, ribs Instructions Patient Instructions: DI for Rib Fracture Discharge ED Provider: Judd Hameed General Adult HPI General Chief complaint: PAIN Stated complaint: AO October 30 Rib Pain Time Seen by Provider: 11/11/22 17:28 Mode of Arrival: Ambulatory Limitations: No Limitations Description of Symptoms (Recalled from ER Triage Doc. by RN): PT WITH C/O CONTINUED LEFT SIDED RIB PAIN AFTER A FALL IN OCTOBER. NO NEW INJURY. PT DENIES CHEST PAIN OR SHORTNESS OF BREATH History of Present Illness HPI narrative: Patient presents the emergency department for subsequent visit after a fall. Patient reports that he had multiple rib fractures. MD complaint: Left-sided pain. Radiation: non-radiation Severity: severe Quality: burning and dull Relieving factors: none Exacerbating factors: movement Treatments prior to arrival: none Related Data Home Medications Medication Instructions Recorded Confirmed atorvastatin 40 mg tablet 40 mg PO HS Cholesterol 05/04/22 11/13/22 lisinopril 5 mg tablet 5 mg PO DAILY Hypertension 05/11/22 11/13/22 isosorbide mononitrate 30 mg 30 mg PO DAILY Hypertension 05/12/22 11/13/22 tablet,extended release 24 hr insulin glargine 100 unit/mL (3 35 unit SQ DAILY 10/25/22 11/13/22 mL) subcutaneous pen (Lantus Solostar U-100 Insulin) Previous Rx's Medication Instructions Recorded aspirin 81 mg tablet,delayed 81 mg PO DAILY heart [place] #100 01/16/22 release (Adult Low Dose Aspirin) tabs nitroglycer
[2022-11-11 17:30] VITALS: BP 138/75; PULSE 50; RESP 24; O2SAT 96
--- NOTE | 2022-11-11 17:35 | PC.NURSE ---
DR ADAMS AT BEDSIDE
[2022-11-11 17:56] VITALS: BP 138/75; PULSE 60; RESP 18; TEMP 36.6; O2SAT 96
== END 2022-11-11 18:20 | disposition home or self-care (01) ==
PROVIDERS: Emergency Provider Emergency Medicine; PCP Emergency Medicine
DX: I25.10 Atherosclerotic heart disease of native coronary artery without angina pectoris; E10.9 Type 1 diabetes mellitus without complications; E78.5 Hyperlipidemia, unspecified; F17.210 Nicotine dependence, cigarettes, uncomplicated; W19.XXXA Unspecified fall, initial encounter; R07.81 Pleurodynia
CPT/HCPCS: 96372; 99283; 99284

== ENCOUNTER → 2023-01-10 16:59 | Outpatient (CLI) | payer MEDICARE, SELFPAY ==
[2023-01-10 14:58] LABS: Chloride 98 mmol/L (98-107); Potassium 5.6 mmoL/L (3.5-5.1); Sodium 137 mmol/L (136-145)
[2023-01-10 15:01] LABS: Anion Gap 15.6 mEq/L (5-15); Blood Urea Nitrogen 10 mg/dl (9-20); Carbon Dioxide 29 mmol/L (22.0-30.0); Estimated Glomerular Filt Rate 73 ml/min (>60); GFR (African American) 89 ML/MIN (>60); Glucose 249 mg/dl (74-100)
== END ==
PROVIDERS: PCP Emergency Medicine; Visit Provider Emergency Medicine
DX: Z12.5 Encounter for screening for malignant neoplasm of prostate (principal); E78.5 Hyperlipidemia, unspecified
CPT/HCPCS: 80048; G0103

== ENCOUNTER 2023-01-25 21:17 | Emergency (ER) | payer MEDICARE, SELFPAY ==
[2023-01-25 21:21] VITALS: BP 158/68; PULSE 68; RESP 18; TEMP -17.7; TEMP 0; O2SAT 96
--- NOTE | 2023-01-25 21:28 | HMH.EDGENADL ---
Discharge Plan Disposition Patient Disposition: Home, Self-Care Prescriptions Prescriptions: No Action atorvastatin 40 mg tablet 40 mg PO HS aspirin [Adult Low Dose Aspirin] 81 mg tablet,delayed release (DR/EC) 81 mg PO DAILY Qty: 100 12RF nitroglycerin 0.4 mg tablet, sublingual 0.4 mg sublingual Q5M PRN (Reason: chest pain) Qty: 10 3RF Rx Instructions: do not exceed 3 doses per episode finasteride [Proscar] 5 mg tablet 5 mg PO DAILY Qty: 30 1RF tamsulosin [Flomax] 0.4 mg capsule 0.4 mg PO DAILY Qty: 30 0RF oxycodone 15 mg tablet See Rx Instructions .ROUTE .COMPLEX PRN (Reason: back pain) Qty: 150 0RF Rx Instructions: take one qid and one qhs PRN; insulin aspart U-100 [Novolog FlexPen U-100 Insulin] 100 unit/mL (3 mL) insulin pen 7 unit SQ TID 30 Days Qty: 15 3RF metoprolol succinate 25 mg tablet extended release 24 hr See Rx Instructions .ROUTE .COMPLEX Qty: 60 0RF Dose Instruction: TAKE 1 TABLET EVERY DAY Rx Instructions: TAKE 1 TABLET EVERY DAY ergocalciferol (vitamin D2) 1,250 mcg (50,000 unit) capsule See Rx Instructions .ROUTE .COMPLEX Qty: 13 0RF Dose Instruction: TAKE 1 CAPSULE EVERY WEEK Rx Instructions: TAKE 1 CAPSULE EVERY WEEK (DME) pen needle, diabetic [Droplet Pen Needle] 31 gauge x 5/16 needle See Rx Instructions .ROUTE .COMPLEX Qty: 100 0RF Dose Instruction: USE DIRECTED Rx Instructions: USE DIRECTED clopidogrel 75 mg tablet See Rx Instructions .ROUTE .COMPLEX Qty: 90 0RF Dose Instruction: TAKE 1 TABLET EVERY DAY Rx Instructions: TAKE 1 TABLET EVERY DAY insulin glargine [Lantus Solostar U-100 Insulin] 100 unit/mL (3 mL) insulin pen 35 unit SQ DAILY Qty: 15 2RF levothyroxine 50 mcg tablet See Rx Instructions .ROUTE .COMPLEX Qty: 90 1RF Dose Instruction: TAKE 1 TABLET EVERY DAY FOR HYPOTHYROIDISM Rx Instructions: TAKE 1 TABLET EVERY DAY FOR HYPOTHYROIDISM lisinopril 5 mg tablet 5 mg PO DAILY Rx Instructions: TAKE 1 TABLET EVERY DAY isosorbide mononitrate 30 mg tablet extended release 24 hr 30 mg PO DAILY Patient Comments: TAKE ONE TABLET BY MOUTH EVERY DAY Referrals Follow up/Referrals: Akshat Shaw MD [Primary Care Provider] - See instructions Activity Restrictions/Add. Instructions Additional Instructions/Restrictions: At this time it was felt you are safe to be discharged home. If new or worsening symptoms please do not hesitate to return the emergency department. If symptoms persist please follow-up with your family doctor as you are able. Clinical Impressions Clinical Impression: Hyperglycemia Discharge ED Provider: Gus Monge General Adult HPI General Stated complaint: Blood sugar is up&down Time Seen by Provider: 01/25/23 21:27 History of Present Illness HPI narrative: Patient is a 72-year-old male with past medical history of insulin-dependent diabetes who presents emergency department for evaluation of hyperglycemia. Patient states that his sugar levels have been volatile over the last few days with the greatest being greater than 400. He is concerned about DKA and presents here for continued evaluation. No other acute complaints at this time. Related Data Home Medications Medication Instructions Recorded Confirmed atorvastatin 40 mg tablet 40 mg PO HS Cholesterol 05/04/22 01/10/23 lisinopril 5 mg tablet 5 mg PO DAILY Hypertension 05/11/22 01/10/23 isosorbide mononitrate 30 mg 30 mg PO DAILY Hypertension 05/12/22 01/10/23 tablet,extended release 24 hr Previous Rx's Medication Instructions Recorded aspirin 81 mg tablet,delayed 81 mg PO DAILY heart health #100 01/16/22 release (Adult Low Dose Aspirin) tabs nitroglycerin 0.4 mg sublingual 0.4 mg sublingual Q5M PRN chest 01/16/22 tablet pain #10 tabs insulin aspart U-100 100 unit/mL 7 unit (0.07 mL) SQ TID Diabetes 06/14/22
[2023-01-25 21:40] LABS: Basophils % 0.2 % (0.1-2.0); Eosinophils # 0.4 K/mm3 (0.0-0.4); Eosinophils % 3.6 % (0.1-12.0); Hematocrit 48.6 % (42.0-52.0); Hemoglobin 15.2 g/dL (14.1-18.0); Lymphocytes # 1.9 K/mm3 (0.7-4.5); Lymphocytes % 18.6 % (10-50); Mean Corpuscular HGB Conc 31.3 g/dL (31.8-35.4); Mean Corpuscular Hemoglobin 30.5 pg (27.0-31.2); Mean Corpuscular Volume 97.4 fl (80-94); Monocytes # 0.6 K/mm3 (0.1-1.0); Monocytes % 6.2 % (1.7-9.3); Neutrophils # 7.1 K/mm3 (1.8-7.8); Neutrophils % 71.3 % (37.0-80.0); Platelet Count 307 K/mm3 (142-424); Red Blood Count 4.99 M/mm3 (4.60-6.20); Red Cell Distribution Width 14.7 % (11.5-17.5)
[2023-01-25 21:43] LABS: POC Glucose,Bedside 173 (70-110)
[2023-01-25 21:44] LABS: Chloride 99 mmol/L (98-107); Sodium 138 mmol/L (136-145)
[2023-01-25 21:47] LABS: Alanine Aminotransferase 19 U/L (12-78); Albumin Level 4.3 g/dl (3.5-5.0); Albumin/Globulin Ratio 1.2 (1.1-1.8); Alkaline Phosphatase 159 U/L (38-126); Aspartate Amino Transferase 27 U/L (17-59); Bilirubin,Total 0.3 mg/dl (0.2-1.3); Blood Urea Nitrogen 10 mg/dl (9-20); Carbon Dioxide 29 mmol/L (22.0-30.0); Estimated Glomerular Filt Rate 73 ml/min (>60); GFR (African American) 89 ML/MIN (>60); Globulin 3.7 g/dL (1.3-3.2)
[2023-01-25 21:48] LABS: Calcium 8.8 mg/dl (8.4-10.2); Glucose 162 mg/dl (74-100)
--- NOTE | 2023-01-25 21:58 | PC.NURSE ---
Rounded on patient , no needs voiced at this time.
[2023-01-25 22:04] LABS: VBG Base Excess -0.5 mmol/L (-2.4-2.3); VBG HCO3 26.1 mmol/L (23-30); VBG Oxygen Saturation 51.7 % (50-70); VBG PH 7.29 mmol/L (7.31-7.41); VBG PO2 26.7 mmol/L (28-40); VBG Total CO2 27.9 mmol/L (23-27)
[2023-01-25 22:21] LABS: Acetone, Serum (Rapid) None Detected (None Detect)
[2023-01-25 22:31] LABS: POC Glucose,Bedside 138 (70-110)
[2023-01-25 22:53] VITALS: BP 149/76; PULSE 73; RESP 18; TEMP 36.9; O2SAT 98
== END 2023-01-25 23:00 | disposition home or self-care (01) ==
PROVIDERS: Emergency Provider Emergency Medicine; PCP Emergency Medicine
DX: E10.65 Type 1 diabetes mellitus with hyperglycemia (principal); I25.10 Atherosclerotic heart disease of native coronary artery without angina pectoris; M16.0 Bilateral primary osteoarthritis of hip; E78.5 Hyperlipidemia, unspecified; M85.80 Other specified disorders of bone density and structure, unspecified site; F17.210 Nicotine dependence, cigarettes, uncomplicated
CPT/HCPCS: 80053; 82009; 82803; 82962; 85025; 99285

== ENCOUNTER 2023-02-23 22:33 | Emergency (ER) | payer MEDICARE, SELFPAY ==
--- NOTE | 2023-02-23 22:29 | ECG_ITS ---
APPROVED REPORT Exam: Resting ECG HR:60 bpm ECG Measurements Heart Rate 60 AXES VT 168 P 80 QRSd 185 QRS -86 QT 507 T 60 QTc 507 Conclusion SINUS RHYTHM WITH FREQUENT SUPRAVENTRICULAR PREMATURE COMPLEXES IN A BIGEMINAL PATTERN LEFT AXIS DEVIATION [QRS AXIS < -30] RIGHT BUNDLE BRANCH BLOCK [120+ ms QRS DURATION, UPRIGHT V1, 40+ ms S IN I/aVL/V4/V5/V6] SEPTAL MYOCARDIAL INFARCTION , OF INDETERMINATE AGE [40+ ms Q WAVE IN V1/V2] ABNORMAL ECG UNCONFIRMED REPORT Electronically signed by : Ok Casas MD 02/25/2023 08:33:09
--- NOTE | 2023-02-23 22:30 | XR_ITS ---
PROCEDURE INFORMATION: Exam: XR Chest Exam date and time: 02/23/2023 11:05 PM Age: 73 years old Clinical indication: Pain; Chest pressure; Additional info: Cp TECHNIQUE: Imaging protocol: Radiologic exam of the chest. Views: 1 view. COMPARISON: CT CHEST WO CON 11/02/2022 8:56 PM FINDINGS: Lungs: Unremarkable. No consolidation. Pleural spaces: Unremarkable. No pleural effusion. No pneumothorax. Heart/Mediastinum: Unremarkable. No cardiomegaly. Vasculature: Unremarkable. Bones/joints: Old fractures of the lateral left 7th and 8th ribs are noted. IMPRESSION: 1. No acute findings. 2. Old left rib fractures.
--- NOTE | 2023-02-23 22:30 | HMH.EDGENADL ---
Discharge Plan Disposition Patient Disposition: Home, Self-Care Condition: Good Prescriptions Prescriptions: No Action atorvastatin 40 mg tablet 40 mg PO HS aspirin [Adult Low Dose Aspirin] 81 mg tablet,delayed release (DR/EC) 81 mg PO DAILY Qty: 100 12RF nitroglycerin 0.4 mg tablet, sublingual 0.4 mg sublingual Q5M PRN (Reason: chest pain) Qty: 10 3RF Rx Instructions: do not exceed 3 doses per episode finasteride [Proscar] 5 mg tablet 5 mg PO DAILY Qty: 30 1RF oxycodone 15 mg tablet See Rx Instructions .ROUTE .COMPLEX PRN (Reason: back pain) Qty: 150 0RF Rx Instructions: take one qid and one qhs PRN; insulin aspart U-100 [Novolog FlexPen U-100 Insulin] 100 unit/mL (3 mL) insulin pen 7 unit SQ TID 30 Days Qty: 15 3RF (DME) pen needle, diabetic [Droplet Pen Needle] 31 gauge x 5/16 needle See Rx Instructions .ROUTE .COMPLEX Qty: 100 0RF Dose Instruction: USE DIRECTED Rx Instructions: USE DIRECTED clopidogrel 75 mg tablet See Rx Instructions .ROUTE .COMPLEX Qty: 90 0RF Dose Instruction: TAKE 1 TABLET EVERY DAY Rx Instructions: TAKE 1 TABLET EVERY DAY insulin glargine [Lantus Solostar U-100 Insulin] 100 unit/mL (3 mL) insulin pen 35 unit SQ DAILY Qty: 15 2RF levothyroxine 50 mcg tablet See Rx Instructions .ROUTE .COMPLEX Qty: 90 1RF Dose Instruction: TAKE 1 TABLET EVERY DAY FOR HYPOTHYROIDISM Rx Instructions: TAKE 1 TABLET EVERY DAY FOR HYPOTHYROIDISM metoprolol succinate 25 mg tablet extended release 24 hr See Rx Instructions .ROUTE .COMPLEX Qty: 90 0RF Dose Instruction: TAKE 1 TABLET EVERY DAY Rx Instructions: TAKE 1 TABLET EVERY DAY tamsulosin 0.4 mg capsule See Rx Instructions .ROUTE .COMPLEX Qty: 30 0RF Dose Instruction: TAKE ONE CAPSULE BY MOUTH EVERY DAY Rx Instructions: TAKE ONE CAPSULE BY MOUTH EVERY DAY ergocalciferol (vitamin D2) 1,250 mcg (50,000 unit) capsule See Rx Instructions .ROUTE .COMPLEX Qty: 13 10RF Dose Instruction: TAKE 1 CAPSULE EVERY WEEK Rx Instructions: TAKE 1 CAPSULE EVERY WEEK lisinopril 5 mg tablet 5 mg PO DAILY Rx Instructions: TAKE 1 TABLET EVERY DAY isosorbide mononitrate 30 mg tablet extended release 24 hr 30 mg PO DAILY Patient Comments: TAKE ONE TABLET BY MOUTH EVERY DAY Referrals Follow up/Referrals: Arturo Narayan MD [Staff Physician] - See instructions Activity Restrictions/Add. Instructions Additional Instructions/Restrictions: At this time it was felt you are safe to be discharged home. If new or worsening symptoms please do not hesitate to return the emergency department. Please call and schedule an appointment with cardiology as soon as you are able. Clinical Impressions Clinical Impression: Weakness, Chest pain Discharge ED Provider: Ana Laura Dozier General Adult HPI <Gus Monge MD - Last Filed: 02/23/23 23:03> General Chief complaint: Weakness Stated complaint: Tired and weakness/ silent heart attack Time Seen by Provider: 02/23/23 22:30 History of Present Illness HPI narrative: Patient is a 73-year-old male past medical history of insulin-dependent diabetes, coronary artery disease who presents emergency department for evaluation of global weakness and slight chest pain. Patient has had waxing waning symptoms since yesterday. He is concerned for silent heart attack. With respect to his blood glucose it is running in the 100s for which he has drank some root beer. No other acute complaints at this time. Related Data Home Medications Medication Instructions Recorded Confirmed atorvastatin 40 mg tablet 40 mg PO HS Cholesterol 05/04/22 01/10/23 lisinopril 5 mg tablet 5 mg PO DAILY Hypertension 05/11/22 01/10/23 isosorbide mononitrate 30 mg 30 mg PO DAILY Hypertension 05/12/22 01/10/23 tablet,extended release 24 hr Previous Rx's Medication Instr
[2023-02-23 22:33] VITALS: BP 155/85; PULSE 65; RESP 18; TEMP 36.9; O2SAT 98; BMI 23.7
--- NOTE | 2023-02-23 22:33 | PC.NURSE ---
Doctor in the room at [id number]
[2023-02-23 22:57] LABS: Coronavirus 19, PCR Not Detected (NotDetected); Influenza A, PCR Not Detected (NotDetected); Influenza B, PCR Not Detected (NotDetected)
[2023-02-23 23:02] LABS: Basophils # 0.1 K/mm3 (0-0.2); Basophils % 0.8 % (0.1-2.0); Eosinophils # 0.3 K/mm3 (0.0-0.4); Eosinophils % 3.5 % (0.1-12.0); Hematocrit 43.2 % (42.0-52.0); Hemoglobin 14.5 g/dL (14.1-18.0); Lymphocytes # 2.5 K/mm3 (0.7-4.5); Lymphocytes % 29.3 % (10-50); Mean Corpuscular HGB Conc 33.6 g/dL (31.8-35.4); Mean Corpuscular Hemoglobin 32.2 pg (27.0-31.2); Mean Corpuscular Volume 95.6 fl (80-94); Mean Platelet Volume 9.4 fl (7.4-10.4); Monocytes # 0.7 K/mm3 (0.1-1.0); Monocytes % 7.9 % (1.7-9.3); Neutrophils # 5.1 K/mm3 (1.8-7.8); Neutrophils % 58.5 % (37.0-80.0); Platelet Count 305 K/mm3 (142-424); Red Blood Count 4.52 M/mm3 (4.60-6.20); Red Cell Distribution Width 14.6 % (11.5-17.5); White Blood Count 8.6 K/mm3 (4.8-10.8)
[2023-02-23 23:05] LABS: Chloride 97 mmol/L (98-107); Sodium 133 mmol/L (136-145)
[2023-02-23 23:08] LABS: Alanine Aminotransferase 18 U/L (12-78); Albumin Level 4.2 g/dl (3.5-5.0); Albumin/Globulin Ratio 1.3 (1.1-1.8); Alkaline Phosphatase 147 U/L (38-126); Aspartate Amino Transferase 25 U/L (17-59); Bilirubin,Total 0.3 mg/dl (0.2-1.3); Blood Urea Nitrogen 9 mg/dl (9-20); Calcium 8.2 mg/dl (8.4-10.2); Carbon Dioxide 31 mmol/L (22.0-30.0); Creatinine Clearance Estimated 72 mL/min (50-200); Estimated Glomerular Filt Rate 83 ml/min (>60); GFR (African American) 100 ML/MIN (>60); Globulin 3.2 g/dL (1.3-3.2); Glucose 167 mg/dl (74-100); Total Protein,Serum 7.4 g/dl (6.3-8.2)
[2023-02-23 23:09] LABS: Magnesium 1.6 mg/dl (1.6-2.3)
[2023-02-23 23:21] LABS: Troponin I < 0.01 ng/ml (0.00-0.034)
--- NOTE | 2023-02-23 23:44 | ECG_ITS ---
APPROVED REPORT Exam: Resting ECG HR:54 bpm ECG Measurements Heart Rate 54 AXES [place] 189 P 73 QRSd 185 QRS 269 QT 528 T 54 QTc 515 Conclusion SINUS BRADYCARDIA WITH OCCASIONAL SUPRAVENTRICULAR PREMATURE COMPLEXES RIGHT AXIS DEVIATION [QRS AXIS > 100] RIGHT BUNDLE BRANCH BLOCK [120+ ms QRS DURATION, UPRIGHT V1, 40+ ms S IN I/aVL/V4/V5/V6] SEPTAL MYOCARDIAL INFARCTION , OF INDETERMINATE AGE [40+ ms Q WAVE IN V1/V2] ABNORMAL ECG UNCONFIRMED REPORT Electronically signed by : Ok Casas MD 02/25/2023 08:33:01
[2023-02-24 02:41] LABS: Troponin I < 0.01 ng/ml (0.00-0.034)
[2023-02-24 03:32] VITALS: BP 105/84; PULSE 67; RESP 18; TEMP 36.9
== END 2023-02-24 03:15 | disposition home or self-care (01) ==
PROVIDERS: Emergency Medicine; Emergency Provider Emergency Medicine; PCP Emergency Medicine
DX: R07.89 Other chest pain (principal); I49.3 Ventricular premature depolarization; I45.19 Other right bundle-branch block; E87.1 Hypo-osmolality and hyponatremia; F17.210 Nicotine dependence, cigarettes, uncomplicated; R53.1 Weakness; I25.10 Atherosclerotic heart disease of native coronary artery without angina pectoris; I11.9 Hypertensive heart disease without heart failure; E10.9 Type 1 diabetes mellitus without complications; E78.5 Hyperlipidemia, unspecified; E55.9 Vitamin D deficiency, unspecified; Z79.4 Long term (current) use of insulin
CPT/HCPCS: 71045; 80053; 83735; 84484; 85025; 87636; 93005; 99284

== ENCOUNTER 2023-04-22 16:19 | Emergency (ER) | payer MEDICARE, SELFPAY ==
[2023-04-22] VITALS (10 sets, daily range): BP systolic 99–141; BP diastolic 48–97; PULSE 72–84; RESP 11–17; TEMP 36.7; O2SAT 91–97; BMI 26.4
--- NOTE | 2023-04-22 16:20 | XR_ITS ---
PROCEDURE INFORMATION: Exam: XR Chest Exam date and time: 04/22/2023 4:20 PM Age: 73 years old Clinical indication: Sternal or substernal pain; Additional info: Cp TECHNIQUE: Imaging protocol: Radiologic exam of the chest. Views: 1 view. Total images: 1 COMPARISON: CR XR CHEST PORTABLE 02/23/2023 11:05 PM FINDINGS: Lungs: Unremarkable. No consolidation. Pleural spaces: Unremarkable. No pleural effusion. No pneumothorax. Heart/Mediastinum: Unremarkable. No cardiomegaly. Bones/joints: Unremarkable. IMPRESSION: No acute findings.
--- NOTE | 2023-04-22 16:22 | ECG_ITS ---
APPROVED REPORT Exam: Resting ECG HR:75 bpm ECG Measurements Heart Rate 75 AXES [place] 160 P 77 QRSd 127 QRS -35 QT 437 T 84 QTc 465 Conclusion SINUS RHYTHM LEFT AXIS DEVIATION [QRS AXIS < -30] SEPTAL MYOCARDIAL INFARCTION , PROBABLY RECENT [40+ ms Q WAVE IN V1/V2] ACUTE PR UNCONFIRMED REPORT Electronically signed by : Ok Casas MD 04/24/2023 18:43:49
[2023-04-22 16:26] LABS: Basophils % 0.4 % (0.1-2.0); Eosinophils # 0.2 K/mm3 (0.0-0.4); Eosinophils % 2.2 % (0.1-12.0); Hematocrit 45.9 % (42.0-52.0); Hemoglobin 15.4 g/dL (14.1-18.0); Lymphocytes # 2.5 K/mm3 (0.7-4.5); Lymphocytes % 24.7 % (10-50); Mean Corpuscular HGB Conc 33.5 g/dL (31.8-35.4); Mean Corpuscular Hemoglobin 31.7 pg (27.0-31.2); Mean Corpuscular Volume 94.8 fl (80-94); Mean Platelet Volume 8.3 fl (7.4-10.4); Monocytes # 0.6 K/mm3 (0.1-1.0); Monocytes % 5.8 % (1.7-9.3); Neutrophils # 6.7 K/mm3 (1.8-7.8); Neutrophils % 66.9 % (37.0-80.0); Platelet Count 309 K/mm3 (142-424); Red Blood Count 4.84 M/mm3 (4.60-6.20); Red Cell Distribution Width 14.7 % (11.5-17.5); White Blood Count 9.9 K/mm3 (4.8-10.8)
[2023-04-22 16:31] LABS: Chloride 95 mmol/L (98-107); Sodium 131 mmol/L (136-145)
[2023-04-22 16:32] LABS: Potassium 3.5 mmoL/L (3.5-5.1)
[2023-04-22 16:34] LABS: Alanine Aminotransferase 20 U/L (12-78); Albumin Level 4.3 g/dl (3.5-5.0); Albumin/Globulin Ratio 1.3 (1.1-1.8); Alkaline Phosphatase 166 U/L (38-126); Anion Gap 9.5 mEq/L (5-15); Aspartate Amino Transferase 29 U/L (17-59); Bilirubin,Total 0.6 mg/dl (0.2-1.3); Blood Urea Nitrogen 12 mg/dl (9-20); Carbon Dioxide 30 mmol/L (22.0-30.0); Creatinine Clearance Estimated 80 mL/min (50-200); Estimated Glomerular Filt Rate 73 ml/min (>60); GFR (African American) 89 ML/MIN (>60); Globulin 3.3 g/dL (1.3-3.2); Total Protein,Serum 7.6 g/dl (6.3-8.2)
[2023-04-22 16:35] LABS: Calcium 8.3 mg/dl (8.4-10.2); Glucose 207 mg/dl (74-100)
[2023-04-22 16:47] LABS: Troponin I < 0.01 ng/ml (0.00-0.034)
--- NOTE | 2023-04-22 16:53 | ECG_ITS ---
APPROVED REPORT Exam: Resting ECG HR:74 bpm ECG Measurements Heart Rate 74 AXES [place] 168 P 76 QRSd 124 QRS -40 QT 435 T 77 QTc 462 Conclusion SINUS RHYTHM LEFT AXIS DEVIATION [QRS AXIS < -30] SEPTAL MYOCARDIAL INFARCTION , OF INDETERMINATE AGE [40+ ms Q WAVE IN V1/V2] ABNORMAL ECG UNCONFIRMED REPORT Electronically signed by : Ok Casas MD 04/24/2023 18:43:27
--- NOTE | 2023-04-22 18:13 | HMH.EDCP ---
Discharge Plan Disposition Patient Disposition: Home, Self-Care Chief Complaint: Chest Pain Prescriptions Prescriptions: No Action atorvastatin 40 mg tablet 40 mg PO HS aspirin [Adult Low Dose Aspirin] 81 mg tablet,delayed release (DR/EC) 81 mg PO DAILY Qty: 100 12RF nitroglycerin 0.4 mg tablet, sublingual 0.4 mg sublingual Q5M PRN (Reason: chest pain) Qty: 10 3RF Rx Instructions: do not exceed 3 doses per episode isosorbide mononitrate 30 mg tablet extended release 24 hr 30 mg PO BID mupirocin 2 % ointment 1 applic topical BID Qty: 22 0RF insulin aspart U-100 [Novolog FlexPen U-100 Insulin] 100 unit/mL (3 mL) insulin pen 7 unit SQ TID 30 Days Qty: 15 3RF (DME) pen needle, diabetic [Droplet Pen Needle] 31 gauge x 5/16 needle See Rx Instructions .ROUTE .COMPLEX Qty: 100 0RF Dose Instruction: USE DIRECTED Rx Instructions: USE DIRECTED clopidogrel 75 mg tablet See Rx Instructions .ROUTE .COMPLEX Qty: 90 0RF Dose Instruction: TAKE 1 TABLET EVERY DAY Rx Instructions: TAKE 1 TABLET EVERY DAY insulin glargine [Lantus Solostar U-100 Insulin] 100 unit/mL (3 mL) insulin pen 35 unit SQ DAILY Qty: 15 2RF levothyroxine 50 mcg tablet See Rx Instructions .ROUTE .COMPLEX Qty: 90 1RF Dose Instruction: TAKE 1 TABLET EVERY DAY FOR HYPOTHYROIDISM Rx Instructions: TAKE 1 TABLET EVERY DAY FOR HYPOTHYROIDISM metoprolol succinate 25 mg tablet extended release 24 hr See Rx Instructions .ROUTE .COMPLEX Qty: 90 0RF Dose Instruction: TAKE 1 TABLET EVERY DAY Rx Instructions: TAKE 1 TABLET EVERY DAY ergocalciferol (vitamin D2) 1,250 mcg (50,000 unit) capsule See Rx Instructions .ROUTE .COMPLEX Qty: 13 10RF Dose Instruction: TAKE 1 CAPSULE EVERY WEEK Rx Instructions: TAKE 1 CAPSULE EVERY WEEK tamsulosin 0.4 mg capsule See Rx Instructions .ROUTE .COMPLEX Qty: 30 0RF Dose Instruction: TAKE ONE CAPSULE BY MOUTH EVERY DAY Rx Instructions: TAKE ONE CAPSULE BY MOUTH EVERY DAY oxycodone 15 mg tablet See Rx Instructions .ROUTE .COMPLEX PRN (Reason: back pain) Qty: 150 0RF Rx Instructions: take one qid and one qhs PRN; finasteride [Proscar] 5 mg tablet 5 mg PO DAILY Qty: 30 1RF gabapentin 300 mg capsule 300 mg PO HS Qty: 30 0RF lisinopril 5 mg tablet 5 mg PO DAILY Rx Instructions: TAKE 1 TABLET EVERY DAY Referrals Follow up/Referrals: Provider,Referral, MD [Primary Care Provider] - See instructions Activity Restrictions/Add. Instructions Additional Instructions/Restrictions: Call your family doctor to establish care for this visit to the emergency department and schedule follow-up within 48 hours to ensure improvement. If you have any worsening of your condition or any other concerning signs or symptoms, return to the emergency department or your primary care doctor for further evaluation. Follow-up with cardiology as soon as you are able. I still have concern this may be heart related pain, so getting this worked up soon would be of benefit Clinical Impressions Clinical Impression: Atherosclerosis of coronary artery with stable angina pectoris Qualifiers: Coronary Disease-Associated Artery/Lesion type: [place] artery [place] vs. transplanted heart: [place] heart Qualified Code(s): I25.118 - Atherosclerotic heart disease of [place] coronary artery with other forms of angina pectoris Discharge ED Provider: Tito Harris General Chief Complaint: Chest Pain Stated Complaint: chest pain Time Seen by Provider: 04/22/23 16:24 Mode of Arrival: EMS Source of Information: Patient Limitations: No Limitations Description of Symptoms (Recalled from ER Triage Doc. by RN): pt to ED via EMS with midsternal chest pressure that he reports feels like a lasso is wrapped around his chest pt reports the pain is a 5 at this time and radiates up towards his head.
[2023-04-22 19:35] LABS: Troponin I < 0.01 ng/ml (0.00-0.034)
== END 2023-04-22 20:16 | disposition home or self-care (01) ==
PROVIDERS: Emergency Provider Emergency Medicine
DX: R07.9 Chest pain, unspecified (principal); I25.118 Atherosclerotic heart disease of native coronary artery with other forms of angina pectoris; E78.5 Hyperlipidemia, unspecified; I25.2 Old myocardial infarction; E10.9 Type 1 diabetes mellitus without complications; F17.210 Nicotine dependence, cigarettes, uncomplicated; Z79.02 Long term (current) use of antithrombotics/antiplatelets
CPT/HCPCS: 71045; 80053; 84484; 85025; 93005; 96360; 99285; J3475

== ENCOUNTER → 2023-04-30 23:24 | Outpatient (CLI) | payer MEDICARE, SELFPAY ==
[2023-04-30 18:59] LABS: Chol/HDL Ratio 2.3 (1-3.5); Cholesterol 172 mg/dl (140-200); HDL Cholesterol 74 mg/dl (40-60); Triglycerides 79 mg/dl (30-150); VLDL Cholesterol 16 mg/dL (0-40)
[2023-04-30 19:10] LABS: Direct LDL Cholesterol 78.25 mg/dL (100-129)
[2023-04-30 19:17] LABS: 25-OH Vitamin D, Total 39.4 ng/mL (30-100)
[2023-04-30 20:01] LABS: Hemoglobin A1C 8.8 % (4.0-6.0)
== END ==
PROVIDERS: PCP Internal Medicine; Visit Provider Internal Medicine
DX: E55.9 Vitamin D deficiency, unspecified (principal); E10.9 Type 1 diabetes mellitus without complications; I25.10 Atherosclerotic heart disease of native coronary artery without angina pectoris; Z68.24 Body mass index [BMI] 24.0-24.9, adult; Z79.4 Long term (current) use of insulin; Z72.0 Tobacco use
CPT/HCPCS: 80061; 82306; 83036

== ENCOUNTER 2023-05-27 18:04 | Outpatient (CLI) | payer MEDICARE, SELFPAY ==
[2023-05-27 22:58] LABS: Thyroid Stimulating Hormone 7.61 uIU/mL (0.465-4.68)
[2023-05-27 23:33] LABS: Amphetamine/Metha Screen,Urine Negative ng/ml (<1000)
[2023-05-27 23:34] LABS: Benzodiazepines Screen,Urine Negative ng/ml (<200)
[2023-05-27 23:35] LABS: Cannabinoid Screen,Urine Negative ng/ml (<50); Cocaine Screen,Urine Negative ng/ml (<300)
[2023-05-27 23:36] LABS: Methadone Screen,Urine Negative ng/ml (<300)
[2023-05-28 00:11] LABS: Barbiturates Screen,Urine Negative ng/ml (<200); Opiate Screen,Urine Positive ng/ml (<300)
[2023-05-28 00:12] LABS: Phencyclidine Screen,Urine Negative ng/ml (<25)
== END 2023-05-27 23:59 ==
LOC: LAB.DROPOF 18:05
PROVIDERS: PCP Internal Medicine; Visit Provider Internal Medicine
DX: Z79.899 Other long term (current) drug therapy (principal); R53.83 Other fatigue
CPT/HCPCS: 80307; 84443

== ENCOUNTER 2023-06-01 22:44 | Emergency (ER) | payer MEDICARE, SELFPAY ==
[2023-06-01 22:54] VITALS: BP 153/75; PULSE 73; O2SAT 94
[2023-06-01 23:04] VITALS: BP 153/75; PULSE 74; RESP 20; TEMP 37.3; O2SAT 94; BMI 23.0
--- NOTE | 2023-06-01 23:04 | ECG_ITS ---
APPROVED REPORT Exam: Resting ECG HR:71 bpm ECG Measurements Heart Rate 71 AXES [place] 148 P 70 QRSd 107 QRS 35 QT 389 T 6 QTc 412 Conclusion SINUS RHYTHM WITH OCCASIONAL VENTRICULAR PREMATURE COMPLEXES WITH OCCASIONAL SUPRAVENTRICULAR PREMATURE COMPLEXES NONSPECIFIC T-WAVE ABNORMALITY BORDERLINE ECG UNCONFIRMED REPORT Electronically signed by : Ok Casas MD 06/04/2023 16:47:46
--- NOTE | 2023-06-01 23:16 | XR_ITS ---
PROCEDURE INFORMATION: Exam: XR Chest Exam date and time: 06/01/2023 11:14 PM Age: 73 years old Clinical indication: Shortness of breath; Additional info: SOB, chronic cough TECHNIQUE: Imaging protocol: Radiologic exam of the chest. Views: 1 view. COMPARISON: CR XR CHEST PORTABLE 04/22/2023 4:20 PM FINDINGS: Lungs: Normal. Pleural spaces: Normal No pleural effusion. No pneumothorax. Heart/Mediastinum: Coronary artery stent in place. No cardiomegaly. Vasculature: Tortuous atherosclerotic thoracic aorta. Bones/joints: Cervical spine fusion hardware in place. IMPRESSION: No acute findings.
[2023-06-01 23:26] LABS: Basophils % 0.2 % (0.1-2.0); Chloride 96 mmol/L (98-107); Eosinophils # 0.2 K/mm3 (0.0-0.4); Eosinophils % 1.4 % (0.1-12.0); Hematocrit 46.2 % (42.0-52.0); Hemoglobin 15.4 g/dL (14.1-18.0); Lymphocytes # 0.9 K/mm3 (0.7-4.5); Lymphocytes % 5.7 % (10-50); Mean Corpuscular HGB Conc 33.4 g/dL (31.8-35.4); Mean Corpuscular Hemoglobin 31.3 pg (27.0-31.2); Mean Corpuscular Volume 93.6 fl (80-94); Mean Platelet Volume 9.6 fl (7.4-10.4); Monocytes # 0.8 K/mm3 (0.1-1.0); Monocytes % 5.2 % (1.7-9.3); Neutrophils # 13.3 K/mm3 (1.8-7.8); Neutrophils % 87.6 % (37.0-80.0); Platelet Count 261 K/mm3 (142-424); Red Blood Count 4.94 M/mm3 (4.60-6.20); Red Cell Distribution Width 14.5 % (11.5-17.5); White Blood Count 15.1 K/mm3 (4.8-10.8)
[2023-06-01 23:27] LABS: Potassium 4.7 mmoL/L (3.5-5.1); Sodium 130 mmol/L (136-145)
[2023-06-01 23:28] LABS: MANUAL DIFFERENTIAL MANUAL DIFFERENTIAL (MANUAL DIFF)
[2023-06-01 23:29] LABS: Alanine Aminotransferase 18 U/L (12-78); Alkaline Phosphatase 185 U/L (38-126); Aspartate Amino Transferase 30 U/L (17-59); Bilirubin,Total 0.8 mg/dl (0.2-1.3); Blood Urea Nitrogen 10 mg/dl (9-20); Creatinine Clearance Estimated 70 mL/min (50-200); Estimated Glomerular Filt Rate 83 ml/min (>60); GFR (African American) 100 ML/MIN (>60)
[2023-06-01 23:30] VITALS: BP 137/70; PULSE 69; O2SAT 94
[2023-06-01 23:30] LABS: Albumin Level 4.2 g/dl (3.5-5.0); Albumin/Globulin Ratio 1.3 (1.1-1.8); Anion Gap 10.7 mEq/L (5-15); Calcium 8.9 mg/dl (8.4-10.2); Carbon Dioxide 28 mmol/L (22.0-30.0); Globulin 3.3 g/dL (1.3-3.2); Glucose 105 mg/dl (74-100); Total Protein,Serum 7.5 g/dl (6.3-8.2)
--- NOTE | 2023-06-01 23:34 | HMH.EDGENADL ---
Discharge Plan Disposition Patient Disposition: Home, Self-Care Prescriptions Prescriptions: No Action atorvastatin 40 mg tablet 40 mg PO HS aspirin [Adult Low Dose Aspirin] 81 mg tablet,delayed release (DR/EC) 81 mg PO DAILY Qty: 100 12RF nitroglycerin 0.4 mg tablet, sublingual 0.4 mg sublingual Q5M PRN (Reason: chest pain) Qty: 10 3RF Rx Instructions: do not exceed 3 doses per episode isosorbide mononitrate 30 mg tablet extended release 24 hr 30 mg PO BID mupirocin 2 % ointment 1 applic topical BID Qty: 22 0RF amitriptyline 25 mg tablet 25 mg PO HS 30 Days Qty: 30 2RF alendronate 10 mg tablet 10 mg PO DAILY 30 Days Qty: 30 2RF insulin aspart U-100 [Novolog FlexPen U-100 Insulin] 100 unit/mL (3 mL) insulin pen 7 unit SQ TID 30 Days Qty: 15 3RF (DME) pen needle, diabetic [Droplet Pen Needle] 31 gauge x 5/16 needle See Rx Instructions .ROUTE .COMPLEX Qty: 100 0RF Dose Instruction: USE DIRECTED Rx Instructions: USE DIRECTED clopidogrel 75 mg tablet See Rx Instructions .ROUTE .COMPLEX Qty: 90 0RF Dose Instruction: TAKE 1 TABLET EVERY DAY Rx Instructions: TAKE 1 TABLET EVERY DAY insulin glargine [Lantus Solostar U-100 Insulin] 100 unit/mL (3 mL) insulin pen 35 unit SQ DAILY Qty: 15 2RF levothyroxine 50 mcg tablet See Rx Instructions .ROUTE .COMPLEX Qty: 90 1RF Dose Instruction: TAKE 1 TABLET EVERY DAY FOR HYPOTHYROIDISM Rx Instructions: TAKE 1 TABLET EVERY DAY FOR HYPOTHYROIDISM metoprolol succinate 25 mg tablet extended release 24 hr See Rx Instructions .ROUTE .COMPLEX Qty: 90 0RF Dose Instruction: TAKE 1 TABLET EVERY DAY Rx Instructions: TAKE 1 TABLET EVERY DAY ergocalciferol (vitamin D2) 1,250 mcg (50,000 unit) capsule See Rx Instructions .ROUTE .COMPLEX Qty: 13 10RF Dose Instruction: TAKE 1 CAPSULE EVERY WEEK Rx Instructions: TAKE 1 CAPSULE EVERY WEEK tamsulosin 0.4 mg capsule See Rx Instructions .ROUTE .COMPLEX Qty: 30 0RF Dose Instruction: TAKE ONE CAPSULE BY MOUTH EVERY DAY Rx Instructions: TAKE ONE CAPSULE BY MOUTH EVERY DAY finasteride [Proscar] 5 mg tablet 5 mg PO DAILY Qty: 30 1RF oxycodone 15 mg tablet 15 mg PO Q4H MDD No> than 5 per day PRN (Reason: cancer pain) 30 Days Qty: 150 0RF lisinopril 5 mg tablet 5 mg PO DAILY Rx Instructions: TAKE 1 TABLET EVERY DAY Referrals Follow up/Referrals: Jordi Bowden DO [Primary Care Provider] - See instructions Activity Restrictions/Add. Instructions Additional Instructions/Restrictions: Please follow-up with your primary care provider. Please return to the emergency department if you develop any new or worsening symptoms or become concerned for your health. Clinical Impressions Clinical Impression: Tiredness Chest pain Qualifiers: Chest pain type: unspecified Qualified Code(s): R07.9 - Chest pain, unspecified Discharge ED Provider: Alfred Main Adult HPI General Chief complaint: Shortness of Breath/Dyspnea Stated complaint: SOA Time Seen by Provider: 06/01/23 23:08 Mode of Arrival: Wheelchair Source of Information: Patient Limitations: No Limitations Description of Symptoms (Recalled from ER Triage Doc. by RN): Pt arrives to ED via wheelchair with C/O SOA starting @4-5pm today. Pt states he believes this is related to his new medication he started today- alendronate. Pt reports worsening SOA with exertion. Pt states nothing makes it better. Pt denies CP History of Present Illness HPI narrative: 73-year-old male, history of type 1 diabetes presents with increased sleepiness. He reports that he started on a medication called alendronate yesterday and he is concerned that his symptoms may be result of that. He reports that he feels more drowsy than normal and that when he awakes he sometimes gasp for air. He reports chronic cough for the last year. No recent changes. He reports no recent fever or illness. Patient initially denies chest pain. Related Data Home Medications Medication Instructions Recorded Confirmed atorvastatin 40 mg tablet 40 mg PO HS Cholesterol 05/04/22 05/27/23 lisinopril 5 mg tablet 5 mg PO DAILY Hypertension 05/11/22 05/27/23 isosorbide mononitrate 30 mg 30 mg PO BID 03/06/23 05/27/23 tablet,extended release 24 hr Previous Rx's Medication Instructions Recorded aspirin 81 mg tablet,delayed 81 mg PO DAILY [facility] [employer] #100 01/16/22 release (Adult Low Dose Aspirin) tabs nitroglycerin 0.4 mg sublingual 0.4 mg sublingual Q5M PRN chest 01/16/22 tablet pain #10 tabs insulin aspart U-100 100 unit/mL 7 unit (0.07 mL) SQ TID Diabetes 06/14/22 (3 mL) subcutaneous pen (Novolog 30 days #15 mL FlexPen U-100 Insulin aspart) pen needle, diabetic 31 gauge x #100 ea 10/29/22 5/16 (Droplet Pen Needle) clopidogrel 75 mg tablet See Rx Instructions .Route 11/08/22 .COMPLEX #90 tabs insulin glargine 100 unit/mL (3 35 unit (0.35 mL) SQ DAILY #15 mL 12/21/22 mL) subcutaneous pen (Lantus Solostar U-100 Insulin) levothyroxine 50 mcg tablet See Rx Instructions .Route 01/04/23 .COMPLEX #90 tabs metoprolol succinate 25 mg See Rx Instructions .Route 02/04/23 tablet,extended release 24 hr .COMPLEX #90 tabs ergocalciferol (vitamin D2) 1,250 See Rx Instructions .Route 02/20/23 mcg (50,000 unit) capsule .COMPLEX #13 caps mupirocin 2 % topical ointment 1 applic topical BID #22 grams 03/06/23 tamsulosin 0.4 mg capsule See Rx Instructions .Route 03/15/23 .COMPLEX #30 caps finasteride 5 mg tablet (Proscar) 5 mg PO DAILY #30 tabs 04/16/23 alendronate 10 mg tablet 10 mg PO DAILY 30 days #30 tabs 05/01/23 amitriptyline 25 mg tablet 25 mg PO HS 30 days #30 tabs 05/01/23 oxycodone 15 mg tablet 15 mg PO Q4H PRN cancer pain 30 05/27/23 days #150 tabs Allergies Allergy/AdvReac Type Severity Reaction Status Date / [facility] All[facility] Verified 05/27/23 13:23 adhesive AdvReac Mild Blister Verified 05/27/23 13:23 [facility] Disclaimer: The information contained in this section may have been updated after the patient was seen, as this information can be updated by other users. Medical History Abnormal resting ECG findings Coronary artery disease Patient is following with cardiology. Degenerative joint disease of both hips Diabetes mellitus type 1 History of cataract History of left heart catheterization Hyperlipidemia LV dysfunction Osteopenia Vitamin D deficiency Will check a vitamin D level today. Patient is currently taking vitamin D2 every week. He is not taking any calcium supplements. Additionally he has osteoporosis by bone densitometry done a couple of years ago. Will place him back on alendronate 10 mg/day and increase this dose as tolerated. Will get a bone density at his next visit. Surgical History History of cholecystectomy History of tonsillectomy Family History Other Vitamin D deficiency Social History Smoking Status: Current every day smoker tobacco type: cigarettes packs per day: 1 second hand exposure: No alcohol intake: never counseling provided: none substance use type: denies use current occupational status: retired and other Travel in the last 8 weeks: None household members: none housing: house current occupational exposures/hazards: No caffeine: Yes ROS Obtained: Yes All systems reviewed & no additional complaints except as documented Physical Exam General General appearance: alert and in no apparent distress Head Head exam: atraumatic and normocephalic Eye Eye exam: Present normal appearance, PERRL and EOMI ENT ENT exam: Present normal oropharynx and normal external ear exam Neck Neck exam: Present normal inspection and full ROM Chest Chest inspection: Present normal inspection and symmetric chest wall rise; Absent tenderness Respiratory Respiratory exam: Present normal lung sounds bilaterally; Absent respiratory distress Cardiovascular Cardiovascular exam: Present regular rate and normal rhythm Abdominal Exam Abdominal exam: Present soft; Absent distention, tenderness or guarding Extremities Exam Extremities exam: Present normal inspection; Absent edema or joint swelling Back Exam Back exam: Present normal inspection; Absent tenderness Neurological Exam Neurological exam: Present alert and oriented X3; Absent motor sensory deficit Psychiatric Psychiatric exam: Present normal affect and normal mood Skin Skin exam: Present warm, dry and normal color Lymphatic Lymphatic Findings: no adenopathy Medical Decision Making Medical Records Medical records reviewed: Yes I reviewed the patient's medical records. Syd Inquiry Pt receiving controlled substance: No Syd was queried for this patient: No Vital Signs: 06/01/23 23:04 06/01/23 22:54 06/01/23 23:30 Temperature 99.1 F Temperature Source Oral Pulse Rate 73 69 Pulse Rate [Left Radial] 74 Respiratory Rate 20 Blood Pressure 153/75 H 137/70 Blood Pressure [Right Arm] 153/75 H Blood Pressure Mean Blood Pressure Mean [Right Arm] 101 Blood Pressure Source [Right Arm] Automatic Cuff Blood Pressure Position [Right Arm] Sitting 02 Sat by Pulse Oximetry 94 L 94 L 94 L Oxygen Delivery Method Room Air 06/01/23 23:40 06/02/23 00:00 06/02/23 00:20 Temperature Temperature Source Pulse Rate 69 67 66 Pulse Rate [Left Radial] Respiratory Rate Blood Pressure 136/65 131/69 125/64 Blood Pressure [Right Arm] Blood Pressure Mean 88 89 96 Blood Pressure Mean [Right Arm] Blood Pressure Source [Right Arm] Blood Pressure Position [Right Arm] 02 Sat by Pulse Oximetry 96 95 96 Oxygen Delivery Method 06/02/23 00:40 06/02/23 01:01 06/02/23 01:20 Temperature Temperature Source Pulse Rate 66 65 72 Pulse Rate [Left Radial] Respiratory Rate Blood Pressure 144/72 H 152/77 H 155/76 H Blood Pressure [Right Arm] Blood Pressure Mean 96 102 102 Blood Pressure Mean [Right Arm] Blood Pressure Source [Right Arm] Blood Pressure Position [Right Arm] 02 Sat by Pulse Oximetry 98 98 98 Oxygen Delivery Method 06/02/23 01:41 06/02/23 02:00 06/02/23 03:23 Temperature 98.3 F Temperature Source Oral Pulse Rate 75 70 69 Pulse Rate [Left Radial] Respiratory Rate 20 Blood Pressure 129/62 137/57 L 114/54 L Blood Pressure [Right Arm] Blood Pressure Mean 94 94 Blood Pressure Mean [Right Arm] Blood Pressure Source [Right Arm] Blood Pressure Position [Right Arm] 02 Sat by Pulse Oximetry 96 98 Oxygen Delivery Method Room Air Lab Data Lab results reviewed: Yes I reviewed the patient's lab results. Lab Results 06/01/23 23:04: WBC 15.1 H, RBC 4.94, Hgb 15.4, Hct 46.2, MCV 93.6, MCH 31.3 H, MCHC 33.4, RDW 14.5, Plt Count 261, MPV 9.6, Neut % (Auto) 87.6 H, Lymph % (Auto) 5.7 L, D[place]y % (Auto) 5.2, Eos % (Auto) 1.4, Baso % (Auto) 0.2, Neut # (Auto) 13.3 H, Lymph # (Auto) 0.9, D[place]y # (Auto) 0.8, Eos # (Auto) 0.2, Baso # (Auto) 0.0, Total Counted 100, Neutrophils % (Manual) 90 H, Lymphocytes % (Manual) 8 L, Monocytes % (Manual) 1 L, Eosinophils % (Manual) 1, Platelet Estimate Normal, RBC Morphology Normal, Sodium 130 L, Potassium 4.7, Chloride 96 L, Carbon Dioxide 28, Anion Gap 10.7, BUN 10, Creatinine 0.90, Estimated Creat Clear 70, Estimated GFR 83, Est GFR ( Amer) 100, Glucose 105 H, Calcium 8.9, Total Bilirubin 0.8, AST 30, ALT 18, Alkaline Phosphatase 185 H, Troponin I < 0.01, Total Protein 7.5, Albumin 4.2, Globulin 3.3 H, Albumin/Globulin Ratio 1.3 06/02/23 02:23: Troponin I < 0.01 06/01/23 23:04 06/01/23 23:04 Orders (Tests/Meds): ORDERS Category Date Time Status CXR --portable [XR chest portable] Stat Exams 06/01/23 23:16 Completed CBC w/Auto Diff [Complete Blood Count Auto Diff] Stat Lab 06/01/23 23:04 Completed CMP [Comprehensive Metabolic Panel] Stat Lab 06/01/23 23:04 Completed Trop I [Troponin I] Stat Lab 06/02/23 02:17 Completed Troponin I Q3H Lab 06/02/23 02:23 Completed Troponin I Q3H Lab 06/02/23 08:30 Ordered 12-lead EKG Request [ECG Request] Stat Y 06/02/23 00:30 Ordered ECG initial Besson Routine Y 06/01/23 23:04 Completed HEART Score History (anamnesis): Slightly suspicious ECG: Non-specific disturbance Age: >65 years Risk factors: 3 or more risk factors Troponin: </= normal limit HEART Score: 5 Medical Decision Narrative: 73-year-old male with history of type 1 diabetes, coronary artery disease, etc presents with 1 day of tiredness and intermittent shortness of breath at home after starting alendronate for osteoporosis yesterday.. History was obtained via conversation with patient. On arrival, patient is [afebrile, hemodynamically stable, satting appropriately, alert, oriented x4, GCS 15], moving all extremities spontaneously. Full physical exam performed and significant for no physical exam abnormalities. Differential includes but is not limited to medication side effect, hypoglycemia, DKA, COVID, flu, pneumonia, ACS. Patient declined any medication intervention. Workup initiated including CBC CMP chest x-ray. On re-evaluation, patient [remains afebrile, HD stable.] I reported patient that his workup was normal and that he was appropriate for discharge, at this point he reported that he in fact has been having chest pain for at least the last several hours. He had previously denied chest pain. Given this, a troponin was drawn from the patient's initial blood sample, a repeat 3-hour troponin was also drawn. Laboratory workup independently interpreted by me and significant for mild hyponatremia, stable from prior. Mild leukocytosis with white count of 15, no significant electrolyte derangement, glucose 105, normal calcium. Troponin negative x 2. Imaging independently interpreted by me and significant for clear lungs bilaterally without evidence of focal opacity or pneumothorax. See radiology read for full review of final results. EKG independently interpreted by me and significant for sinus rhythm with occasional PVCs, rate of 71, no significant ST elevation or depression.. Admission for chest pain was considered, but deemed unnecessary due to negative troponin x 2. Given patient history, exam and workup, the underlying etiology of patient's symptoms are not entirely clear, however there is no emergent pathology noted on workup. These findings were communicated to patient and he was discharged in stable condition with instructions to follow-up with PCP. Procedures Risk/Benefits of Procedure(s) Were Explained: Yes Critical Care Critical Care Time Critical Care Time: No
[2023-06-01 23:40] VITALS: BP 136/65; PULSE 69; O2SAT 96
[2023-06-01 23:44] LABS: Eosinophils % 1 % (0-3); Lymphocytes % 8 % (10-50); Monocytes % 1 % (2-9); Neutrophils % 90 % (42-76); Platelet Estimate Normal; RBC Morphology Normal; Total Cells Counted 100
[2023-06-02] VITALS (8 sets, daily range): BP systolic 114–155; BP diastolic 54–77; PULSE 65–75; RESP 20; TEMP 36.8; O2SAT 95–98
[2023-06-02 02:41] LABS: Troponin I < 0.01 ng/ml (0.00-0.034)
[2023-06-02 02:49] LABS: Troponin I < 0.01 ng/ml (0.00-0.034)
== END 2023-06-02 03:56 | disposition home or self-care (01) ==
PROVIDERS: Emergency Provider Emergency Medicine; PCP Internal Medicine
DX: R06.02 Shortness of breath (principal); R53.83 Other fatigue; R05.3 Chronic cough; E87.1 Hypo-osmolality and hyponatremia; I49.3 Ventricular premature depolarization; E10.9 Type 1 diabetes mellitus without complications; I25.10 Atherosclerotic heart disease of native coronary artery without angina pectoris; E78.5 Hyperlipidemia, unspecified; M85.80 Other specified disorders of bone density and structure, unspecified site; F17.210 Nicotine dependence, cigarettes, uncomplicated
CPT/HCPCS: 71045; 80053; 84484; 85007; 85025; 93005; 99285

== ENCOUNTER 2023-06-04 16:33 | Outpatient (CLI) | payer MEDICARE, SELFPAY ==
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
== END 2023-06-04 23:59 ==
LOC: RAD 16:34
PROVIDERS: PCP Internal Medicine; Visit Provider Internal Medicine
DX: G89.29 Other chronic pain (principal); M54.16 Radiculopathy, lumbar region; M54.9 Dorsalgia, unspecified; M54.50 Low back pain, unspecified
CPT/HCPCS: 72148; 76376

== ENCOUNTER 2023-06-15 19:50 | Observation (INO) | payer MEDICARE, SELFPAY ==
[2023-06-15 19:50] VITALS: BP 125/66; PULSE 79; RESP 15; TEMP 36.6; O2SAT 97; BMI 24.4
--- NOTE | 2023-06-15 19:53 | ECG_ITS ---
APPROVED REPORT Exam: Resting ECG HR:79 bpm ECG Measurements Heart Rate 79 AXES CA 147 P 72 QRSd 109 QRS 32 QT 404 T 69 QTc 438 Conclusion SINUS RHYTHM Late R wave pgoression ABNORMAL ECG UNCONFIRMED REPORT Electronically signed by : Ok Casas MD 06/16/2023 14:32:12
--- NOTE | 2023-06-15 20:03 | HMH.EDGENADL ---
Discharge Plan Disposition Chief Complaint: Weakness Prescriptions Prescriptions: No Action atorvastatin 40 mg tablet 40 mg PO HS aspirin [Adult Low Dose Aspirin] 81 mg tablet,delayed release (DR/EC) 81 mg PO DAILY Qty: 100 12RF nitroglycerin 0.4 mg tablet, sublingual 0.4 mg sublingual Q5M PRN (Reason: chest pain) Qty: 10 3RF Rx Instructions: do not exceed 3 doses per episode isosorbide mononitrate 30 mg tablet extended release 24 hr 30 mg PO BID mupirocin 2 % ointment 1 applic topical BID Qty: 22 0RF amitriptyline 25 mg tablet 25 mg PO HS 30 Days Qty: 30 2RF alendronate 10 mg tablet 10 mg PO DAILY 30 Days Qty: 30 2RF insulin aspart U-100 [Novolog FlexPen U-100 Insulin] 100 unit/mL (3 mL) insulin pen 7 unit SQ TID 30 Days Qty: 15 3RF (DME) pen needle, diabetic [Droplet Pen Needle] 31 gauge x 5/16 needle See Rx Instructions .ROUTE .COMPLEX Qty: 100 0RF Dose Instruction: USE DIRECTED Rx Instructions: USE DIRECTED insulin glargine [Lantus Solostar U-100 Insulin] 100 unit/mL (3 mL) insulin pen 35 unit SQ DAILY Qty: 15 2RF levothyroxine 50 mcg tablet See Rx Instructions .ROUTE .COMPLEX Qty: 90 1RF Dose Instruction: TAKE 1 TABLET EVERY DAY FOR HYPOTHYROIDISM Rx Instructions: TAKE 1 TABLET EVERY DAY FOR HYPOTHYROIDISM metoprolol succinate 25 mg tablet extended release 24 hr See Rx Instructions .ROUTE .COMPLEX Qty: 90 0RF Dose Instruction: TAKE 1 TABLET EVERY DAY Rx Instructions: TAKE 1 TABLET EVERY DAY ergocalciferol (vitamin D2) 1,250 mcg (50,000 unit) capsule See Rx Instructions .ROUTE .COMPLEX Qty: 13 10RF Dose Instruction: TAKE 1 CAPSULE EVERY WEEK Rx Instructions: TAKE 1 CAPSULE EVERY WEEK tamsulosin 0.4 mg capsule See Rx Instructions .ROUTE .COMPLEX Qty: 30 0RF Dose Instruction: TAKE ONE CAPSULE BY MOUTH EVERY DAY Rx Instructions: TAKE ONE CAPSULE BY MOUTH EVERY DAY finasteride [Proscar] 5 mg tablet 5 mg PO DAILY Qty: 30 1RF oxycodone 15 mg tablet 15 mg PO Q4H MDD No> than 5 per day PRN (Reason: cancer pain) 30 Days Qty: 150 0RF clopidogrel 75 mg tablet See Rx Instructions .ROUTE .COMPLEX Qty: 90 0RF Dose Instruction: TAKE 1 TABLET EVERY DAY Rx Instructions: TAKE 1 TABLET EVERY DAY lisinopril 5 mg tablet 5 mg PO DAILY Rx Instructions: TAKE 1 TABLET EVERY DAY Referrals Follow up/Referrals: Jordi Bowden DO [Primary Care Provider] - See instructions Discharge ED Provider: Gus Monge General Adult HPI General Chief complaint: Weakness Stated complaint: weakness Time Seen by Provider: 06/15/23 19:54 Mode of Arrival: EMS Source of Information: Patient Limitations: No Limitations Description of Symptoms (Recalled from ER Triage Doc. by RN): 73 yo male presents with CC of general malaise, fatigue, accompanied by ongoing nausea. Patient is afebrile. Patient states he has had continuing issues despite multiple visits to the hospital. Denies angina, denies dyspnea. Former smoker. Denies cough/congestion. Denies CARTER. States when he tries to stand up he is near-syncopal and needs assist. Lives alone. DM with a blood sugar of 343 mg/dl upon EMS arrival. This is second EMS response to him today. History of Present Illness HPI narrative: Patient is a 73-year-old male with multiple comorbidities including insulin-dependent diabetes, hyperlipidemia, neuropathy, atrial fibrillation, hypertension, previous chest pain who presents emergency department for evaluation of weakness. Onset was acute, over the last few days, global. Patient has difficulty completing his activities of daily living at home for which he normally gets around just fine with a cane. Denies chest pain, cough, shortness of breath. He has had 1 ground-level fall onto his right side, no LOC, did not strike his head. Patient becomes lightheaded upon standing, no true syncope. No other acute complaints at this time. Related Data Home Medications Medication Instructions Recorded Confirmed atorvastatin 40 mg tablet 40 mg PO HS Cholesterol 05/04/22 05/27/23 lisinopril 5 mg tablet 5 mg PO DAILY Hypertension 05/11/22 05/27/23 isosorbide mononitrate 30 mg 30 mg PO BID 03/06/23 05/27/23 tablet,extended release 24 hr Previous Rx's Medication Instructions Recorded aspirin 81 mg tablet,delayed 81 mg PO DAILY [employer] #100 01/16/22 release (Adult Low Dose Aspirin) tabs nitroglycerin 0.4 mg sublingual 0.4 mg sublingual Q5M PRN chest 01/16/22 tablet pain #10 tabs insulin aspart U-100 100 unit/mL 7 unit (0.07 mL) SQ TID Diabetes 06/14/22 (3 mL) subcutaneous pen (Novolog 30 days #15 mL FlexPen U-100 Insulin aspart) pen needle, diabetic 31 gauge x #100 ea 10/29/22 5/16 (Droplet Pen Needle) insulin glargine 100 unit/mL (3 35 unit (0.35 mL) SQ DAILY #15 mL 12/21/22 mL) subcutaneous pen (Lantus Solostar U-100 Insulin) levothyroxine 50 mcg tablet See Rx Instructions .Route 01/04/23 .COMPLEX #90 tabs metoprolol succinate 25 mg See Rx Instructions .Route 02/04/23 tablet,extended release 24 hr .COMPLEX #90 tabs ergocalciferol (vitamin D2) 1,250 See Rx Instructions .Route 02/20/23 mcg (50,000 unit) capsule .COMPLEX #13 caps mupirocin 2 % topical ointment 1 applic topical BID #22 grams 03/06/23 tamsulosin 0.4 mg capsule See Rx Instructions .Route 03/15/23 .COMPLEX #30 caps finasteride 5 mg tablet (Proscar) 5 mg PO DAILY #30 tabs 04/16/23 alendronate 10 mg tablet 10 mg PO DAILY 30 days #30 tabs 05/01/23 amitriptyline 25 mg tablet 25 mg PO HS 30 days #30 tabs 05/01/23 oxycodone 15 mg tablet 15 mg PO Q4H PRN cancer pain 30 05/27/23 days #150 tabs clopidogrel 75 mg tablet See Rx Instructions .Route 06/03/23 .COMPLEX #90 tabs Allergies Allergy/AdvReac Type Severity Reaction Status Date / Time nicotine [From [facility]] Allergy Verified 05/27/23 13:23 adhesive AdvReac Mild Blister Verified 05/27/23 13:23 [facility] Disclaimer: The information contained in this section may have been updated after the patient was seen, as this information can be updated by other users. Medical History Abnormal resting ECG findings Coronary artery disease Patient is following with cardiology. Degenerative joint disease of both hips Diabetes mellitus type 1 History of cataract History of left heart catheterization Hyperlipidemia LV dysfunction Osteopenia Vitamin D deficiency Will check a vitamin D level today. Patient is currently taking vitamin D2 every week. He is not taking any calcium supplements. Additionally he has osteoporosis by bone densitometry done a couple of years ago. Will place him back on alendronate 10 mg/day and increase this dose as tolerated. Will get a bone density at his next visit. Surgical History History of cholecystectomy History of tonsillectomy Family History Other Vitamin D deficiency Social History Smoking Status: Unknown if ever smoked second hand exposure: No alcohol intake: never counseling provided: none substance use type: denies use current occupational status: retired and other Travel in the last 8 weeks: None household members: none housing: house current occupational exposures/hazards: No caffeine: Yes ROS Obtained: Yes Systems reviewed as appropriate & no additional complaints except as documented Physical Exam General General appearance: alert and in no apparent distress Head Head exam: atraumatic and normocephalic Eye Eye exam: Present PERRL ENT ENT exam: Present mucous membranes moist Neck Neck exam: Present normal inspection Chest Chest inspection: Present normal inspection and symmetric chest wall rise Respiratory Respiratory exam: Present normal lung sounds bilaterally; Absent respiratory distress Cardiovascular Cardiovascular exam: Present regular rate and normal rhythm Abdominal Exam Abdominal exam: Present soft; Absent tenderness Extremities Exam Extremities exam: Present normal inspection Neurological Exam Neurological exam: Present alert and CN II-XII intact; Absent motor sensory deficit Psychiatric Psychiatric exam: Present normal affect Skin Skin exam: Present warm and dry Medical Decision Making Syd Inquiry Pt receiving controlled substance: No Vital Signs: 06/15/23 19:50 06/15/23 20:07 06/15/23 21:02 Temperature 97.8 F Temperature Source Oral Pulse Rate 69 Pulse Rate [Orthostatic Lying Left] 79 Pulse Rate [Orthostatic Sitting Left] 81 Pulse Rate [Orthostatic Standing Left] 82 Pulse Rate [Right Brachial] 79 Respiratory Rate 15 Blood Pressure 148/69 H Blood Pressure [Orthostatic Lying Right Arm] 146/70 H Blood Pressure [Orthostatic Sitting Right Arm] 135/69 Blood Pressure [Orthostatic Standing Right Arm] 115/65 Blood Pressure [Right Arm] 125/66 Blood Pressure Mean [Right Arm] 85 Blood Pressure Source [Right Arm] Automatic Cuff Blood Pressure Position [Right Arm] Sitting 02 Sat by Pulse Oximetry 97 97 Oxygen Delivery Method Room Air Lab Data Lab Results 06/15/23 19:54: WBC 11.8 H, RBC 5.17, Hgb 16.0, Hct 49.5, MCV 95.8 H, MCH 30.9, MCHC 32.2, RDW 14.5, Plt Count 373, MPV 10.0, Neut % (Auto) 77.4, Lymph % (Auto) 14.0, [place] % (Auto) 7.5, Eos % (Auto) 0.9, Baso % (Auto) 0.2, Neut # (Auto) 9.1 H, Lymph # (Auto) 1.7, [place] # (Auto) 0.9, Eos # (Auto) 0.1, Baso # (Auto) 0.0, Sodium 126 L, Potassium 4.7, Chloride 88 L, Carbon Dioxide 19 L, Anion Gap 23.7 H, BUN 17, Creatinine 1.30 H, Estimated Creat Clear 57, Estimated GFR 54 L, Est GFR ( Amer) 65, Glucose 355 H, Calcium 8.5, Magnesium 2.0, Total Bilirubin 1.0, AST 28, ALT 19, Alkaline Phosphatase 184 H, Troponin I 0.01, Total Protein 6.8, Albumin 3.7, Globulin 3.1, Albumin/Globulin Ratio 1.2, Acetone Level Small 06/15/23 20:00: SARS-CoV-2 (PCR) Not detected, Influenza A Untype (PCR) Not detected, Influenza Type B (PCR) Not detected 06/15/23 21:16: VBG pH 7.30 L, VBG pCO2 35.4, VBG pO2 27.9 L, VBG HCO3 17.0 L, VBG Total CO2 18.1 L, VBG O2 Saturation 49.9 L, VBG Base Excess -9.4 L 06/15/23 19:54 06/15/23 19:54 Orders (Tests/Meds): ED MEDICATIONS Generic Name Dose Route Start Last Admin Trade Name Freq PRN Reason Stop Dose Admin Sodium Chloride 1,000 mls @ 150 mls/hr 06/15/23 21:45 Sod Chlor 0.9% 1000ml Bag IV 07/15/23 21:44 .Q6H40M OG Insulin Human Regular 100 unit 101 mls @ 8.017 mls/hr 06/15/23 21:45 / Sodium Chloride IV 07/15/23 21:44 .[id number] OG Protocol 0.1 UNITS/KG/HR Discontinued Medications Generic Name Dose Route Start Last Admin Trade Name Arely PRN Reason Stop Dose Admin Lactated Ringer's 1,000 mls @ 999 mls/hr 06/15/23 20:10 06/15/23 20:14 Lactated Ringer's 1000 Ml Bag IV 06/15/23 21:10 999 mls/hr .Q1H1M ONE Administration ORDERS Category Date Time Status Acetone, Serum (Rapid) Stat Lab 06/15/23 19:54 Completed Basic Metabolic Panel Q12H Lab 06/16/23 06:00 Ordered Basic Metabolic Panel Q12H Lab 06/16/23 18:00 Ordered Basic Metabolic Panel Q12H Lab 06/17/23 06:00 Ordered Basic Metabolic Panel Q4H Lab 06/15/23 21:45 Ordered Basic Metabolic Panel Q4H Lab 06/16/23 01:45 Ordered Basic Metabolic Panel Q4H Lab 06/16/23 05:45 Ordered Basic Metabolic Panel Q4H Lab 06/16/23 09:45 Ordered CBC w/Auto Diff [Complete Blood Count Auto Diff] Stat Lab 06/15/23 19:54 Completed CMP [Comprehensive Metabolic Panel] Stat Lab 06/15/23 19:54 Completed MG [Magnesium] Stat Lab 06/15/23 19:54 Completed Rapid PCR Covid and Flu A/B Stat Lab 06/15/23 20:00 Completed Trop I [Troponin I] Stat Lab 06/15/23 19:54 Completed Troponin I Q3H Lab 06/15/23 23:15 Ordered Troponin I Q3H Lab 06/16/23 02:15 Ordered UA [Urinalysis and Microscopic] Stat Lab 06/15/23 19:54 Ordered VBG [Venous Blood Gas] Stat RT 06/15/23 21:16 Completed ECG Data Tracing #1: Independently interpreted by me, rate is 79, rhythm is regular, no ST elevation in anatomical contiguous leads, QTc 438, persistent Q waves in septal leads evidence of prior. HEART Score History (anamnesis): Slightly suspicious ECG: Non-specific disturbance Age: >65 years Risk factors: 3 or more risk factors Troponin: </= normal limit HEART Score: 5 Medical Decision Narrative: In summary patient is a 73-year-old male with past medical history described above presents emergency department for evaluation of global weakness. Patient is hemodynamically stable nontoxic-appearing upon arrival, afebrile. Differential diagnosis includes critical electrolyte abnormality, urinary tract infection, DKA, silent ACS, among others. Patient does have orthostasis with systolic dropping by 30 points upon standing. Workup will be conducted with hematologic labs, urinalysis, viral swab. Initial inventions include crystalloid bolus. Workup reviewed by me, hematologic labs are initially remarkable for significantly elevated anion gap, moderate hyperglycemia, small amount of acetone, pH 7.3 with low bicarb. Patient meets definition of mild DKA, his sodium is 126 with a creatinine of 1.3 that does not meet JOSEPH per rifle criteria although it is close. DKA protocol will be initiated. Initial troponin 0.01, no chest pain or ischemic changes on EKG so will be trended. Viral swab negative. Patient is afebrile without significant white count, doubt sepsis or infection as inciting source. Given global weakness, hyponatremia, DKA, orthostasis Case was discussed with hospital medicine regarding management and patient will be admitted to their service for continued evaluation at this time Critical Care Critical Care Time Critical Care Time: Yes Attestation: On 06/15/23, the high probability of a clinically significant, sudden or life threatening deterioration of the following system(s) required my full and direct attention, intervention and personal management. The time I documented below is in addition to time spent performing reported procedures but includes the following listed in this critical care notation. Total Time Total Critical Care Time: 35
[2023-06-15 20:04] LABS: Basophils % 0.2 % (0.1-2.0); Eosinophils # 0.1 K/mm3 (0.0-0.4); Eosinophils % 0.9 % (0.1-12.0); Hematocrit 49.5 % (42.0-52.0); Lymphocytes # 1.7 K/mm3 (0.7-4.5); Mean Corpuscular HGB Conc 32.2 g/dL (31.8-35.4); Mean Corpuscular Hemoglobin 30.9 pg (27.0-31.2); Mean Corpuscular Volume 95.8 fl (80-94); Monocytes # 0.9 K/mm3 (0.1-1.0); Monocytes % 7.5 % (1.7-9.3); Neutrophils # 9.1 K/mm3 (1.8-7.8); Neutrophils % 77.4 % (37.0-80.0); Platelet Count 373 K/mm3 (142-424); Red Blood Count 5.17 M/mm3 (4.60-6.20); Red Cell Distribution Width 14.5 % (11.5-17.5); White Blood Count 11.8 K/mm3 (4.8-10.8)
[2023-06-15 20:07] VITALS: BP 115/65; BP 135/69; BP 146/70; PULSE 79; PULSE 81; PULSE 82
[2023-06-15 20:08] LABS: Chloride 88 mmol/L (98-107); Sodium 126 mmol/L (136-145)
[2023-06-15 20:09] LABS: Potassium 4.7 mmoL/L (3.5-5.1)
[2023-06-15 20:11] LABS: Alanine Aminotransferase 19 U/L (12-78); Albumin Level 3.7 g/dl (3.5-5.0); Albumin/Globulin Ratio 1.2 (1.1-1.8); Alkaline Phosphatase 184 U/L (38-126); Anion Gap 23.7 mEq/L (5-15); Aspartate Amino Transferase 28 U/L (17-59); Blood Urea Nitrogen 17 mg/dl (9-20); Calcium 8.5 mg/dl (8.4-10.2); Carbon Dioxide 19 mmol/L (22.0-30.0); Creatinine Clearance Estimated 57 mL/min (50-200); Estimated Glomerular Filt Rate 54 ml/min (>60); GFR (African American) 65 ML/MIN (>60); Globulin 3.1 g/dL (1.3-3.2); Glucose 355 mg/dl (74-100); Total Protein,Serum 6.8 g/dl (6.3-8.2)
[2023-06-15] MEDS: LACTATED RINGERS 1000ML 1,000 ML 999 ML IV (20:14)
[2023-06-15 20:18] LABS: Coronavirus 19, PCR Not Detected (NotDetected); Influenza A, PCR Not Detected (NotDetected); Influenza B, PCR Not Detected (NotDetected)
[2023-06-15 20:46] LABS: Troponin I 0.01 ng/ml (0.00-0.034)
[2023-06-15 21:01] VITALS: BP 148/69; PULSE 72; RESP 20; O2SAT 98
[2023-06-15 21:02] VITALS: BP 148/69; PULSE 69; O2SAT 97
--- NOTE | 2023-06-15 21:17 | PC.NURSE ---
called lab, spoke with vance. called rad, spoke with will to notify of serum acetone and vbg
[2023-06-15 21:23] LABS: Acetone, Serum (Rapid) Small (None Detect)
--- NOTE | 2023-06-15 21:24 | PC.NURSE ---
attempted to have pt give ua for 2nd time. Pt states he can not urinate.
[2023-06-15 21:25] LABS: VBG Base Excess -9.4 mmol/L (-2.4-2.3); VBG Oxygen Saturation 49.9 % (50-70); VBG PCO2 35.4 mmol/L (35-51); VBG PO2 27.9 mmol/L (28-40); VBG Total CO2 18.1 mmol/L (23-27)
--- NOTE | 2023-06-15 21:45 | PC.NURSE ---
Called greenhouse or nursery transplanter at this time for admission. Pt being admitted for DKA
[2023-06-15 22:01] VITALS: BP 161/70; RESP 19; O2SAT 95
--- NOTE | 2023-06-15 22:21 | EXP.HP ---
History of Present Illness *Admission Date: 06/15/23 *Reason for visit:: DKA *History of present illness: This is a 73-year-old male with multiple comorbidities including but not limited to insulin-dependent diabetes, hyperlipidemia, neuropathy, atrial fibrillation, hypertension, CAD, Smoker, noncompliance who presented emergency department for evaluation of weakness, nauseas, malaise and fatigue. Patient is a poor historian and does not cooperated with the interview. History obtained mostly from ED discussion and documentation. Onset was acute, over the last few days, global. Patient expressed has difficulty completing his daily livings activities. patient is independent and just normally use a cane. Denies chest pain, cough, shortness of breath. He has had 1 ground-level fall onto his right side, no LOC, did not strike his head. Patient becomes lightheaded upon standing, no true syncope. No other acute complaints at this time. Admitted for further treatment [facility] Disclaimer: The information contained in this section may have been updated after the patient was seen, as this information can be updated by other users. Medical History Abnormal resting ECG findings Coronary artery disease Patient is following with cardiology. Degenerative joint disease of both hips Diabetes mellitus type 1 History of cataract History of left heart catheterization Hyperlipidemia LV dysfunction Osteopenia Vitamin D deficiency Will check a vitamin D level today. Patient is currently taking vitamin D2 every week. He is not taking any calcium supplements. Additionally he has osteoporosis by bone densitometry done a couple of years ago. Will place him back on alendronate 10 mg/day and increase this dose as tolerated. Will get a bone density at his next visit. Surgical History History of cholecystectomy History of tonsillectomy Family History Other Vitamin D deficiency Social History (Updated 06/16/23 @ 03:10 by Daija Arechiga RN) Smoking Status: Unknown if ever smoked second hand exposure: No alcohol intake: never counseling provided: none substance use type: denies use current occupational status: retired and other Travel in the last 8 weeks: None household members: none housing: house current occupational exposures/hazards: No caffeine: Yes Review of Systems Review of Systems Review of systems:: pertinent systems reviewed and negative unless documented below Meds Home Medications and Allergies Home Medications Medication Instructions Recorded Confirmed Type aspirin 81 mg tablet,delayed 81 mg PO DAILY heart health #100 01/16/22 06/16/23 Rx release (Adult Low Dose Aspirin) tabs atorvastatin 40 mg tablet 40 mg PO HS Cholesterol 05/04/22 06/16/23 History lisinopril 5 mg tablet 5 mg PO DAILY Hypertension 05/11/22 06/16/23 History insulin aspart U-100 100 unit/mL 7 unit (0.07 mL) SQ TID Diabetes 06/14/22 06/16/23 Rx (3 mL) subcutaneous pen (Novolog 30 days #15 mL FlexPen U-100 Insulin aspart) isosorbide mononitrate 30 mg 30 mg PO BID Chest Pain 03/06/23 06/16/23 History tablet,extended release 24 hr alendronate 10 mg tablet 10 mg PO DAILY Bone Loss 06/16/23 06/16/23 History amitriptyline 25 mg tablet 25 mg PO HS SLEEP 06/16/23 06/16/23 History clopidogrel 75 mg tablet 75 mg PO DAILY Blood Thinner 06/16/23 06/16/23 History ergocalciferol (vitamin D2) 1,250 1,250 mcg PO MO Bone Loss 06/16/23 06/16/23 History mcg (50,000 unit) capsule finasteride 5 mg tablet 5 mg PO DAILY PROSTATE 06/16/23 06/16/23 History insulin glargine 100 unit/mL (3 35 unit SQ HS Diabetes 06/16/23 06/16/23 History mL) subcutaneous pen (Lantus Solostar U-100 Insulin) levothyroxine 50 mcg tablet 50 mcg PO DAILYDM THYROID 06/16/23 06/16/23 History metoprolol succinate 25 mg 25 mg PO DAILY High Blood Pressure 06/16/23 06/16/23 History tablet,extended release 24 hr nitroglycerin 0.4 mg sublingual 0.4 mg sublingual Q5MINP PRN Chest 06/16/23 06/16/23 History tablet Pain oxycodone 15 mg tablet 15 mg PO 5XDAY PRN Severe Pain 06/16/23 06/16/23 History (Scale Score 7-10) New Prescriptions to Start Prescriptions: Allergies Allergy/AdvReac Type Severity Reaction Status Date / Time nicotine [From [facility]] Allergy Verified 05/27/23 13:23 adhesive AdvReac Mild Blister Verified 05/27/23 13:23 Exam Data for Last 24 hours Vital signs and Labs for Last 24 Hours: Temp Pulse Resp BP Pulse Ox O2 Del Method 97.8 F 69 15 148/69 H 97 Room Air 06/15/23 19:50 06/15/23 21:02 06/15/23 19:50 06/15/23 21:02 06/15/23 21:02 06/15/23 19:50 Laboratory Results - last 24 hr 06/15/23 19:54: WBC 11.8 H, RBC 5.17, Hgb 16.0, Hct 49.5, MCV 95.8 H, MCH 30.9, MCHC 32.2, RDW 14.5, Plt Count 373, MPV 10.0, Neut % (Auto) 77.4, Lymph % (Auto) 14.0, [place] % (Auto) 7.5, Eos % (Auto) 0.9, Baso % (Auto) 0.2, Neut # (Auto) 9.1 H, Lymph # (Auto) 1.7, [place] # (Auto) 0.9, Eos # (Auto) 0.1, Baso # (Auto) 0.0, Sodium 126 L, Potassium 4.7, Chloride 88 L, Carbon Dioxide 19 L, Anion Gap 23.7 H, BUN 17, Creatinine 1.30 H, Estimated Creat Clear 57, Estimated GFR 54 L, Est GFR ( Amer) 65, Glucose 355 H, Calcium 8.5, Magnesium 2.0, Total Bilirubin 1.0, AST 28, ALT 19, Alkaline Phosphatase 184 H, Troponin I 0.01, Total Protein 6.8, Albumin 3.7, Globulin 3.1, Albumin/Globulin Ratio 1.2, Acetone Level Small 06/15/23 20:00: SARS-CoV-2 (PCR) Not detected, Influenza A Untype (PCR) Not detected, Influenza Type B (PCR) Not detected 06/15/23 21:16: VBG pH 7.30 L, VBG pCO2 35.4, VBG pO2 27.9 L, VBG HCO3 17.0 L, VBG Total CO2 18.1 L, VBG O2 Saturation 49.9 L, VBG Base Excess -9.4 L I & O for Last 24 hours: Intake & Output 06/12/23 06/13/23 06/14/23 06/15/23 23:59 23:59 23:59 23:59 Weight 79.379 kg Constitutional Constitutional: mild distress, chronically ill appearing and disheveled *Routine HEENT Exam Head: Present normocephalic and atraumatic Eye: Present EOMI ENT: Present mucous membranes dry *Routine Neck Exam Neck: Present supple and full ROM *Routine Respiratory Exam Respiratory: Present accessory muscle use *Routine Cardiovascular Exam Cardiovascular: Present RRR, Normal S1 and Normal S2 *Routine Abdominal Exam Abdominal: Present soft and normoactive bowel sounds *Routine Rectal Exam Rectal:: deferred *Routine Genitalia Exam Genitalia:: deferred *Routine Extremities Exam Extremities: Present cyanosis; Absent edema *Routine Skin Exam Skin: Present intact and dry *Routine Neurological Exam Neurological: Present alert, oriented X3 and CN II-XII intact H&P: Result Imaging and Cardiology EKG: Status: image reviewed by me and Preliminary report Assessment and Plan *Assessment and plan (1) DKA (diabetic ketoacidosis): Status: Acute Qualifiers: Diabetes mellitus complication detail: without coma Diabetes mellitus type: type 1 Qualified Code(s): E10.10 - Type 1 diabetes mellitus with ketoacidosis without coma Category: Medical Code(s): E11.10 - Type 2 diabetes mellitus with ketoacidosis without coma (2) Hyponatremia: Status: Acute Category: Medical Code(s): E87.1 - Hypo-osmolality and hyponatremia (3) Type 1 diabetes mellitus: Status: Chronic Qualifiers: Diabetes mellitus complication status: without complication Qualified Code(s): E10.9 - Type 1 diabetes mellitus without complications Category: Medical Code(s): E10.9 - Type 1 diabetes mellitus without complications (4) HLD (hyperlipidemia): Status: Chronic Qualifiers: Hyperlipidemia type: mixed hyperlipidemia Qualified Code(s): E78.2 - Mixed hyperlipidemia Category: Medical Code(s): E78.5 - Hyperlipidemia, unspecified (5) HTN (hypertension): Status: Chronic Qualifiers: Hypertension type: primary hypertension Qualified Code(s): I10 - Essential (primary) hypertension Category: Medical Code(s): I10 - Essential (primary) hypertension (6) Hypothyroidism: Status: Acute Qualifiers: Hypothyroidism type: acquired Qualified Code(s): E03.9 - Hypothyroidism, unspecified Category: Medical Code(s): E03.9 - Hypothyroidism, unspecified (7) Coronary artery disease: Status: Acute Qualifiers: Associated angina: unspecified whether angina present Coronary Disease-Associated Artery/Lesion type: unspecified vessel or lesion type [place] vs. transplanted heart: [place] heart Qualified Code(s): I25.10 - Atherosclerotic heart disease of [place] coronary artery without angina pectoris Category: Medical Code(s): I25.10 - Atherosclerotic heart disease of [place] coronary artery without angina pectoris (8) Tobacco use: Status: Acute Category: Social Hx Code(s): Z72.0 - Tobacco use Plan 73-year-old male with multiple comorbidities including but not limited to insulin-dependent diabetes, hyperlipidemia, neuropathy, atrial fibrillation, hypertension, CAD, Smoker, noncompliance who presented emergency department for evaluation of weakness, nauseas, malaise and fatigue. On arrival, labs are initially remarkable for significantly elevated anion gap, moderate hyperglycemia, small amount of acetone, pH on VBG was 7.3 with low bicarb. Patient meets definition of mild DKA, his sodium is 126 with a creatinine of 1.3 that does not meet JOSEPH. DKA protocol was initiated. Discussed with ER for admission. plan as follow: -DKA: Hyponatremia admit patient for medical management. Dispo stepdown Continues IV insulin. Monitor and titrate per protocol Normal saline with 20 mEq of potassium continue infusion CMP every 4h . Monitor for other electrolyte imbalance DKA protocol Rest of the vital unit protocol -History of uncontrolled type 1 diabetes with neuropathy. noncompliant On chronic opioid medication for -Hyperlipidemia hypertension: Condition reviewed will reconcile and resume home meds Patient Plavix, aspirin, isosribide, lisinopril and metoprolol Tobacco abuse On nicotine patch Plavix and aspirin. SCDs for DVT prophylax. On Protonix Full code Rounded on patient after nurse practitioner. Personally examined and interviewed patient. Agree with exam findings and care plan as documented.
[2023-06-15 22:30] VITALS: BP 150/66; PULSE 78; RESP 17; O2SAT 98
[2023-06-15] MEDS: INSULIN REGULAR, HUMAN 100 UNIT in 0.9 % SODIUM CHLORIDE 100 ML 8.01999999999999957 UNIT IV (22:47)
[2023-06-15] MEDS: 0.9 % SODIUM CHLORIDE 1000ML 1,000 ML 150 ML IV (22:47)
--- NOTE | 2023-06-15 22:53 | PC.NURSE ---
insulin gtt started at this time @8 units/hr fsbs 397
[2023-06-15 22:59] LABS: Chloride 90 mmol/L (98-107); Sodium 126 mmol/L (136-145)
[2023-06-15 23:02] LABS: Blood Urea Nitrogen 18 mg/dl (9-20); Calcium 8.4 mg/dl (8.4-10.2); Creatinine Clearance Estimated 62 mL/min (50-200); Estimated Glomerular Filt Rate 59 ml/min (>60); GFR (African American) 72 ML/MIN (>60)
[2023-06-15 23:05] LABS: Carbon Dioxide 10 mmol/L (22.0-30.0); Glucose 404 mg/dl (74-100)
[2023-06-15 23:14] LABS: Troponin I 0.02 ng/ml (0.00-0.034)
--- NOTE | 2023-06-15 23:55 | PC.NURSE ---
fsbs 352 at this time
[2023-06-16] VITALS (17 sets, daily range): BP systolic 112–158; BP diastolic 59–79; PULSE 59–78; RESP 13–32; TEMP 36.3–37; O2SAT 93–97; BMI 20.3
--- NOTE | 2023-06-16 00:03 | PC.NURSE ---
pt still unable to give urine sample
--- NOTE | 2023-06-16 00:41 | ECG_ITS ---
APPROVED REPORT Exam: Resting ECG HR:91 bpm ECG Measurements Heart Rate 91 AXES ND 144 P -17 QRSd 122 QRS 68 QT 385 T -48 QTc 434 Conclusion SINUS RHYTHM WITH FREQUENT VENTRICULAR PREMATURE COMPLEXES Late R wave progression INFERIOR MYOCARDIAL Changes are probably old ABNORMAL ECG UNCONFIRMED REPORT Electronically signed by : Ok Casas MD 06/16/2023 14:31:36
--- NOTE | 2023-06-16 00:56 | PC.NURSE ---
patient denies complaint but rhythm is different on monitor. 2nd ekg taken. md looking at second ekg at this time
--- NOTE | 2023-06-16 01:00 | PC.NURSE ---
FSBS 347. Completed med rec to best of my ability as pt is poor historian. Report called to Carlotta BURROUGHS on 2nd floor.
--- NOTE | 2023-06-16 01:05 | PC.NURSE ---
Pt voided in urinal. Had about 200ml output but spilled urinal. Was unable to obtain UA
[2023-06-16 02:22] LABS: Chloride 94 mmol/L (98-107)
[2023-06-16 02:23] LABS: Potassium 3.5 mmoL/L (3.5-5.1); Sodium 129 mmol/L (136-145)
[2023-06-16 02:25] LABS: Blood Urea Nitrogen 19 mg/dl (9-20); Creatinine Clearance Estimated 62 mL/min (50-200); Estimated Glomerular Filt Rate 59 ml/min (>60); GFR (African American) 72 ML/MIN (>60)
[2023-06-16 02:26] LABS: Anion Gap 20.5 mEq/L (5-15); Carbon Dioxide 18 mmol/L (22.0-30.0); Glucose 265 mg/dl (74-100)
[2023-06-16 02:48] LABS: Troponin I < 0.01 ng/ml (0.00-0.034)
[2023-06-16] MEDS: 0.9% NaCl w/20mEq KCL 1,000 ML 150 ML IV (03:52)
--- NOTE | 2023-06-16 04:44 | PC.NURSE ---
@ 0443 INSULIN GTT DECREASED FROM 4 TO 3 UNITS/HR @0353 INSULIN GTT DECREASED FROM 8 TO 4 UNITS/HR PT ADMITTED @ 0130; INSULIN GTT INFUSING @ 8UNITS/HR
[2023-06-16 06:14] LABS: POC Glucose,Bedside 146 (70-110)
[2023-06-16 06:14] LABS: POC Glucose,Bedside 243 (70-110)
[2023-06-16 06:14] LABS: POC Glucose,Bedside 290 (70-110)
[2023-06-16 06:14] LABS: POC Glucose,Bedside 120 (70-110)
[2023-06-16 06:14] LABS: POC Glucose,Bedside 190 (70-110)
[2023-06-16 07:05] LABS: POC Glucose,Bedside 127 (70-110)
--- NOTE | 2023-06-16 07:12 | PC.NURSE ---
@ 0603 INSULIN GTT TITRATED TO 2UNITS/HR @ 0658 INSULIN GTT TITRATED TO 1UNIT/HR
--- NOTE | 2023-06-16 07:46 | PC.NURSE ---
IVF CHANGED FROM NS + 20K TO D5NS + 20K PER DKA PROTOCOL; 2 RN VERIFIED W/ LM, RN
[2023-06-16 07:54] LABS: Microscopic, Urine URINE MICROSCOPIC (MICROSCOPIC)
[2023-06-16 08:02] LABS: Appearance,Urine CLEAR (Clear); Blood, Urine Negative (Negative); Color,Urine YELLOW (Yellow); Glucose,Urine (UA) 3+ (Negative); Ketones,Urine 2+ (Negative); Leukocyte Esterase,Urine Negative (Negative); Nitrate,Urine Negative (Negative); Protein,Urine Negative (Negative); Specific Gravity, Urine 1.025 (1.005-1.030); Urobilinogen,Urine 0.2 EU/dl (0.2)
[2023-06-16 08:09] LABS: Bacteria,Urine Trace /lpf; Bilirubin,Urine 1+ (Negative); Squamous Epithelial Cell,Urine Occasional #/hpf (0-5)
--- NOTE | 2023-06-16 08:15 | EXP.ACUTE.PN ---
Subjective *Date: 06/16/23 *Time: 18:10 Interval history: Patient feeling somewhat better this morning. Gap is closed. Transition to sliding scale insulin. Requesting something to eat, no nausea or vomiting. No shortness of breath but does have cough. States he was feeling bad for a few days with chills prior to coming into the hospital. Medical Exam Vital signs and Labs for Last 24 Hours: Vital Signs Temp Pulse Pulse Pulse Pulse Pulse Resp 06/16/23 07:00 71 17 06/16/23 01:37 71 16 06/16/23 05:00 59 L 17 06/16/23 04:00 97.4 F L 74 16 06/16/23 03:00 62 15 06/16/23 02:00 70 17 06/16/23 04:00 06/16/23 06:00 78 32 H 06/16/23 05:00 06/16/23 03:00 06/16/23 01:14 97.6 F 76 17 06/15/23 22:30 78 17 06/15/23 22:01 19 06/15/23 21:01 72 20 06/15/23 21:02 69 06/15/23 20:07 79 81 82 06/15/23 19:50 97.8 F 79 15 BP BP BP BP BP Pulse Ox O2 Del Method 06/16/23 07:00 134/68 95 Room Air 06/16/23 01:37 112/60 96 Room Air 06/16/23 05:00 127/66 95 Room Air 06/16/23 04:00 129/76 96 06/16/23 03:00 115/59 L 94 L Room Air 06/16/23 02:00 121/65 93 L Room Air 06/16/23 04:00 Room Air 06/16/23 06:00 144/64 H 96 Room Air 06/16/23 05:00 Room Air 06/16/23 03:00 Room Air 06/16/23 01:14 132/68 Room Air 06/15/23 22:30 150/66 H 98 06/15/23 22:01 161/70 H 95 06/15/23 21:01 148/69 H 98 06/15/23 21:02 148/69 H 97 06/15/23 20:07 146/70 H 135/69 115/65 06/15/23 19:50 125/66 97 Room Air Intake and Output 06/15/23 06/16/23 06/16/23 23:59 07:59 15:59 Output Total 775 / 775 Balance -775 / -775 Output: Output, Urine Amount 775 / 775 Other: Number of Voids 1 Number of Unmeasured Voids 1 Weight 79.379 kg 65.913 kg Patient Weight 06/16/23 23:59 Weight 65.913 kg Laboratory Results - last 24 hr 06/15/23 07:50: Urine Color Yellow, Urine Appearance Clear, Urine pH 6.0, Ur Specific [place] 1.025, Urine Protein Negative, Urine Glucose (UA) 3+, Urine Ketones 2+, Urine Blood Negative, Urine Nitrate Negative, Urine Bilirubin 1+ A, Urine Urobilinogen 0.2, Ur Leukocyte Esterase Negative, Urine RBC None, Urine WBC None, Ur Squamous Epith Cells Occasional, Urine Bacteria Trace 06/15/23 19:54: WBC 11.8 H, RBC 5.17, Hgb 16.0, Hct 49.5, MCV 95.8 H, MCH 30.9, MCHC 32.2, RDW 14.5, Plt Count 373, MPV 10.0, Neut % (Auto) 77.4, Lymph % (Auto) 14.0, [place] % (Auto) 7.5, Eos % (Auto) 0.9, Baso % (Auto) 0.2, Neut # (Auto) 9.1 H, Lymph # (Auto) 1.7, [place] # (Auto) 0.9, Eos # (Auto) 0.1, Baso # (Auto) 0.0, Sodium 126 L, Potassium 4.7, Chloride 88 L, Carbon Dioxide 19 L, Anion Gap 23.7 H, BUN 17, Creatinine 1.30 H, Estimated Creat Clear 57, Estimated GFR 54 L, Est GFR ( Amer) 65, Glucose 355 H, Calcium 8.5, Magnesium 2.0, Total Bilirubin 1.0, AST 28, ALT 19, Alkaline Phosphatase 184 H, Troponin I 0.01, Total Protein 6.8, Albumin 3.7, Globulin 3.1, Albumin/Globulin Ratio 1.2, Acetone Level Small 06/15/23 20:00: SARS-CoV-2 (PCR) Not detected, Influenza A Untype (PCR) Not detected, Influenza Type B (PCR) Not detected 06/15/23 21:16: VBG pH 7.30 L, VBG pCO2 35.4, VBG pO2 27.9 L, VBG HCO3 17.0 L, VBG Total CO2 18.1 L, VBG O2 Saturation 49.9 L, VBG Base Excess -9.4 L 06/15/23 22:36: Sodium 126 L, Potassium 5.0, Chloride 90 L, Carbon Dioxide 10 L D, Anion Gap 31.0 H, BUN 18, Creatinine 1.20, Estimated Creat Clear 62, Estimated GFR 59, Est GFR ( Amer) 72, Glucose 404 H*, Calcium 8.4, Troponin I 0.02 06/16/23 01:30: POC Glucose 290 H 06/16/23 02:10: Sodium 129 L, Potassium 3.5 D, Chloride 94 L, Carbon Dioxide 18 L, Anion Gap 20.5 H, BUN 19, Creatinine 1.20, Estimated Creat Clear 62, Estimated GFR 59, Est GFR ( Amer) 72, Glucose 265 H D, Calcium 8.0 L, Troponin I < 0.01 06/16/23 02:42: POC Glucose 243 H 06/16/23 03:53: POC Glucose 190 H 06/16/23 04:43: POC Glucose 146 H 06/16/23 06:03: POC Glucose 120 H 06/16/23 06:58: POC Glucose 127 H I & O for Labs for Last 24 Hours: Intake & Output 06/13/23 06/14/23 06/15/23 06/16/23 23:59 23:59 23:59 23:59 Output Total 775 / 775 Balance -775 / -775 Weight 79.379 kg 65.913 kg Constitutional: Present no acute distress, thin, chronically ill appearing and cooperative Head: Present atraumatic and normocephalic ENT: Present normal exam Respiratory: Present rhonchi, crackles (Right lower lung field) and normal respiratory effort; Absent wheezes Cardiac: Present Regular Rhythm and Tachycardia GI: Present soft and normal bowel sounds; Absent distention or tenderness Extremities: Present normal inspection and full ROM Skin: Present intact; Absent erythema Neuro: Present Grossly Intact, alert, awake, oriented x 3 and moves all extremities Assessment and Plan *Assessment and plan (1) DKA (diabetic ketoacidosis): Status: Acute Qualifiers: Diabetes mellitus complication detail: without coma Diabetes mellitus type: type 1 Qualified Code(s): E10.10 - Type 1 diabetes mellitus with ketoacidosis without coma Category: Medical Code(s): E11.10 - Type 2 diabetes mellitus with ketoacidosis without coma (2) Pneumonia: Status: Acute Qualifiers: Pneumonia type: due to unspecified organism Laterality: right Lung location: lower lobe of lung Qualified Code(s): J18.9 - Pneumonia, unspecified organism Category: Medical Code(s): J18.9 - Pneumonia, unspecified organism (3) Hyponatremia: Status: Acute Category: Medical Code(s): E87.1 - Hypo-osmolality and hyponatremia (4) Type 1 diabetes mellitus: Status: Chronic Qualifiers: Diabetes mellitus complication status: without complication Qualified Code(s): E10.9 - Type 1 diabetes mellitus without complications Category: Medical Code(s): E10.9 - Type 1 diabetes mellitus without complications (5) HLD (hyperlipidemia): Status: Chronic Qualifiers: Hyperlipidemia type: mixed hyperlipidemia Qualified Code(s): E78.2 - Mixed hyperlipidemia Category: Medical Code(s): E78.5 - Hyperlipidemia, unspecified (6) HTN (hypertension): Status: Chronic Qualifiers: Hypertension type: primary hypertension Qualified Code(s): I10 - Essential (primary) hypertension Category: Medical Code(s): I10 - Essential (primary) hypertension (7) Hypothyroidism: Status: Acute Qualifiers: Hypothyroidism type: acquired Qualified Code(s): E03.9 - Hypothyroidism, unspecified Category: Medical Code(s): E03.9 - Hypothyroidism, unspecified (8) Coronary artery disease: Status: Acute Qualifiers: Coronary Disease-Associated Artery/Lesion type: unspecified vessel or lesion type [place] vs. transplanted heart: [place] heart Associated angina: unspecified whether angina present Qualified Code(s): I25.10 - Atherosclerotic heart disease of [place] coronary artery without angina pectoris Category: Medical Code(s): I25.10 - Atherosclerotic heart disease of [place] coronary artery without angina pectoris (9) Tobacco use: Status: Acute Category: Social Hx Code(s): Z72.0 - Tobacco use Plan 73-year-old male with multiple comorbidities including but not limited to insulin-dependent diabetes, hyperlipidemia, neuropathy, atrial fibrillation, hypertension, CAD, Smoker, noncompliance who presented emergency department for evaluation of weakness, nauseas, malaise and fatigue. On arrival, labs are initially remarkable for significantly elevated anion gap, moderate hyperglycemia, small amount of acetone, pH on VBG was 7.3 with low bicarb. Patient meets definition of mild DKA, his sodium is 126 with a creatinine of 1.3 that does not meet JOSEPH. DKA protocol was initiated. Patient's anion gap is closed. Complaining of cough, chest imaging obtained, personally reviewed showing right lower lobe consolidation. Concern for pneumonia. Will initiate antibiotics. Continues to require inpatient management. Problems addressed as follows: -DKA: - Hyponatremia -Uncontrolled diabetes Anion gap is closed. Transition to basal bolus regimen. Administer 10 units Lantus this morning. Will continue with 20 units this evening. Sliding scale insulin, high intensity regimen. Fingersticks ACHS. Anion gap 12 on morning labs, potassium 3.8, sodium 131. Initiate p.o. intake. Repeat BMP this evening. Repeat CBC, CMP, magnesium ordered for the morning. A1c obtained, 9.1 Pneumonia -Exam findings with crackles, no oxygen requirement. White cell count elevated to 11.8 -Chest x-ray personally reviewed, right lower lobe consolidation. Will initiate levofloxacin 750 mg daily History of uncontrolled type 1 diabetes with neuropathy: Continue oxycodone 15 mg every 4 hours per home regimen Hypertension: Continue lisinopril 10 mg daily Hypothyroid: Continue 50 mcg daily Hyperlipidemia: Continue Lipitor 40 mg nightly CAD: Continue aspirin 81 mg daily and Plavix 75 mg daily. Tobacco abuse: On nicotine patch Full code Lovenox 40 mg daily Diabetic
--- NOTE | 2023-06-16 08:32 | PC.NURSE ---
fsbs 98, increased D5NS+20K+ to 125mL/hr per DKA protocol, verified with Cindy Mcneal RN
[2023-06-16 08:50] LABS: Chloride 100 mmol/L (98-107); Potassium 3.8 mmoL/L (3.5-5.1); Sodium 131 mmol/L (136-145)
[2023-06-16 08:53] LABS: Anion Gap 12.8 mEq/L (5-15); Blood Urea Nitrogen 15 mg/dl (9-20); Calcium 7.9 mg/dl (8.4-10.2); Carbon Dioxide 22 mmol/L (22.0-30.0); Creatinine Clearance Estimated 61 mL/min (50-200); Estimated Glomerular Filt Rate 83 ml/min (>60); GFR (African American) 100 ML/MIN (>60); Glucose 102 mg/dl (74-100)
[2023-06-16] MEDS: OXYCODONE 5MG IMMEDIATE RELEASE TABLET 15 MG PO ×4 (08:53→22:19)
[2023-06-16] MEDS: INSULIN GLARGINE 100 UNITS/ML 3ML FLEXPEN 10 UNIT SQ (08:54)
[2023-06-16] MEDS: LEVOTHYROXINE 50MCG (0.05MG) TAB 50 MCG PO (08:54)
[2023-06-16] MEDS: CLOPIDOGREL 75MG TAB 75 MG PO (08:54)
[2023-06-16] MEDS: LISINOPRIL 5MG TABLET 5 MG PO (08:54)
[2023-06-16] MEDS: ASPIRIN EC 81MG TABLET 81 MG PO (08:54)
[2023-06-16 09:09] LABS: Hemoglobin A1C 9.1 % (4.0-6.0)
--- NOTE | 2023-06-16 09:10 | PC.NURSE ---
fsbs 107, notified MD Avilez that pt's gap is 9 per am labs ([id number]), stated to wait 1 hour and then stop drip and will transition to high intensity sliding scale insulin
--- NOTE | 2023-06-16 10:14 | PC.NURSE ---
stopped insulin drip per MD Avilez telephone order, will check a fsbs at 1100 for achs protocol
--- NOTE | 2023-06-16 10:17 | PC.NURSE ---
pt ambulated to bathroom with walker and 1 assist and back to bed
--- NOTE | 2023-06-16 11:03 | HMH.PHAINT1 ---
Pharmacy Intervention Comments: MEDICATION RECONCILIATION COMPLETE USING EXTERNAL PHARMACY FILL HISTORY, KARLA REPORT, AND MOST RECENT MD OFFICE VISIT NOTE. REGARDING THE OXYCODONE, I SPOKE WITH TRINO BURROUGHS WHO STATES PATIENT TOLD HER HE TAKES THE 15 MG IR OXYCODONE AND NOT THE 20 MG ER.
[2023-06-16 11:24] LABS: POC Glucose,Bedside 111 (70-110)
[2023-06-16 11:24] LABS: POC Glucose,Bedside 98 (70-110)
[2023-06-16 11:24] LABS: POC Glucose,Bedside 107 (70-110)
--- NOTE | 2023-06-16 11:49 | XR_ITS ---
PROCEDURE INFORMATION: Exam: XR Chest Exam date and time: 06/16/2023 12:02 PM Age: 73 years old Clinical indication: Other: Crackles TECHNIQUE: Imaging protocol: Radiologic exam of the chest. Views: 1 view. COMPARISON: CR XR CHEST PORTABLE 06/01/2023 11:14 PM FINDINGS: Lungs: Patchy right lower lobe infiltrate partially obscured due to overlying hardware. Pleural spaces: Unremarkable. No pleural effusion. No pneumothorax. Heart/Mediastinum: Unremarkable. No cardiomegaly. Bones/joints: Unremarkable. IMPRESSION: Findings compatible with right lower lobe pneumonia.
[2023-06-16 17:27] LABS: POC Glucose,Bedside 348 (70-110)
[2023-06-16] MEDS: humaLOG 100 UNITS/ML 3ML VIAL (SSI) SQ ×2 (17:38→20:22)
--- NOTE | 2023-06-16 18:52 | PC.NURSE ---
pt wanted this RN to make sure that night RN knows that pt has had extensive cervical and lumbar damage with fusions/surgeries anterior and posterior and it is very painful, pt stated please keep me on the medication regimen like I've been taking for years otherwise I can't function , informed pt would write note about it so that shift supervisor melting would know
[2023-06-16 19:25] LABS: Chloride 98 mmol/L (98-107); Potassium 4.7 mmoL/L (3.5-5.1); Sodium 127 mmol/L (136-145)
[2023-06-16 19:28] LABS: Anion Gap 23.7 mEq/L (5-15); Blood Urea Nitrogen 16 mg/dl (9-20); Creatinine Clearance Estimated 61 mL/min (50-200); Estimated Glomerular Filt Rate 83 ml/min (>60); GFR (African American) 100 ML/MIN (>60)
[2023-06-16 19:29] LABS: Glucose 397 mg/dl (74-100)
[2023-06-16 19:31] LABS: Carbon Dioxide 10 mmol/L (22.0-30.0)
[2023-06-16] MEDS: LEVOFLOXACIN/D5W 750 MG/150 ML 750 MG/150 ML PIGGYBACK 100 MG IV (20:22)
[2023-06-16] MEDS: ENOXAPARIN 40MG/0.4ML SYRINGE 40 MG SQ (20:22)
[2023-06-16] MEDS: ATORVASTATIN 40MG TABLET 40 MG PO (20:22)
[2023-06-16] MEDS: INSULIN GLARGINE 100 UNITS/ML 3ML FLEXPEN 20 UNIT SQ (20:23)
[2023-06-16 20:44] LABS: POC Glucose,Bedside 301 (70-110)
[2023-06-17] VITALS: BP 123/66; PULSE 63; RESP 18; TEMP 36.4; O2SAT 95
[2023-06-17] MEDS: OXYCODONE 5MG IMMEDIATE RELEASE TABLET 15 MG PO ×4 (02:14→14:05)
[2023-06-17 04:00] VITALS: BP 125/68; PULSE 64; RESP 18; TEMP 36.6; O2SAT 96; BMI 20.3
[2023-06-17 05:44] LABS: POC Glucose,Bedside 212 (70-110)
[2023-06-17] MEDS: humaLOG 100 UNITS/ML 3ML VIAL (SSI) SQ ×2 (06:13→11:24)
[2023-06-17] MEDS: LEVOTHYROXINE 50MCG (0.05MG) TAB 50 MCG PO (06:13)
[2023-06-17 07:58] LABS: Basophils % 0.3 % (0.1-2.0); Eosinophils # 0.3 K/mm3 (0.0-0.4); Eosinophils % 2.1 % (0.1-12.0); Hematocrit 41.4 % (42.0-52.0); Hemoglobin 13.9 g/dL (14.1-18.0); Lymphocytes # 1.7 K/mm3 (0.7-4.5); Lymphocytes % 14.3 % (10-50); Mean Corpuscular HGB Conc 33.5 g/dL (31.8-35.4); Mean Corpuscular Hemoglobin 31.6 pg (27.0-31.2); Mean Corpuscular Volume 94.1 fl (80-94); Mean Platelet Volume 9.7 fl (7.4-10.4); Monocytes # 0.6 K/mm3 (0.1-1.0); Monocytes % 4.8 % (1.7-9.3); Neutrophils # 9.3 K/mm3 (1.8-7.8); Neutrophils % 78.5 % (37.0-80.0); Platelet Count 351 K/mm3 (142-424); Red Cell Distribution Width 14.7 % (11.5-17.5); White Blood Count 11.9 K/mm3 (4.8-10.8)
[2023-06-17 08:00] VITALS: BP 119/63; PULSE 67; RESP 18; TEMP 36.4; O2SAT 92
[2023-06-17 08:30] LABS: Magnesium 1.8 mg/dl (1.6-2.3)
[2023-06-17 08:45] LABS: Chloride 96 mmol/L (98-107); Sodium 127 mmol/L (136-145)
[2023-06-17 08:46] LABS: Potassium 4.7 mmoL/L (3.5-5.1)
[2023-06-17 08:49] LABS: Anion Gap 14.7 mEq/L (5-15); Blood Urea Nitrogen 14 mg/dl (9-20); Calcium 8.1 mg/dl (8.4-10.2); Carbon Dioxide 21 mmol/L (22.0-30.0); Creatinine Clearance Estimated 61 mL/min (50-200); Estimated Glomerular Filt Rate 83 ml/min (>60); GFR (African American) 100 ML/MIN (>60); Glucose 272 mg/dl (74-100)
[2023-06-17] MEDS: LISINOPRIL 5MG TABLET 5 MG PO (09:07)
[2023-06-17] MEDS: ERGOCALCIFEROL 50,000 UNITS (1.25MG) CAPSULE 50000 UNIT PO (09:07)
[2023-06-17] MEDS: ASPIRIN EC 81MG TABLET 81 MG PO (09:07)
[2023-06-17] MEDS: CLOPIDOGREL 75MG TAB 75 MG PO (09:07)
[2023-06-17 11:27] LABS: POC Glucose,Bedside 273 (70-110)
[2023-06-17 12:00] VITALS: BP 112/88; PULSE 77; RESP 20; TEMP 37.1; O2SAT 96
[2023-06-17] MEDS: LEVOFLOXACIN/D5W 750 MG/150 ML 750 MG/150 ML PIGGYBACK 100 MG IV (14:05)
[2023-06-17 14:20] LABS: Anion Gap 8.4 mEq/L (5-15); Blood Urea Nitrogen 13 mg/dl (9-20); Calcium 8.2 mg/dl (8.4-10.2); Carbon Dioxide 28 mmol/L (22.0-30.0); Chloride 96 mmol/L (98-107); Creatinine Clearance Estimated 61 mL/min (50-200); Estimated Glomerular Filt Rate 95 ml/min (>60); GFR (African American) 115 ML/MIN (>60); Glucose 206 mg/dl (74-100); Potassium 3.4 mmoL/L (3.5-5.1); Sodium 129 mmol/L (136-145)
--- NOTE | 2023-06-17 15:08 | P.DS_ITS ---
General Admission date:: 06/15/23 Discharge date: 06/17/23 HPI HPI HPI: This is a 73-year-old male with multiple comorbidities including but not limited to insulin-dependent diabetes, hyperlipidemia, neuropathy, atrial fibrillation, hypertension, CAD, Smoker, noncompliance who presented emergency department for evaluation of weakness, nauseas, malaise and fatigue. Patient is a poor historian and does not cooperated with the interview. History obtained mostly from ED discussion and documentation. Onset was acute, over the last few days, global. Patient expressed has difficulty completing his daily livings activities. patient is independent and just normally use a cane. Denies chest pain, cough, shortness of breath. He has had 1 ground-level fall onto his right side, no LOC, did not strike his head. Patient becomes lightheaded upon standing, no true syncope. No other acute complaints at this time. Admitted for further treatment Hospital Course Hospital Course Hospital Course: 73-year-old male with multiple comorbidities including but not limited to insulin-dependent diabetes, hyperlipidemia, neuropathy, atrial fibrillation, hypertension, CAD, Smoker, noncompliance who presented emergency department for evaluation of weakness, nauseas, malaise and fatigue. On arrival, labs are initially remarkable for significantly elevated anion gap, moderate hyperglycemia, small amount of acetone, pH on VBG was 7.3 with low bicarb. Patient meets definition of mild DKA, his sodium is 126 with a creatinine of 1.3 that does not meet JOSEPH. DKA protocol was initiated. Patient's anion gap is closed. He was transitioned to basal bolus regimen. Gap remained closed with adjustments in regimen. Also noted to have leukocytosis and cough with right- sided crackles. Chest imaging showing pneumonia. Initiated on antibiotics for community. Stable for discharge home to complete antibiotics. Problems addressed as follows: -DKA: - Hyponatremia -Uncontrolled diabetes Anion gap elevated at 30 on admission. Improved with insulin drip. After closure, initiated on basal insulin. Tolerating basal bolus regimen. A1c 9.1. Discussed patient's insulin regimen. Increase Lantus to 40 units nightly. In regard to his sliding scale, recommend calculation for correction with following equation: 1 unit to every 20 g of carbs; correction factor (glucose -1 100 / 20. Round to nearest unit). A1c elevated at 9.1. Insulin dependent diabetes appears to be above goal of 7. Anticipate changes will assist with getting closer to goal level of control. Close follow-up with PCP for further management. Potassium depletion noted during admission. Will supplement for 1 week with 20 mEq twice daily Pneumonia -Exam findings with crackles, no oxygen requirement. White cell count elevated to 11.8. Chest x-ray personally reviewed, right lower lobe consolidation. Initiated on levofloxacin. White cell count stable at 11.9 on morning of discharge. No fever. No oxygen requirement. Will complete 7 days total of levofloxacin 750 mg daily. History of uncontrolled type 1 diabetes with neuropathy: Continue oxycodone 15 mg every 4 hours per home regimen Hypertension: Continue lisinopril 10 mg daily Hypothyroid: Continue 50 mcg daily Hyperlipidemia: Continue Lipitor 40 mg nightly CAD: Continue aspirin 81 mg daily and Plavix 75 mg daily. Tobacco abuse: On nicotine patch Spent 30 minutes in discharge counseling, documentation, chart review, and direct care with patient. Exam Data for Last 24 hours Vital signs and Labs for Last 24 Hours: Temp Pulse Resp BP Pulse Ox O2 Del Method 98.8 F 77 20 112/88 96 Room Air 06/17/23 12:00 06/17/23 12:00 06/17/23 12:00 06/17/23 12:00 06/17/23 12:00 06/17/23 13:00 Laboratory Results - last 24 hr 06/16/23 17:19: POC Glucose 348 H* 06/16/23 18:30: Sodium 127 L, Potassium 4.7 D, Chloride 98, Carbon Dioxide 10 L D, Anion Gap 23.7 H, BUN 16, Creatinine 0.90, Estimated Creat Clear 61, Estimated GFR 83, Est GFR ( Amer) 100, Glucose 397 H D, Calcium 8.0 L 06/16/23 20:21: POC Glucose 301 H* 06/17/23 05:25: POC Glucose 212 H 06/17/23 06:49: WBC 11.9 H, RBC 4.40 L, Hgb 13.9 L, Hct 41.4 L, MCV 94.1 H, MCH 31.6 H, MCHC 33.5, RDW 14.7, Plt Count 351, MPV 9.7, Neut % (Auto) 78.5, Lymph % (Auto) 14.3, [place] % (Auto) 4.8, Eos % (Auto) 2.1, Baso % (Auto) 0.3, Neut # (Auto) 9.3 H, Lymph # (Auto) 1.7, [place] # (Auto) 0.6, Eos # (Auto) 0.3, Baso # (Auto) 0.0, Sodium 127 L, Potassium 4.7, Chloride 96 L, Carbon Dioxide 21 L, Anion Gap 14.7, BUN 14, Creatinine 0.90, Estimated Creat Clear 61, Estimated GFR 83, Est GFR ( Amer) 100, Glucose 272 H D, Calcium 8.1 L, Magnesium 1.8 06/17/23 11:19: POC Glucose 273 H 06/17/23 13:47: Sodium 129 L, Potassium 3.4 L D, Chloride 96 L, Carbon Dioxide 28, Anion Gap 8.4, BUN 13, Creatinine 0.80, Estimated Creat Clear 61, Estimated GFR 95, Est GFR ( Amer) 115, Glucose 206 H D, Calcium 8.2 L I & O for Last 24 hours: Intake & Output 06/14/23 06/15/23 06/16/23 06/17/23 23:59 23:59 23:59 23:59 Intake Total 960 / 960 990 / 990 Output Total 1075 / 1075 0 / 0 Balance -115 / -115 990 / 990 Weight 79.379 kg 65.913 kg 65.915 kg Constitutional Constitutional: no acute distress, thin, chronically ill appearing and cooperative *Routine HEENT Exam Head: Present normocephalic Eye: Present EOMI and PERRL ENT: Present mucous membranes moist *Routine Neck Exam Neck: Present supple; Absent lymphadenopathy *Routine Respiratory Exam Respiratory: Present crackles (RLL) and normal respiratory effort; Absent rhonchi or wheezes *Routine Cardiovascular Exam Cardiovascular: Present RRR *Routine Abdominal Exam Abdominal: Present soft and normoactive bowel sounds; Absent tenderness *Routine Extremities Exam Extremities: Absent cyanosis, clubbing or edema *Routine Skin Exam Skin: Present warm; Absent rash *Routine Neurological Exam Neurological: Present alert, oriented X3 and moving all extremities; Absent altered mental status Results Data Completed and Pending Labs on day of discharge: Labs from last 24 hours 06/17/23 06/17/23 06/17/23 13:47 11:19 06:49 WBC 11.9 H RBC 4.40 L Hgb 13.9 L Hct 41.4 L MCV 94.1 H MCH 31.6 H MCHC 33.5 RDW 14.7 Plt Count 351 MPV 9.7 Neut % (Auto) 78.5 Lymph % (Auto) 14.3 Stephen[place] % (Auto) 4.8 Eos % (Auto) 2.1 Baso % (Auto) 0.3 Neut # (Auto) 9.3 H Lymph # (Auto) 1.7 [place] # (Auto) 0.6 Eos # (Auto) 0.3 Baso # (Auto) 0.0 Sodium 129 L 127 L Potassium 3.4 L D 4.7 Chloride 96 L 96 L Carbon Dioxide 28 21 L Anion Gap 8.4 14.7 BUN 13 14 Creatinine 0.80 0.90 Estimated Creat Clear 61 61 Estimated GFR 95 83 Est GFR ( Amer) 115 100 Glucose 206 H D 272 H D POC Glucose 273 H Calcium 8.2 L 8.1 L Magnesium 1.8 06/17/23 06/16/23 06/16/23 05:25 20:21 18:30 WBC RBC Hgb Hct MCV MCH MCHC RDW Plt Count MPV Neut % (Auto) Lymph % (Auto) [place] % (Auto) Eos % (Auto) Baso % (Auto) Neut # (Auto) Lymph # (Auto) [place] # (Auto) Eos # (Auto) Baso # (Auto) Sodium 127 L Potassium 4.7 D Chloride 98 Carbon Dioxide 10 L D Anion Gap 23.7 H BUN 16 Creatinine 0.90 Estimated Creat Clear 61 Estimated GFR 83 Est GFR ( Amer) 100 Glucose 397 H D POC Glucose 212 H 301 H* Calcium 8.0 L Magnesium 06/16/23 17:19 WBC RBC Hgb Hct MCV MCH MCHC RDW Plt Count MPV Neut % (Auto) Lymph % (Auto) [place] % (Auto) Eos % (Auto) Baso % (Auto) Neut # (Auto) Lymph # (Auto) [place] # (Auto) Eos # (Auto) Baso # (Auto) Sodium Potassium Chloride Carbon Dioxide Anion Gap BUN Creatinine Estimated Creat Clear Estimated GFR Est GFR ( Amer) Glucose POC Glucose 348 H* Calcium Magnesium DS: Diagnosis Discharge Diagnosis (1) DKA (diabetic ketoacidosis): Status: Acute Code(s): E11.10 - Type 2 diabetes mellitus with ketoacidosis without coma Qualifiers: Diabetes mellitus complication detail: without coma Diabetes mellitus type: type 1 Qualified Code(s): E10.10 - Type 1 diabetes mellitus with ketoacidosis without coma (2) Pneumonia: Status: Acute Code(s): J18.9 - Pneumonia, unspecified organism Qualifiers: Laterality: right Lung location: lower lobe of lung Pneumonia type: due to unspecified organism Qualified Code(s): J18.9 - Pneumonia, unspecified organism (3) Hyponatremia: Status: Acute Code(s): E87.1 - Hypo-osmolality and hyponatremia (4) Type 1 diabetes mellitus: Status: Chronic Code(s): E10.9 - Type 1 diabetes mellitus without complications Qualifiers: Diabetes mellitus complication status: without complication Qualified Code(s): E10.9 - Type 1 diabetes mellitus without complications (5) HLD (hyperlipidemia): Status: Chronic Code(s): E78.5 - Hyperlipidemia, unspecified Qualifiers: Hyperlipidemia type: mixed hyperlipidemia Qualified Code(s): E78.2 - Mixed hyperlipidemia (6) HTN (hypertension): Status: Chronic Code(s): I10 - Essential (primary) hypertension Qualifiers: Hypertension type: primary hypertension Qualified Code(s): I10 - Essential (primary) hypertension (7) Hypothyroidism: Status: Acute Code(s): E03.9 - Hypothyroidism, unspecified Qualifiers: Hypothyroidism type: acquired Qualified Code(s): E03.9 - Hypothyroidism, unspecified (8) Coronary artery disease: Status: Acute Code(s): I25.10 - Atherosclerotic heart disease of [place] coronary artery without angina pectoris Qualifiers: Associated angina: unspecified whether angina present Coronary Disease- Associated Artery/Lesion type: unspecified vessel or lesion type [place] vs. transplanted heart: [place] heart Qualified Code(s): I25.10 - Atherosclerotic heart disease of [place] coronary artery without angina pectoris (9) Tobacco use: Status: Acute Code(s): Z72.0 - Tobacco use Meds Home Medications and Allergies Home Medications Medication Instructions Recorded Confirmed Type aspirin 81 mg tablet,delayed 81 mg PO DAILY heart health #100 01/16/22 06/16/23 Rx release (Adult Low Dose Aspirin) tabs atorvastatin 40 mg tablet 40 mg PO HS Cholesterol 05/04/22 06/16/23 History lisinopril 5 mg tablet 5 mg PO DAILY Hypertension 05/11/22 06/16/23 History isosorbide mononitrate 30 mg 30 mg PO BID Chest Pain 03/06/23 06/16/23 History tablet,extended release 24 hr alendronate 10 mg tablet 10 mg PO DAILY Bone Loss 06/16/23 06/16/23 History amitriptyline 25 mg tablet 25 mg PO HS SLEEP 06/16/23 06/16/23 History clopidogrel 75 mg tablet 75 mg PO DAILY Blood Thinner 06/16/23 06/16/23 History ergocalciferol (vitamin D2) 1,250 1,250 mcg PO MO Bone Loss 06/16/23 06/16/23 History mcg (50,000 unit) capsule finasteride 5 mg tablet 5 mg PO DAILY PROSTATE 06/16/23 06/16/23 History levothyroxine 50 mcg tablet 50 mcg PO DAILYDM THYROID 06/16/23 06/16/23 History metoprolol succinate 25 mg 25 mg PO DAILY High Blood Pressure 06/16/23 06/16/23 History tablet,extended release 24 hr nitroglycerin 0.4 mg sublingual 0.4 mg sublingual Q5MINP PRN Chest 06/16/23 06/16/23 History tablet Pain oxycodone 15 mg tablet 15 mg PO 5XDAY PRN Severe Pain 06/16/23 06/16/23 History (Scale Score 7-10) insulin aspart U-100 100 unit/mL 10 unit (0.1 mL) SQ TID Diabetes 06/17/23 Rx (3 mL) subcutaneous pen (Novolog 30 days #15 mL FlexPen U-100 Insulin aspart) insulin glargine 100 unit/mL (3 40 unit (0.4 mL) SQ HS Diabetes 30 06/17/23 Rx mL) subcutaneous pen (Lantus days #12 mL Solostar U-100 Insulin) levofloxacin 750 mg tablet 750 mg PO DAILY 6 days #6 tabs 06/17/23 Rx potassium chloride 20 mEq 20 meq PO BID 7 days #14 tabs 06/17/23 Rx tablet,extended release New Prescriptions to Start Prescriptions: insulin aspart U-100 [Novolog FlexPen U-100 Insulin] Elmer Avilez insulin glargine [Lantus Solostar U-100 Insulin] Elmer Avilez levofloxacin Elmer Avilez potassium chloride Elmer Avilez Allergies Allergy/AdvReac Type Severity Reaction Status Date / Time nicotine [From [facility]] Allergy Verified 05/27/23 13:23 adhesive AdvReac Mild Blister Verified 05/27/23 13:23 Discharge Plan Disposition Patient Disposition: Home, Self-Care Condition: Fair Follow up Plan Follow up with: Jordi Bowden DO [Primary Care Provider] - 06/24/23 1:45 pm Prescriptions/Medication Reconciliation: New levofloxacin 750 mg tablet 750 mg PO DAILY 6 Days Qty: 6 0RF potassium chloride 20 mEq tablet extended release 20 meq PO BID 7 Days Qty: 14 0RF Continued atorvastatin 40 mg tablet 40 mg PO HS aspirin [Adult Low Dose Aspirin] 81 mg tablet,delayed release (DR/EC) 81 mg PO DAILY Qty: 100 12RF isosorbide mononitrate 30 mg tablet extended release 24 hr 30 mg PO BID lisinopril 5 mg tablet 5 mg PO DAILY alendronate 10 mg tablet 10 mg PO DAILY Patient Comments: TAKE 1 TABLET BY MOUTH DAILY clopidogrel 75 mg tablet 75 mg PO DAILY oxycodone 15 mg tablet 15 mg PO 5XDAY PRN (Reason: Severe Pain (Scale Score 7-10)) Patient Comments: TAKE 1 TABLET BY MOUTH FOUR TIMES DAILY AND 1 TABLET EVERY NIGHT AT BEDTIME NEEDED FOR BACK PAIN amitriptyline 25 mg tablet 25 mg PO HS Patient Comments: TAKE 1 TABLET BY MOUTH EVERY NIGHT AT BEDTIME levothyroxine 50 mcg tablet 50 mcg PO DAILYDM nitroglycerin 0.4 mg tablet, sublingual 0.4 mg sublingual Q5MINP PRN (Reason: Chest Pain) Patient Comments: DISSOLVE 1 TABLET UNDER THE TONGUE EVERY 5 MINUTES NEEDED FOR CHEST PAIN. DO NOT EXCEED A TOTAL OF 3 DOSES IN 15 MINUTES. IF NO RELIEF AFTER 3 DOSES CALL 911/GO TO ER ergocalciferol (vitamin D2) 1,250 mcg (50,000 unit) capsule 1,250 mcg PO MO finasteride 5 mg tablet 5 mg PO DAILY Patient Comments: TAKE ONE TABLET BY MOUTH EVERY DAY metoprolol succinate 25 mg tablet extended release 24 hr 25 mg PO DAILY Changed insulin aspart U-100 [Novolog FlexPen U-100 Insulin] 100 unit/mL (3 mL) insulin pen 10 unit SQ TID 30 Days Qty: 15 3RF insulin glargine [Lantus Solostar U-100 Insulin] 100 unit/mL (3 mL) insulin pen 40 unit SQ HS 30 Days Qty: 12 0RF Patient Comments: INJECT 35 UNITS SUBCUTANEOUSLY EVERY DAY Problem Reconciliation Problems Reviewed?: Yes Patient Discharge Instructions ACTIVITY: Continue current activity DIET: continue same diet Patient Instructions: DI for Hyponatremia, DI for Diabetic Ketoacidosis Providers Primary Care Provider: Jordi Bowden Admit Provider: Elmer Avilez Attending Provider: Elmer Avilez
[2023-06-17] MEDS: POTASSIUM CHLORIDE 20MEQ TAB 40 MEQ PO (16:20)
--- NOTE | 2023-06-20 10:29 | SW/DCPLANNER ---
Addendum entered by Adelina House 06/20/23 13:39: Patient is NOT interested in home health services only meal programs. Patient information has been faxed to [facility]. Original Note: I received a messaged regarding patient interested in home health services post discharge. I have attempted to contact patient regarding home health services/agency: no answer at this time VM left.
--- NOTE | 2023-06-20 12:19 | CARE MANAGER ---
Called and spoke with patient regarding recent discharge. Patient states he is doing well. He does not want HH at this time, but would like to have meals on wheels if possible. CM will send his information to the [facility] center.
== END 2023-06-17 16:28 | disposition home or self-care (01) ==
LOC: ER 21:46 → 2ND 06-16 02:02
PROVIDERS: Admitting Provider Internal Medicine Adolescent Medicine; Emergency Provider Emergency Medicine; PCP Internal Medicine; Visit Provider Internal Medicine Adolescent Medicine
DX: E10.10 Type 1 diabetes mellitus with ketoacidosis without coma (principal); E87.1 Hypo-osmolality and hyponatremia; E78.2 Mixed hyperlipidemia; I10 Essential (primary) hypertension; E03.9 Hypothyroidism, unspecified; I25.10 Atherosclerotic heart disease of native coronary artery without angina pectoris; Z72.0 Tobacco use; J18.9 Pneumonia, unspecified organism; E10.40 Type 1 diabetes mellitus with diabetic neuropathy, unspecified; I48.91 Unspecified atrial fibrillation
CPT/HCPCS: 36415; 71045; 80048; 80053; 81001; 82009; 82803; 82962; 83036; 83735; 84484; 85025; 87636; 93005; 99291; G0378; J1956

== ENCOUNTER 2023-07-18 19:48 | Outpatient (CLI) | payer MEDICARE, SELFPAY ==
[2023-07-18 20:14] LABS: Basophils # 0.1 K/mm3 (0-0.2); Basophils % 0.9 % (0.1-2.0); Eosinophils # 0.5 K/mm3 (0.0-0.4); Eosinophils % 6.5 % (0.1-12.0); Hematocrit 42.9 % (42.0-52.0); Hemoglobin 13.6 g/dL (14.1-18.0); Lymphocytes % 26.1 % (10-50); Mean Corpuscular HGB Conc 31.7 g/dL (31.8-35.4); Mean Corpuscular Hemoglobin 32.2 pg (27.0-31.2); Mean Corpuscular Volume 101.7 fl (80-94); Mean Platelet Volume 9.7 fl (7.4-10.4); Monocytes # 0.8 K/mm3 (0.1-1.0); Monocytes % 10.8 % (1.7-9.3); Neutrophils # 4.2 K/mm3 (1.8-7.8); Neutrophils % 55.8 % (37.0-80.0); Platelet Count 328 K/mm3 (142-424); Red Blood Count 4.22 M/mm3 (4.60-6.20); Red Cell Distribution Width 15.6 % (11.5-17.5); White Blood Count 7.5 K/mm3 (4.8-10.8)
[2023-07-18 20:35] LABS: Alanine Aminotransferase 22 U/L (12-78); Albumin Level 4.1 g/dl (3.5-5.0); Albumin/Globulin Ratio 1.4 (1.1-1.8); Alkaline Phosphatase 205 U/L (38-126); Anion Gap 15.4 mEq/L (5-15); Aspartate Amino Transferase 31 U/L (17-59); Bilirubin,Total 0.6 mg/dl (0.2-1.3); Blood Urea Nitrogen 8 mg/dl (9-20); Calcium 9.3 mg/dl (8.4-10.2); Carbon Dioxide 26 mmol/L (22.0-30.0); Chloride 97 mmol/L (98-107); Estimated Glomerular Filt Rate 73 ml/min (>60); GFR (African American) 89 ML/MIN (>60); Glucose 162 mg/dl (74-100); Potassium 5.4 mmoL/L (3.5-5.1); Sodium 133 mmol/L (136-145); Total Protein,Serum 7.1 g/dl (6.3-8.2)
[2023-07-18 20:52] LABS: 25-OH Vitamin D, Total 35.9 ng/mL (30-100)
[2023-07-18 21:36] LABS: Ferritin 68.7 ng/ml (17.9-464)
== END 2023-07-18 23:59 ==
LOC: LAB.DROPOF 19:50
PROVIDERS: PCP Internal Medicine; Visit Provider Internal Medicine
DX: E03.9 Hypothyroidism, unspecified (principal); E78.2 Mixed hyperlipidemia; E55.9 Vitamin D deficiency, unspecified; E61.1 Iron deficiency; R53.83 Other fatigue; Z68.24 Body mass index [BMI] 24.0-24.9, adult
CPT/HCPCS: 80053; 82306; 82728; 85025

== ENCOUNTER 2023-10-17 16:18 | Outpatient (CLI) | payer MEDICARE, SELFPAY ==
--- NOTE | 2023-10-17 16:19 | MR_ITS ---
FINAL REPORT CLINICAL HISTORY: blackouts / dizzy spells on 10/15/23 brain fog 16 ml prohance given FINDINGS: Multiplanar MR imaging of the brain was performed without and with contrast. There is mild age-appropriate atrophy. Scattered foci of increased T2 signal are seen in the cerebral white matter that have a nonspecific appearance but likely represent mild chronic ischemic/gliotic changes. There is no evidence of intracranial hemorrhage or mass. No abnormal ventricular dilatation is identified. There is no evidence of shift of the midline structures. No abnormal extra-axial fluid collection is seen. No area of abnormal restricted diffusion is identified. The posterior fossa and brainstem have an unremarkable appearance. No abnormal contrast enhancement is seen. Normal major vessel vascular flow voids are seen. IMPRESSION: Mild atrophy and chronic ischemic/gliotic changes. No acute intracranial abnormality. Authenticated and ERN
[2023-10-17 16:49] LABS: Blood Urea Nitrogen 9 mg/dl (9-20); Estimated Glomerular Filt Rate 83 ml/min (>60); GFR (African American) 100 ML/MIN (>60)
[2023-10-17] MEDS: SODIUM CHLORIDE 0.9% 10ML SYR (RAD ONLY) 10 ML IV (17:43)
[2023-10-17] MEDS: GADOTERIDOL INJ 20ML SYRINGE 16 ML IV (17:43)
== END 2023-10-17 23:59 | disposition home or self-care (01) ==
LOC: RAD 16:19
PROVIDERS: PCP Internal Medicine; Visit Provider Internal Medicine
DX: R55 Syncope and collapse (principal); R53.83 Other fatigue
CPT/HCPCS: 36415; 70553; 82565; 84520; A9576

== ENCOUNTER 2023-11-28 09:22 | Outpatient (CLI) | payer MEDICARE, SELFPAY ==
[2023-11-28 18:24] LABS: Basophils # 0.1 K/mm3 (0-0.2); Basophils % 0.8 % (0.1-2.0); Eosinophils # 0.5 K/mm3 (0.0-0.4); Eosinophils % 4.7 % (0.1-12.0); Hematocrit 46.3 % (42.0-52.0); Hemoglobin 14.7 g/dL (14.1-18.0); Lymphocytes # 2.7 K/mm3 (0.7-4.5); Lymphocytes % 26.8 % (10-50); Mean Corpuscular HGB Conc 31.7 g/dL (31.8-35.4); Mean Corpuscular Hemoglobin 31.2 pg (27.0-31.2); Mean Corpuscular Volume 98.5 fl (80-94); Mean Platelet Volume 9.4 fl (7.4-10.4); Monocytes # 0.8 K/mm3 (0.1-1.0); Monocytes % 7.6 % (1.7-9.3); Platelet Count 310 K/mm3 (142-424); Red Cell Distribution Width 14.6 % (11.5-17.5); White Blood Count 9.9 K/mm3 (4.8-10.8)
[2023-11-28 19:03] LABS: Alanine Aminotransferase 16 U/L (12-78); Albumin/Globulin Ratio 1.3 (1.1-1.8); Alkaline Phosphatase 145 U/L (38-126); Anion Gap 12.2 mEq/L (5-15); Aspartate Amino Transferase 24 U/L (17-59); Bilirubin,Total 0.5 mg/dl (0.2-1.3); Blood Urea Nitrogen 13 mg/dl (9-20); Calcium 9.5 mg/dl (8.4-10.2); Carbon Dioxide 28 mmol/L (22.0-30.0); Chloride 95 mmol/L (98-107); Chol/HDL Ratio 2.6 (1-3.5); Cholesterol 169 mg/dl (140-200); Estimated Glomerular Filt Rate 66 ml/min (>60); GFR (African American) 79 ML/MIN (>60); Globulin 3.2 g/dL (1.3-3.2); Glucose 223 mg/dl (74-100); HDL Cholesterol 64 mg/dl (40-60); Potassium 5.2 mmoL/L (3.5-5.1); Sodium 130 mmol/L (136-145); Total Protein,Serum 7.2 g/dl (6.3-8.2); Triglycerides 92 mg/dl (30-150); VLDL Cholesterol 18 mg/dL (0-40)
[2023-11-28 19:14] LABS: Direct LDL Cholesterol 81.18 mg/dL (100-129)
[2023-11-28 19:34] LABS: Thyroid Stimulating Hormone 8.41 uIU/mL (0.465-4.68)
[2023-11-28 19:59] LABS: Hemoglobin A1C 7.9 % (4.0-6.0)
== END 2023-11-28 23:59 | disposition home or self-care (01) ==
LOC: LAB.DROPOF 11-29 09:23
PROVIDERS: PCP Internal Medicine; Visit Provider Internal Medicine
DX: R53.1 Weakness (principal); I10 Essential (primary) hypertension; E10.9 Type 1 diabetes mellitus without complications; E03.9 Hypothyroidism, unspecified; E78.5 Hyperlipidemia, unspecified; Z79.4 Long term (current) use of insulin; F17.210 Nicotine dependence, cigarettes, uncomplicated
CPT/HCPCS: 80050; 80053; 80061; 83036; 84443; 85025

== ENCOUNTER 2023-12-10 18:01 | Emergency (ER) | payer MEDICARE, SELFPAY ==
[2023-12-10 18:30] VITALS: BP 130/63; PULSE 76; RESP 20; TEMP 37.2; O2SAT 96; BMI 23.7
--- NOTE | 2023-12-10 18:39 | ED_ITS ---
Discharge Plan Disposition Patient Disposition: Home, Self-Care Condition: Good Prescriptions Prescriptions: New amoxicillin 875 mg tablet 875 mg PO Q12H Qty: 20 0RF No Action atorvastatin 40 mg tablet 40 mg PO HS cholecalciferol (vitamin D3) 50 mcg (2,000 unit) capsule 50 mcg PO DAILY 90 Days Qty: 90 4RF eszopiclone [Lunesta] 2 mg tablet 2 mg PO HS Qty: 30 1RF aspirin [Adult Low Dose Aspirin] 81 mg tablet,delayed release (DR/EC) 81 mg PO DAILY Qty: 100 12RF isosorbide mononitrate 30 mg tablet extended release 24 hr 30 mg PO BID tamsulosin 0.4 mg capsule 0.4 mg PO DAILY Qty: 30 2RF clopidogrel 75 mg tablet See Rx Instructions .ROUTE .COMPLEX Qty: 90 3RF Dose Instruction: TAKE 1 TABLET EVERY DAY Rx Instructions: TAKE 1 TABLET EVERY DAY ondansetron 8 mg tablet,disintegrating 8 mg PO Q8H PRN (Reason: nausea and vomiting) Qty: 20 0RF finasteride 5 mg tablet See Rx Instructions .ROUTE .COMPLEX Qty: 30 1RF Dose Instruction: TAKE ONE TABLET BY MOUTH EVERY DAY Rx Instructions: TAKE ONE TABLET BY MOUTH EVERY DAY methadone 5 mg tablet 7.5 mg PO BID 30 Days Qty: 90 0RF oxycodone 15 mg tablet 15 mg PO Q4H PRN (Reason: pain) 30 Days Qty: 120 0RF levothyroxine 75 mcg tablet 75 mcg PO DAILY Qty: 30 0RF nitroglycerin 0.4 mg tablet, sublingual 0.4 mg sublingual Q5MINP PRN (Reason: Chest Pain) Patient Comments: DISSOLVE 1 TABLET UNDER THE TONGUE EVERY 5 MINUTES NEEDED FOR CHEST PAIN. DO NOT EXCEED A TOTAL OF 3 DOSES IN 15 MINUTES. IF NO RELIEF AFTER 3 DOSES CALL 911/GO TO ER metoprolol succinate 25 mg tablet extended release 24 hr 25 mg PO DAILY insulin aspart U-100 [Novolog FlexPen U-100 Insulin] 100 unit/mL (3 mL) insulin pen 10 unit SQ TID 30 Days Qty: 15 3RF insulin glargine [Lantus Solostar U-100 Insulin] 100 unit/mL (3 mL) insulin pen 40 unit SQ HS 30 Days Qty: 12 0RF Patient Comments: INJECT 35 UNITS SUBCUTANEOUSLY EVERY DAY Referrals Follow up/Referrals: Peppin,Jordi F, DO [Primary Care Provider] - See instructions Activity Restrictions/Add. Instructions Additional Instructions/Restrictions: Take tylenol or ibuprofen for pain. Follow up with your dentist in the morning as you plan to do. I sent in a prescription for amoxicillin (antibiotics) to your pharmacy for you to start tomorrow. If your dentist instructs you to do anything different make sure you follow their directions instead of mine. Follow up with your regular doctor. GO TO THE ER FOR ANY WORSENING SYMPTOMS Clinical Impressions Clinical Impression: Dental abscess, Pain, dental Instructions Patient Instructions: DI for Tooth Abscess Print Language Print Language: [place] Discharge ED Provider: Elmer Li [facility] General Stated complaint: dental pain Time Seen by Provider: 12/10/23 18:39 Related Data Home Medications ?Medication ?Instructions ?Recorded ?Confirmed atorvastatin 40 mg tablet 40 mg PO HS Cholesterol 05/04/22 11/28/23 isosorbide mononitrate 30 mg 30 mg PO BID Chest Pain 03/06/23 11/28/23 tablet,extended release 24 hr metoprolol succinate 25 mg 25 mg PO DAILY High Blood Pressure 06/16/23 11/28/23 tablet,extended release 24 hr nitroglycerin 0.4 mg sublingual 0.4 mg sublingual Q5MINP PRN Chest 06/16/23 11/28/23 tablet Pain Previous Rx's ?Medication ?Instructions ?Recorded aspirin 81 mg tablet,delayed 81 mg PO DAILY heart health #100 01/16/22 release (Adult Low Dose Aspirin) tabs insulin aspart U-100 100 unit/mL 10 unit (0.1 mL) SQ TID Diabetes 06/17/23 (3 mL) subcutaneous pen (Novolog 30 days #15 mL FlexPen U-100 Insulin aspart) insulin glargine 100 unit/mL (3 40 unit (0.4 mL) SQ HS Diabetes 30 06/17/23 mL) subcutaneous pen (Lantus days #12 mL Solostar U-100 Insulin) cholecalciferol (vitamin D3) 50 50 mcg PO DAILY 90 days #90 caps 07/18/23 mcg (2,000 unit) capsule tamsulosin 0.4 mg capsule 0.4 mg PO DAILY #30 caps 07/31/23 clopidogrel 75 mg tablet See Rx Instructions .Route 09/05/23 .COMPLEX #90 tabs ondansetron 8 mg disintegrating 8 mg PO Q8H PRN nausea and 09/24/23 tablet vomiting #20 tabs eszopiclone 2 mg tablet (Lunesta) 2 mg PO HS #30 tabs 11/06/23 finasteride 5 mg tablet See Rx Instructions .Route 11/19/23 .COMPLEX #30 tabs methadone 5 mg tablet 7.5 mg (1.5 x 5 mg) PO BID 30 days 12/09/23 #90 tabs oxycodone 15 mg tablet 15 mg PO Q4H PRN pain 30 days #120 12/09/23 tabs amoxicillin 875 mg tablet 875 mg PO Q12H #20 tabs 12/10/23 levothyroxine 75 mcg tablet 75 mcg PO DAILY #30 tabs 12/10/23 Allergies Allergy/AdvReac Type Severity Reaction Status Date / Time nicotine [From [facility] ] Allergy Verified 11/28/23 10:33 adhesive AdvReac Mild Blister Verified 11/28/23 10:33 [facility] Disclaimer: The information contained in this section may have been updated after the patient was seen, as this information can be updated by other users. Medical History Cataracts, bilateral Heart attack Migraine Incidental pulmonary nodule Degenerative joint disease of both hips Osteopenia Abnormal resting ECG findings LV dysfunction Patient has not followed with cardiology. Will consider discussing this with him at his next visit. Coronary artery disease History of cataract History of left heart catheterization Diabetes mellitus type 1 Hyperlipidemia Vitamin D deficiency Surgical History History of cataract surgery History of neck surgery History of tonsillectomy History of cholecystectomy Family History Other Vitamin D deficiency Social History Smoking Status: Former smoker tobacco type: cigarettes packs per day: 1 years smoked: 15 second hand exposure: No alcohol intake: never counseling provided: none substance use type: denies use current occupational status: retired and other Travel in the last 8 weeks: None household members: none housing: house marital status: number of children: 2 current occupational exposures/hazards: No caffeine: Yes ROS Obtained: Yes All systems reviewed & no additional complaints except as documented Constitutional Constitutional: Denies chills and Denies fever(s) Eyes Eyes: Denies eye discharge ENT Ears, Nose, Mouth, and Throat: Denies dizziness, Denies otalgia and Denies sore throat Cardiovascular Cardiovascular: Denies chest pain Respiratory Respiratory: Denies shortness of breath, Denies chest congestion, Denies cough, Denies stridor and Denies wheezing Gastrointestinal Gastrointestingal: Denies nausea or vomiting Musculoskeletal Musculoskeletal: Reports system reviewed and no additional complaints, except as documented and Denies arthralgias Integumentary/Breasts Skin/Breast: Denies rash Neurologic Neurologic: Denies dizziness and Denies paresthesias Allergic/Immunologic Allergic/Immunologic: Denies wheezing Physical Exam General General appearance: alert and in no apparent distress Head Head exam: atraumatic, normocephalic and normal inspection Eye Eye exam: Present normal appearance, PERRL and EOMI ENT ENT exam: Present mucous membranes moist, TM's normal bilaterally and normal external ear exam Expanded ENT Exam Nose exam: Absent sinus tenderness Nasal speculum exam: Bilateral: normal Mouth exam: Present normal external inspection; Absent drooling Teeth exam: Present dental caries, fractured tooth #, dental tenderness # and gingival swelling Throat exam: Present normal inspection Neck Neck exam: Present normal inspection, full ROM and trachea midline; Absent meningismus or lymphadenopathy Chest Chest inspection: Present normal inspection and symmetric chest wall rise; Absent tenderness Respiratory Respiratory exam: Present normal lung sounds bilaterally; Absent respiratory distress Cardiovascular Cardiovascular exam: Present regular rate and normal rhythm; Absent JVD Abdominal Exam Abdominal exam: Present soft and normal bowel sounds; Absent distention, tenderness or guarding Extremities Exam Extremities exam: Present normal inspection, full ROM and normal capillary refill; Absent calf tenderness Back Exam Back exam: Present normal inspection; Absent tenderness Neurological Exam Neurological exam: Present alert and oriented X3 Psychiatric Psychiatric exam: Present normal affect and normal mood Skin Skin exam: Present warm, dry, intact and normal color Lymphatic Lymphatic Findings: no adenopathy Medical Decision Making Medical Records Medical records reviewed: No I reviewed the patient's medical records. Syd Inquiry Pt receiving controlled substance: No
[2023-12-10] MEDS: cefTRIAXone 1GM VIAL 1 GM IM (18:53)
[2023-12-10] MEDS: LIDOCAINE 1% 5ML PF VIAL IM (18:53)
[2023-12-10 19:05] VITALS: BP 130/63; PULSE 76; RESP 20; TEMP 37.2; O2SAT 96
== END 2023-12-10 19:09 | disposition home or self-care (01) ==
PROVIDERS: Emergency Provider Nurse Practitioner Family; PCP Internal Medicine
DX: K04.7 Periapical abscess without sinus (principal); K08.89 Other specified disorders of teeth and supporting structures
CPT/HCPCS: 96372; 99212; 99214; G0463; J0696

== ENCOUNTER 2023-12-31 15:08 | Emergency (ER) | payer MEDICARE, SELFPAY ==
--- NOTE | 2023-12-31 15:11 | ECG_ITS ---
APPROVED REPORT Exam: Resting ECG HR:57 bpm ECG Measurements Heart Rate 57 AXES PA 161 P 71 QRSd 116 QRS 15 QT 443 T 61 QTc 436 Conclusion Sinus bradycardia Electronically signed by : GRETA PÉREZ, 12/31/2023 21:30:09
--- NOTE | 2023-12-31 15:14 | [facility].EDCP ---
Discharge Plan Disposition Patient Disposition: Left Against Medical Advice Chief Complaint: Recheck/Abnormal Lab/Rx Prescriptions Prescriptions: No Action atorvastatin 40 mg tablet 40 mg PO HS cholecalciferol (vitamin D3) 50 mcg (2,000 unit) capsule 50 mcg PO DAILY 90 Days Qty: 90 4RF eszopiclone [Lunesta] 2 mg tablet 2 mg PO HS Qty: 30 1RF oxycodone 15 mg tablet 15 mg PO Q4H MDD No> 3 per day PRN (Reason: pain) 30 Days Qty: 90 0RF methadone 5 mg tablet 7.5 mg PO TID 30 Days Qty: 120 0RF Rx Instructions: Take 3 times a day 1 and 1/2 tablets (7.5 mg) in the morning, 1 tablet (5 mg) in the afternoon, 1 and 1/2 tablets (7.5 mg) in the evening. aspirin [Adult Low Dose Aspirin] 81 mg tablet,delayed release (DR/EC) 81 mg PO DAILY Qty: 100 12RF isosorbide mononitrate 30 mg tablet extended release 24 hr 30 mg PO BID tamsulosin 0.4 mg capsule 0.4 mg PO DAILY Qty: 30 2RF clopidogrel 75 mg tablet See Rx Instructions .ROUTE .COMPLEX Qty: 90 3RF Dose Instruction: TAKE 1 TABLET EVERY DAY Rx Instructions: TAKE 1 TABLET EVERY DAY ondansetron 8 mg tablet,disintegrating 8 mg PO Q8H PRN (Reason: nausea and vomiting) Qty: 20 0RF finasteride 5 mg tablet See Rx Instructions .ROUTE .COMPLEX Qty: 30 1RF Dose Instruction: TAKE ONE TABLET BY MOUTH EVERY DAY Rx Instructions: TAKE ONE TABLET BY MOUTH EVERY DAY levothyroxine 75 mcg tablet 75 mcg PO DAILY Qty: 30 0RF nitroglycerin 0.4 mg tablet, sublingual 0.4 mg sublingual Q5MINP PRN (Reason: Chest Pain) Patient Comments: DISSOLVE 1 TABLET UNDER THE TONGUE EVERY 5 MINUTES NEEDED FOR CHEST PAIN. DO NOT EXCEED A TOTAL OF 3 DOSES IN 15 MINUTES. IF NO RELIEF AFTER 3 DOSES CALL 911/GO TO ER metoprolol succinate 25 mg tablet extended release 24 hr 25 mg PO DAILY insulin aspart U-100 [Novolog FlexPen U-100 Insulin] 100 unit/mL (3 mL) insulin pen 10 unit SQ TID 30 Days Qty: 15 3RF insulin glargine [Lantus Solostar U-100 Insulin] 100 unit/mL (3 mL) insulin pen 40 unit SQ HS 30 Days Qty: 12 0RF Patient Comments: INJECT 35 UNITS SUBCUTANEOUSLY EVERY DAY Referrals Follow up/Referrals: Provider,Referral, MD [Referring] - See instructions Activity Restrictions/Add. Instructions Additional Instructions/Restrictions: Call your family doctor to establish care for this visit to the emergency department and schedule follow-up within 48 hours to ensure improvement. If you have any worsening of your condition or any other concerning signs or symptoms, return to the emergency department or your primary care doctor for further evaluation. Clinical Impressions Clinical Impression: Light-headedness, Tingling of left upper extremity Print Language Print Language: Chinese Discharge ED Provider: Tito Harris HPI <BREANNA Landrum - Last Filed: 12/31/23 15:16> General Chief Complaint: Recheck/Abnormal Lab/Rx Stated Complaint: chest pain Time Seen by Provider: 12/31/23 15:14 Related Data Home Medications ?Medication ?Instructions ?Recorded ?Confirmed atorvastatin 40 mg tablet 40 mg PO HS Cholesterol 05/04/22 12/31/23 isosorbide mononitrate 30 mg 30 mg PO BID Chest Pain 03/06/23 12/31/23 tablet,extended release 24 hr metoprolol succinate 25 mg 25 mg PO DAILY High Blood Pressure 06/16/23 12/31/23 tablet,extended release 24 hr nitroglycerin 0.4 mg sublingual 0.4 mg sublingual Q5MINP PRN Chest 06/16/23 12/31/23 tablet Pain Previous Rx's ?Medication ?Instructions ?Recorded aspirin 81 mg tablet,delayed 81 mg PO DAILY [employer] #100 01/16/22 release (Adult Low Dose Aspirin) tabs insulin aspart U-100 100 unit/mL 10 unit (0.1 mL) SQ TID Diabetes 06/17/23 (3 mL) subcutaneous pen (Novolog 30 days #15 mL FlexPen U-100 Insulin aspart) insulin glargine 100 unit/mL (3 40 unit (0.4 mL) SQ HS Diabetes 30 06/17/23 mL) subcutaneous pen (Lantus days #12 mL Solostar U-1
--- NOTE | 2023-12-31 15:24 | XR_ITS ---
FINAL REPORT CLINICAL HISTORY: diapohor esis, LH, LUE tingling COMPARISON: 06/16/2023 FINDINGS: A single view of the chest was obtained. The heart is normal in size. The mediastinum is unremarkable. There is a right lung base. Previously noted right lower lobe airspace infiltrate has resolved. The left lung is clear. There is no pleural effusion. There is no pneumothorax. There is no acute osseous abnormality. IMPRESSION: Scarring in the right lung base with no acute pulmonary abnormality. Reviewed, Interpreted and Dictated by Aubrey Goldberg MD Transcribed by Myrna Beck Authenticated and [facility]
[2023-12-31 15:27] VITALS: BP 182/73; PULSE 59; RESP 20; TEMP 36.8; O2SAT 99; BMI 24.4
[2023-12-31 15:33] LABS: Lactate Venous 1.9 mmol/L (0.4-2.0); VBG Base Excess 0.2 mmol/L (-2.4-2.3); VBG PCO2 49.5 mmol/L (35-51); VBG PH 7.34 mmol/L (7.31-7.41); VBG PO2 35.5 mmol/L (28-40); VBG Total CO2 27.5 mmol/L (23-27)
[2023-12-31 15:34] LABS: Basophils # 0.1 K/mm3 (0-0.2); Basophils % 0.6 % (0.1-2.0); Eosinophils # 0.2 K/mm3 (0.0-0.4); Eosinophils % 1.8 % (0.1-12.0); Hematocrit 46.4 % (42.0-52.0); Hemoglobin 14.7 g/dL (14.1-18.0); Lymphocytes # 1.9 K/mm3 (0.7-4.5); Lymphocytes % 21.8 % (10-50); Mean Corpuscular HGB Conc 31.6 g/dL (31.8-35.4); Mean Corpuscular Hemoglobin 31.3 pg (27.0-31.2); Mean Corpuscular Volume 99.3 fl (80-94); Mean Platelet Volume 8.7 fl (7.4-10.4); Monocytes # 0.6 K/mm3 (0.1-1.0); Monocytes % 7.2 % (1.7-9.3); Neutrophils # 5.9 K/mm3 (1.8-7.8); Neutrophils % 68.6 % (37.0-80.0); Platelet Count 288 K/mm3 (142-424); Red Blood Count 4.68 M/mm3 (4.60-6.20); Red Cell Distribution Width 14.5 % (11.5-17.5); White Blood Count 8.6 K/mm3 (4.8-10.8)
[2023-12-31 15:49] LABS: Alanine Aminotransferase 19 U/L (12-78); Albumin/Globulin Ratio 1.2 (1.1-1.8); Alkaline Phosphatase 168 U/L (38-126); Anion Gap 8.3 mEq/L (5-15); Aspartate Amino Transferase 31 U/L (17-59); Bilirubin,Total 0.8 mg/dl (0.2-1.3); Blood Urea Nitrogen 8 mg/dl (9-20); Carbon Dioxide 27 mmol/L (22.0-30.0); Chloride 100 mmol/L (98-107); Creatinine Clearance Estimated 74 mL/min (50-200); Estimated Glomerular Filt Rate 95 ml/min (>60); GFR (African American) 115 ML/MIN (>60); Globulin 3.4 g/dL (1.3-3.2); Glucose 238 mg/dl (74-100); Potassium 4.3 mmoL/L (3.5-5.1); Sodium 131 mmol/L (136-145); Total Protein,Serum 7.4 g/dl (6.3-8.2)
[2023-12-31 15:59] LABS: NT Pro Brain Natriuretic Pep. 408 pg/mL (0-125); Troponin I < 0.01 ng/ml (0.00-0.034)
[2023-12-31 16:13] LABS: Activated Partial Thrombo Time 30.2 seconds (22.8-30.6)
[2023-12-31 16:55] VITALS: BP 180/71; PULSE 56; RESP 18; TEMP 36.8; O2SAT 100
--- NOTE | 2023-12-31 16:56 | PC.NURSE ---
PT WANTS TO LEAVE AMA, STATES I KNOW MY BODY AND I'M NOT HAVING A HEART ATTACK. LONG DISCUSSION WITH DR PÉREZ. PT V/U. AMBULATORY OFF UNIT AT THIS TIME
== END 2023-12-31 16:55 | disposition left against medical advice (07) ==
PROVIDERS: Emergency Provider Emergency Medicine; PCP Internal Medicine
DX: R20.2 Paresthesia of skin (principal); R42 Dizziness and giddiness; E87.1 Hypo-osmolality and hyponatremia; E10.65 Type 1 diabetes mellitus with hyperglycemia; R00.1 Bradycardia, unspecified; F17.210 Nicotine dependence, cigarettes, uncomplicated; I10 Essential (primary) hypertension; E78.5 Hyperlipidemia, unspecified; Z86.79 Personal history of other diseases of the circulatory system; Z95.5 Presence of coronary angioplasty implant and graft; Z79.4 Long term (current) use of insulin
CPT/HCPCS: 71045; 80053; 82803; 83036; 83880; 84484; 85025; 85730; 93005; 99284

== ENCOUNTER 2024-01-16 10:19 | Outpatient (CLI) | payer MEDICARE, SELFPAY ==
[2024-01-16 19:31] LABS: Creatinine,Urine Random 98 mg/dL (Not Estab.)
== END 2024-01-16 23:59 | disposition home or self-care (01) ==
LOC: LAB.DROPOF 01-17 14:41
PROVIDERS: PCP Internal Medicine; Visit Provider Internal Medicine
DX: E10.9 Type 1 diabetes mellitus without complications (principal)
CPT/HCPCS: 82043; 82570

== ENCOUNTER 2024-01-20 02:29 | Emergency (ER) | payer MEDICARE, SELFPAY ==
--- NOTE | 2024-01-20 02:29 | ED_ITS ---
Discharge Plan Disposition Patient Disposition: Home, Self-Care Condition: Good Prescriptions Prescriptions: New lidocaine 5 % adhesive patch,medicated 1 patch topical DAILY PRN (Reason: pain) Qty: 30 0RF Rx Instructions: leave on most painful area for up to 12 hrs methocarbamol 500 mg tablet 1,000 mg PO Q6H PRN (Reason: pain) Qty: 30 0RF No Action atorvastatin 40 mg tablet 40 mg PO HS cholecalciferol (vitamin D3) 50 mcg (2,000 unit) capsule 50 mcg PO DAILY 90 Days Qty: 90 4RF eszopiclone [Lunesta] 2 mg tablet 2 mg PO HS Qty: 30 1RF oxycodone 15 mg tablet 15 mg PO Q4H MDD No> 3 per day PRN (Reason: pain) 30 Days Qty: 90 0RF aspirin [Adult Low Dose Aspirin] 81 mg tablet,delayed release (DR/EC) 81 mg PO DAILY Qty: 100 12RF isosorbide mononitrate 30 mg tablet extended release 24 hr 30 mg PO BID insulin glargine [Lantus Solostar U-100 Insulin] 100 unit/mL (3 mL) insulin pen 45 unit SQ HS Patient Comments: INJECT 35 UNITS SUBCUTANEOUSLY EVERY DAY amoxicillin 500 mg capsule 500 mg PO TID 14 Days Qty: 42 0RF tamsulosin 0.4 mg capsule 0.4 mg PO DAILY Qty: 30 2RF clopidogrel 75 mg tablet See Rx Instructions .ROUTE .COMPLEX Qty: 90 3RF Dose Instruction: TAKE 1 TABLET EVERY DAY Rx Instructions: TAKE 1 TABLET EVERY DAY ondansetron 8 mg tablet,disintegrating 8 mg PO Q8H PRN (Reason: nausea and vomiting) Qty: 20 0RF finasteride 5 mg tablet See Rx Instructions .ROUTE .COMPLEX Qty: 30 1RF Dose Instruction: TAKE ONE TABLET BY MOUTH EVERY DAY Rx Instructions: TAKE ONE TABLET BY MOUTH EVERY DAY levothyroxine 75 mcg tablet 75 mcg PO DAILY Qty: 30 0RF methadone 5 mg tablet 5 mg PO QID 30 Days Qty: 120 0RF Rx Instructions: Take 1 and 1/2 tablets (7.5 mg) in the morning, 1 tablet (5 mg) in the afternoon, 1 and 1/2 tablets (7.5 mg) in the evening. nitroglycerin 0.4 mg tablet, sublingual 0.4 mg sublingual Q5MINP PRN (Reason: Chest Pain) Patient Comments: DISSOLVE 1 TABLET UNDER THE TONGUE EVERY 5 MINUTES NEEDED FOR CHEST PAIN. DO NOT EXCEED A TOTAL OF 3 DOSES IN 15 MINUTES. IF NO RELIEF AFTER 3 DOSES CALL 911/GO TO ER metoprolol succinate 25 mg tablet extended release 24 hr 25 mg PO DAILY insulin aspart U-100 [Novolog FlexPen U-100 Insulin] 100 unit/mL (3 mL) insulin pen 10 unit SQ TID 30 Days Qty: 15 3RF Activity Restrictions/Add. Instructions Additional Instructions/Restrictions: Please follow-up with your primary care provider. Please return to the emergency department if you develop any new or worsening symptoms or become concerned for your health. Please use Tylenol, muscle relaxers, lidocaine patches, topical therapy as needed for pain. Clinical Impressions Clinical Impression: Neck pain Instructions Patient Instructions: DI for Neck Pain Print Language Print Language: Kinyarwanda Discharge ED Provider: Alfred [facility] Adult HPI General Chief complaint: Neck Pain/Injury Stated complaint: Neck Pain, no trauma Time Seen by Provider: 01/20/24 02:29 History of Present Illness HPI narrative: 73-year-old male with history of type 1 diabetes, history of of neck fracture with hardware placement in the cervical spine approximately 20 years ago, presents for neck pain. He reports that his largely posterior lateral in location, sharp in nature, worse with movement. He reports he first noticed it when he woke up from sleeping couple of days ago and has been gradually worsening. He came in tonight because it is severe enough that he is unable to sleep. He denies any numbness or weakness in the arms or legs. Denies any recent trauma. He is on large doses of chronic pain medication that have been unsuccessful in resolving his symptoms. Related Data Home Medications ?Medication ?Instructions ?Recorded ?Confirmed atorvastatin 40 mg tablet 40 mg PO HS Cholesterol 05/04/22 01/16/24 isosorbide mononitrate 30 mg 30 mg PO BID Chest Pain 03/06/23 01/16/24 tablet,extended release 24 hr metoprolol succinate 25 mg 25 mg PO DAILY High Blood Pressure 06/16/23 01/16/24 tablet,extended release 24 hr nitroglycerin 0.4 mg sublingual 0.4 mg sublingual Q5MINP PRN Chest 06/16/23 01/16/24 tablet Pain insulin glargine 100 unit/mL (3 45 unit SQ HS Diabetes 01/16/24 01/16/24 mL) subcutaneous pen (Lantus Solostar U-100 Insulin) Previous Rx's ?Medication ?Instructions ?Recorded aspirin 81 mg tablet,delayed 81 mg PO DAILY [facility] #100 01/16/22 release (Adult Low Dose Aspirin) tabs insulin aspart U-100 100 unit/mL 10 unit (0.1 mL) SQ TID Diabetes 06/17/23 (3 mL) subcutaneous pen (Novolog 30 days #15 mL FlexPen U-100 Insulin aspart) cholecalciferol (vitamin D3) 50 50 mcg PO DAILY 90 days #90 caps 07/18/23 mcg (2,000 unit) capsule tamsulosin 0.4 mg capsule 0.4 mg PO DAILY #30 caps 07/31/23 clopidogrel 75 mg tablet See Rx Instructions .Route 09/05/23 .COMPLEX #90 tabs ondansetron 8 mg disintegrating 8 mg PO Q8H PRN nausea and 09/24/23 tablet vomiting #20 tabs eszopiclone 2 mg tablet (Lunesta) 2 mg PO HS #30 tabs 11/06/23 finasteride 5 mg tablet See Rx Instructions .Route 11/19/23 .COMPLEX #30 tabs levothyroxine 75 mcg tablet 75 mcg PO DAILY #30 tabs 12/10/23 oxycodone 15 mg tablet 15 mg PO Q4H PRN pain 30 days #90 12/31/23 tabs methadone 5 mg tablet 5 mg PO QID 30 days #120 tabs 01/10/24 amoxicillin 500 mg capsule 500 mg PO TID 14 days #42 caps 01/16/24 lidocaine 5 % topical patch 1 patch topical DAILY PRN pain #30 01/20/24 ea methocarbamol 500 mg tablet 1,000 mg (2 x 500 mg) PO Q6H PRN 01/20/24 pain #30 tabs Allergies Allergy/AdvReac Type Severity Reaction Status Date / Time nicotine [From [facility] Allergy Verified 01/16/24 10:16 adhesive AdvReac Mild Blister Verified 01/16/24 10:16 PFS PFS Disclaimer: The information contained in this section may have been updated after the patient was seen, as this information can be updated by other users. Medical History Cataracts, bilateral Heart attack Migraine Incidental pulmonary nodule Degenerative joint disease of both hips Osteopenia Abnormal resting ECG findings LV dysfunction Patient has not followed with cardiology. Will consider discussing this with him at his next visit. Coronary artery disease History of cataract History of left heart catheterization Diabetes mellitus type 1 Hyperlipidemia Vitamin D deficiency Surgical History History of cataract surgery History of neck surgery History of tonsillectomy History of cholecystectomy Family History Other Vitamin D deficiency Social History Smoking Status: Current every day smoker tobacco type: cigarettes packs per day: 1 years smoked: 15 second hand exposure: No alcohol intake: never counseling provided: none substance use type: denies use current occupational status: retired and other Travel in the last 8 weeks: None household members: none housing: house marital status: number of children: 2 current occupational exposures/hazards: No caffeine: Yes ROS Obtained: Yes All systems reviewed & no additional complaints except as documented Physical Exam General General appearance: alert and in no apparent distress Head Head exam: atraumatic and normocephalic Eye Eye exam: Present normal appearance, PERRL and EOMI ENT ENT exam: Present normal oropharynx and normal external ear exam Neck Neck exam: Present other (Mild tenderness in the posterior lateral left neck. Patient has limited range of motion of the neck secondary to pain.) Chest Chest inspection: Present normal inspection and symmetric chest wall rise; Absent tenderness Respiratory Respiratory exam: Present normal lung sounds bilaterally; Absent respiratory distress Cardiovascular Cardiovascular exam: Present regular rate and normal rhythm Abdominal Exam Abdominal exam: Present soft; Absent distention, tenderness or guarding Extremities Exam Extremities exam: Present normal inspection; Absent edema or joint swelling Back Exam Back exam: Present normal inspection; Absent tenderness Neurological Exam Neurological exam: Present alert and oriented X3; Absent motor sensory deficit Psychiatric Psychiatric exam: Present normal affect and normal mood Skin Skin exam: Present warm, dry and normal color Lymphatic Lymphatic Findings: no adenopathy Medical Decision Making Medical Records Medical records reviewed: Yes I reviewed the patient's medical records. Syd Inquiry Pt receiving controlled substance: No Syd was queried for this patient: No Vital Signs: 01/20/24 02:33 01/20/24 02:36 01/20/24 03:45 Temperature 99.4 F Temperature Source Temporal Artery Scan Pulse Rate 81 64 Pulse Rate [Right Radial] 65 Respiratory Rate 18 Blood Pressure 109/91 L 110/84 Blood Pressure [Right Arm] 109/91 L Blood Pressure Mean [Right Arm] 97 Blood Pressure Source Blood Pressure Source [Right Arm] Automatic Cuff Blood Pressure Position 02 Sat by Pulse Oximetry 97 97 93 L Oxygen Delivery Method Room Air 01/20/24 04:41 Temperature 98.3 F Temperature Source Oral Pulse Rate 62 Pulse Rate [Right Radial] Respiratory Rate 18 Blood Pressure 173/67 H Blood Pressure [Right Arm] Blood Pressure Mean [Right Arm] Blood Pressure Source Automatic Cuff Blood Pressure Source [Right Arm] Blood Pressure Position Supine 02 Sat by Pulse Oximetry Oxygen Delivery Method Room Air Lab Data Lab results reviewed: Yes I reviewed the patient's lab results. Orders (Tests/Meds): ED MEDICATIONS Discontinued Medications Generic Name Dose Route Start Last Admin Trade Name Freq PRN Reason Stop Dose Admin Acetaminophen 1,000 mg 01/20/24 03:47 01/20/24 03:53 Acetaminophen 500mg Tab PO 01/20/24 03:48 1,000 mg ONCE ONE Administration Cyclobenzaprine HCl 10 mg 01/20/24 02:37 01/20/24 02:50 Cyclobenzaprine 10mg Tablet PO 01/20/24 02:38 10 mg ONCE ONE Administration Hydromorphone HCl 2 mg 01/20/24 02:37 01/20/24 02:51 Hydromorphone 2mg/Ml Syringe IM 01/20/24 02:38 2 mg ONCE ONE Administration Ketorolac Tromethamine 30 mg 01/20/24 03:47 01/20/24 03:53 Ketorolac 30mg/Ml Vial IM 01/20/24 03:48 30 mg ONCE ONE Administration Lidocaine 1 each 01/20/24 02:37 01/20/24 02:51 Lidocaine 5% Transdermal Patch TP 01/20/24 02:38 1 each ONCE ONE Administration ORDERS Category Date Time Status CT cervical spine wo con Stat Cat Scan 01/20/24 02:37 Completed Medical Decision Narrative: 73-year-old male with distant history of neck trauma and hardware placement presents for days of worsening neck pain. History was obtained via interactive discussion with patient, EMS. On arrival, patient is [afebrile, hemodynamically stable, satting appropriately, alert, oriented x4, GCS 15], moving all extremities spontaneously. Full physical exam performed and significant for no midline cervical tenderness, mild left paraspinal tenderness Differential includes but is not limited to fracture, dislocation, hardware failure, muscle spasm, neuroforaminal narrowing, spinal cord pathology. Patient was given Dilaudid, Flexeril, lidocaine patch for symptomatic management and correction of underlying abnormalities. Workup initiated including CT C- spine.. On re-evaluation, patient [remains afebrile, HD stable.] Reports some symptomatic improvement after medications. Imaging independently interpreted by me and significant for no evidence of hardware failure or acute pathology. See radiology read for full review of final results. MRI was considered, but deemed unnecessary due to no evidence of spinal cord pathology at this time. Given patient history, exam and workup, patient's presentation most likely represents muscle spasm/strain. These findings were communicated with patient and he was discharged with prescription for muscle relaxers and lidocaine patches. Procedures Risk/Benefits of Procedure(s) Were Explained: Yes Critical Care Critical Care Time Critical Care Time: No
[2024-01-20 02:33] VITALS: BP 109/91; PULSE 81; O2SAT 97
[2024-01-20 02:36] VITALS: BP 109/91; PULSE 65; RESP 18; TEMP 37.4; O2SAT 97; BMI 24.4
--- NOTE | 2024-01-20 02:37 | CT_ITS ---
PROCEDURE INFORMATION: Exam: CT Cervical Spine Without Contrast Exam date and time: 01/20/2024 2:51 AM Age: 73 years old Clinical indication: Neck pain; Additional info: 2 days atraumatic neck pain, HX prior fusion TECHNIQUE: Imaging protocol: Computed tomography of the cervical spine without contrast. Radiation optimization: All CT scans at this facility use at least one of these dose optimization techniques: automated exposure control; mA and/or kV adjustment per patient size (includes targeted exams where dose is matched to clinical indication); or iterative reconstruction. COMPARISON: MR HEAD/BRAIN WO/W CON 10/17/2023 4:53 PM FINDINGS: Bones: The patient is status post anterior fusion at C5 and C6. ?Diffuse cervical spondylosis is noted. Hypertrophic changes of the facet present bilaterally. Discs/Spinal canal/Neural foramina: Narrowing of multiple intervertebral disc spaces are seen. Moderate neural foraminal narrowing is also noted. Lungs: Lung apices are normal. Vasculature: No obvious traumatic injury is seen. Soft tissues: Unremarkable. IMPRESSION: 1. No evidence of acute traumatic injury. 2. Diffuse cervical spondylosis.
[2024-01-20] MEDS: CYCLOBENZAPRINE 10MG TABLET 10 MG PO (02:50)
[2024-01-20] MEDS: LIDOCAINE 5% TRANSDERMAL PATCH 1 EACH TP (02:51)
[2024-01-20] MEDS: HYDROMORPHONE 2MG/ML SYRINGE 2 MG IM (02:51)
[2024-01-20 03:45] VITALS: BP 110/84; PULSE 64; O2SAT 93
[2024-01-20] MEDS: KETOROLAC 30MG/ML VIAL 30 MG IM (03:53)
[2024-01-20] MEDS: ACETAMINOPHEN 500MG TAB 1000 MG PO (03:53)
[2024-01-20 04:41] VITALS: BP 173/67; PULSE 62; RESP 18; TEMP 36.8; O2SAT 98
== END 2024-01-20 04:49 | disposition home or self-care (01) ==
PROVIDERS: Emergency Provider Emergency Medicine; PCP Internal Medicine
DX: M54.2 Cervicalgia (principal); Z87.81 Personal history of (healed) traumatic fracture
CPT/HCPCS: 72125; 96372; 99284; J1170; J1885